=== PATIENT | female | born 1955 | race Caucasian/White ===

== ENCOUNTER 2018-04-28 01:27 | Outpatient (CLI) | payer MEDICAID, SELFPAY ==
[2018-04-28 14:45] LABS: ALT 15 U/L (12-78); AST 13 U/L (15-37); Albumin 3.8 g/dL (3.4-5.0); Alkaline Phosphatase 85 U/L (46-116); Anion Gap 8.4 mmol/L (3-11); BUN 22 mg/dL (7-18); Bilirubin, Total 0.5 mg/dL (0.2-1.0); CO2 29.6 mmol/L (21.0-32.0); CREATININE 0.89 mg/dL (0.55-1.02); Calcium 9.4 mg/dL (8.5-10.1); Chloride 105 mmol/L (98-107); Cholesterol 180 mg/dL (50-200); Glucose 94 mg/dL (70-100); HDL Cholesterol 77 mg/dL (40-60); LDL CHOLESTEROL 76 mg/dL (<100); Potassium 4.6 mmol/L (3.5-5.1); Sodium 143 mmol/L (136-145); Total Protein 6.9 g/dL (6.4-8.2); Triglyceride 113 mg/dL (30-150)
== END 2018-04-28 01:47 ==
DX: E03.9 Hypothyroidism, unspecified (principal); E87.6 Hypokalemia; F32.9 Major depressive disorder, single episode, unspecified; I10 Essential (primary) hypertension; Z13.220 Encounter for screening for lipoid disorders; Z00.00 Encounter for general adult medical examination without abnormal findings; Z86.39 Personal history of other endocrine, nutritional and metabolic disease
CPT/HCPCS: 36415; 80053; 80061; 83721

== ENCOUNTER 2018-12-01 16:34 | Observation (INO) | payer MEDICARE, MEDICAID, SELFPAY ==
[2018-12-01 16:39] VITALS: BP 162/110; PULSE 82; RESP 18; TEMP 36.5; O2SAT 98
--- NOTE | 2018-12-01 16:46 | NUR.NOTE ---
Nursing Note: Pt unable to confirm medications, states she has been taking all prescribed meds.
--- NOTE | 2018-12-01 17:25 | NUR.NOTE ---
Nursing Note: was in patients room to wand her body to ensure there were no dangerous objects in her possessions or anywhere on her person. Patient requested to stay in her street clothes because she already has a hard time getting around.
--- NOTE | 2018-12-01 17:26 | W.ED.GENAD ---
Discharge Plan Disposition Patient Disposition: [facility] INPATIENT Condition: Stable Discharge Details Chief Complaint: PsychEval Clinical Impression: Depression with suicidal ideation Admit Date/Time: 12/01/18 22:19 Admit Provider: Adriel Herrera Attending Provider: Adriel Herrera Primary Care Provider: Genesis Mitchell ED Provider: Sonido Hernandez Medical Decision Making Patient presenting to the emergency department for chief complaint of severe depression and suicidal thoughts. Patient states that she has had ongoing depression for years now and recently had her Prozac increased within the last month. Over the last 3 days she is noted to have significant increase in depressive thoughts and feelings, states that she does not want to go on anymore, and having thoughts of suicide without plan. Patient denies any medical complaints. Physical exam is unremarkable. Plan to do screening labs and consult acute psych screener for screening for possible need of admission given worsening depression and suicidal thoughts. Labs are reviewed and CBC is unremarkable, CMP unremarkable, negative alcohol and no elevation of salicylate or acetaminophen. Patient medically clear for psych eval. After medical evaluation patient is agreeable to voluntary admission for inpatient psych services which I feel she would benefit from given worsening of symptoms acutely along with now having suicidal ideations which is not her norm. Due to patient not having acceptance and approaching evening I did contact Dr. Herrera hospitalist for inpatient admission pending psychiatric bed availability. Patient was agreeable to this plan. HPI General Mode of arrival: ambulatory. Date/Time Provider Initiated Documentation: 12/01/18 16:43. Limitations to Documentation: no limitations. Information obtained by: patient, RN notes reviewed and old records reviewed. History of Present Illness 63 year old F presents to the emergency department with the chief complaint of Severe depression, suicidal thoughts, Quality is described as other (Denies pain or medical complaints), Patient started experiencing this day(s) (3) Patient notes no other symptoms.. Patient did receive the following treatments prior to arrival, none Related Data Home Medications Medication Instructions Recorded Confirmed lancets [FreeStyle Lancets] #100 ea 02/11/15 11/30/18 FreeStyle Lite Strips #100 strip 09/10/16 11/30/18 lamotrigine 25 mg tablet 50 mg PO BID tab 11/25/17 11/30/18 ondansetron 4 mg oral soluble film 4 mg PO Q4H PRN each 11/25/17 11/30/18 acetaminophen-caffeine 500 mg-65 2 tab PO Q6H PRN #90 tab 05/01/18 11/30/18 mg tablet allopurinol 300 mg tablet 300 mg PO DAILY #30 tab 05/01/18 11/30/18 brexpiprazole 3 mg tablet 3 mg PO DAILY 05/01/18 11/30/18 cholecalciferol (vitamin D3) 1,000 1,000 unit PO DAILY #30 cap 05/01/18 11/30/18 unit capsule pantoprazole 40 mg tablet,delayed 40 mg PO DAILY #30 tab 05/01/18 11/30/18 release simvastatin 40 mg tablet 40 mg PO QPM #30 tab 05/01/18 11/30/18 diazepam 5 mg tablet 5 mg PO TID tab 11/30/18 11/30/18 fluoxetine 20 mg capsule 30 mg PO DAILY cap 11/30/18 11/30/18 halobetasol propionate 0.05 % 1 applic TP BID #50 gm 11/30/18 11/30/18 topical ointment nystatin 100,000 unit/gram topical 1 applic TP TID 11/30/18 11/30/18 powder Previous Rx's Medication Instructions Recorded acetaminophen-caffeine 500 mg-65 2 tab PO Q6H PRN #90 tab 05/01/18 mg tablet allopurinol 300 mg tablet 300 mg PO DAILY #30 tab 05/01/18 cholecalciferol (vitamin D3) 1,000 1,000 unit PO DAILY #30 cap 05/01/18 unit capsule pantoprazole 40 mg tablet,delayed 40 mg PO DAILY #30 tab 05/01/18 release simvastatin 40 mg tablet 40 mg PO QPM #30 tab 05/01/18 halobetasol propionate 0.05 % 1 applic TP BID #50 gm 11/30/18 topical ointment Allergies Allergy/AdvReac Type Severity Reaction Status Date / Time codeine AdvReac Intermediate NAUSEA/DIZZ Verified 12/01/18 16:46 INESS General Stated Complaint: PsychEval JAMILA: 2 Review of Systems Constitutional Constitutional: Denies body ache(s), Denies chills and Denies fever(s) Cardiovascular Cardiovascular: Denies chest pain and Denies dyspnea Respiratory Respiratory: Denies cough and Denies dyspnea Gastrointestinal Gastrointestinal: Denies abdominal pain, Denies diarrhea, Denies nausea and Denies vomiting Genitourinary Genitourinary: Denies dysuria Psychiatric Psychiatric: Reports as per HPI, Reports depression, Denies homicidal ideation and Reports suicidal ideation [facility] Medical History Acute gout of right ankle (Acute 12/06/14) Depressive disorder (Chronic) bipolar 02/25-[facility] Diabetes mellitus (Chronic 09/10/14) Gallstones Gastritis presumed (improved symptoms on omeprazole) Headache (Acute) secondary to scoliosis & neck muscle spasm Hernia of abdominal wall Hyperlipidemia (Chronic 08/17/12) Hypokalemia (Acute 09/06/17) Hypomagnesemia (Acute 09/15/12) Idiopathic scoliosis (Acute) w/ Chronic LBP; surgery-1969,1971, 1990, 1995, 1997 ([facility]) Increased BMI (body mass index) (Chronic 03/28/17) Neck pain (Acute) w/ muscle spasm, secondary to scoliosis Pain in wrist (Acute 02/17/06) left; [place] [facility] [place] Psoriasis (Acute 04/16/13) Right shoulder pain (Acute 09/10/14) Right upper quadrant abdominal tenderness (Acute 09/06/17) Right upper quadrant abdominal tenderness with rebound tenderness (Acute 09/06/17) Sensorineural hearing loss, bilateral (Chronic 10/13/15) Systolic murmur (Acute) Tubular adenoma (Acute 08/09/16) Vitamin D deficiency (Acute 08/17/12) Surgical History Colonoscopy - IV Sedation (08/09/16) Hysterectomy, Laproscopic Family History Mother No problems noted. Father No problems noted. Sister No problems noted. Sister No problems noted. Sister No problems noted. Brother No problems noted. Grandfather No problems noted. Grandfather No problems noted. Grandmother Personal history of malignant neoplasm BREAST Grandmother No problems noted. Son No problems noted. Son No problems noted. Son Mental disorder Depression Social History Smoking/Tobacco Use Status: Never Alcohol Intake: current Alcohol Intake frequency: a few times a month Drug use: Never Substance use type: does not use Do you feel safe at home: Yes Do you feel safe in your relationship?: Yes Exam Const General: cooperative Orientation: alert, awake and oriented x3 Limitations: mental status not altered [facility] Head: normal to inspection, normocephalic and atraumatic Ears: hearing grossly normal bilaterally Mouth: moist mucous membranes Eyes General: appearance normal, both eyes and all related structures Pupils: PERRL EOM: EOM intact bilaterally Neck Thyroid: thyroid normal Resp Effort & Inspection: normal respiratory effort, able to speak in complete sentences and no respiratory distress Auscultation: clear to auscultation bilaterally Cardio Rate: regular rate and not tachycardic Rhythm: regular rhythm Heart Sounds: S1 normal, S2 normal, no click, no gallops, no murmurs and no rubs Neuro General: alert, awake, oriented x3, gait normal and moves all extremities Psych Speech and Movement: speech and movement normal and speech clear Affect: sad Attitude: cooperative Thought Process: normal Thought Content: no hallucinations, no homicidality, no obsessions, no phobias and suicidality (Without plan) Course Vital Signs Vital signs: Vital Signs Temperature 36.5 C 12/01/18 16:39 Pulse 82 12/01/18 16:39 Respiratory Rate 18 12/01/18 16:39 Blood Pressure 162/110 H 12/01/18 16:39 Pulse Oximetry 98 12/01/18 16:39 Temperature 36.5 C 12/01/18 16:39 Temperature Source Tympanic 12/01/18 16:39 Pulse 82 12/01/18 16:39 Respiratory Rate 18 12/01/18 16:39 Respiratory Effort Non-Labored 12/01/18 16:45 Blood Pressure 162/110 H 12/01/18 16:39 Blood Pressure Position Sitting 12/01/18 16:39 Pulse Oximetry 98 12/01/18 16:39 Oxygen Delivery Method Room Air 12/01/18 16:39 Oxygen Flow Rate 0 12/01/18 16:39 Pain Level 0 12/01/18 16:39
[2018-12-01 17:33] LABS: Abs Immature Grans 0.01 k/cumm (0.0-0.09); Absolute Basophil Count 0.03 k/cumm (0.0-0.2); Absolute Eosinophil Count 0.11 k/cumm (0.0-0.7); Absolute Lymphocyte Count 1.46 k/cumm (1.2-3.4); Absolute Monocyte Count 0.48 k/cumm (0.11-0.7); Absolute Neutrophil Count 5.58 k/cumm (1.2-6.7); Basophils % 0.4; Eosinophils % 1.4; HCT 37.2 % (36.0-46.0); HGB 12.3 g/dL (12.0-15.5); Immature Grans % 0.1; Mean Corp. HGB Concentration 33.1 g/dL (32.0-36.0); Mean Corpuscular Hemoglobin 30.8 pg (27.0-33.0); Mean Corpuscular Volume 93.2 fL (80-95); Mean Platelet Volume 9.6 fL (8.0-11.0); Monocytes % 6.3; Neutrophils % 72.8; Platelet Count 264 x1000/uL (130-400); RBC 3.99 m/cumm (4.00-5.20); RBC Distribution Width 13.3 % (11.7-14.6); White Blood Cell Count 7.67 k/cumm (4.4-10.8)
[2018-12-01 17:53] LABS: ALT 17 U/L (14-59); AST 14 U/L (15-37); Albumin 4.3 g/dL (3.4-5.0); Alkaline Phosphatase 83 U/L (46-116); Anion Gap 9.9 mmol/L (3-11); BUN 15 mg/dL (7-18); Bilirubin, Total 0.7 mg/dL (0.2-1.0); CO2 28.1 mmol/L (21.0-32.0); CREATININE 1.01 mg/dL (0.55-1.02); Calcium 9.6 mg/dL (8.5-10.1); Chloride 105 mmol/L (98-107); Estimated GFR 55.01 (mL/min/1.73m2); Glucose 111 mg/dL (70-100); Potassium 4.1 mmol/L (3.5-5.1); Sodium 143 mmol/L (136-145); TSH 2.34 uIU/mL (0.36-3.74); Total Protein 7.8 g/dL (6.4-8.2)
--- NOTE | 2018-12-01 18:10 | NUR.NOTE ---
Addendum entered by Erinn Gabriel 12/01/18 18:11: son has returned now. right after note was complete. Original Note: Nursing Note: Patient is in with mental health currently. Son and friend have left the room currently
[2018-12-01 18:12] LABS: ETHANOL BLOOD < 3.0 mg/dL (<3); Salicylate < 2.8 mg/dL (2.8-20.0)
[2018-12-01 18:13] LABS: Acetaminophen < 2 ug/mL (10-30)
--- NOTE | 2018-12-01 18:46 | PDOC.ERCMPRO ---
Care Management Progress Note S/O: Jackelin lives alone at her apartment in [place]. 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 States she has been feeling depressed. Recently learned she is losing some of her benefits because she has too much money in the bank. Has been thinking of suicide. Met with her Psychiatrist this week and medications were increased but she does not feel that was helpful. She does not have an actual plan but does not feel safe to return home. Requesting inpatient psychiatric admission to get help with medication management for her depression. FriendKiah, and one of her sons are here and very supportive. VOLUNTARY FOR INPATIENT PSYCHIATRIC STABILIZATION. Jackelin has been calm, cooperative and appropriate in all interactions since arriving at [facility]; she has demonstrated appropriate coping and communication skills, has articulated her needs and concerns and is fully engaged during staff interactions. Huddle Participants: Juan [facility] Sales Order Coordinator, Keiko, Behavioral Consultant, SUSHILA Klein Time and Date: 12/01/18 19:30 Safety plan has been established with patient, and care team, to adhere to patient goals, identify restrictions based on behavioral status, address nutrition, and determine allowed personal belongings, tools for hygiene and personal care. Determine level of activity including ambulation, level of supervision, visitors, and determine privileges based on behaviors and level of engagement by pt. SAFETY PLAN: ED Room #9 WB 12/01/181929 1. Will remain on suicide precautions and has refused to change into paper scrubs. Has been wanded and will remain in her clothes. 2. Will remain in room under direct supervision of one-on-one staff at all times provided by CPSO, DRE, HOOP ROLLS OPERATOR pricing supervisor. 3. May have paper cups, plates, finger foods as well as a safety spoon with which to eat meals. 4. Follow [facility] Management of the Admitted Behavioral Health Patient policy. 5. Comfort bath system only. 6. No personal belongings other than her clothes and phone in her room tonight. 7. May use phone. Charge outside of the room. 8. FriendKiah and sons may visit. 9. Staff escort to bathroom 10. Nursing Social Media Content Specialist to coordinate any decision for change in location to the M/S Transition Bed based on staffing and bed availability. TV Privileges/Remote privileges at discretion of Nursing if moved to the Transition Bed. 11. Voluntary Status. [facility] Sales Order Coordinator must be contacted to evaluate again if she would like to leave prior to exiting ` the building. [facility] QMHP/Sales Order Coordinator will be coordinating placement at inpatient facility, last updates included the following: [place] [facility] [facility] or tomorrow. Referrals have been made. Patient is currently voluntarily at [facility] and seeking inpatient admission when a bed becomes available. [facility] Frontline Sales Order Coordinator will continue seeking placement. Please contact the Babcock Tester Home Care Manager Rn ([phone]) and [facility] Sales Order Coordinator ([phone]) for any needed changes in the Safety Plan. Safety plan has been provided to interdepartmental care team including Clinical Coordinator , Nursing Social Media Content Specialist.
--- NOTE | 2018-12-01 18:50 | PDOC.MHCN_ITS ---
Date of service: 12/01/18 Time of Service: 18:00 Mental Health Crisis Note Presenting Issue How did you arrive at the ED and why did you come: Patient arrived at the ED due to suicidal feelings. Precipitating Factors Patient stated that she doesn't feel like she wants to go on anymore. Patient shared that she has been feeling depressed that past few days. Patient spoke with her psychiatrist and inquired about changing medication as feelings of SI increased, patients medication was increased rather than changed and patient feels that was not helpful. Patient denies HI and hallucinations. Disposition BEHAVIOR: cooperative EYE CONTACT: good MOOD: depressed AFFECT: flat APPETITE: not eating, Patient stated that she has not eaten or drank all day SLEEP(trouble falling/staying asleep: not sleeping Plan Patient agreed to go to a psychiatric hospital for medication management to decrease her depression. Referrals have been sent to [facility], [place], and [facility] for review as all three places have beds. Patient will remaine at [facility] awaiting placement. Signature Clinician's Name/Title: Juan Caban Emergency clinician
--- NOTE | 2018-12-01 19:45 | CMSP_ITS ---
Care Management Safety Plan Safety plan has been established with patient, and care team, to adhere to patient goals, identify restrictions based on behavioral status, address nutrition, and determine allowed personal belongings, tools for hygiene and personal care. Determine level of activity including ambulation, level of supervision, visitors, and determine privileges based on behaviors and level of engagement by pt. SAFETY PLAN: ED Room #9 12/01/18 1930 1. Will remain on suicide precautions and has refused to change into paper scrubs. Has been wanded and will remain in her clothes. 2. Will remain in room under direct supervision of one-on-one staff at all times provided by CPSO, DRE, ACTIVITIES CONCIERGE dictaphone operator. 3. May have paper cups, plates, finger foods as well as a safety spoon with which to eat meals. 4. Follow [facility] Management of the Admitted Behavioral Health Patient policy. 5. Comfort bath system only. 6. No personal belongings other than her clothes and phone in her room tonight. 7. May use phone. Charge outside of the room. 8. Friend, Kiah Sampson and sons may visit. 9. Staff escort to bathroom 10. Nursing Twisting Frame Fixer to coordinate any decision for change in location to the M/S Transition Bed based on staffing and bed availability. TV Privileges/Remote privileges at discretion of Nursing if moved to the Transition Bed. 11. Voluntary Status. [facility] Desktop Specialist must be contacted to evaluate again if she would like to leave prior to exiting ` the building. [facility] QMHP/Desktop Specialist will be coordinating placement at inpatient facility, last updates included the following: * Beds may be available at [facility], [place] and [facility] or tomorrow. Referrals have been made. Patient is currently voluntarily at [facility] and seeking inpatient admission when a bed becomes available. [facility] Frontline Desktop Specialist will continue seeking pl acement. Please contact the Forensic Dna Analyst Drafter Refrigeration ([phone]) and [facility] Desktop Specialist ([phone]) for any needed changes in the Safety Plan. Safety plan has been provided to interdepartmental care team including Clinical Coordinator , Nursing Twisting Frame Fixer.
--- NOTE | 2018-12-01 19:45 | PDOC.CMSAFED ---
Care Management Safety Plan Safety plan has been established with patient, and care team, to adhere to patient goals, identify restrictions based on behavioral status, address nutrition, and determine allowed personal belongings, tools for hygiene and personal care. Determine level of activity including ambulation, level of supervision, visitors, and determine privileges based on behaviors and level of engagement by pt. SAFETY PLAN: ED Room #9 12/01/18 1930 1. Will remain on suicide precautions and has refused to change into paper scrubs. Has been wanded and will remain in her clothes. 2. Will remain in room under direct supervision of one-on-one staff at all times provided by CPSO, DRE, SEED POTATO ARRANGER assistant county attorney. 3. May have paper cups, plates, finger foods as well as a safety spoon with which to eat meals. 4. Follow [facility] Management of the Admitted Behavioral Health Patient policy. 5. Comfort bath system only. 6. No personal belongings other than her clothes and phone in her room tonight. 7. May use phone. Charge outside of the room. 8. Friend, Kiah Sampson and sons may visit. 9. Staff escort to bathroom 10. Nursing Esters And Emulsifiers Supervisor to coordinate any decision for change in location to the M/S Transition Bed based on staffing and bed availability. TV Privileges/Remote privileges at discretion of Nursing if moved to the Transition Bed. 11. Voluntary Status. [facility] Director Digital Sales must be contacted to evaluate again if she would like to leave prior to exiting ` the building. [facility] QMHP/Director Digital Sales will be coordinating placement at inpatient facility, last updates included the following: B[facility] [place] be available at [facility] [facility] [place] [facility]. Referrals have been made. Patient is currently voluntarily at [facility] and seeking inpatient admission when a bed becomes available. [facility] Frontline Director Digital Sales will continue seeking placement. Please contact the Telemedicine Physician Director Of Broadcast ([phone]) and [facility] Director Digital Sales ([phone]) for any needed changes in the Safety Plan. Safety plan has been provided to interdepartmental care team including Clinical Coordinator , Nursing Esters And Emulsifiers Supervisor.
[2018-12-01 20:19] LABS: Bilirubin Negative (Negative); Blood Negative (Negative); Clarity Clear (Clear); Glucose Negative (Negative); Ketones Negative (Negative); Leukocyte Esterase Trace (Negative); Nitrite Negative (Negative); Specific Gravity 1.015 (1.005-1.025); Urobilinogen 0.2 EU/dL (Up TO 0.2); pH 5.5 (5-8)
[2018-12-01 20:28] LABS: *AMPHETAMINES SCREEN URINE Negative (Negative); *BARBITURATES SCREEN URINE Negative (Negative); *BENZODIAZEPINES SCREEN URINE POSITIVE (Negative); Cannabinoids THC Negative (Negative); Cocaine Screen,Urine Negative (Negative); METHADONE URINE SCREEN Negative (Negative); OPIATES URINE SCREEN Negative (Negative)
[2018-12-01 20:30] LABS: Bacteria Rare HPF (Negative); C & S Indicated? Yes; Casts 3-5 Hyaline LPF (Negative); Crystals Negative HPF (Negative); Epithelial Cells Few HPF (Negative); Mucus Negative (Negative); RBC 0-2 (0-2); Tricyclic Antidepressants Negative (Negative)
--- NOTE | 2018-12-01 22:11 | HPE_ITS ---
Date of service: 12/01/18 Time of Service: 22:11 Assessment and Plan Assessment and plan (1) Depression: Status: Chronic Assessment and plan: Depression. Will maintain on current regimen pending transfer to psych facility. Will maintain on suicide precautions. Usual meds as is otherwise. Will recheck BP as most recent was elevated. History of Present Illness History of Present Illness Chief Complaint: depression Narrative: 63 female with long h/o depression. Reports escalating symptoms past few weeks. Prozac was increased, but without benefit. Here tonight feeling she cannot go on. Suicidal thoughts, no plan. medically cleared, agreeable to voluntary psychiatric adm ission, no beds accepted so admitted here pending availability. Review of Systems Review of Systems ROS Unobtainable: All systems reviewed & are unremarkable except as noted in HPI and below [facility] Medical History Acute gout of right ankle (Acute 12/06/14) Depressive disorder (Chronic) bipolar 02/25-[facility] Diabetes mellitus (Chronic 09/10/14) Gallstones Gastritis presumed (improved symptoms on omeprazole) Headache (Acute) secondary to scoliosis & neck muscle spasm Hernia of abdominal wall Hyperlipidemia (Chronic 08/17/12) Hypokalemia (Acute 09/06/17) Hypomagnesemia (Acute 09/15/12) Idiopathic scoliosis (Acute) w/ Chronic LBP; surgery-1969,1971, 1990, 1995, 1997 ([facility]) Increased BMI (body mass index) (Chronic 03/28/17) Neck pain (Acute) w/ muscle spasm, secondary to scoliosis Pain in wrist (Acute 02/17/06) left; MRI [facility] [place] Psoriasis (Acute 04/16/13) Right shoulder pain (Acute 09/10/14) Right upper quadrant abdominal tenderness (Acute 09/06/17) Right upper quadrant abdominal tenderness with rebound tenderness (Acute 09/06/17) Sensorineural hearing loss, bilateral (Chronic 10/13/15) Systolic murmur (Acute) Tubular adenoma (Acute 08/09/16) Vitamin D deficiency (Acute 08/17/12) Surgical History Colonoscopy - IV Sedation (08/09/16) Hysterectomy, Laproscopic Family History Mother No problems noted. Father No problems noted. Sister No problems noted. Sister No problems noted. Sister No problems noted. Brother No problems noted. Grandfather No problems noted. Grandfather No problems noted. Grandmother Personal history of malignant neoplasm BREAST Grandmother No problems noted. Son No problems noted. Son No problems noted. Son Mental disorder Depression Social History Smoking/Tobacco Use Status: Never Alcohol Intake: current Alcohol Intake frequency: a few times a month Drug use: Never Substance use type: does not use Do you feel safe at home: Yes Do you feel safe in your relationship?: Yes Meds Home Medications and Allergies Home Medications Medication Instructions Recorded Confirmed Type lancets [FreeStyle Lancets] #100 ea 02/11/15 11/30/18 History FreeStyle Lite Strips #100 strip 09/10/16 11/30/18 History lamotrigine 25 mg tablet 50 mg PO BID tab 11/25/17 11/30/18 History ondansetron 4 mg oral soluble film 4 mg PO Q4H PRN each 11/25/17 11/30/18 History acetaminophen-caffeine 500 mg-65 2 tab PO Q6H PRN #90 tab 05/01/18 11/30/18 Rx mg tablet allopurinol 300 mg tablet 300 mg PO DAILY #30 tab 05/01/18 11/30/18 Rx brexpiprazole 3 mg tablet 3 mg PO DAILY 05/01/18 11/30/18 History cholecalciferol (vitamin D3) 1,000 1,000 unit PO DAILY #30 cap 05/01/18 11/30/18 Rx unit capsule pantoprazole 40 mg tablet,delayed 40 mg PO DAILY #30 tab 05/01/18 11/30/18 Rx release simvastatin 40 mg tablet 40 mg PO QPM #30 tab 05/01/18 11/30/18 Rx diazepam 5 mg tablet 5 mg PO TID tab 11/30/18 11/30/18 History fluoxetine 20 mg capsule 30 mg PO DAILY cap 11/30/18 11/30/18 History halobetasol propionate 0.05 % 1 applic TP BID #50 gm 11/30/18 11/30/18 Rx topical ointment nystatin 100,000 unit/gram topical 1 applic TP TID 11/30/18 11/30/18 History powder Allergies Allergy/AdvReac Type Severity Reaction Status Date / Time codeine AdvReac Intermediate NAUSEA/DIZZ Verified 12/01/18 16:46 INESS Exam Narrative Exam Narrative: 36.5 162/110 (prior BP 112-152/60-89), 82, 18. HEENT atraumatic; neck supple; lungs clear; heart RRR; abdomen soft NT; extremities no edema; neuro flat affect, coherent, moves all 4s Results Labs Result diagrams: 12/01/18 17:22 12/01/18 17:22 Labs: Laboratory Results - last 24 hr 12/01/18 12/01/18 12/01/18 17:22 17:22 17:22 WBC 7.67 RBC 3.99 L Hgb 12.3 Hct 37.2 MCV 93.2 MCH 30.8 MCHC 33.1 RDW 13.3 Plt Count 264 MPV 9.6 Immature Gran % 0.1 Neutrophils % 72.8 Lymphocytes % 19.0 Monocytes % 6.3 Eosinophils % 1.4 Basophils % 0.4 Absolute Neutrophils 5.58 Absolute Lymphocytes 1.46 Absolute Monocytes 0.48 Absolute Eosinophils 0.11 Absolute Basophils 0.03 Sodium 143 Potassium 4.1 Chloride 105 Carbon Dioxide 28.1 Anion Gap 9.9 BUN 15 Creatinine 1.01 Estimated GFR/1.73 m2 55.01 Glucose 111 H Calcium 9.6 Total Bilirubin 0.7 AST 14 L ALT 17 Alkaline Phosphatase 83 Total Protein 7.8 Albumin 4.3 TSH 2.34 Urine Color Urine Clarity Urine pH Ur Specific [place] Urine Protein Urine Ketones Urine Blood Urine Nitrite Urine Bilirubin Urine Urobilinogen Ur Leukocyte Esterase Urine RBC Urine WBC Ur Epithelial Cells Urine Crystals Urine Bacteria Urine Casts Urine Mucus Ur Culture Indicated? Urine Glucose Salicylates < 2.8 L Urine Opiates Screen Urine Methadone Screen Acetaminophen < 2 L Ur Barbiturates Screen Ur Tricyclics Screen Ur Amphetamines Screen U Benzodiazepines Scrn Urine Cocaine Screen Ur THC Screen Ethyl Alcohol < 3.0 12/01/18 12/01/18 20:10 20:10 WBC RBC Hgb Hct MCV MCH MCHC RDW Plt Count MPV Immature Gran % Neutrophils % Lymphocytes % Monocytes % Eosinophils % Basophils % Absolute Neutrophils Absolute Lymphocytes Absolute Monocytes Absolute Eosinophils Absolute Basophils Sodium Potassium Chloride Carbon Dioxide Anion Gap BUN Creatinine Estimated GFR/1.73 m2 Glucose Calcium Total Bilirubin AST ALT Alkaline Phosphatase Total Protein Albumin TSH Urine Color Yellow Urine Clarity Clear Urine pH 5.5 Ur Specific [place] 1.015 Urine Protein Negative Urine Ketones Negative Urine Blood Negative Urine Nitrite Negative Urine Bilirubin Negative Urine Urobilinogen 0.2 Ur Leukocyte Esterase Trace H Urine RBC 0-2 Urine WBC 10-20 Ur Epithelial Cells Few Urine Crystals Negative Urine Bacteria Rare Urine Casts 3-5 hyaline Urine Mucus Negative Ur Culture Indicated? Yes Urine Glucose Negative Salicylates Urine Opiates Screen Negative Urine Methadone Screen Negative Acetaminophen Ur Barbiturates Screen Negative Ur Tricyclics Screen Negative Ur Amphetamines Screen Negative U Benzodiazepines Scrn Positive Urine Cocaine Screen Negative Ur THC Screen Negative Ethyl Alcohol Last Vital Signs Temp 36.5 C 12/01/18 16:39 Pulse 82 12/01/18 16:39 Resp 18 12/01/18 16:39 BP 162/110 H 12/01/18 16:39 Pulse Ox 98 12/01/18 16:39
[2018-12-01] MEDS: Acetaminophen 325 MG TAB 650 MG PO (23:30)
[2018-12-01 23:44] VITALS: BP 150/91; PULSE 77; RESP 16; TEMP 36.7; O2SAT 95
--- NOTE | 2018-12-02 07:56 | PHARADMIT ---
Admission Pharmacy Clinical Review DEPRESSION Code Status Full Code Current Weight WGT- 83.9kg Renally Cleared and Narrow Therapeutic Index Meds CrCl~39.8 mL/min Meds-OK QTc Value / Action Taken NONE CURRENT BP Control, Fever BP- 150/91 TmAX-36.7C Electrolytes reviewed Na-143 K+4.1 DVT Prophylaxis none Opiate Usage / Scheduled Bowel Regimen Ordered No No Plt/SCr for Heparin / Enoxaparin Plts-264 SCr-1.01 INR for Warfarin MA H/H stable, WBC/Bands H&H- 12.3/37.2 WBC- 7.67 Antibiotic appropriateness none Cultures and Sensitivities Urine-pending Surgical ABX d/c within 24 hr NA DM control / Insulin Dosing BG-111 Heart Failure (Check EF%) (MOISÉS's, B-Block, Diuretics) none IV to PO Switch No Home Meds Reviewed Yes Home Meds Not Ordered Vit-D, Halobetasol Crm, Nystatin, Comments Manasa Chau
[2018-12-02] MEDS: diazePAM 5 MG TAB PO ×2 (08:25→13:53)
[2018-12-02] MEDS: Allopurinol 300 MG TAB PO (08:26)
[2018-12-02] MEDS: FLUoxetine 10 MG TAB 30 MG PO (08:26)
[2018-12-02] MEDS: Pantoprazole 40 MG TABCR PO (08:26)
[2018-12-02] MEDS: lamoTRIgine 25 MG TAB 50 MG PO (08:27)
[2018-12-02 08:55] VITALS: BP 100/64; PULSE 58; RESP 17; TEMP 36.6; O2SAT 95
--- NOTE | 2018-12-02 12:01 | DSE_ITS ---
DS: Diagnosis Discharge Diagnosis (1) Depression: Start date: 12/02/18 Start time: 12:01 Status: Chronic Asessment and Plan: Transferred to [facility] Discharge Plan Disposition Patient Disposition: [facility] Condition: Stable Discharge Details Chief Complaint: PsychEval Clinical Impression: Depression with suicidal ideation Reason For Visit: DEPRESSION Admit Date/Time: 12/01/18 22:19 Admit Provider: Adriel Herrera Attending Provider: Adriel Herrera Primary Care Provider: Genesis Mitchell [facility] Course: 63 y.o female admitted from [facility] Emergency department with SI, PMH depression. Recently Prozac was increased without benefit. She was having thoughts of Suicide with no intention. She has been medically cleared and is being transferred to [facility] for inpatient admission. She denies CP, SOB, N/V/D. Home Meds and New Rx's Prescriptions: Continued lamotrigine 25 mg tablet 50 mg PO BID RF: 0 ondansetron 4 mg film 4 mg PO Q4H PRNRF: 0 fluoxetine [Prozac] 20 mg capsule 30 mg PO DAILY RF: 0 nystatin 100,000 unit/gram powder 1 applic TP TID RF: 0 Rexulti 3 mg tablet 3 mg PO DAILY RF: 0 allopurinol 300 mg tablet 300 mg PO DAILY Qty: 30 RF: 11 cholecalciferol (vitamin D3) 1,000 unit capsule 1,000 unit PO DAILY Qty: 30 RF: 11 pantoprazole 40 mg tablet,delayed release (DR/EC) 40 mg PO DAILY Qty: 30 RF: 11 simvastatin 40 mg tablet 40 mg PO QPM Qty: 30 RF: 11 Excedrin Tension Headache 500-65 mg tablet 2 tab PO Q6H PRN (Reason: pain) Qty: 90 RF: 6 diazepam 5 mg tablet 5 mg PO TID RF: 0 halobetasol propionate 0.05 % ointment 1 applic TP BID Qty: 50 RF: 1 No Action (DME) lancets [FreeStyle Lancets] 1 EACH misc 1 ea Intradermal BID Qty: 100 RF: 11 (DME) FreeStyle Lite Strips 1 EACH strip 1 ea Miscellaneous BID Qty: 100 RF: 11 Discharge Instructions Instructions: Depression (GEN), Suicide Prevention for Older Adults (GEN) Additional Instructions: You are being transferred to [facility] for voluntary admission. Activity:: Activity as Tolerated Equipment/Supplies:: No Equipment Needed Diet:: As Tolerated Discharge Orders Discharge Orders: Discharge Order (Routine); Ordered 12/02/18 Ordered By: Lali Young DS: Summary Status at Discharge Functional status at discharge: independent ambulation Overall status at discharge: patient is not back to baseline Mental Status: mental status grossly normal and other (depressed) Speech and Movement: speech and movement normal Mood: other (depressed) Affect: normal affect Exam Narrative Exam Narrative: 36.5 162/110 (prior BP 112-152/60-89), 82, 18. HEENT atraumatic; neck supple; lungs clear; heart RRR; abdomen soft NT; extremities no edema; neuro flat affect, coherent, moves all 4s Psych Mental Status: mental status grossly normal and other (depressed) Speech and Movement: speech and movement normal Mood: other (depressed) Affect: normal affect DS: Data Vitals/I&O Vitals and I&O: Vital Signs Temperature 36.6 C 12/02/18 08:55 Temperature Source Temporal Artery Scan 12/02/18 08:55 Pulse 58 L 12/02/18 08:55 Pulse Rhythm Regular 12/02/18 08:59 Respiratory Rate 17 12/02/18 08:55 Respiratory Effort Non-Labored 12/02/18 08:59 Respiratory Depth Normal 12/02/18 08:59 Respiratory Pattern Normal 12/02/18 08:59 Blood Pressure 100/64 12/02/18 08:55 Blood Pressure Position Sitting 12/01/18 16:39 Pulse Oximetry 95 12/02/18 08:55 Oxygen Delivery Method Room Air 12/02/18 08:55 Oxygen Flow Rate 0 12/02/18 08:55 Pain Level 10 12/02/18 08:55 Intake & Output 12/01/18 12/02/18 12/02/18 23:59 11:59 23:59 Intake Total 300 / 300 Balance 300 / 300 Weight 83.915 kg Intake: Oral 300 / 300 Other: Comment voiding in toilet Voiding Methods Toilet Data Completed and Pending Labs on day of discharge: Labs from last 24 hours 12/01/18 12/01/18 12/01/18 20:10 20:10 17:22 WBC 7.67 RBC 3.99 L Hgb 12.3 Hct 37.2 MCV 93.2 MCH 30.8 MCHC 33.1 RDW 13.3 Plt Count 264 MPV 9.6 Immature Gran % 0.1 Neutrophils % 72.8 Lymphocytes % 19.0 Monocytes % 6.3 Eosinophils % 1.4 Basophils % 0.4 Absolute Neutrophils 5.58 Absolute Lymphocytes 1.46 Absolute Monocytes 0.48 Absolute Eosinophils 0.11 Absolute Basophils 0.03 Sodium Potassium Chloride Carbon Dioxide Anion Gap BUN Creatinine Estimated GFR/1.73 m2 Glucose Calcium Total Bilirubin AST ALT Alkaline Phosphatase Total Protein Albumin TSH Urine Color Yellow Urine Clarity Clear Urine pH 5.5 Ur Specific [place] 1.015 Urine Protein Negative Urine Ketones Negative Urine Blood Negative Urine Nitrite Negative Urine Bilirubin Negative Urine Urobilinogen 0.2 Ur Leukocyte Esterase Trace H Urine RBC 0-2 Urine WBC 10-20 Ur Epithelial Cells Few Urine Crystals Negative Urine Bacteria Rare Urine Casts 3-5 hyaline Urine Mucus Negative Ur Culture Indicated? Yes Urine Glucose Negative Salicylates Urine Opiates Screen Negative Urine Methadone Screen Negative Acetaminophen Ur Barbiturates Screen Negative Ur Tricyclics Screen Negative Ur Amphetamines Screen Negative U Benzodiazepines Scrn Positive Urine Cocaine Screen Negative Ur THC Screen Negative Ethyl Alcohol 12/01/18 12/01/18 17:22 17:22 WBC RBC Hgb Hct MCV MCH MCHC RDW Plt Count MPV Immature Gran % Neutrophils % Lymphocytes % Monocytes % Eosinophils % Basophils % Absolute Neutrophils Absolute Lymphocytes Absolute Monocytes Absolute Eosinophils Absolute Basophils Sodium 143 Potassium 4.1 Chloride 105 Carbon Dioxide 28.1 Anion Gap 9.9 BUN 15 Creatinine 1.01 Estimated GFR/1.73 m2 55.01 Glucose 111 H Calcium 9.6 Total Bilirubin 0.7 AST 14 L ALT 17 Alkaline Phosphatase 83 Total Protein 7.8 Albumin 4.3 TSH 2.34 Urine Color Urine Clarity Urine pH Ur Specific [place] Urine Protein Urine Ketones Urine Blood Urine Nitrite Urine Bilirubin Urine Urobilinogen Ur Leukocyte Esterase Urine RBC Urine WBC Ur Epithelial Cells Urine Crystals Urine Bacteria Urine Casts Urine Mucus Ur Culture Indicated? Urine Glucose Salicylates < 2.8 L Urine Opiates Screen Urine Methadone Screen Acetaminophen < 2 L Ur Barbiturates Screen Ur Tricyclics Screen Ur Amphetamines Screen U Benzodiazepines Scrn Urine Cocaine Screen Ur THC Screen Ethyl Alcohol < 3.0 Preliminary micro results at discharge 12/01/18 20:10 Urine Culture - Preliminary Urine - Reflex from Ua Gram Positive Alyx PFSH Medical History Acute gout of right ankle (Acute 12/06/14) Depressive disorder (Chronic) bipolar 02/25-[facility] Diabetes mellitus (Chronic 09/10/14) Gallstones Gastritis presumed (improved symptoms on omeprazole) Headache (Acute) secondary to scoliosis & neck muscle spasm Hernia of abdominal wall Hyperlipidemia (Chronic 08/17/12) Hypokalemia (Acute 09/06/17) Hypomagnesemia (Acute 09/15/12) Idiopathic scoliosis (Acute) w/ Chronic LBP; surgery-1969,1971, 1990, 1995, 1997 ([facility]) Increased BMI (body mass index) (Chronic 03/28/17) Neck pain (Acute) w/ muscle spasm, secondary to scoliosis Pain in wrist (Acute 02/17/06) left; [place] [facility] [place] Psoriasis (Acute 04/16/13) Right shoulder pain (Acute 09/10/14) Right upper quadrant abdominal tenderness (Acute 09/06/17) Right upper quadrant abdominal tenderness with rebound tenderness (Acute 09/06/17) Sensorineural hearing loss, bilateral (Chronic 10/13/15) Systolic murmur (Acute) Tubular adenoma (Acute 08/09/16) Vitamin D deficiency (Acute 08/17/12) Surgical History Colonoscopy - IV Sedation (08/09/16) Hysterectomy, Laproscopic Family History Mother No problems noted. Father No problems noted. Sister No problems noted. Sister No problems noted. Sister No problems noted. Brother No problems noted. Grandfather No problems noted. Grandfather No problems noted. Grandmother Personal history of malignant neoplasm BREAST Grandmother No problems noted. Son No problems noted. Son No problems noted. Son Mental disorder Depression Social History Smoking/Tobacco Use Status: Never Alcohol Intake: current Alcohol Intake frequency: a few times a month Drug use: Never Substance use type: does not use Do you feel safe at home: Yes Do you feel safe in your relationship?: Yes
--- NOTE | 2018-12-02 17:26 | PDOC.CMDIS ---
LACE Index Scoring Tool - Questions: Length of Stay (in days): 1 Acuity (Admit via E.D.?): Yes Comorbidities: Diabetes w/o Complication E.D. Visits: 1 - Answers: Total Score: 6 Risk of Readmission: Low Risk Care Management Discharge Reason for Hospitalization: Depression Discharge Plan: Jackelin will transfer today to [facility] for inpatient Psychiatric admission for stabilization and medication management. Safe Transport has been arranged. She is in agreement with the plan. Patient/Family Education Needs: Discharge instructions
== END 2018-12-02 14:12 | disposition short-term general hospital (02) ==
LOC: ER 22:53 → MS 22:56
PROVIDERS: Admitting Provider General Practice; Emergency Provider Nurse Practitioner Family; Visit Provider Internal Medicine
DX: F32.9 Major depressive disorder, single episode, unspecified (principal); E11.9 Type 2 diabetes mellitus without complications; E78.5 Hyperlipidemia, unspecified
CPT/HCPCS: 36415; 80053; 80307; 99222; 99239; 99285; 80320; 80329; 81003; 81015; 84443; 85025; 87086; 99217; 99219; 99284; G0378

== ENCOUNTER 2019-03-24 21:22 | Emergency (ER) | payer MEDICARE, MEDICAID, SELFPAY ==
[2019-03-24] VITALS (17 sets, daily range): BP systolic 144–171; BP diastolic 83–94; PULSE 67–89; RESP 16–34; TEMP 36.7; O2SAT 94–100
--- NOTE | 2019-03-24 21:45 | NUR.NOTE ---
FATOUMATADylan HeadHarpal from home with c/o overdose. Pt reports she took 21 extra strength excedrin pills this evening for back pain. States she has severe back pain d/t scoliosis. Denies SI/HI. Took pills around dinner, vomited x 1 prior to arrival. Pt anxious, tachypneic, reports nausea. SR on monitor. Abd soft. Old bruising to upper thighs, pt unsure what they are from. #20 to RAC, labs drawn. Pt does not want son to know how many pills she took. Pt arrives with phone, keys and rolling walker/seat.
[2019-03-24 22:03] LABS: Abs Immature Grans 0.03 k/cumm (0.0-0.09); Absolute Basophil Count 0.03 k/cumm (0.0-0.2); Absolute Eosinophil Count 0.06 k/cumm (0.0-0.7); Absolute Lymphocyte Count 1.85 k/cumm (1.2-3.4); Absolute Monocyte Count 0.48 k/cumm (0.11-0.7); Absolute Neutrophil Count 6.01 k/cumm (1.2-6.7); Basophils % 0.4; Eosinophils % 0.7; HCT 37.6 % (36.0-46.0); HGB 12.4 g/dL (12.0-15.5); Immature Grans % 0.4 %; Lymphocytes % 21.9; Mean Corpuscular Hemoglobin 30.6 pg (27.0-33.0); Mean Corpuscular Volume 92.8 fL (80-95); Mean Platelet Volume 9.4 fL (8.0-11.0); Monocytes % 5.7; Neutrophils % 70.9; Platelet Count 318 x1000/uL (130-400); RBC 4.05 m/cumm (4.00-5.20); RBC Distribution Width 13.3 % (11.7-14.6); White Blood Cell Count 8.46 k/cumm (4.4-10.8)
[2019-03-24 22:06] LABS: PTT Activated 23.2 sec (21.0-31.4); Prothrombin Time 9.9 sec (9.3-11.0)
[2019-03-24 22:12] LABS: ALT 11 U/L (14-59); AST 14 U/L (15-37); Alkaline Phosphatase 92 U/L (46-116); Anion Gap 15.3 mmol/L (3-11); BUN 14 mg/dL (7-18); Bilirubin, Total 0.2 mg/dL (0.2-1.0); CO2 26.7 mmol/L (21.0-32.0); CREATININE 0.98 mg/dL (0.55-1.02); Calcium 9.4 mg/dL (8.5-10.1); Chloride 103 mmol/L (98-107); Estimated GFR 56.96 (mL/min/1.73m2); Glucose 166 mg/dL (74-106); Potassium 3.8 mmol/L (3.5-5.1); Sodium 145 mmol/L (136-145); Total Protein 7.8 g/dL (6.4-8.2)
[2019-03-24 22:19] LABS: Lipase 198 U/L (73-393)
[2019-03-24 22:23] LABS: Acetaminophen 56 ug/mL (10-30); Salicylate 26.7 mg/dL (2.8-20.0)
--- NOTE | 2019-03-24 22:48 | NUR.NOTE ---
up to commode unable to give urine spec. +BM. Pt aware of need for urine spec.
--- NOTE | 2019-03-24 23:12 | NUR.NOTE ---
up to commode with 1 assist for large BM.
--- NOTE | 2019-03-24 23:28 | ED.GENADUL_ITS ---
Discharge Plan Disposition Patient Disposition: HOME Condition: Good Discharge Details Chief Complaint: GenMedical Clinical Impression: Unintentional Tylenol overdose, Chronic pain Primary Care Provider: Genesis Mitchell ED Provider: Hira Ayon Outlook Harshas and New Rx's Prescriptions: Continued Rexulti 3 mg tablet 3 mg PO DAILY RF: 0 allopurinol 300 mg tablet 300 mg PO DAILY Qty: 30 RF: 11 cholecalciferol (vitamin D3) 1,000 unit capsule 1,000 unit PO DAILY Qty: 30 RF: 11 pantoprazole 40 mg tablet,delayed release (DR/EC) 40 mg PO DAILY Qty: 30 RF: 11 simvastatin 40 mg tablet 40 mg PO QPM Qty: 30 RF: 11 fluoxetine 20 mg capsule 20 mg PO DAILY RF: 0 gabapentin 100 mg capsule 100 mg PO QHS RF: 0 duloxetine 30 mg capsule,delayed release(DR/EC) 30 mg PO DAILY RF: 0 (DME) lancets [FreeStyle Lancets] 1 EACH misc 1 ea Intradermal BID Qty: 100 RF: 11 (DME) FreeStyle Lite Strips 1 EACH strip 1 ea Miscellaneous BID Qty: 100 RF: 11 lamotrigine 200 mg tablet 300 mg PO DAILY Qty: 45 RF: 11 Discontinued nystatin 100,000 unit/gram powder 1 applic TP TID RF: 0 Excedrin Tension Headache 500-65 mg tablet 2 tab PO Q6H PRN (Reason: pain) Qty: 90 RF: 6 lidocaine 5 % adhesive patch,medicated 1 patch TP DAILY RF: 0 halobetasol propionate 0.05 % ointment 1 applic TP BID Qty: 50 RF: 1 Discharge Instructions Additional Instructions: Please do not use anything which contains aspirin or Tylenol over the rest of the weekend. You may use ibuprofen if needed for pain. Contact primary care Tuesday morning for follow-up for management of chronic pain. Also follow-up with [facility] as discussed with mental health tonight. Return to ED for mental status changes, abdominal pain, persistent vomiting, feeling unsafe. Referrals: Genesis Mitchell, [employer] [Primary Care Provider] - Discharge Data Discharge Date/Time-TO BE ENTERED AT DEPARTURE: 03/25/19 05:50 Medical Decision Making <CINDY Smith - Last Filed: 03/26/19 22:04> Is a pleasant 63-year-old patient who unfortunately is very frustrated with her pain this evening and took 21 extra strength Excedrin tablets all at once at approximately 530 this evening. Patient reports she has been struggling with chronic low back pain secondary to scoliosis. Patient reports in a frustrating moment she took 21 tablets because she was unable to get her pain under control. Patient reports she did realize that this could potentially harm her but she denies any obvious suicidal ideation. My clinical impression is that this yojana ent is likely depressed secondary to her chronic pain however she continues to deny this was a suicide attempt but did have an understanding that this could harm her. Patient reports she vomited approximately 30 to 60 minutes after her ingestion of tablets. Patient denied identifying any pills present in her vomitus at that time. Patient did report multiple episodes of dry heaving since that time. Patient presents via EMS seeking medical attention. Patient denies any new injury or trauma to her back. Patient reports this is typical of her back pain. IV placed, labs ordered. Patient's initial acetaminophen level was 56 and initial salicylate level is 26.7. Nausea medication provided for symptomatic relief, IV fluids ordered. Patient's CBC is unremarkable for acute abnormality, CMP reveals anion gap of 15.3, glucose of 166. Coags normal. Plan of care includes repeating labs to identify trending. Reevaluation of patient reveals no abdominal pain, continues to deny chest pain or difficulty breathing. Nausea persisted therefore Zofran was ordered for symptomatic relief. Patient signed out pending repeat labs. <Hira Ayon MD - Last Filed: 03/25/19 02:55> Patient signed out to me pending repeat Tylenol and aspirin levels which both have come down. Patient with nontoxic levels and medically cleared. Mental health called to see patient. Patient is already a client of theirs. Again not an intentional overdose to harm but more of an unawareness as to the toxicity potential of Tylenol and aspirin. Simply trying to control pain. Mental health will begin process of obtaining case management for patient. Patient gets medications including her psychiatric meds from primary care. Will refer back to primary care for further management of chronic pain. Patient has not to use Tylenol or aspirin over the weekend. May use ibuprofen. Lab Data Lab results reviewed: Yes I reviewed the patient's lab results. ECG Data Attestation: I personally reviewed and interpreted this ECG (s) as follows: Interpretation: Sinus rhythm at 76. Normal axis and intervals. Some slight nonspecific ST downsloping inferior leads. No acute changes. HPI <CINDY Smith - Last Filed: 03/26/19 22:04> General Date/Time Provider Initiated Documentation: 03/24/19 21:27 . HPI Narrative: This is a pleasant yet unfortunate 63-year-old woman presenting for overdose. She reports chronic back pain from scoliosis and this evening she became very frustrated with her chronic pain and took 21 extra strength Excedrin tablets all at once at approximately 530 this evening. Patient reports she did not specifically do this to kill herself however she was so frustrated with her pain and the chronic nature of her pain that she took the medication tried to be out of paved without caring what happened. Patient is aware that taking this amount of medication could cause her harm. Patient denies using any other medications concurrently. Denies use of alcohol. Patient denies any new injury or trauma to her back. Patient reports this is chronic unchanged back pain. Denies any radiating symptoms into her leg. Denies abdominal pain at this time. Patient currently has mild nausea did vomit within approximately 30 to 60 minutes after ingestion this medication did not see any pills present in the vomitus at that time. Patient reports intermittent nausea since. Patient denies any headache, dizziness, chest pain, trouble breathing or shortness of breath. Patient denies abdominal pain at this time. No other concerns or complaints. Patient reports she does live alone. Related Data Home Medications Medication Instructions Recorded Confirmed lancets [FreeStyle Lancets] #100 ea 02/11/15 11/30/18 FreeStyle Lite Strips #100 strip 09/10/16 11/30/18 allopurinol 300 mg tablet 300 mg PO DAILY #30 tab 05/01/18 03/24/19 brexpiprazole 3 mg tablet 3 mg PO DAILY 05/01/18 03/24/19 cholecalciferol (vitamin D3) 25 1,000 unit PO DAILY #30 cap 05/01/18 03/24/19 mcg (1,000 unit) capsule pantoprazole 40 mg tablet,delayed 40 mg PO DAILY #30 tab 05/01/18 03/24/19 release simvastatin 40 mg tablet 40 mg PO QPM #30 tab 05/01/18 03/24/19 fluoxetine 20 mg capsule 20 mg PO DAILY 12/25/18 03/24/19 gabapentin 100 mg capsule 100 mg PO QHS 12/25/18 03/24/19 lamotrigine 200 mg tablet 300 mg PO DAILY #45 tab 01/18/19 03/24/19 duloxetine 30 mg capsule,delayed 30 mg PO DAILY 03/02/19 03/24/19 release Previous Rx's Medication Instructions Recorded allopurinol 300 mg tablet 300 mg PO DAILY #30 tab 05/01/18 cholecalciferol (vitamin D3) 25 1,000 unit PO DAILY #30 cap 05/01/18 mcg (1,000 unit) capsule pantoprazole 40 mg tablet,delayed 40 mg PO DAILY #30 tab 05/01/18 release simvastatin 40 mg tablet 40 mg PO QPM #30 tab 05/01/18 lamotrigine 200 mg tablet 300 mg PO DAILY #45 tab 01/18/19 Allergies Allergy/AdvReac Type Severity Reaction Status Date / Time codeine AdvReac Intermediate NAUSEA/DIZZ Verified 12/28/18 14:43 INESS General Stated Complaint: GenMedical JAMILA: 2 Review of Systems <CINDY Smith - Last Filed: 03/26/19 22:04> All systems reviewed & are unremarkable except as noted in HPI and below Constitutional Constitutional: Denies fatigue, Denies fever(s), Denies headache(s) and Denies malaise ENT Ears, Nose, Mouth, and Throat: Denies headache(s) Cardiovascular Cardiovascular: Denies chest pain and Denies dyspnea Respiratory Respiratory: Denies cough and Denies dyspnea Gastrointestinal Gastrointestinal: Denies abdominal pain, Denies diarrhea, Reports nausea and Reports vomiting Neurologic Neurologic: Denies headache(s) Endocrine Endocrine: Denies fatigue [facility] <CINDY Smith - Last Filed: 03/26/19 22:04> Medical History Acute gout of right ankle (Acute 12/06/14) Depressive disorder (Chronic) bipolar 02/25-[facility] Diabetes mellitus (Chronic 09/10/14) Gallstones Gastritis presumed (improved symptoms on omeprazole) Headache (Acute) secondary to scoliosis & neck muscle spasm Hernia of abdominal wall Hyperlipidemia (Chronic 08/17/12) Hypokalemia (Acute 09/06/17) Hypomagnesemia (Acute 09/15/12) Idiopathic scoliosis (Acute) w/ Chronic LBP; surgery-1969,1971, 1990, 1995, 1997 ([facility]) Increased BMI (body mass index) (Chronic 03/28/17) Neck pain (Acute) w/ muscle spasm, secondary to scoliosis Pain in wrist (Acute 02/17/06) left; MRI [facility] Psoriasis (Acute 04/16/13) Right shoulder pain (Acute 09/10/14) Right upper quadrant abdominal tenderness (Acute 09/06/17) Right upper quadrant abdominal tenderness with rebound tenderness (Acute 09/06/17) Sensorineural hearing loss, bilateral (Chronic 10/13/15) Systolic murmur (Acute) Tubular adenoma (Acute 08/09/16) Vitamin D deficiency (Acute 08/17/12) Social History Smoking/Tobacco Use Status: Never Alcohol Intake: current Alcohol Intake frequency: a few times a month Drug use: Never Substance use type: does not use Do you feel safe at home: Yes Do you feel safe in your relationship?: Yes Exam <CINDY Smith - Last Filed: 03/26/19 22:04> Narrative Exam Narrative: CONST: Mildly pale appearing patient. Alert and oriented. HENMT: Head nomocephalic, normal to inspection. Atraumatic. Hearing grossly normal. External ear canal no erythema or swelling. TM normal bilaterally. Nose normal to inspection. No rhinnorhea. Normal facial exam. Oral mucosa normal. Tounge normal. Dentition normal. Normal posterior oropharynx. Uvula midline. EYES: General normal appearance. Alignment normal. Eyelids normal. Conjunctiva normal. Sclera normal. PERRL. NECK: Normal visual inspection. FROM. No lymphadenopathy. Trachea midline. No Midline tenderness. CHEST: Normal insepection of the chest. RESP: Normal respiratory effort. Speaking full sentences. No cough. No wheezing. No retractions. Clear to auscaltation. Breath sound equal and present bilaterally. CARDIO: No JVD. Normal PMI. Regular Rate. Regular Rhythm. Normal peripheral pulses. systolic murmur present GI: Normal inspection of abdomen. No distension. Soft. Nontender. Bowel sounds present in all 4 quadrants. No rebound. No gaurding. MUSCULOSKELETAL: Normal Gait. FROM of all extremities. Distal neurovascularly intact. Sensation intact distally. SKIN: Normal. Dry. No rashes. NEURO: Alert and awake. Speech clear. PSYCH: Normal affect. Cooperative. Course <CINDY Smith - Last Filed: 03/26/19 22:04> Vital Signs Vital signs: Vital Signs Temperature 36.7 C 03/24/19 21:45 Pulse 72 03/24/19 21:45 Respiratory Rate 26 H 03/24/19 21:45 Blood Pressure 154/83 H 03/24/19 21:45 Pulse Oximetry 99 03/24/19 21:45 Temperature 36.7 C 03/24/19 21:45 Temperature Source Skin 03/24/19 21:45 Pulse 72 03/24/19 21:45 Respiratory Rate 26 H 03/24/19 21:48 Respiratory Effort 03/24/19 21:48 Respiratory Depth Normal 03/24/19 21:48 Respiratory Pattern Normal 03/24/19 21:48 Blood Pressure 154/83 H 03/24/19 21:45 Blood Pressure Position Supine 03/24/19 21:45 Pulse Oximetry 99 03/24/19 21:45 Oxygen Delivery Method Room Air 03/24/19 21:45 Oxygen Flow Rate 0 03/24/19 21:45 Pain Level 0 03/24/19 21:45 Lab/Test Results Lab/Test Results: Laboratory Tests Range/Units 03/24/19 03/24/19 03/24/19 21:40 21:40 21:40 WBC (4.4-10.8) k/cumm 8.46 RBC (4.00-5.20) m/cumm 4.05 Hgb (12.0-15.5) g/dL 12.4 Hct (36.0-46.0) % 37.6 MCV (80-95) fL 92.8 MCH (27.0-33.0) pg 30.6 MCHC (32.0-36.0) g/dL 33.0 RDW (11.7-14.6) % 13.3 Plt Count (130-400) x1000/uL 318 MPV (8.0-11.0) fL 9.4 Immature Gran % % 0.4 Neutrophils % 70.9 Lymphocytes % 21.9 Monocytes % 5.7 Eosinophils % 0.7 Basophils % 0.4 Absolute Neutrophils (1.2-6.7) k/cumm 6.01 Absolute Lymphocytes (1.2-3.4) k/cumm 1.85 Absolute Monocytes (0.11-0.7) k/cumm 0.48 Absolute Eosinophils (0.0-0.7) k/cumm 0.06 Absolute Basophils (0.0-0.2) k/cumm 0.03 PT (9.3-11.0) sec INR (0.9-1.1) APTT (21.0-31.4) sec Sodium (136-145) mmol/L 145 Potassium (3.5-5.1) mmol/L 3.8 Chloride (98-107) mmol/L 103 Carbon Dioxide (21.0-32.0) mmol/L 26.7 Anion Gap (3-11) mmol/L 15.3 H BUN (7-18) mg/dL 14 Creatinine (0.55-1.02) mg/dL 0.98 Estimated GFR/1.73 m2 (mL/min/1.73m2) 56.96 Glucose (74-106) mg/dL 166 H Calcium (8.5-10.1) mg/dL 9.4 Total Bilirubin (0.2-1.0) mg/dL 0.2 AST (15-37) U/L 14 L ALT (14-59) U/L 11 L Alkaline Phosphatase (46-116) U/L 92 Total Protein (6.4-8.2) g/dL 7.8 Albumin (3.4-5.0) g/dL 4.0 Lipase (73-393) U/L 198 Salicylates (2.8-20.0) mg/dL 26.7 H Acetaminophen (10-30) ug/mL 56 H Range/Units 03/24/19 21:40 WBC (4.4-10.8) k/cumm RBC (4.00-5.20) m/cumm Hgb (12.0-15.5) g/dL Hct (36.0-46.0) % MCV (80-95) fL MCH (27.0-33.0) pg MCHC (32.0-36.0) g/dL RDW (11.7-14.6) % Plt Count (130-400) x1000/uL MPV (8.0-11.0) fL Immature Gran % % Neutrophils % Lymphocytes % Monocytes % Eosinophils % Basophils % Absolute Neutrophils (1.2-6.7) k/cumm Absolute Lymphocytes (1.2-3.4) k/cumm Absolute Monocytes (0.11-0.7) k/cumm Absolute Eosinophils (0.0-0.7) k/cumm Absolute Basophils (0.0-0.2) k/cumm PT (9.3-11.0) sec 9.9 INR (0.9-1.1) 1.0 APTT (21.0-31.4) sec 23.2 Sodium (136-145) mmol/L Potassium (3.5-5.1) mmol/L Chloride (98-107) mmol/L Carbon Dioxide (21.0-32.0) mmol/L Anion Gap (3-11) mmol/L BUN (7-18) mg/dL Creatinine (0.55-1.02) mg/dL Estimated GFR/1.73 m2 (mL/min/1.73m2) Glucose (74-106) mg/dL Calcium (8.5-10.1) mg/dL Total Bilirubin (0.2-1.0) mg/dL AST (15-37) U/L ALT (14-59) U/L Alkaline Phosphatase (46-116) U/L Total Protein (6.4-8.2) g/dL Albumin (3.4-5.0) g/dL Lipase (73-393) U/L Salicylates (2.8-20.0) mg/dL Acetaminophen (10-30) ug/mL Sign Out <CINYD Smith - Last Filed: 03/26/19 22:04> Sign Out Data: Sign Out Comment: Signout pending repeat labs, ultimate disposition and mental health evaluation of plan of care includes discharge home. Last updated by Nida Clifford PA at 03/25/19 00:56
[2019-03-24] MEDS: Ondansetron 4 MG/2 ML VIAL IVP (23:38)
[2019-03-24] MEDS: Normal Saline Flush 10 ML SYR IVP (23:39)
[2019-03-24] MEDS: Normal Saline 1,000 ML 1000 ML IV (23:39)
[2019-03-25] VITALS (24 sets, daily range): BP systolic 142–167; BP diastolic 78–96; PULSE 67–89; RESP 18–36; TEMP 36.9; O2SAT 95–100
[2019-03-25 00:51] LABS: Acetaminophen 38 ug/mL (10-30); Salicylate 26.1 mg/dL (2.8-20.0)
[2019-03-25] MEDS: Ondansetron 4 MG/2 ML VIAL IVP (02:15)
--- NOTE | 2019-03-25 02:31 | PDOC.MHCN ---
Date of service: 03/25/19 Time of Service: 02:31 Mental Health Crisis Note Presenting Issue How did you arrive at the ED and why did you come: Etelvina arrived to the ER via ambulance after a reported o.d. of tylenol/aspirin in an attempt to try to manage her pain. Precipitating Factors C denied SI and HI. She denied hx of SI and HI as well. Disposition BEHAVIOR: Etelvina is pleasant and engaged in the assessment once her needs are met of toileting and nausea control. She reports frequently that she is not feeling well and is upset with herself for taking too much because she did not mean too she only wanted to have the pain go away. EYE CONTACT: C's eye contact is normal. MOOD: C's mood is sad and upset about her situation. AFFECT: C's affect is WNL. APPETITE: C reported a normal appetite. SLEEP(trouble falling/staying asleep: C reported a normal sleep pattern typically. Plan C will remain at ER until she is medically able to go home without symptoms. I will speak to her therapist Andreea Staley at [facility] about tonights events and will make an in house referral for case management. Provisional Diagnosis adjustment d/o unspecified. Signature Clinician's Name/Title: Janice Jalloh MS Emergency Services Clinician
== END 2019-03-25 05:50 | disposition home or self-care (01) ==
PROVIDERS: Physician Assistant; Emergency Provider Emergency Medicine
DX: T39.1X1A Poisoning by 4-Aminophenol derivatives, accidental (unintentional), initial encounter (principal); R11.2 Nausea with vomiting, unspecified; R06.82 Tachypnea, not elsewhere classified; M54.5 Low back pain; G89.29 Other chronic pain; M41.20 Other idiopathic scoliosis, site unspecified; E11.9 Type 2 diabetes mellitus without complications
CPT/HCPCS: 36415; 80053; 83690; 93005; 96361; 96374; 96376; 99284; 80329; 85025; 85610; 85730; 93010; J2405

== ENCOUNTER 2020-02-11 09:46 | Observation (INO) | payer MEDICARE, MEDICAID, SELFPAY ==
[2020-02-11] VITALS (44 sets, daily range): BP systolic 100–161; BP diastolic 58–93; PULSE 75–87; RESP 15–41; TEMP 36.7–37.4; O2SAT 89–97
--- NOTE | 2020-02-11 | DI.US_ITS ---
EXAM: US RENAL CLINICAL HISTORY: hyrdronephrosis. TECHNIQUE: Wetzel scale, color and spectral Doppler were used. COMPARISON: CT ABD PELVIS WITH CONTRAST from 08/25/2017 US ABDOMEN ULTRASOUND (P) from 08/26/[address] ABDOMEN PELVIS W from 02/11/2020 FINDINGS: Limited exam secondary to patient body habitus. Renal size in cm: Right: 10.9 left: 9.8 Echogenicity: Normal Hydronephrosis: There is prominence of the left renal pelvis which appears similar to the previous ul trasound. The degree of hydronephrosis has decreased substantially when compared with the CT perform ed earlier the same day. Cyst or mass: No Nephrolithiasis: No Other findings: None Bladder:Beaver catheter Prevoid vol:117 cc Postvoid vol: 10 cc IMPRESSION: Improvement in bilateral hydronephrosis. DATA REPOSITORY:
--- NOTE | 2020-02-11 | DI.RAD_ITS ---
EXAM: XR CHEST 1V IN DI DEPT CLINICAL HISTORY: leukocytosis TECHNIQUE: 2D digital imaging was performed. COMPARISON: CT CT ABDOMEN PELVIS W from 02/11/2020 FINDINGS: Single AP view was performed. The lung bases are suboptimally penetrated. LUNGS: Scarring right lung base. HEART: Normal. OTHER FINDINGS: Severe scoliosis and spinal rods IMPRESSION: Limited exam. Right basilar scarring. No acute pulmonary findings. DATA REPOSITORY: RADIATION DOSE DELIVERED:
--- NOTE | 2020-02-11 09:53 | W.ED.GENAD ---
Discharge Plan Disposition Patient Disposition: [facility] INPATIENT Condition: Stable Discharge Details Clinical Impression: Acute urinary retention, Vaginal ulcer, Ambulatory dysfunction, Generalized weakness Admit Date/Time: 02/11/20 13:32 Admit Provider: iMhir Shelby Attending Provider: Mihir Shelby Primary Care Provider: Genesis Mitchell ED Provider: Maegan Quintanilla Discharge Data Discharge Date/Time-TO BE ENTERED AT DEPARTURE: 02/11/20 14:33 Medical Decision Making 1010 -- 64-year-old female with a history of gout, diabetes now currently diet controlled, obesity, hyperlipidemia presents for urinary retention and vaginal pain since this morning. Patient appears disheveled. Vitals within normal limits. She has tender vaginal papules and ulcers as well as nontender groin and lower abdomen papules. Differential diagnosis includes herpes, candidiasis, cellulitis, UTI, pyelonephritis, abscess, etc. We will place an IV, bolus IV fluids, screening labs, urinalysis and CT abdomen and pelvis. Will give a dose of morphine for pain. She states she has a history of nausea to codeine but denies specific allergy. Approximately ~ 800cc urine out with pope straight cath. 1300 -- Labs and imaging reviewed. White blood cell count 13. Urinalysis negative. CT abdomen and pelvis notes mildly distended bladder and mild bilateral hydronephrosis without stone or abscess. Patient given a full liter of fluids. Bladder scan approximately 900. She required more than 2 people for assistance to the commode. She was unable to urinate but was noted to have urinary incontinence when moving Case discussed with Page from urology who agreed with plan for Pope catheter. No other imaging recommendations. Will treat with oral fluconazole and acyclovir and plan for admission for urology evaluation, pain control and PT. Case discussed with hospitalist accepts patient for admission. Medical Records Medical records reviewed: Yes I reviewed the patient's medical records. Imaging Data Radiologic Study: Radiologist's impression: CT ABDOMEN PELVIS W CLINICAL HISTORY: lower abdominal pain, vaginal pain. TECHNIQUE: Imaging Protocol: Axial computed tomography images with coronal and sagittal reformatted images were created and reviewed CONTRAST MATERIAL: Intravenous: Omnipaque 350 Contrast volume:100 ml Oral: yes / no COMPARISON: CR RIGHT RIBS TO INCLUDE CXR from 01/06/2017 CT ABD PELVIS WITH CONTRAST from 08/25/2017 FINDINGS: ABDOMEN: Lung Bases: Mild basilar scarring. Liver: Normal density. No measurable mass. Gallbladder and biliary tract: No biliary dilation. Stones at dependent portion of the gallbladder. Pancreas: Normal density, no abnormal calcifications or inflammatory process. Spleen: Normal. Kidneys: Normal size, contour and axis. No radiodense stones . No masses seen. Mild bilateral hydronephrosis secondary to over distended bladder. Adrenal glands: No masses seen. Abdominal Aorta: Abdominal portion non-dilated. Soft tissues: Fatty containing hernia in the right upper quadrant. Marked thinning of the abdominal wall, unchanged. PELVIS: Bladder: Markedly distended. No calcification, mass or wall thickening. Minimal cystocele. Bowel: No obstruction or bowel wall thickening. Diverticulosis. No evidence of diverticulitis. Normal quantity of stool. Normal appendix. Diverticulum of the descending duodenum. Peritoneal cavity: No ascites, collection or mesenteric inflammatory response. Bones: Barboza rods and postsurgical changes of the spine. Reproductive organs: Status post hysterectomy. Normal appearing ovaries. Lymph nodes: Unremarkable. Impression: Markedly distended urinary bladder causing mild bilateral hydronephrosis. Lab Data Lab results reviewed: Yes I reviewed the patient's lab results. Labs: 02/11/20 10:50 Vaginal Vaginitis Screen - Final Laboratory Tests Range/Units 02/11/20 02/11/20 02/11/20 10:15 10:15 10:30 WBC (4.4-10.8) 10^3/uL 13.27 H RBC (3.93-5.22) 10^6/uL 3.53 L Hgb (11.2-15.7) g/dL 11.0 L Hct (36.0-46.0) % 33.5 L MCV (80-95) fL 94.9 MCH (27.0-33.0) pg 31.2 MCHC (32.0-36.0) % 32.8 RDW (11.7-14.6) % 13.6 Plt Count (130-400) 10^3/uL 278 MPV (8.0-11.0) fL 10.2 Immature Gran % 0.5 Neutrophils % 80.4 Lymphocytes % 12.0 Monocytes % 6.7 Eosinophils % 0.0 Basophils % 0.4 Nucleated RBC % % 0 Absolute Neutrophils (1.2-6.7) 10^3/uL 10.67 H Absolute Lymphocytes (1.2-3.4) 10^3/uL 1.59 Absolute Monocytes (0.1-0.8) 10^3/uL 0.89 H Absolute Eosinophils (0.0-0.7) 10^3/uL 0.00 Absolute Basophils (0.0-0.2) 10^3/uL 0.05 VBG Lactate (0.6-1.4) mmol/L Sodium (136-145) mmol/L 136 Potassium (3.5-5.1) mmol/L 4.0 Chloride (98-107) mmol/L 98 Carbon Dioxide (21.0-32.0) mmol/L 28.7 Anion Gap (3-11) mmol/L 9.3 BUN (7-18) mg/dL 16 Creatinine (0.55-1.02) mg/dL 0.86 Estimated GFR/1.73 m2 (mL/min/1.73m2) >= 60.00 Glucose (74-106) mg/dL 109 H Calcium (8.5-10.1) mg/dL 8.9 Total Bilirubin (0.2-1.0) mg/dL 0.5 AST (15-37) U/L 18 ALT (14-59) U/L 16 Alkaline Phosphatase (46-116) U/L 88 Total Protein (6.4-8.2) g/dL 7.3 Albumin (3.4-5.0) g/dL 3.7 Lipase (73-393) U/L 157 Urine Color (Yellow) Yellow Urine Clarity (Clear) Clear Urine pH (5-8) 7.0 Ur Specific [place] (1.005-1.025) 1.020 Urine Protein (Negative) mg/dL Negative Urine Ketones (Negative) mg/dL Negative Urine Blood (Negative) Negative Urine Nitrite (Negative) Negative Urine Bilirubin (Negative) Negative Urine Urobilinogen (Up TO 0.2) EU/dL 0.2 Ur Leukocyte Esterase (Negative) Negative Urine Glucose (Negative) mg/dL Negative Range/Units 02/11/20 10:50 WBC (4.4-10.8) 10^3/uL RBC (3.93-5.22) 10^6/uL Hgb (11.2-15.7) g/dL Hct (36.0-46.0) % MCV (80-95) fL MCH (27.0-33.0) pg MCHC (32.0-36.0) % RDW (11.7-14.6) % Plt Count (130-400) 10^3/uL MPV (8.0-11.0) fL Immature Gran % Neutrophils % Lymphocytes % Monocytes % Eosinophils % Basophils % Nucleated RBC % % Absolute Neutrophils (1.2-6.7) 10^3/uL Absolute Lymphocytes (1.2-3.4) 10^3/uL Absolute Monocytes (0.1-0.8) 10^3/uL Absolute Eosinophils (0.0-0.7) 10^3/uL Absolute Basophils (0.0-0.2) 10^3/uL VBG Lactate (0.6-1.4) mmol/L 1.0 Sodium (136-145) mmol/L Potassium (3.5-5.1) mmol/L Chloride (98-107) mmol/L Carbon Dioxide (21.0-32.0) mmol/L Anion Gap (3-11) mmol/L BUN (7-18) mg/dL Creatinine (0.55-1.02) mg/dL Estimated GFR/1.73 m2 (mL/min/1.73m2) Glucose (74-106) mg/dL Calcium (8.5-10.1) mg/dL Total Bilirubin (0.2-1.0) mg/dL AST (15-37) U/L ALT (14-59) U/L Alkaline Phosphatase (46-116) U/L Total Protein (6.4-8.2) g/dL Albumin (3.4-5.0) g/dL Lipase (73-393) U/L Urine Color (Yellow) Urine Clarity (Clear) Urine pH (5-8) Ur Specific [place] (1.005-1.025) Urine Protein (Negative) mg/dL Urine Ketones (Negative) mg/dL Urine Blood (Negative) Urine Nitrite (Negative) Urine Bilirubin (Negative) Urine Urobilinogen (Up TO 0.2) EU/dL Ur Leukocyte Esterase (Negative) Urine Glucose (Negative) mg/dL HPI General Mode of arrival: EMS. Date/Time Provider Initiated Documentation: 02/11/20 09:52. Limitations to Documentation: no limitations. Information obtained by: patient. HPI Narrative: Patient is a 64-year-old female with a history of gout, diabetes, hyperlipidemia, and hysterectomy who presents with vaginal pain and dysuria since last night. Patient states she only developed the symptoms last night. She lives alone and states she uses a walker for ambulation but cannot walk this morning due to weakness and pain in her vagina area. She states she has not urinated since last night. She admits to diarrhea today. She also admits to lower abdominal pain today. She denies any recent fever, chest pain, shortness of breath, nausea, vomiting, diarrhea, hematuria, recent travel, recent surgeries, recent known sick contacts or recent hospital admissions. Related Data Home Medications Medication Instructions Recorded Confirmed cholecalciferol (vitamin D3) 25 1,000 unit PO DAILY #30 cap 04/11/19 02/11/20 mcg (1,000 unit) capsule pantoprazole 40 mg tablet,delayed 40 mg PO DAILY #30 tab 04/11/19 02/11/20 release simvastatin 40 mg tablet 40 mg PO QPM #30 tab 04/11/19 02/11/20 allopurinol 300 mg tablet 300 mg PO DAILY #30 tab 04/26/19 02/11/20 brexpiprazole 3 mg tablet 3 mg PO DAILY #30 tab 05/08/19 02/11/20 duloxetine 30 mg capsule,delayed 30 mg PO DAILY #30 cap 07/10/19 02/11/20 release fluoxetine 20 mg capsule 20 mg PO DAILY #30 cap 07/10/19 02/11/20 lamotrigine 200 mg tablet 300 mg PO DAILY #45 tab 07/26/19 02/11/20 acetaminophen 500 mg tablet 500 mg PO TID #90 tab 08/14/19 02/11/20 halobetasol propionate 0.05 % 1 applic TP BID #50 gm 09/05/19 02/11/20 topical ointment betamethasone dipropionate 0.05 % 1 applic TP BID PRN #45 gm 09/08/19 02/11/20 topical cream nystatin-triamcinolone 100,000 1 applic TP BID #60 gm 09/25/19 02/11/20 unit/g-0.1 % topical cream meloxicam 15 mg tablet 15 mg PO DAILY 11/27/19 02/11/20 gabapentin 600 mg PO TID 02/11/20 02/11/20 Previous Rx's Medication Instructions Recorded cholecalciferol (vitamin D3) 25 1,000 unit PO DAILY #30 cap 04/11/19 mcg (1,000 unit) capsule pantoprazole 40 mg tablet,delayed 40 mg PO DAILY #30 tab 04/11/19 release simvastatin 40 mg tablet 40 mg PO QPM #30 tab 04/11/19 allopurinol 300 mg tablet 300 mg PO DAILY #30 tab 04/26/19 brexpiprazole 3 mg tablet 3 mg PO DAILY #30 tab 05/08/19 duloxetine 30 mg capsule,delayed 30 mg PO DAILY #30 cap 07/10/19 release fluoxetine 20 mg capsule 20 mg PO DAILY #30 cap 07/10/19 lamotrigine 200 mg tablet 300 mg PO DAILY #45 tab 07/26/19 acetaminophen 500 mg tablet 500 mg PO TID #90 tab 08/14/19 halobetasol propionate 0.05 % 1 applic TP BID #50 gm 09/05/19 topical ointment betamethasone dipropionate 0.05 % 1 applic TP BID PRN #45 gm 09/08/19 topical cream nystatin-triamcinolone 100,000 1 applic TP BID #60 gm 09/25/19 unit/g-0.1 % topical cream Allergies Allergy/AdvReac Type Severity Reaction Status Date / Time codeine AdvReac Intermediate NAUSEA/DIZZ Verified 02/11/20 09:59 INESS General JAMILA: 2 Review of Systems All systems reviewed & are unremarkable except as noted in HPI and below Constitutional Constitutional: Reports as per HPI, Denies chills and Denies fever(s) Eyes Eyes: Denies blurry vision ENT Ears, Nose, Mouth, and Throat: Denies dizziness, Denies sore throat and Denies throat swelling Cardiovascular Cardiovascular: Denies chest pain and Denies dyspnea Respiratory Respiratory: Denies cough and Denies dyspnea Gastrointestinal Gastrointestinal: Denies abdominal pain, Denies diarrhea and Denies vomiting Genitourinary Genitourinary: Denies hematuria, Reports dysuria, Reports pelvic pain and Reports other (vaginal pain) Musculoskeletal Musculoskeletal: Denies back pain and Denies numbness Integumentary/Breasts Skin/Breast: Reports lesions and Reports rash Neurologic Neurologic: Denies dizziness, Denies localized weakness and Denies numbness Allergic/Immunologic Allergic/Immunologic: Denies throat swelling [facility] Medical History Acute gout of right ankle (12/06/14) Callus of foot Depressive disorder bipolar 02/25-[facility] Dermatitis associated with moisture Diabetes mellitus (09/10/14) Encounter for evaluation of ability to make decisions regarding care Gallstones Gastritis presumed (improved symptoms on omeprazole) Headache secondary to scoliosis & neck muscle spasm Hernia of abdominal wall Hyperlipidemia (08/17/12) Hypokalemia (09/06/17) Hypomagnesemia (09/15/12) Idiopathic scoliosis w/ Chronic LBP; surgery-1969,1971, 1990, 1995, 1997 ([facility]) Increased BMI (body mass index) (03/28/17) Neck pain w/ muscle spasm, secondary to scoliosis Pain in wrist (02/17/06) left; MRI [facility] [place] Psoriasis (04/16/13) Right shoulder pain (09/10/14) Right upper quadrant abdominal tenderness (09/06/17) Right upper quadrant abdominal tenderness with rebound tenderness (09/06/17) Sensorineural hearing loss, bilateral (10/13/15) Shoulder pain, right Systolic murmur Tubular adenoma (08/09/16) Vitamin D deficiency (08/17/12) Surgical History Colonoscopy - IV Sedation (08/09/16) Hysterectomy, Laproscopic Family History Father , 63 Lung cancer Sister Depression Sister COPD (chronic obstructive pulmonary disease) Grandmother Breast cancer Son Depression Social History Smoking/Tobacco Use Status: Never Second Hand Exposure: Yes Smoking risk assessment performed?: Yes Alcohol Intake: current Alcohol Intake frequency: holidays/special occasions only Alcohol type: wine Counseling given: No Drug use: Never Substance use type: does not use Counseling provided: none Caregiver/Support person: No Household members: none Communication Needs: Hard of Hearing Do you need help understanding health information?: Often Pets and animals: No Sexually active: No Do you think of yourself as: straight/heterosexual Current gender identity: female What is your relationship status?: How often do you talk on the phone with friends or family?: decline to answer How often do you get together with friends or relatives?: decline to answer How often do you attend nondenominational or roman catholic services?: 4 or more times per year Do you belong to any clubs or organized social groups?: no Panel score (0-1 are the most socially isolated patients): 1 What type of physical activity do you participate in: none Pari/Amish: Druze Special pari needs: No Seatbelt use: always Helmet use: No Drive intox or ride w/intox emergency detail driver: No Do you feel safe at home: Yes Do you feel safe in your relationship?: Yes Exam Const General: cooperative, no acute distress and disheveled Orientation: alert, awake and oriented x3 HENMT Head: normal to inspection Face and sinus: normal facial exam Eyes General: appearance normal, both eyes and all related structures Pupils: PERRL EOM: EOM intact bilaterally Neck Neck: normal visual inspection and No submandibular swelling Lymphatic: no lymphadenopathy noted Chest Chest: normal inspection of the chest and no tenderness Resp Effort & Inspection: normal respiratory effort and able to speak in complete sentences Auscultation: clear to auscultation bilaterally Cardio Rate: regular rate Rhythm: regular rhythm GI Inspection: obesity Palpation: soft, not firm, not rigid and tender suprapubicly Auscultation: hypoactive bowel sounds Female genitals images: 1. Erythema, edema, scattered erythematous papules and ulcers, ranging from 4mm to 15mm. Labial edema bilaterally. 2. Erythematous nontender papules with overlying scaling and some maceration noted to bilateral groin. Skin General skin exam: no rashes or lesions noted Neuro General: patient alert, patient awake and patient oriented x3 Cognition: normal cognition Speech: speech normal Motor: muscle tone normal throughout Sensory Exam: no sensory deficits noted Extrem General: normal to inspection, full ROM, capillary refill normal, no calf tenderness bilaterally and no edema Psych Appearance: grossly normal Mental Status: mental status grossly normal Speech and Movement: speech and movement normal Affect: normal affect
--- NOTE | 2020-02-11 10:30 | DI.CT_ITS ---
EXAM: CT ABDOMEN PELVIS W CLINICAL HISTORY: lower abdominal pain, vaginal pain. TECHNIQUE: Imaging Protocol: Axial computed tomography images with coronal and sagittal reformatted images were created and reviewed CONTRAST MATERIAL: Intravenous: Omnipaque 350 Contrast volume:100 ml Oral: yes / no COMPARISON: CR RIGHT RIBS TO INCLUDE CXR from 01/06/2017 CT ABD PELVIS WITH CONTRAST from 08/25/2017 FINDINGS: ABDOMEN: Lung Bases: Mild basilar scarring. Liver: Normal density. No measurable mass. Gallbladder and biliary tract: No biliary dilation. Stones at dependent portion of the gallbladder. Pancreas: Normal density, no abnormal calcifications or inflammatory process. Spleen: Normal. Kidneys: Normal size, contour and axis. No radiodense stones . No masses seen. Mild bilateral hydron ephrosis secondary to over distended bladder. Adrenal glands: No masses seen. Abdominal Aorta: Abdominal portion non-dilated. Soft tissues: Fatty containing hernia in the right upper quadrant. Marked thinning of the abdominal wall, unchanged. PELVIS: Bladder: Markedly distended. No calcification, mass or wall thickening. Minimal cystocele. Bowel: No obstruction or bowel wall thickening. Diverticulosis. No evidence of diverticulitis. Nor mal quantity of stool. Normal appendix. Diverticulum of the descending duodenum. Peritoneal cavity: No ascites, collection or mesenteric inflammatory response. Bones: Barboza rods and postsurgical changes of the spine. Reproductive organs: Status post hysterectomy. Normal appearing ovaries. Lymph nodes: Unremarkable. Impression: Markedly distended urinary bladder causing mild bilateral hydronephrosis. RADIATION DOSE DELIVERED: 1,075.54mGy.cm Total DLP DATA REPOSITORY: All CT scans at this facility are submitted to the National Radiology Data Registry (NRDR) Dose Index Registry (DIR) with the [employer] (A[employer]). RADIATION OPTIMIZATION: All CT scans at this facility use at least one of these dose optimization te chniques: automated exposure control; mA and/or kV adjustment per patient size (includes targeted exa ms where dose is matched to clinical indication); or iterative reconstruction.
[2020-02-11 10:50] LABS: Abs Immature Grans 0.06 10^3/uL (0.0-0.06); Absolute Basophil Count 0.05 10^3/uL (0.0-0.2); Absolute Lymphocyte Count 1.59 10^3/uL (1.2-3.4); Absolute Monocyte Count 0.89 10^3/uL (0.1-0.8); Basophils % 0.4; HCT 33.5 % (36.0-46.0); Immature Grans % 0.5; MCH 31.2 pg (27.0-33.0); MCHC 32.8 % (32.0-36.0); MCV 94.9 fL (80-95); MPV 10.2 fL (8.0-11.0); Monocytes % 6.7; Neutrophils % 80.4; Nucleated RBC 0 %; Platelet Count 278 10^3/uL (130-400); RBC 3.53 10^6/uL (3.93-5.22); RDW 13.6 % (11.7-14.6); RDW-SD 47.6 fL; WBC 13.27 10^3/uL (4.4-10.8)
[2020-02-11 10:51] LABS: Absolute Neutrophil Count 10.67 10^3/uL (1.2-6.7)
[2020-02-11 10:51] LABS: Bilirubin Negative (Negative); Blood Negative (Negative); Clarity Clear (Clear); Glucose Negative (Negative); Ketones Negative (Negative); Leukocyte Esterase Negative (Negative); Nitrite Negative (Negative); Urobilinogen 0.2 EU/dL (Up TO 0.2)
[2020-02-11] MEDS: Normal Saline 500 ML IV (11:01)
[2020-02-11 11:14] LABS: ALT 16 U/L (14-59); AST 18 U/L (15-37); Albumin 3.7 g/dL (3.4-5.0); Alkaline Phosphatase 88 U/L (46-116); Anion Gap 9.3 mmol/L (3-11); BUN 16 mg/dL (7-18); Bilirubin, Total 0.5 mg/dL (0.2-1.0); CO2 28.7 mmol/L (21.0-32.0); CREATININE 0.86 mg/dL (0.55-1.02); Calcium 8.9 mg/dL (8.5-10.1); Chloride 98 mmol/L (98-107); Glucose 109 mg/dL (74-106); Lipase 157 U/L (73-393); Sodium 136 mmol/L (136-145); Total Protein 7.3 g/dL (6.4-8.2)
[2020-02-11] MEDS: Omnipaque 350 MG/ML 100 ML BTL IV (11:53)
--- NOTE | 2020-02-11 13:10 | NUR.NOTE ---
Nursing Note:Assisted patient OOB to assess ambulation and attempt to void on BSC. Patient needing 2 person assist to sit up and sit on side of stretcher. Patient generally weak. Patient lives alone and has a home health aide that comes in once a week and a shuttle route vehicle operator that comes in once a week and gets her groceries. Patient unable to void,c/o lower abdominal pain. Dr. Quintanilla aware and aware of bladder scan results.
[2020-02-11] MEDS: Fluconazole 150 MG TAB PO (13:34)
[2020-02-11] MEDS: Acyclovir 400 MG TAB PO (13:37)
--- NOTE | 2020-02-11 15:22 | W.PM.HP.N ---
Date of service: 02/11/20 Time of Service: 15:26 Assessment and Plan Assessment and plan (1) Urinary retention: Start date: 02/11/20 Start time: 15:59 Status: Acute Assessment and plan: Found to have abd pain with 900 ml in bladder by ED. CT with mild hydronephrosis. Renal u/s results pending Catheter placed, urology consult, started on flomax, there is CVA tenderness. U/a negative however given leukocytosis and retention will order urine cx. (2) Leukocytosis: Start date: 02/11/20 Start time: 16:07 Status: Acute Assessment and plan: Leukocytosis unknown origin, afebrile. Will r/o with CXR, urine cx, CRP, Procal, lactate, esr Qualifiers: Leukocytosis type: unspecified Qualified Code(s): D72.829 - Elevated white blood cell count, unspecified (3) Psoriasis: Start date: 02/11/20 Start time: 16:04 Status: Chronic Assessment and plan: To periarea genitalia, buttocks, back, elbows and foot. Will treat with prednisone burst and hydrocortisone topical Not itchy, or painful (4) Anemia: Start date: 02/11/20 Start time: 16:07 Status: Chronic Assessment and plan: Anemia by labs, not historically low. Will order anemia work up evaluate for low iron Qualifiers: Anemia type: unspecified type Qualified Code(s): D64.9 - Anemia, unspecified (5) Diabetes mellitus: Start date: 02/11/20 Start time: 16:09 Status: Chronic Assessment and plan: Per patient diet controlled. Will give carb controlled diet and in setting of illness check fingerstick BID Qualifiers: Diabetes mellitus type: type 2 Diabetes mellitus care home insulin use: without terminal computer operator use Diabetes mellitus complication status: without complication Qualified Code(s): E11.9 - Type 2 diabetes mellitus without complications (6) DVT prophylaxis: Start date: 02/11/20 Start time: 16:10 Status: Acute Assessment and plan: Enoxaparin daily above case discussed with dr. loyd who is in agreement. History of Present Illness History of Present Illness Chief Complaint: Urinary retention, Leukocytosis Narrative: 64 y.o female with PMH of gout, HLD, Snider's palsy, DM diet controlled, depression, psoriasis presents to [facility] ED with lower abdominal pain and inability to urinate. She was found to have a rash in between her legs in the fold of her labia and to her buttocks. She denies itching, burning, pain to groin area. There are no pustules or drainage, the rash does not appear to follow dermatomes, it appears to have a silver edge consistent with psoriasis. Labs in the ED remarkable for Leukocytosis 13.27 with unknown source, will obtain CXR, CRP, procal and ESR. She did have bladder scan of 900 in ED with catheter placed, with urology consult. CT of abd and pelvis with mild hydronephrosis will obtain renal ultrasound. She has been asked to be admitted for further management. Will treat with hydrocortisone to psoriatic areas, urine culture, crp, esr, procal and lactate to evaluate for leukocytosis. She denies cough though she appears to be a poor historian of recent events. She denies any changes in habits. Will hold on treating with antibiotics until verified source. Afebrile. She is anemic, will evaluate for anemia. She denies CP, SOB, N/V/D. Review of Systems All systems reviewed & are unremarkable except as noted in HPI and below ON LICENSE OF [facility] Medical History Acute gout of right ankle (12/06/14) Callus of foot Depressive disorder bipolar 02/25-[facility] Dermatitis associated with moisture Diabetes mellitus (09/10/14) Encounter for evaluation of ability to make decisions regarding care Gallstones Gastritis presumed (improved symptoms on omeprazole) Headache secondary to scoliosis & neck muscle spasm Hernia of abdominal wall Hyperlipidemia (08/17/12) Hypokalemia (09/06/17) Hypomagnesemia (09/15/12) Idiopathic scoliosis w/ Chronic LBP; surgery-1970,1971, 1990, 1995, 1997 ([facility]) Increased BMI (body mass index) (03/28/17) Neck pain w/ muscle spasm, secondary to scoliosis Pain in wrist (02/17/06) left; [place] [facility] [place] [facility] (04/16/13) Right shoulder pain (09/10/14) Right upper quadrant abdominal tenderness (09/06/17) Right upper quadrant abdominal tenderness with rebound tenderness (09/06/17) Sensorineural hearing loss, bilateral (10/13/15) Shoulder pain, right Systolic murmur Tubular adenoma (08/09/16) Vitamin D deficiency (08/17/12) Surgical History Colonoscopy - IV Sedation (08/09/16) Hysterectomy, Laproscopic Family History Father , 63 Lung cancer Sister Depression Sister COPD (chronic obstructive pulmonary disease) Grandmother Breast cancer Son Depression Social History Smoking/Tobacco Use Status: Never Second Hand Exposure: Yes Smoking risk assessment performed?: Yes Alcohol Intake: current Alcohol Intake frequency: holidays/special occasions only Alcohol type: wine Counseling given: No Drug use: Never Substance use type: does not use Counseling provided: none Caregiver/Support person: No Household members: none Communication Needs: Hard of Hearing Do you need help understanding health information?: Often Pets and animals: No Sexually active: No Do you think of yourself as: straight/heterosexual Current gender identity: female What is your relationship status?: How often do you talk on the phone with friends or family?: decline to answer How often do you get together with friends or relatives?: decline to answer How often do you attend restorationist or worship services?: 4 or more times per year Do you belong to any clubs or organized social groups?: no Panel score (0-1 are the most socially isolated patients): 1 What type of physical activity do you participate in: none Pari/Baptism: Gnosticist Special pari needs: No Seatbelt use: always Helmet use: No Drive intox or ride w/intox party bus driver: No Do you feel safe at home: Yes Do you feel safe in your relationship?: Yes Meds Home Medications and Allergies Home Medications Medication Instructions Recorded Confirmed Type cholecalciferol (vitamin D3) 25 1,000 unit PO DAILY #30 cap 04/11/19 02/11/20 Rx mcg (1,000 unit) capsule pantoprazole 40 mg tablet,delayed 40 mg PO DAILY #30 tab 04/11/19 02/11/20 Rx release simvastatin 40 mg tablet 40 mg PO QPM #30 tab 04/11/19 02/11/20 Rx allopurinol 300 mg tablet 300 mg PO DAILY #30 tab 04/26/19 02/11/20 Rx brexpiprazole 3 mg tablet 3 mg PO DAILY #30 tab 05/08/19 02/11/20 Rx duloxetine 30 mg capsule,delayed 30 mg PO DAILY #30 cap 07/10/19 02/11/20 Rx release fluoxetine 20 mg capsule 20 mg PO DAILY #30 cap 07/10/19 02/11/20 Rx lamotrigine 200 mg tablet 300 mg PO DAILY #45 tab 07/26/19 02/11/20 Rx acetaminophen 500 mg tablet 500 mg PO TID #90 tab 08/14/19 02/11/20 Rx halobetasol propionate 0.05 % 1 applic TP BID #50 gm 09/05/19 02/11/20 Rx topical ointment betamethasone dipropionate 0.05 % 1 applic TP BID PRN #45 gm 09/08/19 02/11/20 Rx topical cream nystatin-triamcinolone 100,000 1 applic TP BID #60 gm 09/25/19 02/11/20 Rx unit/g-0.1 % topical cream meloxicam 15 mg tablet 15 mg PO DAILY 11/27/19 02/11/20 History gabapentin 600 mg PO TID 02/11/20 02/11/20 History Allergies Allergy/AdvReac Type Severity Reaction Status Date / Time codeine AdvReac Intermediate NAUSEA/DIZZ Verified 02/11/20 09:59 INESS Exam Const General: cooperative, comfortable, no acute distress and ill appearing chronically Nutritional Appearance: obese Orientation: alert, awake and oriented x3 HENMT Head: normal to inspection, normocephalic and atraumatic Face and sinus: normal facial exam Mouth: oral mucosae normal Eyes General: appearance normal, both eyes and all related structures Pupils: PERRL EOM: EOM intact bilaterally Neck Neck: full ROM, no lymphadenopathy and no JVD Chest Chest: normal inspection of the chest Resp Effort & Inspection: normal respiratory effort Auscultation: clear to auscultation bilaterally Cardio Jugular venous pressure: no JVD Palpation: normal PMI Rate: regular rate Rhythm: regular rhythm Heart Sounds: S1 normal and S2 normal GI Inspection: normal to inspection Palpation: soft and no hepatosplenomegaly Auscultation: normal bowel sounds General: CVA tenderness on the left Back/Spine/Pelvis Back: CVA tenderness Thoracic/Lumbar Spine: thoracic and lumbar spine normal to inspection and thoraco-lumbar ROM normal Skin General skin exam: rashes and/or lesions noted, erythema and excoriation Rashes: rashes noted (kj area, buttocks, upper back, right foot, bilateral elbows, psoriatic) Other: pale Neuro General: patient alert, patient awake and patient oriented x3 Cognition: normal cognition Speech: speech normal Extrem General: no clubbing, cyanosis or edema Results Labs Result diagrams: 02/11/20 10:15 02/11/20 10:15 Labs: Laboratory Results - last 24 hr 02/11/20 02/11/20 02/11/20 10:15 10:15 10:30 WBC 13.27 H RBC 3.53 L Hgb 11.0 L Hct 33.5 L MCV 94.9 MCH 31.2 MCHC 32.8 RDW 13.6 Plt Count 278 MPV 10.2 Immature Gran % 0.5 Neutrophils % 80.4 Lymphocytes % 12.0 Monocytes % 6.7 Eosinophils % 0.0 Basophils % 0.4 Nucleated RBC % 0 Absolute Neutrophils 10.67 H Absolute Lymphocytes 1.59 Absolute Monocytes 0.89 H Absolute Eosinophils 0.00 Absolute Basophils 0.05 VBG Lactate Sodium 136 Potassium 4.0 Chloride 98 Carbon Dioxide 28.7 Anion Gap 9.3 BUN 16 Creatinine 0.86 Estimated GFR/1.73 m2 >= 60.00 Glucose 109 H Calcium 8.9 Total Bilirubin 0.5 AST 18 ALT 16 Alkaline Phosphatase 88 Total Protein 7.3 Albumin 3.7 Lipase 157 Urine Color Yellow Urine Clarity Clear Urine pH 7.0 Ur Specific [place] 1.020 Urine Protein Negative Urine Ketones Negative Urine Blood Negative Urine Nitrite Negative Urine Bilirubin Negative Urine Urobilinogen 0.2 Ur Leukocyte Esterase Negative Urine Glucose Negative 02/11/20 10:50 WBC RBC Hgb Hct MCV MCH MCHC RDW Plt Count MPV Immature Gran % Neutrophils % Lymphocytes % Monocytes % Eosinophils % Basophils % Nucleated RBC % Absolute Neutrophils Absolute Lymphocytes Absolute Monocytes Absolute Eosinophils Absolute Basophils VBG Lactate 1.0 Sodium Potassium Chloride Carbon Dioxide Anion Gap BUN Creatinine Estimated GFR/1.73 m2 Glucose Calcium Total Bilirubin AST ALT Alkaline Phosphatase Total Protein Albumin Lipase Urine Color Urine Clarity Urine pH Ur Specific [place] Urine Protein Urine Ketones Urine Blood Urine Nitrite Urine Bilirubin Urine Urobilinogen Ur Leukocyte Esterase Urine Glucose Last Vital Signs Temp 36.7 C 02/11/20 09:51 Pulse 79 02/11/20 14:16 Resp 29 H 02/11/20 14:20 BP 126/69 02/11/20 14:16 Pulse Ox 95 02/11/20 14:20 COVID-19 Screening Have you, or household traveled for leisure in last 14 days?: No Had IN PERSON contact w/suspected or confirmed C-19 person: No
[2020-02-11 17:03] LABS: Lactate 0.8 mmol/L (0.6-1.4)
[2020-02-11 17:26] LABS: C-Reactive Protein 0.47 mg/dL (0.0-0.3); TSH 3.05 uIU/mL (0.36-3.74)
[2020-02-11] MEDS: Enoxaparin 40 MG/0.4 ML SYR SC (17:27)
[2020-02-11] MEDS: predniSONE 20 MG TAB 40 MG PO (17:29)
[2020-02-11 17:49] LABS: Procalcitonin 0.1 ng/mL
[2020-02-11] MEDS: Tamsulosin 0.4 MG CAPCR PO (18:10)
[2020-02-11] MEDS: Acetaminophen 500 MG TAB 1000 MG PO (20:40)
[2020-02-11] MEDS: Simvastatin 40 MG TAB PO (20:40)
[2020-02-11] MEDS: lamoTRIgine 100 MG TAB 200 MG PO (20:41)
[2020-02-11] MEDS: Gabapentin 600 MG TAB PO (20:42)
[2020-02-12 01:30] VITALS: O2SAT 95
[2020-02-12 06:37] LABS: Abs Immature Grans 0.04 10^3/uL (0.0-0.06); Absolute Basophil Count 0.01 10^3/uL (0.0-0.2); Absolute Lymphocyte Count 0.95 10^3/uL (1.2-3.4); Absolute Monocyte Count 0.36 10^3/uL (0.1-0.8); Absolute Neutrophil Count 6.21 10^3/uL (1.2-6.7); Basophils % 0.1; HCT 32.4 % (36.0-46.0); HGB 10.4 g/dL (11.2-15.7); Immature Grans % 0.5; Lymphocytes % 12.5; MCH 30.4 pg (27.0-33.0); MCHC 32.1 % (32.0-36.0); MCV 94.7 fL (80-95); MPV 10.1 fL (8.0-11.0); Monocytes % 4.8; Neutrophils % 82.1; Nucleated RBC 0 %; Platelet Count 260 10^3/uL (130-400); RBC 3.42 10^6/uL (3.93-5.22); RDW 13.7 % (11.7-14.6); RDW-SD 47.7 fL; WBC 7.57 10^3/uL (4.4-10.8)
--- NOTE | 2020-02-12 06:37 | W.UROLOGYCON ---
Date of service: 02/12/20 Time of Service: 06:37 Assessment and Plan Assessment and plan (1) Urinary retention: Status: Acute Assessment and plan: In reviewing the patient's medical records, the diagnosis of urinary retention was actually documented in October 2018. I do not see any associated note or encounter at that time, so I am not certain if her retention is a longstanding chronic issue or if she intermittently goes in and out of retention. The fact that her renal function is normal points more toward an intermittent nature. In reviewing her previous CTs and ultrasounds at our facility, this admission is the first time that she was found to have hydronephrosis. The CT done through this emergency room visit is the first renal imaging she had since the diagnosis of urinary retention was placed in her chart. Perhaps the retention documented in October 2018 occurred at another facility? I do not find any previous urologic evaluations either at [facility] or [place] [facility] [place] It would be unusual for women to have a bladder outlet obstruction causing the retention. This particular patient's risk factors for retention include constipation, diabetes, spine disease, chronic pain and chronic psychiatric medications. To complicate matters, she apparently has vaginal ulcerations. She was started on an alpha-chao yesterday when she was admitted. The maximal effect of alpha blockers usually occurs in the 3 to 5-day range. The typical recommendations for retention in women include optimizing the patient's bowel function and mobility as well as possible withdrawal of any medications that have retention side effects. It sounds like she has required multiple hospitalizations for her depression, so withdrawing any of her psychiatric medications would be quite risky. Once these measures have been accomplished, we usually remove the catheter, start timed voiding and teach the patient to perform CIC if need be. In this particular patient's case, I might suggest leaving the indwelling catheter in place until the vaginal ulcerations have healed before starting timed voiding and CIC. She tells me that she lives alone, so if she is discharged with a catheter in place, she may need some additional home health services to help her out. We would then see her in the office to remove the catheter next week (the office is closed and Tuesday of this week). History of Present Illness History of Present Illness Chief Complaint: Urinary retention Narrative: This is a 64-year-old woman who presented to our emergency room yesterday with complaints of abdominal pain and an inability to void. She is unable to tell me the exact duration of her symptoms. When I asked her if it had been going on for a long time or short time, she told me it was somewhere in the middle. I did note that a diagnosis of urinary retention was first placed in her chart in October 2018. When she presented to the emergency room, a Beaver catheter was placed and her abdominal discomfort improved. She has not had any changes in her medications recently. She has an issue with constipation, but she tells me this has been a longstanding issue and has not changed recently. She has chronic back pain, but again, the intensity of the pain has not changed recently. She has not seen any gross hematuria or had any burning with urination. She has no known history of kidney stones, urinary tract infections or urologic surgery. When I asked the patient whether she had a catheter previously, she admitted that she did have a catheter a long time ago but she could not really relay any details surrounding that event. Review of Systems Narrative: No fevers or chills. Complains of weakness. She uses a walker to help with ambulation. No vision change or dysphasia No thyroid dysfunction. History of diabetes, but not on any medication for this issue currently No cough or hemoptysis No chest pain or palpitations No nausea, vomiting, hepatitis, ulcers, jaundice. History of chronic constipation No seizures or strokes. History of Snider's palsy No bleeding disorders No gout. History of scoliosis requiring multiple back surgeries [facility] Medical History Acute gout of right ankle (12/06/14) Callus of foot Depressive disorder bipolar 02/25-[facility] Dermatitis associated with moisture Diabetes mellitus (09/10/14) Encounter for evaluation of ability to make decisions regarding care Gallstones Gastritis presumed (improved symptoms on omeprazole) Headache secondary to scoliosis & neck muscle spasm Hernia of abdominal wall Hyperlipidemia (08/17/12) Hypokalemia (09/06/17) Hypomagnesemia (09/15/12) Idiopathic scoliosis w/ Chronic LBP; surgery-1969,1971, 1990, 1995, 1997 ([facility]) Increased BMI (body mass index) (03/28/17) Neck pain w/ muscle spasm, secondary to scoliosis Pain in wrist (02/17/06) left; [place] [facility] [place] (04[place]16[place]13) Right shoulder pain (09/10/14) Right upper quadrant abdominal tenderness (09/06/17) Right upper quadrant abdominal tenderness with rebound tenderness (09/06/17) Sensorineural hearing loss, bilateral (10/13/15) Shoulder pain, right Systolic murmur Tubular adenoma (08/09/16) Vitamin D deficiency (08/17/12) Surgical History Colonoscopy - IV Sedation (08/09/16) Hysterectomy, Laproscopic Family History Father , 63 Lung cancer Sister Depression Sister COPD (chronic obstructive pulmonary disease) Grandmother Breast cancer Son Depression Social History Smoking/Tobacco Use Status: Never Second Hand Exposure: Yes Smoking risk assessment performed?: Yes Alcohol Intake: current Alcohol Intake frequency: holidays/special occasions only Alcohol type: wine Counseling given: No Drug use: Never Substance use type: does not use Counseling provided: none Caregiver/Support person: No Household members: none Communication Needs: Hard of Hearing Do you need help understanding health information?: Often Pets and animals: No Sexually active: No Do you think of yourself as: straight/heterosexual Current gender identity: female What is your relationship status?: How often do you talk on the phone with friends or family?: decline to answer How often do you get together with friends or relatives?: decline to answer How often do you attend presybeterian or pentecostal services?: 4 or more times per year Do you belong to any clubs or organized social groups?: no Panel score (0-1 are the most socially isolated patients): 1 What type of physical activity do you participate in: none Pari/Alevism: Yazidism Special pari needs: No Seatbelt use: always Helmet use: No Drive intox or ride w/intox retail delivery driver: No Do you feel safe at home: Yes Do you feel safe in your relationship?: Yes Exam Narrative Exam Narrative: She does not appear to be in any acute distress. She does not appear septic or toxic Her vital signs are documented elsewhere Her urine is clear in the catheter bag She is awake and alert. Her affect is blunted. Results Last Vital Signs Temp 37.4 C 02/11/20 23:02 Pulse 77 02/11/20 23:02 Resp 18 02/11/20 23:02 BP 118/67 02/11/20 23:02 Pulse Ox 95 02/12/20 01:30 Labs Result diagrams: 02/12/20 06:15 02/12/20 06:15 Labs: Laboratory Results - last 24 hr 02/11/20 02/11/20 02/11/20 10:15 10:15 10:30 WBC 13.27 H RBC 3.53 L Hgb 11.0 L Hct 33.5 L MCV 94.9 MCH 31.2 MCHC 32.8 RDW 13.6 Plt Count 278 MPV 10.2 Immature Gran % 0.5 Neutrophils % 80.4 Lymphocytes % 12.0 Monocytes % 6.7 Eosinophils % 0.0 Basophils % 0.4 Nucleated RBC % 0 Absolute Neutrophils 10.67 H Absolute Lymphocytes 1.59 Absolute Monocytes 0.89 H Absolute Eosinophils 0.00 Absolute Basophils 0.05 VBG Lactate Sodium 136 Potassium 4.0 Chloride 98 Carbon Dioxide 28.7 Anion Gap 9.3 BUN 16 Creatinine 0.86 Estimated GFR/1.73 m2 >= 60.00 Glucose 109 H Calcium 8.9 Total Bilirubin 0.5 AST 18 ALT 16 Alkaline Phosphatase 88 C-Reactive Protein Total Protein 7.3 Albumin 3.7 Lipase 157 Procalcitonin TSH Urine Color Yellow Urine Clarity Clear Urine pH 7.0 Ur Specific [place] 1.020 Urine Protein Negative Urine Ketones Negative Urine Blood Negative Urine Nitrite Negative Urine Bilirubin Negative Urine Urobilinogen 0.2 Ur Leukocyte Esterase Negative Urine Glucose Negative 02/11/20 02/11/20 02/11/20 10:50 10:50 10:50 WBC RBC Hgb Hct MCV MCH MCHC RDW Plt Count MPV Immature Gran % Neutrophils % Lymphocytes % Monocytes % Eosinophils % Basophils % Nucleated RBC % Absolute Neutrophils Absolute Lymphocytes Absolute Monocytes Absolute Eosinophils Absolute Basophils VBG Lactate 1.0 Sodium Potassium Chloride Carbon Dioxide Anion Gap BUN Creatinine Estimated GFR/1.73 m2 Glucose Calcium Total Bilirubin AST ALT Alkaline Phosphatase C-Reactive Protein 0.47 H Total Protein Albumin Lipase Procalcitonin 0.1 TSH 3.05 Urine Color Urine Clarity Urine pH Ur Specific [place] Urine Protein Urine Ketones Urine Blood Urine Nitrite Urine Bilirubin Urine Urobilinogen Ur Leukocyte Esterase Urine Glucose 02/11/20 16:54 WBC RBC Hgb Hct MCV MCH MCHC RDW Plt Count MPV Immature Gran % Neutrophils % Lymphocytes % Monocytes % Eosinophils % Basophils % Nucleated RBC % Absolute Neutrophils Absolute Lymphocytes Absolute Monocytes Absolute Eosinophils Absolute Basophils VBG Lactate 0.8 Sodium Potassium Chloride Carbon Dioxide Anion Gap BUN Creatinine Estimated GFR/1.73 m2 Glucose Calcium Total Bilirubin AST ALT Alkaline Phosphatase C-Reactive Protein Total Protein Albumin Lipase Procalcitonin TSH Urine Color Urine Clarity Urine pH Ur Specific [place] Urine Protein Urine Ketones Urine Blood Urine Nitrite Urine Bilirubin Urine Urobilinogen Ur Leukocyte Esterase Urine Glucose
[2020-02-12 07:06] LABS: Anion Gap 7.9 mmol/L (3-11); BUN 14 mg/dL (7-18); CO2 30.1 mmol/L (21.0-32.0); Chloride 106 mmol/L (98-107); Ferritin 84 ng/mL (8-252); Glucose 122 mg/dL (74-106); Sodium 144 mmol/L (136-145); TSH (W/Ref FT4) 0.73 uIU/mL (0.36-3.74)
[2020-02-12 07:07] LABS: Hemoglobin A1C 5.7 % (<5.7)
[2020-02-12 07:20] LABS: Vitamin B12 461 pg/mL (193-986)
[2020-02-12 07:21] LABS: Folate > 20.0 ng/mL (8.6-20.0)
[2020-02-12 07:26] LABS: ESR 45 mm/hr (0-30)
[2020-02-12 07:27] VITALS: BP 93/58; PULSE 72; RESP 20; TEMP 36.6; O2SAT 92
[2020-02-12 07:29] LABS: Iron 47 ug/dL (50-170); Total Iron Binding Capacity 263 ug/dL (250-450); Transferrin Sat 18 % (15-50)
[2020-02-12] MEDS: Gabapentin 600 MG TAB PO ×2 (08:41→14:33)
[2020-02-12] MEDS: Meloxicam 15 MG TAB PO (08:41)
[2020-02-12] MEDS: Allopurinol 300 MG TAB PO (08:41)
[2020-02-12] MEDS: DULoxetine 30 MG CAP PO (08:41)
[2020-02-12] MEDS: Pantoprazole 40 MG TABCR PO (08:41)
[2020-02-12] MEDS: Acetaminophen 500 MG TAB 1000 MG PO ×2 (08:41→14:33)
[2020-02-12] MEDS: FLUoxetine 20 MG CAP PO (08:42)
[2020-02-12] MEDS: lamoTRIgine 100 MG TAB PO (08:42)
[2020-02-12] MEDS: Tamsulosin 0.4 MG CAPCR PO (08:42)
[2020-02-12] MEDS: Cholecalciferol (Vitamin D3) 1,000 UNIT TAB 1000 UNITS PO (08:42)
[2020-02-12] MEDS: predniSONE 20 MG TAB 40 MG PO (08:42)
[2020-02-12 11:20] VITALS: O2SAT 93
--- NOTE | 2020-02-12 13:35 | PDOC.CMIN ---
- If Service Date Differs Date of service: 02/12/20 Time of Service: 14:32 Care Management Initial Assess REASON FOR HOSPITALIZATION:: Urinary retention, generalized weakness, vaginitis PAST MEDICAL HISTORY/PAST SURGICAL HISTORY:: 64 y.o female with PMH of gout, HLD, Snider's palsy, DM diet controlled, depression, psoriasis presents to [facility] ED with lower abdominal pain and inability to urinate. She was found to have a rash in between her legs in the fold of her labia and to her buttocks. Acute gout of right ankle (12/06/14), Callus of foot, Depressive disorder, bipolar 02/25-[facility], Dermatitis associated with moisture, Diabetes mellitus (09/10/14), Encounter for evaluation of ability to make decisions regarding care, Gallstones, Gastritis presumed (improved symptoms on omeprazole), Headache secondary to scoliosis & neck muscle spasm, Hernia of abdominal wall, Hyperlipidemia (08/17/12), Hypokalemia (09/06/17), Hypomagnesemia (09/15/12), Idiopathic scoliosis w/ Chronic LBP; surgery-1969,1971, 1990, 1995, 1997 ([facility]), Increased BMI (body mass index) (03/28/17), Neck pain w/ muscle spasm, secondary to scoliosis, Pain in wrist (02/17/06), left; MRI [facility], Psoriasis (04/16/13), Right shoulder pain (09/10/14), Right upper quadrant abdominal tenderness with rebound tenderness (09/06/17), Sensorineural hearing loss, bilateral (10/13/15), Shoulder pain, right, Systolic murmur, Tubular adenoma (08/09/16), Vitamin D deficiency (08/17/12), Colonoscopy - IV Sedation (08/09/16), Hysterectomy, Laproscopic PREVIOUS FUNCTIONAL STATUS/SOCIAL/FAMILY SUPPORTS:: Jackelin resides at the [facility]. She has high/highest needs support through [employer], her case work aide is Patti Anderson. She reports having assistance with groceries, homemaking and laundry. She reports having a great support system including her sister Callie who is an RN who resides in [place] and her sister Doris, who is an PATIENT CARE ASSOCIATE in [facility], as well as friends, locally. She utilizes a rollator walker at baseline and utilizes RCT, when needed. She reports not trusting males due to her own personal history, and not wanting male drivers. CURRENT FUNCTIONAL STATUS:: Jackelin reports being emotional most of the day and wanting to remain at [facility] to have people take care of me. She reports that her sister in [place] is looking into having Jackelin stay with her for a little while. With further discussion, Jackelin is able to identify worries around managing the indwelling catheter. CM reviewed urological recommendations which eased Jackelin's concerns. She reported wanting to transport with Noe Whitaker through [employer], as she is comfortable with Noe. She requested this adjusto writer operator speak to her sister Callie; CM spoke with Callie and reviewed recommendations. Both Jackelin and Callie agreed with discharge plan of care, but shared worries central to Jackelin's ability to continue managing her needs at home, alone. Has patient been provided with info about the portal/API?: Yes Did the patient sign up for the portal?: Yes (Previously) CODE STATUS:: Full Code INSURANCE COVERAGE / FINANCIAL ISSUES:: [employer]ION[employer] CURRENT HOME/COMMUNITY SERVICES/EQUIPMENT:: [employer] High/Highest: [facility]; Patti Anderson. Rollator walker, handicap accessible fpc apartment; [place] [employer]. [employer]. PRIMARY CARE PHYSICIAN:: Genesis Mitchell: [facility]. POTENTIAL DISCHARGE NEEDS:: New orders for [facility]; RN (CM notified Keaton; intake), indwelling catheter pope to be removed next week with Urology-Dr. Zamora for voiding trial. Resumption of highest needs supports. Transportation; [employer], [facility] funded at Patient request. PATIENT/FAMILY EDUCATION NEEDS:: Review of observation status, discharge recommendations, community based supports, discharge instructions, discuss Ask Me Three. ANTICIPATED BARRIERS TO DISCHARGE:: None identified. TRANSPORTATION:: [employer]: Noe Whitaker; coordinated by this adjusto writer operator and funded by [facility]. PLAN:: Jackelin will return home when ready per MD. She will have new orders for VNA RN through [facility] for continued teaching of pope catheter; CM notified Keaton of [facility]. She will resume outpatient supports and follow up with Dr. Zamora sometime next week for catheter removal and voiding trial. She will transport via private vehicle with [employer] per her request, funded by [facility].
--- NOTE | 2020-02-12 14:12 | DSE_ITS ---
Date of service: 02/12/20 Time of Service: 14:12 DS: Diagnosis Discharge Diagnosis (1) Urinary retention: Status: Acute Discharge Plan Disposition Patient Disposition: HOME W/HOME HEALTH SERVICE Condition: Stable Discharge Details Reason For Visit: URINARY RETENTION, GENERALIZED WEAKNESS, VAGINITIS Admit Date/Time: 02/11/20 13:32 Admit Provider: Mihir Menezes Attending Provider: Mihir Menezes Primary Care Provider: Genesis Mitchell Hospital Course Hospital Course: This is a 64 y.o female with PMH of gout, HLD, Snider's palsy, DM diet controlled, depression, psoriasis presents to [facility] ED with lower abdominal pain and inability to urinate. She was found to have a rash in between her legs in the fold of her labia and to her buttocks. She denies itching, burning, pain to groin area. There are no pustules or drainage, the rash does not appear to follow dermatomes, it appears to have a silver edge consistent with psoriasis. Labs in the ED remarkable for Leukocytosis 13.27 with unknown source, will obtain CXR, CRP, procal and ESR. She did have bladder scan of 900 in ED with catheter placed, urology consult. CT of abd and pelvis with mild hydronephrosis, renal ultrasound shows improvement in bilateral hydronephrosis. Dr Zamora suggests leaving the indwelling catheter in place until the vaginal ulcerations have healed before starting timed voiding and CIC. She was started on tamsulosin. she has been placed on oral steroid burst and topical treatment to treat psoriasis to periarea genitalia, buttocks, back, elbows and foot. She will f/u with Dr Zamora next week in the office as scheduled. she will be discharged to home with resumption of home health services. She has been given instruction on pope catheter care. discussed with DR Menezes Home Meds and New Rx's Prescriptions: New prednisone 20 mg Tablet 40 mg PO DAILY Qty: 10 RF: 0 tamsulosin 0.4 mg Capsule 0.4 mg PO DAILY Qty: 30 RF: 0 nystatin 100,000 unit/gram Powder 6,000,000 unit topical BID Qty: 30 RF: 0 Continued nystatin-triamcinolone 100,000-0.1 unit/g-% cream 1 applic TP BID Qty: 60 RF: 1 meloxicam 15 mg tablet 15 mg PO DAILY RF: 0 cholecalciferol (vitamin D3) 25 mcg (1,000 unit) capsule 1,000 unit PO DAILY Qty: 30 RF: 11 pantoprazole 40 mg tablet,delayed release (DR/EC) 40 mg PO DAILY Qty: 30 RF: 11 simvastatin 40 mg tablet 40 mg PO QPM Qty: 30 RF: 11 allopurinol 300 mg tablet 300 mg PO DAILY Qty: 30 RF: 11 Rexulti 3 mg tablet 3 mg PO DAILY Qty: 30 RF: 11 fluoxetine 20 mg capsule 20 mg PO DAILY Qty: 30 RF: 11 duloxetine 30 mg capsule,delayed release(DR/EC) 30 mg PO DAILY Qty: 30 RF: 11 lamotrigine 200 mg tablet 300 mg PO DAILY Qty: 45 RF: 11 acetaminophen [Acetaminophen Extra Strength] 500 mg tablet 500 mg PO TID Qty: 90 RF: 3 halobetasol propionate 0.05 % ointment 1 applic TP BID Qty: 50 RF: 2 betamethasone dipropionate 0.05 % cream 1 applic TP BID PRN (Reason: skin irritation) Qty: 45 RF: 2 gabapentin 600 mg tablet 600 mg PO TID RF: 0 Discharge Instructions Instructions: Acute Urinary Retention in Women (ED) Additional Instructions: continue pope catheter care as directed. apply nystatin to skin folds infected with yeast. you received an oral dose of diflucan to help faciliate healing. Stand Alone Forms: Nursing Discharge Form Referrals: Boni Zamora MD [ [facility] STAFF PHYSICIAN] - 02/18/20 1:00 pm Activity:: Activity as Tolerated Equipment/Supplies:: pope catheter and suppli Diet:: Carb Counting Discharge Orders Discharge Orders: Discharge Order (Routine); Ordered 02/12/20 Ordered By: Saira Bueno DS: Summary Status at Discharge Functional status at discharge: independent ambulation Overall status at discharge: patient is progressing back to baseline Mental Status: mental status grossly normal Speech and Movement: speech and movement normal Mood: congruent mood Affect: normal affect Exam Const General: cooperative, comfortable, no acute distress and ill appearing chronically Nutritional Appearance: obese Orientation: alert, awake and oriented x3 HENMT Head: normal to inspection, normocephalic and atraumatic Face and sinus: normal facial exam Mouth: oral mucosae normal Eyes General: appearance normal, both eyes and all related structures Pupils: PERRL EOM: EOM intact bilaterally Neck Neck: full ROM, no lymphadenopathy and no JVD Chest Chest: normal inspection of the chest Resp Effort & Inspection: normal respiratory effort Auscultation: clear to auscultation bilaterally Cardio Jugular venous pressure: no JVD Palpation: normal PMI Rate: regular rate Rhythm: regular rhythm Heart Sounds: S1 normal and S2 normal GI Inspection: normal to inspection Palpation: soft and no hepatosplenomegaly Auscultation: normal bowel sounds General: CVA tenderness on the left Back/Spine/Pelvis Back: CVA tenderness Thoracic/Lumbar Spine: thoracic and lumbar spine normal to inspection and thoraco-lumbar ROM normal Skin General skin exam: rashes and/or lesions noted, erythema and excoriation Rashes: rashes noted (kj area, buttocks, upper back, right foot, bilateral elbows, psoriatic) Neuro General: patient alert, patient awake and patient oriented x3 Cognition: normal cognition Speech: speech normal Extrem General: no clubbing, cyanosis or edema Psych Mental Status: mental status grossly normal Speech and Movement: speech and movement normal Mood: congruent mood Affect: normal affect DS: Data Vitals/I&O Vitals and I&O: Vital Signs Temperature 36.6 C 02/12/20 07:27 Temperature Source Skin 02/12/20 07:27 Pulse 72 02/12/20 07:27 Pulse Rhythm Regular 02/12/20 09:58 Pulse 75 02/11/20 14:20 Respiratory Rate 20 02/12/20 07:27 Respiratory Effort Non-Labored 02/12/20 09:58 Respiratory Depth Normal 02/12/20 09:58 Respiratory Pattern Normal 02/12/20 09:58 Blood Pressure 93/58 L 02/12/20 07:27 Blood Pressure Mean 81 02/11/20 14:16 Blood Pressure Position Supine 02/11/20 09:51 Pulse Oximetry 93 02/12/20 11:20 Oxygen Delivery Method Room Air 02/12/20 11:20 Oxygen Flow Rate 0 02/12/20 11:20 Pain Level 6 02/12/20 07:27 Comment 02/12/20 01:30 Intake & Output 02/11/20 02/12/20 02/12/20 23:59 11:59 23:59 Intake Total 1240 / 1240 480 / 720 240 / 720 Output Total 3075 / 3875 1300 / 1300 Balance -1835 / -2635 -820 / -580 240 / -580 Weight 86.4 kg Intake: IV 1000 / 1000 Oral 240 / 240 480 / 720 240 / 720 Output: Urine 3075 / 3875 1300 / 1300 Other: Urine Color Pale Yellow Urine Appearance Clear Clear Urine Odor None Comment specimen collected for UA Data Completed and Pending Labs on day of discharge: Labs from last 24 hours 02/12/20 02/12/20 02/12/20 06:15 06:15 06:15 WBC RBC Hgb Hct MCV MCH MCHC RDW Plt Count MPV Immature Gran % Neutrophils % Lymphocytes % Monocytes % Eosinophils % Basophils % Nucleated RBC % Absolute Neutrophils Absolute Lymphocytes Absolute Monocytes Absolute Eosinophils Absolute Basophils ESR VBG Lactate Sodium 144 Potassium 4.0 Chloride 106 Carbon Dioxide 30.1 Anion Gap 7.9 BUN 14 Creatinine 0.80 Estimated GFR/1.73 m2 >= 60.00 Glucose 122 H Hemoglobin A1c Calcium 9.0 Iron 47 L TIBC 263 Transferrin % Sat 18 Ferritin 84 C-Reactive Protein Vitamin B12 461 Folate > 20.0 H Procalcitonin TSH 0.73 02/12/20 02/12/20 02/11/20 06:15 06:15 16:54 WBC 7.57 D RBC 3.42 L Hgb 10.4 L Hct 32.4 L MCV 94.7 MCH 30.4 MCHC 32.1 RDW 13.7 Plt Count 260 MPV 10.1 Immature Gran % 0.5 Neutrophils % 82.1 Lymphocytes % 12.5 Monocytes % 4.8 Eosinophils % 0.0 Basophils % 0.1 Nucleated RBC % 0 Absolute Neutrophils 6.21 Absolute Lymphocytes 0.95 L Absolute Monocytes 0.36 Absolute Eosinophils 0.00 Absolute Basophils 0.01 ESR 45 H VBG Lactate 0.8 Sodium Potassium Chloride Carbon Dioxide Anion Gap BUN Creatinine Estimated GFR/1.73 m2 Glucose Hemoglobin A1c 5.7 Calcium Iron TIBC Transferrin % Sat Ferritin C-Reactive Protein Vitamin B12 Folate Procalcitonin TSH 02/11/20 02/11/20 10:50 10:50 WBC RBC Hgb Hct MCV MCH MCHC RDW Plt Count MPV Immature Gran % Neutrophils % Lymphocytes % Monocytes % Eosinophils % Basophils % Nucleated RBC % Absolute Neutrophils Absolute Lymphocytes Absolute Monocytes Absolute Eosinophils Absolute Basophils ESR VBG Lactate Sodium Potassium Chloride Carbon Dioxide Anion Gap BUN Creatinine Estimated GFR/1.73 m2 Glucose Hemoglobin A1c Calcium Iron TIBC Transferrin % Sat Ferritin C-Reactive Protein 0.47 H Vitamin B12 Folate Procalcitonin 0.1 TSH 3.05 Preliminary micro results at discharge 02/11/20 21:15 Urine Culture - Preliminary Urine - Cath Pope Indwelling [facility] Medical History Acute gout of right ankle (12/06/14) Callus of foot Depressive disorder bipolar 02/25-[facility] Dermatitis associated with moisture Diabetes mellitus (09/10/14) Encounter for evaluation of ability to make decisions regarding care Gallstones Gastritis presumed (improved symptoms on omeprazole) Headache secondary to scoliosis & neck muscle spasm Hernia of abdominal wall Hyperlipidemia (08/17/12) Hypokalemia (09/06/17) Hypomagnesemia (09/15/12) Idiopathic scoliosis w/ Chronic LBP; surgery-1969,1971, 1990, 1995, 1997 ([facility]) Increased BMI (body mass index) (03/28/17) Neck pain w/ muscle spasm, secondary to scoliosis Pain in wrist (02/17/06) left; MRI [facility] Psoriasis (04/16/13) Right shoulder pain (09/10/14) Right upper quadrant abdominal tenderness (09/06/17) Right upper quadrant abdominal tenderness with rebound tenderness (09/06/17) Sensorineural hearing loss, bilateral (10/13/15) Shoulder pain, right Systolic murmur Tubular adenoma (08/09/16) Vitamin D deficiency (08/17/12) Surgical History Colonoscopy - IV Sedation (08/09/16) Hysterectomy, Laproscopic Family History Father , 63 Lung cancer Sister Depression Sister COPD (chronic obstructive pulmonary disease) Grandmother Breast cancer Son Depression Social History Smoking/Tobacco Use Status: Never Second Hand Exposure: Yes Smoking risk assessment performed?: Yes Alcohol Intake: current Alcohol Intake frequency: holidays/special occasions only Alcohol type: wine Counseling given: No Drug use: Never Substance use type: does not use Counseling provided: none Caregiver/Support person: No Household members: none Communication Needs: Hard of Hearing Do you need help understanding health information?: Often Pets and animals: No Sexually active: No Do you think of yourself as: straight/heterosexual Current gender identity: female What is your relationship status?: How often do you talk on the phone with friends or family?: decline to answer How often do you get together with friends or relatives?: decline to answer How often do you attend buddhist or cheondoism services?: 4 or more times per year Do you belong to any clubs or organized social groups?: no Panel score (0-1 are the most socially isolated patients): 1 What type of physical activity do you participate in: none Pari/Evangelical: Yazdanism Special pari needs: No Seatbelt use: always Helmet use: No Drive intox or ride w/intox locomotive driver: No Do you feel safe at home: Yes Do you feel safe in your relationship?: Yes
[2020-02-12] MEDS: Nystatin POWDER 60 GM JAR TP (14:37)
--- NOTE | 2020-02-12 14:37 | PDOC.CMDIS ---
LACE Index Scoring Tool - Questions: Length of Stay (in days): 1 Acuity (Admit via E.D.?): Yes Comorbidities: Diabetes w/o Complication E.D. Visits: 2 - Answers: Total Score: 7 Risk of Readmission: Low Risk Care Management Discharge Reason for Hospitalization: Urinary retention, generalized weakness, vaginitis Discharge Plan: Jackelin will return home when ready per MD. She will have new orders for VNA RN through [facility] for continued teaching of pope catheter; CM notified Keaton of [facility]. She will resume outpatient supports and follow up with Dr. Zamora sometime next week for catheter removal and voiding trial. She will resume [facility] highest needs supports as well. She will transport via private vehicle with [employer] per her request, funded by [facility]. Patient/Family Education Needs: Review of observation status, discharge recommendations, community based supports, discharge instructions, discuss Ask Me Three. Services Needed at Discharge: Home Health Care Services (Resume High/Highest, New RN), Homemaking Services (Resumption), Transportation ([employer]: [facility] funded)
--- NOTE | 2020-02-12 14:58 | PDOC.HHF2F_ITS ---
Home Health Certification Home Health Certification: 1. Encounter Date and Reason I certify that SAMAN SUE was seen by Saira Bueno on 02/12/20 and that I had a [id number] encounter with this patient that meets the physician face to face encounter requirements. 2. Clinical Findings Supporting Skilled Need and Homebound Status I certify that home health services are medically necessary, include either intermittent half-way and/or physical/speech therapy, and that this patient is homebound in that absences from the home require considerable and taxing effort and are infrequent or of short duration, or are attributable to the need to receive medical care. [X] (a) Attached documentation from encounter provides clinical findings supporting skilled need and homebound status (including what assistance patient requires to leave the home). The encounter with the patient was in whole, or in part, for the following medical condition, which is the primary reason for home health care: URINARY RETENTION, GENERALIZED WEAKNESS, VAGINITIS Chcf: routine nursing for pope catheter teaching, wound care and assessment, Physical Therapy: routine evaluation and treatment Homebound: patient is unable to leave the home safely d/t ambulation limited by decreased strength and endurance. 3. Certification and Authentication I certify that I composed the above information based on my clinical judgement relating to this patient's medical condition and, if applicable, clinical findings communicated to me by the NPP or inpatient physician who performed the Home Health Referral. All further orders will be obtained through (Community Based Physician - PCP)
[2020-02-12 17:41] LABS: COVID-19 RT-PCR UVMMC Result Negative (Negative)
[2020-02-22 13:09] LABS: HSV Type 1 Ab, IgG Positive (Negative); HSV Type 2 Ab, IgG Negative (Negative)
== END 2020-02-12 14:56 | disposition home health service (06) ==
LOC: ER 12:23 → MS 14:37
PROVIDERS: Nurse Practitioner Family; Admitting Provider Internal Medicine; Emergency Provider Physician Assistant; Visit Provider Internal Medicine
DX: R33.9 Retention of urine, unspecified (principal); R53.1 Weakness; N76.0 Acute vaginitis; M10.9 Gout, unspecified; E11.9 Type 2 diabetes mellitus without complications; F32.9 Major depressive disorder, single episode, unspecified; L40.9 Psoriasis, unspecified; N13.30 Unspecified hydronephrosis; D72.829 Elevated white blood cell count, unspecified; D64.9 Anemia, unspecified; E78.5 Hyperlipidemia, unspecified
CPT/HCPCS: 36415; 51702; 76770; 80048; 80053; 83690; 84145; 85652; 87529; 96361; 96374; 99213; 99217; 99220; 99253; 99285; J1650; U0003; 71045; 74177; 81003; 82607; 82728; 82746; 83036; 83540; 83550; 83605; 84443; 85025; 86140; 86695; 86696; 87086; 87480; 87510; 87660; J3490; J7512

== ENCOUNTER → 2020-02-18 12:51 | Outpatient (BNVA) | payer MEDICARE, MEDICAID, SELFPAY | PROVIDERS: Visit Provider Urology | DX: R33.8 Other retention of urine (principal); Z46.6 Encounter for fitting and adjustment of urinary device | CPT/HCPCS: 99204; 99215 ==

== ENCOUNTER → 2020-02-27 16:30 | Outpatient (BNVA) | payer MEDICARE, MEDICAID, SELFPAY | PROVIDERS: Visit Provider Nurse Practitioner Gerontology | DX: R33.8 Other retention of urine (principal); Z46.6 Encounter for fitting and adjustment of urinary device | CPT/HCPCS: 99213 ==

== ENCOUNTER → 2020-03-10 14:54 | Outpatient (BNVA) | payer MEDICARE, MEDICAID, SELFPAY | PROVIDERS: Visit Provider Nurse Practitioner Gerontology | DX: R33.8 Other retention of urine (principal); Z46.6 Encounter for fitting and adjustment of urinary device; E11.9 Type 2 diabetes mellitus without complications | CPT/HCPCS: 51702; 99213 ==

== ENCOUNTER → 2020-03-17 14:51 | Outpatient (BNVA) | payer MEDICARE, MEDICAID, SELFPAY | PROVIDERS: Visit Provider Urology | DX: R33.8 Other retention of urine (principal); Z96.0 Presence of urogenital implants | CPT/HCPCS: 99213 ==

== ENCOUNTER 2020-03-31 19:45 | Outpatient (REF) | payer MEDICARE, MEDICAID, SELFPAY ==
[2020-04-01 21:55] LABS: COVID-19 RT-PCR Result NEGATIVE (Negative)
== END 2020-03-31 20:05 ==
LOC: LBN 19:45
PROVIDERS: Visit Provider Urology
DX: Z11.59 Encounter for screening for other viral diseases (principal); Z01.818 Encounter for other preprocedural examination
CPT/HCPCS: U0003

== ENCOUNTER 2020-04-01 18:41 | Outpatient (REF) | payer MEDICARE, MEDICAID, SELFPAY ==
[2020-04-01 15:27] LABS: HCT 34.1 % (36.0-46.0); HGB 10.9 g/dL (11.2-15.7)
[2020-04-01 15:32] LABS: ALT 12 U/L (14-59); AST 13 U/L (15-37); Albumin 3.6 g/dL (3.4-5.0); Alkaline Phosphatase 78 U/L (46-116); BUN 11 mg/dL (7-18); Bilirubin, Total 0.5 mg/dL (0.2-1.0); CREATININE 0.88 mg/dL (0.55-1.02); Chloride 106 mmol/L (98-107); Glucose 99 mg/dL (74-106); Potassium 4.1 mmol/L (3.5-5.1); Sodium 143 mmol/L (136-145); Total Protein 6.6 g/dL (6.4-8.2)
== END 2020-04-01 19:01 ==
LOC: LBN 18:41
DX: R33.9 Retention of urine, unspecified (principal); Z01.818 Encounter for other preprocedural examination; Z01.812 Encounter for preprocedural laboratory examination
CPT/HCPCS: 80053; 85014; 85018

== ENCOUNTER → 2020-04-02 12:25 | Outpatient (BNVA) | payer MEDICARE, MEDICAID, SELFPAY | PROVIDERS: Visit Provider Nurse Practitioner Gerontology | DX: R33.8 Other retention of urine (principal); F81.9 Developmental disorder of scholastic skills, unspecified | CPT/HCPCS: 99443 ==

== ENCOUNTER 2020-04-03 11:09 | Observation (INO) | payer MEDICARE, MEDICAID, SELFPAY ==
--- NOTE | 2020-03-20 13:56 | PDOC.ANES ---
Date of service: 03/20/20 Time of Service: 13:57 Anesthesia Note Report Anesthesia Note: Preoperative chart review requested on this patient by Reynaldo Zamora MD for a prospective surgical date of 04/03/2020 for a suprapubic catheter placement and cystoscopy. The patient has a history pertinent to Obesity, Diabetes, Chronic pain including neck pain. The patient has a known systolic murmur and has had chest pain intermittently in the past for which she was evaluated in 2012 with patent coronary arteries and LVEF of 61%. No current complaint of chest pain and last set of labs appear appropriate considering her diagnosis. I believe she can proceed barring changes in status or new information. The specific question of her status for MAC versus General will be more appropriately determined when we are able to meet her in person.
--- NOTE | 2020-04-01 15:22 | NUR.NOTE ---
Patient given detailed instructions. Patient verbalized understanding and repeated the instructions back to this RN. Patient will call with any further questions or concerns. Nursing Note:
[2020-04-03] VITALS (9 sets, daily range): BP systolic 89–171; BP diastolic 64–93; PULSE 62–80; RESP 16–26; TEMP 36–37; O2SAT 94–98
--- NOTE | 2020-04-03 11:21 | HPE_ITS ---
Date of service: 04/03/20 Time of Service: : Assessment and Plan Assessment and plan (1) Retention of urine: Status: Acute Assessment and plan: She presents for cystoscopy and placement of her suprapubic tube. We will keep her in the hospital overnight to reinforce care of the SP tube. She will be discharged tomorrow with resumption of her home health services. We will prophylax her with antibiotics but then give her a dose of Diflucan after the procedure. (2) Learning disability: Status: Chronic History of Present Illness History of Present Illness Chief Complaint: Urinary Retention Narrative: This is a 64-year-old woman who was identified as having a markedly distended bladder as well as hydronephrosis. We placed a Beaver catheter and she had over 1 L of urine drained. We suggested a voiding trial with intermittent catheterization as a backup. The patient was unable to perform CIC, so we have suggested placement of a suprapubic tube. Our initial plan was to clamp the suprapubic tube to allow her to attempt to void. We could then unclamp the tube and check a PVR. The patient is quite reluctant to clamp her catheter and she becomes quite upset when the possibility has been discussed. I am not sure that we will ever be able to give her a voiding trial. She presents now for placement of the suprapubic tube. We had some concerns regarding the patient's ability provide true informed consent due to learning disabilities. We had the patient evaluated by her primary care provider and the patient was felt to be competent to make her own medical decisions. Apparently, similar issues were raised in the past when she required orthopedic surgery. Her family tells us that she underwent an evaluation of competency at that time. Apparently, this evaluation was at another facility as there is no record of the evaluation or outcome in our EMR. Based on a conversation with the patient's sister, the patient was diagnosed with a longstanding learning disability. The patient requires written instructions and information as she is unlikely to comprehend verbal instructions and information. We had tried to explain the benefits of a suprapubic tube compared to a urethral catheter. In women, the chief benefit is avoidance of urethral erosion that can be seen with urethral catheters. From the patient's perspective, the big benefit is that she would be able to wear pants more easily with the suprapubic tube. She does have home health services ongoing. All of us involved in the patient's care were concerned that the patient would have a very hard time dealing with changes in her situation without full-time supervision in the first 24 hours. For that reason, we are planning on admitting her to the hospital overnight. The inpatient nursing staff can begin working on teaching her how to deal with a leg bag for her suprapubic tube. We have already arranged for home health services to make a visit as soon as she is discharged. Review of Systems Constitutional Constitutional: Denies chills and Denies fever(s) Eyes Eyes: Denies loss of vision Cardiovascular Cardiovascular: Denies chest pain and Denies dyspnea Respiratory Respiratory: Denies chest congestion, Denies cough, Denies hemoptysis and Denies dyspnea Gastrointestinal Gastrointestinal: Denies abdominal pain and Reports constipation Musculoskeletal Musculoskeletal: Reports back pain Neurologic Neurologic: Denies loss of vision [facility] Medical History Acute gout of right ankle (12/06/14) Callus of foot Depressive disorder bipolar 02/25-[facility] Dermatitis associated with moisture Diabetes mellitus (09/10/14) Encounter for evaluation of ability to make decisions regarding care Gallstones Gastritis presumed (improved symptoms on omeprazole) Headache secondary to scoliosis & neck muscle spasm Hernia of abdominal wall Hyperlipidemia (08/17/12) Hypokalemia (09/06/17) Hypomagnesemia (09/15/12) Idiopathic scoliosis w/ Chronic LBP; surgery-1969,1971, 1990, 1995, 1997 ([facility]) Increased BMI (body mass index) (03/28/17) Neck pain w/ muscle spasm, secondary to scoliosis Pain in wrist (02/17/06) left; MRI [facility] [place] Psoriasis (04/16/13) Right shoulder pain (09/10/14) Right upper quadrant abdominal tenderness (09/06/17) Right upper quadrant abdominal tenderness with rebound tenderness (09/06/17) Sensorineural hearing loss, bilateral (10/13/15) Shoulder pain, right Systolic murmur Tubular adenoma (08/09/16) Vitamin D deficiency (08/17/12) Surgical History Colonoscopy - IV Sedation (08/09/16) Hysterectomy, Laproscopic Previous back surgery Family History Father , 63 Lung cancer Sister Depression Sister COPD (chronic obstructive pulmonary disease) Grandmother Breast cancer Son Depression Social History Smoking/Tobacco Use Status: Never Second Hand Exposure: Yes Smoking risk assessment performed?: Yes Alcohol Intake: current Alcohol Intake frequency: holidays/special occasions only Alcohol type: wine Counseling given: No Drug use: Never Substance use type: does not use Counseling provided: none Caregiver/Support person: No Household members: none Communication Needs: Hard of Hearing Do you need help understanding health information?: Often Pets and animals: No Sexually active: No Do you think of yourself as: straight/heterosexual Current gender identity: female What is your relationship status?: How often do you talk on the phone with friends or family?: decline to answer How often do you get together with friends or relatives?: decline to answer How often do you attend yazidism or religion services?: 4 or more times per year Do you belong to any clubs or organized social groups?: no Panel score (0-1 are the most socially isolated patients): 1 What type of physical activity do you participate in: none Pari/Zoroastrian: Islam Special pari needs: No Seatbelt use: always Helmet use: No Drive intox or ride w/intox bellman driver: No Do you feel safe at home: Yes Do you feel safe in your relationship?: Yes Meds Home Medications and Allergies Home Medications Medication Instructions Recorded Confirmed Type cholecalciferol (vitamin D3) 25 1,000 unit PO DAILY #30 cap 04/11/19 04/03/20 Rx mcg (1,000 unit) capsule pantoprazole 40 mg tablet,delayed 40 mg PO DAILY #30 tab 04/11/19 04/03/20 Rx release simvastatin 40 mg tablet 40 mg PO QPM #30 tab 04/11/19 04/03/20 Rx allopurinol 300 mg tablet 300 mg PO DAILY #30 tab 04/26/19 04/03/20 Rx brexpiprazole 3 mg tablet 3 mg PO DAILY #30 tab 05/08/19 04/03/20 Rx duloxetine 30 mg capsule,delayed 30 mg PO DAILY #30 cap 07/10/19 04/03/20 Rx release fluoxetine 20 mg capsule 20 mg PO DAILY #30 cap 07/10/19 04/03/20 Rx lamotrigine 200 mg tablet 300 mg PO DAILY #45 tab 07/26/19 04/03/20 Rx acetaminophen 500 mg tablet 500 mg PO TID #90 tab 08/14/19 04/03/20 Rx halobetasol propionate 0.05 % 1 applic TP BID #50 gm 09/05/19 03/27/20 Rx topical ointment betamethasone dipropionate 0.05 % 1 applic TP BID PRN #45 gm 09/08/19 03/27/20 Rx topical cream nystatin-triamcinolone 100,000 1 applic TP BID #60 gm 09/25/19 04/01/20 Rx unit/g-0.1 % topical cream meloxicam 15 mg tablet 15 mg PO DAILY 11/27/19 04/03/20 History nystatin 6,000,000 unit TOPICAL BID #30 g 02/12/20 04/01/20 Rx gabapentin 600 mg tablet 600 mg PO BID #60 tab 03/28/20 04/03/20 Rx Allergies Allergy/AdvReac Type Severity Reaction Status Date / Time codeine AdvReac Intermediate NAUSEA/DIZZ Verified 04/03/20 11:51 INESS Exam Const General: anxious Nutritional Appearance: obese Neck Neck: supple Resp Effort & Inspection: normal respiratory effort Auscultation: crackles Cardio Rate: regular rate Rhythm: regular rhythm GI Inspection: obesity Palpation: soft Other: Erythematous rash beneath abdominal pannus on the patient's right side. The rash is not in the area of the proposed suprapubic tube. Neuro General: patient alert and patient awake COVID-19 Screening Have you, or household traveled for leisure in last 14 days?: No Had IN PERSON contact w/suspected or confirmed C-19 person: No
[2020-04-03] MEDS: Lactated Ringers 1,000 ML 80 ML IV ×2 (12:24→20:19)
[2020-04-03] MEDS: ceFAZolin 2 GM/50 ML BAG IVPB (13:18)
[2020-04-03] MEDS: Lidocaine 2% Jelly 6 ML SYR (13:30)
[2020-04-03] MEDS: Bupivacaine 0.5% Pres-Free 30 ML VIAL (13:30)
--- NOTE | 2020-04-03 13:52 | W.PM.OP ---
Date of service: 04/03/20 Time of Service: 13:52 Operative Note Operative Note DATE OF PROCEDURE: 04/03/20 PRE-OP DIAGNOSIS: Urinary retention POST-OP DIAGNOSIS: same PROCEDURE: Cystoscopy, insert suprapubic tube SURGEON: Boni Zamora ANESTHESIA: other (General without intubation) ESTIMATED BLOOD LOSS: 5 PATHOLOGY: none sent Patient was transported to: floor Patient's condition: stable Implants: 16 Greek suprapubic tube with 10 cc of sterile water and the catheter balloon Indications: This is a 64-year-old woman who has a history of urinary retention with bilateral hydronephrosis. The hydronephrosis improved with placement of a Beaver catheter. She has been unable to perform intermittent catheterization. She presents now for suprapubic tube to avoid urethral complications of a chronic indwelling urethral catheter Procedure Description: The patient was brought to the operating room on 04/03/2020. She was given preoperative IV antibiotics. After successful induction of general anesthesia without intubation, she was placed in the dorsal lithotomy position. The balloon on her indwelling urethral catheter was deflated and her catheter was removed. Her lower abdomen and genitalia were prepped and draped. 2% Xylocaine jelly was instilled into the urethra to act as a local anesthetic. A Cherelle retractor was passed through the urethra and the tip of the Cherelle retractor was held up against the abdominal wall. The tip was palpable so we made a small incision overlying the tip of the retractor and brought the tip through the rectus fascia, through the subcutaneous fat and out onto the abdominal wall. The jaws of the Lowsley retractor with an open and a 16 Greek catheter was grasped and pulled back through the suprapubic tract into the lumen of the bladder. The catheter was released from the lateral Zulli retractor and cystoscopy was performed to ensure the correct positioning of the catheter. Once the tip of the catheter was seen within the bladder, the catheter balloon was inflated with 10 cc of sterile water. The catheter was then to a leg bag. The cystoscope was withdrawn. She tolerated this procedure well with no complications. There was minimal blood loss identified.
[2020-04-03] MEDS: Fluconazole 100 MG TAB 200 MG PO (15:03)
[2020-04-03] MEDS: Gabapentin 600 MG TAB PO (20:28)
[2020-04-03] MEDS: Docusate Sodium 100 MG CAP PO (20:28)
[2020-04-03] MEDS: Simvastatin 40 MG TAB PO (20:28)
[2020-04-03] MEDS: Acetaminophen 325 MG TAB 650 MG PO (21:22)
[2020-04-03] MEDS: Ketorolac 15 MG/ML VIAL IVP (23:20)
[2020-04-04] MEDS: Acetaminophen 325 MG TAB 650 MG PO (02:07)
[2020-04-04] MEDS: Ketorolac 15 MG/ML VIAL IVP (06:47)
--- NOTE | 2020-04-04 07:09 | W.PM.DS.N ---
Date of service: 04/04/20 Time of Service: 07:33 DS: Diagnosis Discharge Diagnosis (1) Retention of urine: Status: Acute (2) Learning disability: Status: Chronic Discharge Plan Disposition Patient Disposition: HOME W/HOME HEALTH SERVICE Condition: Stable Discharge Details Reason For Visit: URINARY RETENTION Admit Date/Time: 04/03/20 11:09 Admit Provider: Boni Zamora Attending Provider: Boni Zamora Primary Care Provider: [facility] Hospital Course Hospital Course: The patient was brought to the operating room on 04/03/2020 where she underwent placement of a suprapubic tube. Because of concerns regarding the patient's ability to deal with a different bladder drainage set up, she was kept in the hospital overnight for reinforced teaching and how to deal with a leg bag and her suprapubic tube. She was able to drain the leg bag without the prompting by the nurses. She will be discharged back to home and we will resume home health services. If she is unable to manage with the leg bag, we will need to switch back to the large drainage bag. Home Meds and New Rx's Prescriptions: No Action nystatin-triamcinolone 100,000-0.1 unit/g-% cream 1 applic TP BID Qty: 60 RF: 1 meloxicam 15 mg tablet 15 mg PO DAILY RF: 0 gabapentin 600 mg tablet 600 mg PO BID Qty: 60 RF: 1 cholecalciferol (vitamin D3) 25 mcg (1,000 unit) capsule 1,000 unit PO DAILY Qty: 30 RF: 11 pantoprazole 40 mg tablet,delayed release (DR/EC) 40 mg PO DAILY Qty: 30 RF: 11 simvastatin 40 mg tablet 40 mg PO QPM Qty: 30 RF: 11 allopurinol 300 mg tablet 300 mg PO DAILY Qty: 30 RF: 11 Rexulti 3 mg tablet 3 mg PO DAILY Qty: 30 RF: 11 fluoxetine 20 mg capsule 20 mg PO DAILY Qty: 30 RF: 11 duloxetine 30 mg capsule,delayed release(DR/EC) 30 mg PO DAILY Qty: 30 RF: 11 lamotrigine 200 mg tablet 300 mg PO DAILY Qty: 45 RF: 11 acetaminophen [Acetaminophen Extra Strength] 500 mg tablet 500 mg PO TID Qty: 90 RF: 3 halobetasol propionate 0.05 % ointment 1 applic TP BID Qty: 50 RF: 2 betamethasone dipropionate 0.05 % cream 1 applic TP BID PRN (Reason: skin irritation) Qty: 45 RF: 2 nystatin 100,000 unit/gram Powder 6,000,000 unit topical BID Qty: 30 RF: 0 Discharge Instructions Additional Instructions: She may resume all of her home medications. No new prescriptions are required Follow-up with me in 4 to 6 weeks for her first suprapubic tube change. Stand Alone Forms: Nursing Discharge Form Referrals: Boni Zamora MD [ [facility] STAFF PHYSICIAN] - Activity:: Activity as Tolerated Equipment/Supplies:: Suprapubic tube to leg ba Diet:: As Tolerated Discharge Orders Discharge Orders: Discharge Order (Routine); Ordered 04/04/20 Ordered By: Boni Zamora DS: Summary Status at Discharge Functional status at discharge: uses cane/walker Overall status at discharge: patient is back to baseline Mental Status: mental status grossly normal Speech and Movement: speech and movement normal Mood: anxious mood Affect: blunted Time Spent with Patient providing and/or coordinating discharge services: Less than 30 minutes Exam Narrative Exam Narrative: At the time of discharge, she does not appear septic or toxic Vital signs are documented elsewhere in this chart She has decreased breath sounds bases Cardiac exam shows a regular rate and rhythm Her abdomen is obese. The suprapubic site shows no active bleeding or drainage Her urine is grossly clear She is awake and alert Psych Mental Status: mental status grossly normal Speech and Movement: speech and movement normal Mood: anxious mood Affect: blunted DS: Data Vitals/I&O Vitals and I&O: Vital Signs Temperature 36.9 C 04/03/20 23:30 Temperature Source Tympanic 04/03/20 23:30 Pulse 65 04/03/20 23:30 Pulse Rhythm Regular 04/04/20 04:08 Respiratory Rate 20 04/03/20 23:30 Respiratory Effort Non-Labored 04/04/20 04:08 Respiratory Depth Normal 04/04/20 04:08 Respiratory Pattern Normal 04/04/20 04:08 Blood Pressure 120/75 04/03/20 23:30 Pulse Oximetry 98 04/03/20 23:30 Respiratory End-tidal CO2 35 04/03/20 14:24 Oxygen Delivery Method Room Air 04/03/20 23:30 Oxygen Flow Rate 0 04/03/20 23:30 Pain Level 10 04/04/20 06:47 Intake & Output 04/03/20 04/03/20 04/04/20 11:59 23:59 11:59 Intake Total 1450 / 1450 240 / 240 Output Total 800 / 800 300 / 300 Balance 650 / 650 -60 / -60 Weight 79.5 kg Intake: IV 1050 / 1050 Oral 400 / 400 240 / 240 Output: Urine 800 / 800 300 / 300 Other: Urine Color Yellow Yellow Urine Appearance Clear Clear Clear Sediment Comment Assisted patient to empty herself. Patient was able to empty independently with no prompting from RN. Patient followed written instructions. Emesis Description None [facility] Medical History Acute gout of right ankle (12/06/14) Callus of foot Depressive disorder bipolar 02/25-[facility] Dermatitis associated with moisture Diabetes mellitus (09/10/14) Encounter for evaluation of ability to make decisions regarding care Gallstones Gastritis presumed (improved symptoms on omeprazole) Headache secondary to scoliosis & neck muscle spasm Hernia of abdominal wall Hyperlipidemia (08/17/12) Hypokalemia (09/06/17) Hypomagnesemia (09/15/12) Idiopathic scoliosis w/ Chronic LBP; surgery-1969,1971, 1990, 1995, 1997 ([facility]) Increased BMI (body mass index) (03/28/17) Neck pain w/ muscle spasm, secondary to scoliosis Pain in wrist (02/17/06) left; [place] [facility] [place] Psoriasis (04/16/13) Right shoulder pain (09/10/14) Right upper quadrant abdominal tenderness (09/06/17) Right upper quadrant abdominal tenderness with rebound tenderness (09/06/17) Sensorineural hearing loss, bilateral (10/13/15) Shoulder pain, right Systolic murmur Tubular adenoma (08/09/16) Vitamin D deficiency (08/17/12) Surgical History Colonoscopy - IV Sedation (08/09/16) Hysterectomy, Laproscopic Previous back surgery Family History Father , 63 Lung cancer Sister Depression Sister COPD (chronic obstructive pulmonary disease) Grandmother Breast cancer Son Depression Social History (Reviewed 03/28/20 @ 13:00 by GIANNI Gentile Smoking/Tobacco Use Status: Never Second Hand Exposure: Yes Smoking risk assessment performed?: Yes Alcohol Intake: current Alcohol Intake frequency: holidays/special occasions only Alcohol type: wine Counseling given: No Drug use: Never Substance use type: does not use Counseling provided: none Caregiver/Support person: No Household members: none Communication Needs: Hard of Hearing Do you need help understanding health information?: Often Pets and animals: No Sexually active: No Do you think of yourself as: straight/heterosexual Current gender identity: female What is your relationship status?: How often do you talk on the phone with friends or family?: decline to answer How often do you get together with friends or relatives?: decline to answer How often do you attend gnosticism or mandaen services?: 4 or more times per year Do you belong to any clubs or organized social groups?: no Panel score (0-1 are the most socially isolated patients): 1 What type of physical activity do you participate in: none Pari/Yazidism: Congregational Special pari needs: No Seatbelt use: always Helmet use: No Drive intox or ride w/intox special client bus driver: No Do you feel safe at home: Yes Do you feel safe in your relationship?: Yes
--- NOTE | 2020-04-04 07:13 | PDOC.HHF2F_ITS ---
Home Health Certification Home Health Certification: 1. Encounter Date and Reason I certify that SAMAN SUE was seen by Boni Zamora MD on 04/04/20 and that I had a latv-le-rdte encounter with this patient that meets the physician face to face encounter requirements. 2. Clinical Findings Supporting Skilled Need and Homebound Status I certify that home health services are medically necessary, include either intermittent fpc and/or physical/speech therapy, and that this yojana ent is homebound in that absences from the home require considerable and taxing effort and are infrequent or of short duration, or are attributable to the need to receive medical care. [X] (a) Attached documentation from encounter provides clinical findings supporting skilled need and homebound status (including what assistance patient requires to leave the home). The encounter with the patient was in whole, or in part, for the following medical condition, which is the primary reason for home health care: URINARY RETENTION Fci: The patient requires resumption of her home health services to help with care of her newly placed suprapubic tube. The dressing around the suprapubic site should be changed daily until no additional drainage is seen on the dressing. At that time, the dressing can be removed and the site can be left open to the air. The patient will require continued support with monitoring and instructing her in the use of a leg bag for her suprapubic tube. If she is unable to manage the leg bag, we would need to switch back to a large drainage bag. Once her suprapubic tube tract has matured (several months from now), we will ask the home health nurses to begin changing the patient's suprapubic tube monthly. Physical Therapy: Speech Therapy: Homebound: 3. Certification and Authentication I certify that I composed the above information based on my clinical judgement r elating to this patient's medical condition and, if applicable, clinical findings communicated to me by the NPP or inpatient physician who performed the Home Health Referral. All further orders will be obtained through [facility] - PCP)
--- NOTE | 2020-04-04 07:18 | W.PM.PROGNOT ---
Date of Service Date of service: 04/04/20 Time of Service: 07:31 Assessment and Plan Assessment and plan (1) Retention of urine: Status: Acute Assessment and plan: We will discharge the patient later today with her suprapubic tube in place and hooked to a leg bag. We will resume her home health services for continued teaching and monitoring. She will need to follow-up in my office in 4 to 6 weeks for her first suprapubic catheter change. (2) Learning disability: Status: Chronic Subjective Subjective Interval history since last seen: She had a relatively comfortable night. The nurses have worked with her extensively and she has been able to drain her leg bag with very little prompting. Exam Narrative Exam Narrative: She is in no obvious distress. Her vital signs are documented elsewhere Her suprapubic site is clean with no active bleeding Her urine is clear Objective Last Vital Signs Temp 36.9 C 04/03/20 23:30 Pulse 65 04/03/20 23:30 Resp 20 04/03/20 23:30 BP 120/75 04/03/20 23:30 Pulse Ox 98 04/03/20 23:30
[2020-04-04 07:19] VITALS: BP 128/75; PULSE 64; RESP 17; TEMP 36.9; O2SAT 94
[2020-04-04] MEDS: Lactated Ringers 1,000 ML 80 ML IV (08:04)
[2020-04-04] MEDS: FLUoxetine 20 MG CAP PO (08:38)
[2020-04-04] MEDS: Gabapentin 600 MG TAB PO (08:38)
[2020-04-04] MEDS: Pantoprazole 40 MG TABCR PO (08:38)
[2020-04-04] MEDS: Docusate Sodium 100 MG CAP PO (08:38)
[2020-04-04] MEDS: Allopurinol 300 MG TAB PO (08:38)
[2020-04-04] MEDS: DULoxetine 30 MG CAP PO (08:38)
[2020-04-04] MEDS: Cholecalciferol (Vitamin D3) 1,000 UNIT TAB 1000 UNITS PO (08:39)
[2020-04-04] MEDS: lamoTRIgine 100 MG TAB 300 MG PO (08:39)
--- NOTE | 2020-04-04 13:37 | INITIAL_ITS ---
- If Service Date Differs Date of service: 04/04/20 Time of Service: 13:38 Care Management Initial Assess REASON FOR HOSPITALIZATION:: urinary retention PAST MEDICAL HISTORY/PAST SURGICAL HISTORY:: Medical History . Acute gout of right ankle (12/06/14). Callus of foot. Depressive disorder. bipolar 02/25-[facility]. Dermatitis associated with moisture. Diabetes mellitus (09/10/14). Encounter for evaluation of ability to make decisions regarding care. Gallstones. Gastritis. presumed (improved symptoms on omeprazole). Headache. secondary to scoliosis & neck muscle spasm. Hernia of abdominal wall. Hyperlipidemia (08/17/12). Hypokalemia (09/06/17). Hypomagnesemia (09/15/12). Idiopathic scoliosis. w/ Chronic LBP; surgery- 1969,1971, 1990, 1995, 1997 ([facility]). Increased BMI (body mass index) (03/28/17). Neck pain. w/ muscle spasm, secondary to scoliosis. Pain in wrist (02/17/06). left; [place] [facility] [place]. Psoriasis (04/16/13). Right shoulder pain (09/10/14). Right upper quadrant abdominal tenderness (09/06/17). Right upper quadrant abdominal tenderness with rebound tenderness (09/06/17). Sensorineural hearing loss, bilateral (10/13/15). Shoulder pain, right. Systolic murmur. Tubular adenoma (08/09/16). Vitamin D deficiency (08/17/12). Surgical History . Colonoscopy - IV Sedation (08/09/16). Hysterectomy, Laproscopic. Previous back surgery PREVIOUS FUNCTIONAL STATUS/SOCIAL/FAMILY SUPPORTS:: Jackelin lives alone at the [facility] in [place]. She has 3 sons, 2 of which live locally; the third son lives in [place]. She is independent with ADLs and has home health nursing through [facility]. Jackelin uses a walker for ambulatory assistance. CURRENT FUNCTIONAL STATUS:: Jackelin was sitting up in bed when CM met with her. She was agreeable to conversation but stated that she was tired and uncomfortable. Jackelin is expecting to discharge home today and has arranged for her own transportation through a local [employer]. She declined 's offer to make arrangements as she said a good friend of hers works for the taxi and will take her home. She denied for any services other than a resumption of HH nursing. ADVANCE DIRECTIVES:: none on file and is not interested in completing. Has patient been provided with info about the portal/API?: Yes Did the patient sign up for the portal?: No CODE STATUS:: Full Code INSURANCE COVERAGE / FINANCIAL ISSUES:: Medicare. Medicaid CURRENT HOME/COMMUNITY SERVICES/EQUIPMENT:: HH nursing through [facility] PRIMARY CARE PHYSICIAN:: Genesis Mitchell POTENTIAL DISCHARGE NEEDS:: follow up with Urology and PCP PATIENT/FAMILY EDUCATION NEEDS:: Discharge plan, limitations, care of suprapubic tube and drainage system, [employer] TRANSPORTATION:: via taxi PLAN:: Jackelin will be discharged home with a resumption of hh nursing. She will follow up with Dr. Zamora and her PCP. Jackelin will transport via taxi at her request as she has a friend who drives a taxi and will transport her.
--- NOTE | 2020-04-04 13:48 | PDOC.CMDIS ---
- If Service Date Differs Date of service: 04/04/20 Time of Service: 13:48 LACE Index Scoring Tool - Questions: Length of Stay (in days): 1 Acuity (Admit via E.D.?): No Comorbidities: Diabetes w/o Complication E.D. Visits: 1 - Answers: Total Score: 3 Risk of Readmission: Low Risk Care Management Discharge Reason for Hospitalization: urinary retention Discharge Plan: Jackelin will be discharged home with a resumption of nursing. She will follow up with Dr. Zamora and her PCP. Jackelin will transport via taxi at her request as she has a friend who drives a taxi and will transport her. Patient/Family Education Needs: Discharge plan, limitations, care of suprapubic tube and drainage system, [employer]
== END 2020-04-04 12:27 | disposition home health service (06) ==
LOC: PDS 14:50 → MS 14:51
PROVIDERS: Admitting Provider Urology; Visit Provider Urology
PROC: (CPT 51102; principal; 2020-04-03 13:00)
DX: R33.9 Retention of urine, unspecified (principal); N13.30 Unspecified hydronephrosis; F81.9 Developmental disorder of scholastic skills, unspecified; F31.9 Bipolar disorder, unspecified; E11.9 Type 2 diabetes mellitus without complications; E78.5 Hyperlipidemia, unspecified; E55.9 Vitamin D deficiency, unspecified; L40.9 Psoriasis, unspecified; H90.3 Sensorineural hearing loss, bilateral
CPT/HCPCS: 51040; 99225; 99238; NC; G0378; J0690; J1885; J2001; J2405; J2704; J3490

== ENCOUNTER → 2020-04-21 14:10 | Outpatient (BNVA) | payer MEDICARE, MEDICAID, SELFPAY | PROVIDERS: Visit Provider Nurse Practitioner Gerontology | DX: R33.8 Other retention of urine (principal); F81.9 Developmental disorder of scholastic skills, unspecified; Z46.6 Encounter for fitting and adjustment of urinary device | CPT/HCPCS: 99214 ==

== ENCOUNTER → 2020-05-13 09:58 | Outpatient (BNVA) | payer MEDICARE, MEDICAID, SELFPAY | PROVIDERS: Visit Provider Urology | DX: R33.8 Other retention of urine (principal); Z46.6 Encounter for fitting and adjustment of urinary device | CPT/HCPCS: 51705; 99213; 99215 ==

== ENCOUNTER → 2020-05-14 15:23 | Outpatient (BNVA) | payer MEDICARE, MEDICAID, SELFPAY | PROVIDERS: Visit Provider Nurse Practitioner Gerontology | DX: R69 Illness, unspecified ==

== ENCOUNTER 2020-05-14 19:45 | Outpatient (CLI) | payer MEDICARE, MEDICAID, SELFPAY ==
--- NOTE | 2020-05-14 15:45 | DI.RAD_ITS ---
EXAM: XR ABDOMEN FLAT PLATE CLINICAL HISTORY: catheter placement R33.9 RETENTION OF URINE. TECHNIQUE: 2D digital imaging was performed. COMPARISON: CR ABD FLAT UPRIGHT PA CHEST from 01/20/2016 FINDINGS: Hardware in the spinal column is unchanged and non fractured. There is also bone graft material in t he lower LS spine and there is a healed fracture site in the inferior pubic ramus right side. Multip le phleboliths are noted in the pelvis. The urinary bladder does not appear to be obviously distende d. The stomach appears to be on the right side of the abdomen (there is no mistaken laterality here) . There is a 3 millimeter possible calculus on the left side projected over but might be the lower pole left kidney. There is no radiopaque catheter identified (as per request). IMPRESSION: As above. There is no radiopaque center identified. There is no obvious gross distention of the uri nary bladder. DATA REPOSITORY: RADIATION DOSE DELIVERED:
== END 2020-05-14 19:46 ==
PROVIDERS: Visit Provider Nurse Practitioner Gerontology
DX: R33.9 Retention of urine, unspecified (principal); N20.0 Calculus of kidney
CPT/HCPCS: 99214; 74018

== ENCOUNTER → 2020-05-15 13:26 | Outpatient (BNVA) | payer MEDICARE, MEDICAID, SELFPAY | PROVIDERS: Visit Provider Urology | DX: R33.8 Other retention of urine (principal) | CPT/HCPCS: 52000; 99213; 99215 ==

== ENCOUNTER 2020-05-22 16:16 | Outpatient (REF) | payer MEDICARE, MEDICAID, SELFPAY ==
[2020-05-23 13:53] LABS: COVID-19 RT-PCR UVMMC Result Negative (Negative)
== END 2020-05-22 16:17 | disposition home or self-care (01) ==
LOC: LBN 16:16
PROVIDERS: Visit Provider Urology
DX: Z20.822 Contact with and (suspected) exposure to COVID-19 (principal); Z01.818 Encounter for other preprocedural examination
CPT/HCPCS: U0003; U0005

== ENCOUNTER 2020-05-26 09:30 | Observation (INO) | payer MEDICARE, MEDICAID, SELFPAY ==
[2020-05-26 07:47] VITALS: BP 133/79; PULSE 73; RESP 20; TEMP 36.3; O2SAT 96
--- NOTE | 2020-05-26 08:15 | HPE_ITS ---
Date of service: 05/26/20 Time of Service: 08:15 Assessment and Plan Assessment and plan (1) Retention of urine: Status: Acute Assessment and plan: We will replace her suprapubic tube. In this instance, I will use a standing rock tip catheter so that her catheter changes can be done over a wire to help make sure the catheter stays in the suprapubic tract. We will again keep her overnight for reassurance and teaching in the care of her suprapubic tube. History of Present Illness History of Present Illness Chief Complaint: Urinary retention Narrative: This is a 64-year-old woman who has a history of urinary retention. About 6 weeks ago, we placed a suprapubic tube for her. We changed her catheter for the first time about a week ago. The catheter change seemed uneventful, but within 24 hours, the patient began voiding through her urethra and we suspected the catheter was dislodged. I did a cystoscopy in the office which showed the previous cystotomy site but the catheter was not penetrating the bladder. I was unable to pass a wire through the previous suprapubic tract. We placed a urethral catheter and made and to place a new suprapubic tube. Review of Systems Narrative: No fevers or chills Decreased hearing. No vision change or dysphasia No thyroid dysfunction. Hx diabetes No shortness of breath, cough No chest pain or palpitations No nausea, vomiting, hepatitis, ulcers, jaundice No seizures, strokes or peripheral neuropathy No bleeding disorders or anemia Hx gout with no recent flare. c/o scoliosis and arthritis [facility] Medical History Acute gout of right ankle (12/06/14) Callus of foot Depressive disorder bipolar 02/25-[facility] Dermatitis associated with moisture Diabetes mellitus (09/10/14) Encounter for evaluation of ability to make decisions regarding care Gallstones Gastritis presumed (improved symptoms on omeprazole) Headache secondary to scoliosis & neck muscle spasm Hernia of abdominal wall Hyperlipidemia (08/17/12) Hypokalemia (09/06/17) Hypomagnesemia (09/15/12) Idiopathic scoliosis w/ Chronic LBP; surgery-1969,1971, 1990, 1995, 1997 ([facility]) Increased BMI (body mass index) (03/28/17) Neck pain w/ muscle spasm, secondary to scoliosis Pain in wrist (02/17/06) left; [place] [facility] [place] ([place]13) Right shoulder pain (09/10/14) Right upper quadrant abdominal tenderness (09/06/17) Right upper quadrant abdominal tenderness with rebound tenderness (09/06/17) Sensorineural hearing loss, bilateral (10/13/15) Shoulder pain, right Systolic murmur Tubular adenoma (08/09/16) Vitamin D deficiency (08/17/12) Surgical History Colonoscopy - IV Sedation (08/09/16) Hysterectomy, Laproscopic Previous back surgery Family History Father , 63 Lung cancer Sister Depression Sister COPD (chronic obstructive pulmonary disease) Grandmother Breast cancer Son Depression Social History Smoking/Tobacco Use Status: Never Second Hand Exposure: Yes Smoking risk assessment performed?: Yes Alcohol Intake: former Counseling given: No Drug use: Never Substance use type: does not use Counseling provided: none Caregiver/Support person: No Household members: none Communication Needs: Hard of Hearing Do you need help understanding health information?: Often Pets and animals: No Sexually active: No Do you think of yourself as: straight/heterosexual Current gender identity: female What is your relationship status?: How often do you talk on the phone with friends or family?: decline to answer How often do you get together with friends or relatives?: decline to answer How often do you attend buddhism or mosque services?: 4 or more times per year Do you belong to any clubs or organized social groups?: no Panel score (0-1 are the most socially isolated patients): 1 What type of physical activity do you participate in: none Pari/Christianity: Faith Special pari needs: No Seatbelt use: always Helmet use: No Drive intox or ride w/intox wheelchair van driver: No Do you feel safe at home: Yes Additional Social history: pt. states she is not in a relationship Meds Home Medications and Allergies Allergies Allergy/AdvReac Type Severity Reaction Status Date / Time codeine AdvReac Intermediate NAUSEA/DIZZ Verified 05/26/20 07:37 INESS Home Medications Medication Instructions Recorded Confirmed Type duloxetine 30 mg capsule,delayed 30 mg PO DAILY #30 cap 07/10/19 05/26/20 Rx release fluoxetine 20 mg capsule 20 mg PO DAILY #30 cap 07/10/19 05/26/20 Rx lamotrigine 200 mg tablet 300 mg PO DAILY #45 tab 07/26/19 05/26/20 Rx acetaminophen 500 mg tablet 500 mg PO TID #90 tab 08/14/19 05/26/20 Rx halobetasol propionate 0.05 % 1 applic TP BID #50 gm 09/05/19 05/26/20 Rx topical ointment betamethasone dipropionate 0.05 % 1 applic TP BID PRN #45 gm 09/08/19 05/26/20 Rx topical cream nystatin-triamcinolone 100,000 1 applic TP BID #60 gm 09/25/19 05/26/20 Rx unit/g-0.1 % topical cream nystatin 6,000,000 unit TOPICAL BID #30 g 02/12/20 05/26/20 Rx gabapentin 600 mg tablet 600 mg PO BID #60 tab 03/28/20 05/26/20 Rx allopurinol 300 mg tablet 300 mg PO DAILY #30 tab 05/08/20 05/26/20 Rx brexpiprazole 3 mg tablet 3 mg PO DAILY #30 tab 05/08/20 05/26/20 Rx cholecalciferol (vitamin D3) 25 1,000 unit PO DAILY #30 cap 05/08/20 05/26/20 Rx mcg (1,000 unit) capsule pantoprazole 40 mg tablet,delayed 40 mg PO DAILY #30 tab 05/08/20 05/26/20 Rx release simvastatin 40 mg tablet 40 mg PO QPM #30 tab 05/08/20 05/26/20 Rx prednisone 40 mg PO DAILY 05/22/20 05/26/20 History tamsulosin 0.4 mg PO DAILY 05/22/20 05/26/20 History Exam Const General: cooperative Nutritional Appearance: obese Neck Neck: supple Resp Effort & Inspection: normal respiratory effort Auscultation: clear to auscultation bilaterally Cardio Rate: regular rate Rhythm: regular rhythm GI Inspection: normal to inspection Palpation: soft Neuro General: patient alert, patient awake and patient oriented x3 Psych Affect: blunted Results Last Vital Signs Temp 36.3 C L 05/26/20 07:47 Pulse 73 03/08/21 07:47 Resp 20 05/26/20 07:47 BP 133/79 05/26/20 07:47 Pulse Ox 96 05/26/20 07:47 COVID-19 Screening Have you, or household traveled for leisure in last 14 days?: No Had IN PERSON contact w/suspected or confirmed C-19 person: No
[2020-05-26] MEDS: Lactated Ringers 1,000 ML 80 ML IV (08:20)
[2020-05-26] MEDS: ceFAZolin 2 GM/50 ML BAG IVPB (09:08)
[2020-05-26] MEDS: Lidocaine 1% Multi-Dose 50 ML VIAL (09:16)
[2020-05-26] MEDS: Lidocaine 2% Jelly 6 ML SYR (09:16)
--- NOTE | 2020-05-26 09:39 | ROE_ITS ---
Date of service: 05/26/20 Time of Service: 09:39 Operative Note Operative Note DATE OF PROCEDURE: 05/26/20 PRE-OP DIAGNOSIS: Urinary retention POST-OP DIAGNOSIS: same PROCEDURE: cystoscopy, replace suprapubic tube SURGEON: Boni Zamora ANESTHESIA TYPE: General:No Airway Refer to Anesthesia Record ESTIMATED BLOOD LOSS: 50 PATHOLOGY: none sent COMPLICATIONS: None Patient was transported to: PACU Patient's condition: stable Implants: 20 [place] tipped catheter with 10 cc sterile water in balloon Indications: This is a 64-year-old woman who has a history of urinary retention. She is unable to perform intermittent catheterization. She had a suprapubic tube placed about 6 weeks ago. We changed her suprapubic tube in the office, but within 24 hours, the tube became dislodged and she began voiding from her urethra. We were unable to reestablish the suprapubic tract, so and a urethral catheter was placed. She returns to the operating room now to have her suprapubic tube replaced. Findings: Tube successfully placed into the bladder Procedure Description: The patient was brought to the operating room on 05/26/2020. Her indwelling urethral catheter was removed. She was given a dose of preoperative IV antibiotics. After successful induction of general anesthesia, she was placed in the dorsal lithotomy position. Her genitalia and suprapubic area were prepped and draped. 2% Xylocaine jelly was instilled into the urethra to act as a local anesthetic. The previous suprapubic stoma site was infiltrated with 1% Xylocaine. I then passed the curved Lowsley tractor through the urethra into the bladder. The tip of the tractor was held up against the abdominal wall in the area of the previous stoma site. The site was then opened sharply and the tip of the Lowsley tractor was brought up through the suprapubic tract onto the abdominal wall. The jaws of the Lowsley tractor were opened and we used the jaws to grasp a 20 [place] salamat[place] tip Beaver catheter. The catheter was pulled down through the tract, through the bladder and out the urethral meatus. The catheter was released and pulled back into the bladder with the Beaver balloon was inflated with 10 cc of sterile water. Cystoscopy was then performed using a 22 [place] rigid cystoscope and a 70 degree lens. We were able to visualize the catheter tip and balloon within the bladder. A dry sterile dressing was applied to the suprapubic site. The catheter was hooked to gravity drainage. When we change her catheter in the office, we will do so over a guidewire utilize a cystoscope to ensure correct placement of the catheter.
[2020-05-26] MEDS: Lactated Ringers 1,000 ML 100 ML IV ×2 (10:43→22:33)
--- NOTE | 2020-05-26 11:31 | NUR.NOTE ---
0930: Pt arrived via stretcher from the OR to room 228. Handoff report given to med/certified surgical assistant, ALFA Brarow upon arrival.
[2020-05-26 12:34] VITALS: BP 86/60; PULSE 92; TEMP 36.7; O2SAT 98
[2020-05-26] MEDS: Lactated Ringers 1,000 ML 500 ML IV (12:45)
[2020-05-26 13:50] VITALS: PULSE 77; RESP 16; TEMP 36.5; O2SAT 94
[2020-05-26] MEDS: traMADol 50 MG TAB PO (15:37)
[2020-05-26] MEDS: ceFAZolin 1 GM/50 ML BAG IVPB (15:38)
[2020-05-26 15:40] VITALS: BP 91/60; PULSE 75; RESP 18; TEMP 36.7; O2SAT 94
[2020-05-26] MEDS: Acetaminophen 325 MG TAB 650 MG PO (18:38)
[2020-05-26] MEDS: Simvastatin 40 MG TAB PO (20:46)
[2020-05-26] MEDS: lamoTRIgine 100 MG TAB 200 MG PO (20:46)
[2020-05-26] MEDS: Gabapentin 600 MG TAB PO (20:47)
[2020-05-27 00:50] VITALS: BP 102/67; PULSE 84; RESP 16; TEMP 36.7; O2SAT 93
[2020-05-27] MEDS: ceFAZolin 1 GM/50 ML BAG IVPB (01:02)
[2020-05-27] MEDS: Lactated Ringers 1,000 ML 100 ML IV (06:47)
--- NOTE | 2020-05-27 06:59 | DSE_ITS ---
Date of service: 05/27/20 Time of Service: 07:00 DS: Diagnosis Discharge Diagnosis (1) Retention of urine: Status: Acute Discharge Plan Disposition Patient Disposition: HOME W/HOME HEALTH SERVICE Condition: Stable Discharge Details Reason For Visit: URINARY RETENTION Admit Date/Time: 05/26/20 09:30 Admit Provider: Boni Zamora Attending Provider: Boni Zamora Primary Care Provider: Genesis Mitchell Hospital Course Hospital Course: The patient was admitted and taken to the operating room on 05/26/2020 where she underwent replacement of her suprapubic tube. The procedure was uneventful. She was monitored overnight and patient teaching regarding catheter care was performed. By postoperative day #1, she was comfortable. She was afebrile. She was able to tolerate oral nutrition and medications. Her catheter was draining clear urine. She was deemed to be ready for discharge with home health services being resumed. Home Meds and New Rx's Prescriptions: Discontinued tamsulosin 0.4 mg capsule 0.4 mg PO DAILY RF: 0 No Action nystatin-triamcinolone 100,000-0.1 unit/g-% cream 1 applic TP BID Qty: 60 RF: 1 gabapentin 600 mg tablet 600 mg PO BID Qty: 60 RF: 1 fluoxetine 20 mg capsule 20 mg PO DAILY Qty: 30 RF: 11 duloxetine 30 mg capsule,delayed release(DR/EC) 30 mg PO DAILY Qty: 30 RF: 11 lamotrigine 200 mg tablet 300 mg PO DAILY Qty: 45 RF: 11 acetaminophen [Acetaminophen Extra Strength] 500 mg tablet 500 mg PO TID Qty: 90 RF: 3 halobetasol propionate 0.05 % ointment 1 applic TP BID Qty: 50 RF: 2 betamethasone dipropionate 0.05 % cream 1 applic TP BID PRN (Reason: skin irritation) Qty: 45 RF: 2 allopurinol 300 mg tablet 300 mg PO DAILY Qty: 30 RF: 11 Rexulti 3 mg tablet 3 mg PO DAILY Qty: 30 RF: 11 cholecalciferol (vitamin D3) 25 mcg (1,000 unit) capsule 1,000 unit PO DAILY Qty: 30 RF: 11 pantoprazole 40 mg tablet,delayed release (DR/EC) 40 mg PO DAILY Qty: 30 RF: 11 simvastatin 40 mg tablet 40 mg PO QPM Qty: 30 RF: 11 nystatin 100,000 unit/gram Powder 6,000,000 unit topical BID Qty: 30 RF: 0 prednisone 10 mg Tablet 40 mg PO DAILY RF: 0 Discharge Instructions Additional Instructions: Suprapubic tube to leg bag Home health to change suprapubic tube dressing on a as needed basis Follow-up in my office with me in 6 weeks for her first catheter change Activity:: Activity as Tolerated Equipment/Supplies:: Suprapubic tube to leg ba Diet:: As Tolerated Discharge Orders Discharge Orders: Discharge Order (Routine); Ordered 05/27/20 Ordered By: Boni Zamora Discharge Data Discharge Comment: Resume home health services after discharge DS: Summary Time Spent with Patient providing and/or coordinating discharge services: Less than 30 minutes Status at Discharge Functional status at discharge: uses cane/walker Overall status at discharge: patient is back to baseline Mental Status: mental status grossly normal Speech and Movement: speech and movement normal Mood: congruent mood Affect: anxious affect and blunted Exam Narrative Exam Narrative: At the time of discharge, she is comfortable Her vital signs are documented elsewhere Her abdomen is soft with no guarding or rebound tenderness Her suprapubic tube is draining clear urine. The dressing around the suprapubic tube site has some blood as expected. There is no erythema and no feculent drainage. She is awake and alert Psych Mental Status: mental status grossly normal Speech and Movement: speech and movement normal Mood: congruent mood Affect: anxious affect and blunted DS: Data Vitals/I&O Vitals and I&O: Vital Signs Temperature 36.7 C 05/27/20 00:50 Temperature Source Tympanic 05/27/20 00:50 Pulse 84 05/27/20 00:50 Pulse Rhythm Regular 05/26/20 17:51 Respiratory Rate 16 05/27/20 00:50 Respiratory Effort 05/26/20 17:51 Respiratory Depth Normal 05/26/20 17:51 Respiratory Pattern Normal 05/26/20 17:51 Blood Pressure 102/67 05/27/20 00:50 Pulse Oximetry 93 05/27/20 00:50 Oxygen Delivery Method Room Air 05/27/20 00:50 Oxygen Flow Rate 0 05/27/20 00:50 Pain Level 5 05/27/20 00:50 Comment 05/26/20 15:40 Intake & Output 05/26/20 05/26/20 05/27/20 11:59 23:59 11:59 Intake Total 740.667 / 3030.667 2290.000 / 3030.667 823.333 / 823.333 Output Total 450 / 450 Balance 740.667 / 2580.667 1840.000 / 2580.667 823.333 / 823.333 Weight 83.1 kg Intake: IV 740.667 / 2790.667 2050.000 / 2790.667 823.333 / 823.333 Oral 240 / 240 Output: Urine 450 / 450 Other: Urine Color Straw Urine Appearance Clear Hematuria Clots [facility] Medical History Acute gout of right ankle (12/06/14) Callus of foot Depressive disorder bipolar 02/25-[facility] Dermatitis associated with moisture Diabetes mellitus (09/10/14) Encounter for evaluation of ability to make decisions regarding care Gallstones Gastritis presumed (improved symptoms on omeprazole) Headache secondary to scoliosis & neck muscle spasm Hernia of abdominal wall Hyperlipidemia (08/17/12) Hypokalemia (09/06/17) Hypomagnesemia (09/15/12) Idiopathic scoliosis w/ Chronic LBP; surgery-1969,1971, 1990, 1995, 1997 ([facility]) Increased BMI (body mass index) (03/28/17) Neck pain w/ muscle spasm, secondary to scoliosis Pain in [place] (02/17/06) [place] [facility] [place] [facility] [place] (04[place]16[place]) Right shoulder pain (09/10/14) Right upper quadrant abdominal tenderness (09/06/17) Right upper quadrant abdominal tenderness with rebound tenderness (09/06/17) Sensorineural hearing loss, bilateral (10/13/15) Shoulder pain, right Systolic murmur Tubular adenoma (08/09/16) Vitamin D deficiency (08/17/12) Surgical History Colonoscopy - IV Sedation (08/09/16) Hysterectomy, Laproscopic Previous back surgery Family History Father , 63 Lung cancer Sister Depression Sister COPD (chronic obstructive pulmonary disease) Grandmother Breast cancer Son Depression Social History Smoking/Tobacco Use Status: Never Second Hand Exposure: Yes Smoking risk assessment performed?: Yes Alcohol Intake: former Counseling given: No Drug use: Never Substance use type: does not use Counseling provided: none Caregiver/Support person: No Household members: none Communication Needs: Hard of Hearing Do you need help understanding health information?: Often Pets and animals: No Sexually active: No Do you think of yourself as: straight/heterosexual Current gender identity: female What is your relationship status?: How often do you talk on the phone with friends or family?: decline to answer How often do you get together with friends or relatives?: decline to answer How often do you attend judaism or zoroastrianism services?: 4 or more times per year Do you belong to any clubs or organized social groups?: no Panel score (0-1 are the most socially isolated patients): 1 What type of physical activity do you participate in: none Pari/Alevism: Orthodox Special pari needs: No Seatbelt use: always Helmet use: No Drive intox or ride w/intox route driver: No Do you feel safe at home: Yes Additional Social history: pt. states she is not in a relationship
[2020-05-27 07:05] VITALS: BP 99/54; PULSE 76; RESP 18; TEMP 36.7; O2SAT 93
--- NOTE | 2020-05-27 07:05 | PDOC.HHF2F ---
Home Health Certification Home Health Certification: 1. Encounter Date and Reason I certify that SAMAN SUE was seen by Boni Zamora MD on 05/27/20 and that I had a [id number] encounter with this patient that meets the physician face to face encounter requirements. 2. Clinical Findings Supporting Skilled Need and Homebound Status I certify that home health services are medically necessary, include either intermittent long-term and/or physical/speech therapy, and that this patient is homebound in that absences from the home require considerable and taxing effort and are infrequent or of short duration, or are attributable to the need to receive medical care. [X] (a) Attached documentation from encounter provides clinical findings supporting skilled need and homebound status (including what assistance patient requires to leave the home). The encounter with the patient was in whole, or in part, for the following medical condition, which is the primary reason for home health care: URINARY RETENTION Long Term: Suprapubic catheter care: The patient will need her suprapubic tube dressing changed 2-3 times a week. She will also need additional teaching/reinforcement for her catheter care and catheter bag drainage. Physical Therapy: Speech Therapy: Homebound: 3. Certification and Authentication I certify that I composed the above information based on my clinical judgement relating to this patient's medical condition and, if applicable, clinical findings communicated to me by the NPP or inpatient physician who performed the Home Health Referral. All further orders will be obtained through (Community Based Physician - PCP)
--- NOTE | 2020-05-27 07:28 | W.PM.PROGNOT ---
Date of Service Date of service: 05/27/20 Time of Service: 07:28 Assessment and Plan Assessment and plan (1) Retention of urine: Status: Acute Assessment and plan: She is stable and ready for discharge this morning. We will hook her catheter back to a leg bag. We will resume her home health services. I did have discontinued her tamsulosin as it really has not helped her void. I will plan on seeing her in the office in about 6 weeks for a catheter change. I will make sure to have access to a cystoscope and guidewire for her first change. Subjective Subjective Interval history since last seen: She tells me she has a stomachache this morning. She is able to tolerate oral medications and nutrition. She has not had any vomiting, fevers or chills Exam Narrative Exam Narrative: She does not appear septic or toxic. She is somewhat pale Her vital signs are documented elsewhere Her abdomen shows no guarding or rebound tenderness. There is no feculent drainage from her suprapubic site. Her urine is currently clear. There is some blood around the suprapubic tube site as would be expected. She is awake and alert Objective Last Vital Signs Temp 36.7 C 05/27/20 00:50 Pulse 84 05/27/20 00:50 Resp 16 05/27/20 00:50 BP 102/67 05/27/20 00:50 Pulse Ox 93 05/27/20 00:50
[2020-05-27] MEDS: Cholecalciferol (Vitamin D3) 1,000 UNIT TAB 1000 UNITS PO (09:35)
[2020-05-27] MEDS: DULoxetine 30 MG CAP PO (09:35)
[2020-05-27] MEDS: lamoTRIgine 100 MG TAB PO (09:35)
[2020-05-27] MEDS: predniSONE 20 MG TAB 40 MG PO (09:35)
[2020-05-27] MEDS: Gabapentin 600 MG TAB PO (09:35)
[2020-05-27] MEDS: Pantoprazole 40 MG TABCR PO (09:35)
[2020-05-27] MEDS: FLUoxetine 20 MG CAP PO (09:35)
[2020-05-27] MEDS: Allopurinol 300 MG TAB PO (09:35)
--- NOTE | 2020-05-27 18:14 | PDOC.CMPRO ---
- If Service Date Differs Date of service: 05/27/20 Time of Service: 18:14 Care Management Progress Note S/O: Jackelin was discharged early this morning, but due to a code black she was delayed in receiving her discharge instructions. SHELLY was asked to arrange transportation for her. CM spoke to Jackelin, who stated that she was going to call a taxi. CM offered [facility], which she agreed to, and CM set up the ride once she was able to be discharged. She resumed HH services, with a new order for RN to change her suprapubic tube dressing 2-3 times/week, and for teaching/reinforcement for catheter care. CM will continue to follow. A: Jackelin is a 64 year old female admitted to [facility] on 05/26/20 with urinary retention. P: Jackelin was discharged home today with less than 24 hours in observation. She will resume HH RN, with new instructions from Dr. Zamora. CM called HH to inform them of her discharge today. CM coordinated transportation via [facility] w/c van. She will follow up with her PCP and discharge plan of care. CM will continue to follow.
== END 2020-05-27 13:22 | disposition home health service (06) ==
LOC: MS 10:01
PROVIDERS: Admitting Provider Urology; Visit Provider Urology
PROC: (CPT 51102; principal; 2020-05-26 09:15)
DX: T83.020A Displacement of cystostomy catheter, initial encounter (principal); R33.9 Retention of urine, unspecified; F31.9 Bipolar disorder, unspecified; E11.9 Type 2 diabetes mellitus without complications; E78.5 Hyperlipidemia, unspecified; L40.9 Psoriasis, unspecified; H90.3 Sensorineural hearing loss, bilateral; E55.9 Vitamin D deficiency, unspecified
CPT/HCPCS: 51710; 99217; 99225; NC; G0378; J0690; J1100; J1885; J2001; J2405; J7512

== ENCOUNTER 2020-05-28 15:09 | Observation (INO) | payer MEDICARE, MEDICAID, SELFPAY ==
[2020-05-28] VITALS (56 sets, daily range): BP systolic 101–175; BP diastolic 49–125; PULSE 71–97; RESP 14–36; TEMP 36.6–37.3; O2SAT 89–97
--- NOTE | 2020-05-28 15:30 | DI.CT_ITS ---
EXAM: CT ABDOMEN PELVIS W CLINICAL HISTORY: post procedure bleeding TECHNIQUE: Imaging Protocol: Axial computed tomography images with coronal and sagittal reformatted images were created and reviewed CONTRAST MATERIAL: Intravenous: Omnipaque 350 Contrast volume:100 mL Oral: No COMPARISON: No exams were available for comparison FINDINGS: ABDOMEN: Lung Bases: Small bilateral pleural effusions and subjacent infiltrates. Liver: Normal density. No measurable mass. Portal, Superior Mesenteric, and Splenic Veins: Unremarkable. Gallbladder and Biliary Tract: Cholelithiasis. Debris layering in the gallbladder which may represen t noncalcified stones or sludge. No biliary ductal dilatation. Pancreas: Normal density, no abnormal calcifications or inflammatory process. Spleen: Normal. Adrenals: No masses seen. Kidneys: Normal size, contour and axis. No radiodense stones or obstructive uropathy. No masses seen. Abdominal Aorta: Abdominal portion non-dilated. Atherosclerosis. Bowel: No evidence of bowel obstruction. There is bowel wall thickening seen in the ascending colon. Appendix is unremarkable. Colonic diverticulosis but no evidence of acute diverticulitis. Peritoneal Cavity: High-density fluid is seen in the abdomen and pelvis. The findings are suspicious for hemorrhage. No free air. Lymph Nodes: Within normal limits. Bones: Postsurgical changes are seen in the thoracic and lumbar spine. Soft Tissues: There is a fluid and fat containing right anterior abdominal wall hernia. PELVIS: Bladder: A suprapubic catheter is in place. There is diffuse thickening of the wall of the urinary b ladder. This may be due to underdistention. Inflammatory infectious process cannot be excluded. Pl ease correlate clinically. Reproductive Organs: Status post hysterectomy. Lymph Nodes: Within normal limits. Bones: Within normal limits for the patient's age. IMPRESSION: 1. There is placement of a suprapubic catheter. 2. High-density fluid seen within the abdomen and pelvis suspicious for hemoperitoneum. 3. Thickening of the wall of the ascending colon. While this may be due to lack of distension an inf ectious or inflammatory process should be considered. 4. Right anterior lateral wall hernia containing fat and fluid. RADIATION DOSE DELIVERED: 986.91mGy.cm Total DLP DATA REPOSITORY: All CT scans at this facility are submitted to the National Radiology Data Registry (NRDR) Dose Index Registry (DIR) with the [employer] (ACR). RADIATION OPTIMIZATION: All CT scans at this facility use at least one of these dose optimization te chniques: automated exposure control; mA and/or kV adjustment per patient size (includes targeted exa ms where dose is matched to clinical indication); or iterative reconstruction.
--- NOTE | 2020-05-28 15:35 | ED.GENADUL_ITS ---
Discharge Plan Disposition Patient Disposition: [facility] INPATIENT Condition: Stable Discharge Details Clinical Impression: Postoperative hemorrhage Admit Date/Time: 05/28/20 18:15 Admit Provider: Anastasiya Marin Attending Provider: Anastasiya Marin Primary Care Provider: Genesis Mitchell ED Provider: Lopez Jarvis Medical Decision Making 64-year-old female status post suprapubic catheter placement May 26. This is performed for intermittent urinary retention. She reports a bloody discharge today from the wound area. Now resolved. She arrives with blood pressure 141/69, pulse 80, respirations 16. No active bleeding in the abdomen is soft with suprapubic catheter in place. Concerned given the volume of blood she describes for postoperative bleed. Patient IV access established, screening labs obtained, and she is referred for imaging. Labs note a three-point drop in hemoglobin from 10-7 with a hematocrit of 22 today. Platelets 278. Chemistries with sodium 144, potassium 3.8, chloride 105, bicarb 32, BUN 19, creatinine 0.9. CT images: There is hemoperitoneum along anterior abdomen. See formal report. Case discussed with Dr. Marin after unable to reach Dr. Zamora. I will transfuse 1 unit of packed red blood cells and patient will be admitted to surgery for further observation. HPI General Mode of arrival: EMS . Date/Time Provider Initiated Documentation: 05/28/20 15:29 . Limitations to Documentation: no limitations . Information obtained by: patient . History of Present Illness 64 year old F presents to the emergency department with the chief complaint of Bloody drainage from suprapubic, described as moderate, and is localized to the abdomen. Patient reports no radiation. Patient started experiencing this minute(s) and it has been now resolved. No relieving factors improve symptom(s), No exacerbating factors reported . Patient notes no other symptoms.. Patient did receive the following treatments prior to arrival, none Related Data Home Medications Medication Instructions Recorded Confirmed duloxetine 30 mg capsule,delayed 30 mg PO DAILY #30 cap 07/10/19 05/28/20 release fluoxetine 20 mg capsule 20 mg PO DAILY #30 cap 07/10/19 05/28/20 lamotrigine 200 mg tablet 300 mg PO DAILY #45 tab 07/26/19 05/28/20 acetaminophen 500 mg tablet 500 mg PO TID #90 tab 08/14/19 05/28/20 halobetasol propionate 0.05 % 1 applic TP BID #50 gm 09/05/19 05/28/20 topical ointment betamethasone dipropionate 0.05 % 1 applic TP BID PRN #45 gm 09/08/19 05/28/20 topical cream nystatin-triamcinolone 100,000 1 applic TP BID #60 gm 09/25/19 05/28/20 unit/g-0.1 % topical cream nystatin 6,000,000 unit TOPICAL BID #30 g 02/12/20 05/28/20 gabapentin 600 mg tablet 600 mg PO BID #60 tab 03/28/20 05/28/20 allopurinol 300 mg tablet 300 mg PO DAILY #30 tab 05/08/20 05/28/20 brexpiprazole 3 mg tablet 3 mg PO DAILY #30 tab 05/08/20 05/28/20 cholecalciferol (vitamin D3) 25 1,000 unit PO DAILY #30 cap 05/08/20 05/28/20 mcg (1,000 unit) capsule pantoprazole 40 mg tablet,delayed 40 mg PO DAILY #30 tab 05/08/20 05/28/20 release simvastatin 40 mg tablet 40 mg PO QPM #30 tab 05/08/20 05/28/20 prednisone 40 mg PO DAILY 05/22/20 05/28/20 Previous Rx's Medication Instructions Recorded duloxetine 30 mg capsule,delayed 30 mg PO DAILY #30 cap 07/10/19 release fluoxetine 20 mg capsule 20 mg PO DAILY #30 cap 07/10/19 lamotrigine 200 mg tablet 300 mg PO DAILY #45 tab 07/26/19 acetaminophen 500 mg tablet 500 mg PO TID #90 tab 08/14/19 halobetasol propionate 0.05 % 1 applic TP BID #50 gm 09/05/19 topical ointment betamethasone dipropionate 0.05 % 1 applic TP BID PRN #45 gm 09/08/19 topical cream nystatin-triamcinolone 100,000 1 applic TP BID #60 gm 09/25/19 unit/g-0.1 % topical cream nystatin 6,000,000 unit TOPICAL BID #30 g 02/12/20 gabapentin 600 mg tablet 600 mg PO BID #60 tab 03/28/20 allopurinol 300 mg tablet 300 mg PO DAILY #30 tab 05/08/20 brexpiprazole 3 mg tablet 3 mg PO DAILY #30 tab 05/08/20 cholecalciferol (vitamin D3) 25 1,000 unit PO DAILY #30 cap 05/08/20 mcg (1,000 unit) capsule pantoprazole 40 mg tablet,delayed 40 mg PO DAILY #30 tab 05/08/20 release simvastatin 40 mg tablet 40 mg PO QPM #30 tab 05/08/20 Allergies Allergy/AdvReac Type Severity Reaction Status Date / Time codeine AdvReac Intermediate NAUSEA/DIZZ Verified 05/26/20 07:37 INESS General Stated Complaint: Abd Prob JAMILA: 4 Review of Systems Narrative: No fever, no syncope. Has been making urine. 6 systems reviewed and otherwise negative [facility] Medical History Acute gout of right ankle (12/06/14) Callus of foot Depressive disorder bipolar 02/25-[facility] Dermatitis associated with moisture Diabetes mellitus (09/10/14) Encounter for evaluation of ability to make decisions regarding care Gallstones Gastritis presumed (improved symptoms on omeprazole) Headache secondary to scoliosis & neck muscle spasm Hernia of abdominal wall Hyperlipidemia (08/17/12) Hypokalemia (09/06/17) Hypomagnesemia (09/15/12) Idiopathic scoliosis w/ Chronic LBP; surgery-1969,1971, 1990, 1995, 1997 ([facility]) Increased BMI (body mass index) (03/28/17) Neck pain w/ muscle spasm, secondary to scoliosis Pain in wrist (02/17/06) left; MRI [facility] [place] Psoriasis (04/16/13) Right shoulder pain (09/10/14) Right upper quadrant abdominal tenderness (09/06/17) Right upper quadrant abdominal tenderness with rebound tenderness (09/06/17) Sensorineural hearing loss, bilateral (10/13/15) Shoulder pain, right Systolic murmur Tubular adenoma (08/09/16) Vitamin D deficiency (08/17/12) Surgical History Colonoscopy - IV Sedation (08/09/16) Hysterectomy, Laproscopic Previous back surgery Family History Father , 63 Lung cancer Sister Depression Sister COPD (chronic obstructive pulmonary disease) Grandmother Breast cancer Son Depression Social History Smoking/Tobacco Use Status: Never Second Hand Exposure: Yes Smoking risk assessment performed?: Yes Alcohol Intake: former Counseling given: No Drug use: Never Substance use type: does not use Counseling provided: none Caregiver/Support person: No Household members: none Communication Needs: Hard of Hearing Do you need help understanding health information?: Often Pets and animals: No Sexually active: No Do you think of yourself as: straight/heterosexual Current gender identity: female What is your relationship status?: How often do you talk on the phone with friends or family?: decline to answer How often do you get together with friends or relatives?: decline to answer How often do you attend congregational or mosque services?: 4 or more times per year Do you belong to any clubs or organized social groups?: no Panel score (0-1 are the most socially isolated patients): 1 What type of physical activity do you participate in: none Pari/Sikhism: Sikhism Special pari needs: No Seatbelt use: always Helmet use: No Drive intox or ride w/intox lyft driver: No Do you feel safe at home: Yes Additional Social history: pt. states she is not in a relationship Exam Narrative Exam Narrative: GEN: awake, alert, oriented 3. Pleasant, well groomed, interactive. HEAD: Normocephalic, atraumatic ENT: Mucous membranes moist, oropharynx unremarkable, External ear exam unremarkable EYES: PERRL, EOMI NECK: Full ROM, no ISELA, no menigismus CHEST/RESP: Nontender, clear to auscultation bilateral, no wheeze/rhonchi/rales CARDIOVASCULAR: RRR, no murmur, rub luz maria. 2+ Rad pulse bilateral ABDOMEN: Soft, suprapubic catheter in place, no bloody effluent, no significant tenderness, no mass. +Bowel sounds EXT: Full ROM, no edema, no rash Neuro: Grossly normal neurologic exam, conversant, interactive. Psych: Speech fluent, thoughts congruent, affect normal Course Vital Signs Vital signs: Vital Signs Temperature 36.6 C 05/28/20 15:13 Pulse 80 05/28/20 15:13 Respiratory Rate 16 05/28/20 15:13 Blood Pressure 141/69 H 05/28/20 15:13 Pulse Oximetry 97 05/28/20 15:13 Temperature 36.6 C 05/28/20 15:13 Temperature Source Temporal Artery Scan 05/28/20 15:13 Pulse 80 05/28/20 15:13 Respiratory Rate 16 05/28/20 15:13 Blood Pressure 141/69 H 05/28/20 15:13 Blood Pressure Position Supine 05/28/20 15:13 Pulse Oximetry 97 05/28/20 15:13 Oxygen Delivery Method Room Air 05/28/20 15:13 Oxygen Flow Rate 0 05/28/20 15:13 Pain Level 0 05/28/20 15:13
[2020-05-28 16:14] LABS: Abs Immature Grans 0.12 10^3/uL (0.0-0.06); Absolute Basophil Count 0.05 10^3/uL (0.0-0.2); Absolute Lymphocyte Count 2.57 10^3/uL (1.2-3.4); Absolute Monocyte Count 0.55 10^3/uL (0.1-0.8); Absolute Neutrophil Count 5.68 10^3/uL (1.2-6.7); Basophils % 0.6; Bilirubin Negative (Negative); Blood Small (Negative); Clarity Clear (Clear); Glucose Negative (Negative); HCT 22.5 % (36.0-46.0); Immature Grans % 1.3; Ketones Negative (Negative); Leukocyte Esterase Trace (Negative); Lymphocytes % 28.7; MCH 30.2 pg (27.0-33.0); MCHC 31.1 % (32.0-36.0); MPV 9.8 fL (8.0-11.0); Monocytes % 6.1; Neutrophils % 63.3; Nitrite Negative (Negative); Nucleated RBC 0 %; Platelet Count 278 10^3/uL (130-400); RBC 2.32 10^6/uL (3.93-5.22); RDW 14.4 % (11.7-14.6); RDW-SD 49.1 fL; Specific Gravity 1.025 (1.005-1.025); Urobilinogen 0.2 EU/dL (Up TO 0.2); WBC 8.97 10^3/uL (4.4-10.8)
[2020-05-28 16:26] LABS: ALT 13 U/L (14-59); AST 12 U/L (15-37); Albumin 3.2 g/dL (3.4-5.0); Alkaline Phosphatase 79 U/L (46-116); Anion Gap 6.4 mmol/L (3-11); BUN 19 mg/dL (7-18); Bilirubin, Total 0.2 mg/dL (0.2-1.0); CO2 32.6 mmol/L (21.0-32.0); CREATININE 0.9 mg/dL (0.55-1.02); Calcium 8.9 mg/dL (8.5-10.1); Chloride 105 mmol/L (98-107); Glucose 148 mg/dL (74-106); Magnesium 1.5 mg/dL (1.8-2.4); Potassium 3.8 mmol/L (3.5-5.1); Sodium 144 mmol/L (136-145); Total Protein 6.6 g/dL (6.4-8.2)
[2020-05-28 16:37] LABS: Bacteria Negative HPF (Negative); C & S Indicated? Yes; Casts Negative LPF (Negative); Crystals Negative HPF (Negative); Epithelial Cells Negative HPF (Negative); Mucus Negative (Negative); Other Cells Negative (Negative); RBC 20-50 HPF (0-2)
[2020-05-28 16:49] LABS: Diff Comment RBC Morph Reviewed; RBC Morphology Normal
[2020-05-28] MEDS: Omnipaque 350 MG/ML 50 ML BTL IJ (17:13)
[2020-05-28] MEDS: Omnipaque 350 MG/ML 100 ML BTL IJ (17:13)
[2020-05-28] MEDS: Normal Saline Flush 10 ML SYR IVP (17:14)
--- NOTE | 2020-05-28 17:51 | DI.VRAD_ITS ---
Addendum created by Riley Ardon MD on 05/28/2020 5:51:23 PM EST: COMMENT: THIS REPORT CONTAINS FINDINGS THAT MAY BE CRITICAL TO PATIENT CARE. I have discussed these findings with VIDAL LYNN over the telephone as of 5:51 PM EST on 05/28/2020. Initial report created on 05/28/2020 5:50:57 PM EST: PROCEDURE INFORMATION: Exam: CT Abdomen And Pelvis With Contrast Exam date and time: 05/28/2020 4:57 PM Age: 64 years old Clinical indication: Other: Post procedure bleeding TECHNIQUE: Imaging protocol: Computed tomography of the abdomen and pelvis with contrast. Contrast material: OMNIPAQUE 350; Contrast volume: 100 ml; Contrast route: INTRAVENOUS (IV); COMPARISON: CT ABDOMEN PELVIS W 02/11/2020 11:54 AM FINDINGS: Tubes, catheters and devices: Fluid is seen tracking along the right intra-abdominal wall in the vicinity of a percutaneous catheter placement with the balloon tip of the catheter located within the urinary bladder. Pleural spaces: Linear stranding is noted at both lung bases with a small right pleural effusion. Liver: Normal. No mass. Gallbladder and bile ducts: Evaluation the gallbladder is remarkable for stones versus sludge within the dependent portion. Pancreas: Normal. No ductal dilation. Spleen: Normal. No splenomegaly. Adrenal glands: Normal. No mass. Kidneys and ureters: Normal. No hydronephrosis. Stomach and bowel: There is a hernia of the right anterior/lateral abdominal wall containing a nondilated loop of bowel. Diverticulosis is present. Thickening of the wall of the right colon. Appendix: No evidence of appendicitis. Intraperitoneal space: High-density fluid also extends into the pelvis consistent with hemoperitoneum. This fluid has a density of 39 Hounsfield units. No pneumoperitoneum is seen. Vasculature: Unremarkable. No abdominal aortic aneurysm. Lymph nodes: Unremarkable. No enlarged lymph nodes. Urinary bladder: The urinary bladder is decompressed. Reproductive: Unremarkable as visualized. Bones/joints: Thoracolumbar fusion with Barboza rods. Soft tissues: Morbid obesity is present. The fluid collection tracking along the right abdominal wall is most consistent with hemorrhage. IMPRESSION: 1. Status post placement of a right abdominal percutaneous balloon tip catheter which traverses the peritoneal cavity and terminates within the urinary bladder. 2. Fluid tracking along the right anterior abdominal wall and within the peritoneal cavity suspicious for hemoperitoneum. 3. Thickening of the wall of the right colon. This may be artifact due to lack of distention. However, inflammatory bowel disease or other causes of colitis cannot be excluded. 4. Hernia of the right anterior/lateral abdominal wall containing a nondilated loop of small bowel. 5. Chronic and postsurgical changes of the spine. Dictated and Authenticated by: Riley Ardon MD. Ordering:ANURADHA Marroquin MD
[2020-05-28] MEDS: Normal Saline 1,000 ML 125 ML IV (18:11)
--- NOTE | 2020-05-28 18:25 | HPE_ITS ---
Date of service: 05/28/20 Time of Service: 19:19 Assessment and Plan Assessment and plan (1) Postoperative hemorrhage: Status: Acute Assessment and plan: Ms Nolen is a 54-year-old female who underwent exchange is pubic catheter Tuesday with Dr. Zamora. She was brought to the emergency. Her caregivers noticed a catheter. Patient does not complain of pain, nausea or vomiting. CT scan is suggestive of hemoperitoneum. No active bleeding is appreciated. Abdomen is soft and non-tender Admit for observation Give 1 unit of blood Check H/H at 10 pm and 6 am If stable tomorrow will D/C to home Qualifiers: Surgical complication system/body Area: genitourinary Procedure type: genitourinary Qualified Code(s): N99.820 - Postprocedural hemorrhage of a genitourinary system organ or structure following a genitourinary system procedure (2) Depressive disorder: Status: Chronic (3) Diabetes mellitus: Status: Chronic Qualifiers: Diabetes mellitus type: type 2 Diabetes mellitus longterm insulin use: without longterm use Diabetes mellitus complication status: without complication Qualified Code(s): E11.9 - Type 2 diabetes mellitus without complications (4) Headache: Status: Acute (5) Hyperlipidemia: Status: Chronic History of Present Illness History of Present Illness Chief Complaint: Postoperative bleeding Narrative: Ms Nolne is a pleasant 64 year old female who had a suprapubic catheter exchanged in the Operating room by Dr. Zamora on Tuesday. She was brought back to the ER with complaint of bleeding around the catheter. The patient doesn't complain of pain. She has had no N/V. Urine has been without gross blood. Her Hgb droped from 10.6 in March to [address] scan was done and there is blood along the anterior abdominal wall and along the right gutter up to the liver. No active bleeding is appreciated on the scan. I reviewed the scan myself. The ER attempted to contact Dr. Zamora but got no response so I was asked to admit the patient for observation. She is currently recieving 1 unit of blood. Exam: CT Abdomen And Pelvis With Contrast Exam date and time: 05/28/2020 4:57 PM Age: 64 years old Clinical indication: Other: Post procedure bleeding TECHNIQUE: Imaging protocol: Computed tomography of the abdomen and pelvis with contrast. Contrast material: OMNIPAQUE 350; Contrast volume: 100 ml; Contrast route: INTRAVENOUS (IV); COMPARISON: CT ABDOMEN PELVIS W 02/11/2020 11:54 AM FINDINGS: Tubes, catheters and devices: Fluid is seen tracking along the right intra-abdominal wall in the vicinity of a percutaneous catheter placement with the balloon tip of the catheter located within the urinary bladder. Pleural spaces: Linear stranding is noted at both lung bases with a small right pleural effusion. Liver: Normal. No mass. Gallbladder and bile ducts: Evaluation the gallbladder is remarkable for stones versus sludge within the dependent portion. Pancreas: Normal. No ductal dilation. Spleen: Normal. No splenomegaly. Adrenal glands: Normal. No mass. Kidneys and ureters: Normal. No hydronephrosis. Stomach and bowel: There is a hernia of the right anterior/lateral abdominal wall containing a nondilated loop of bowel. Diverticulosis is present. Thickening of the wall of the right colon. Appendix: No evidence of appendicitis. Intraperitoneal space: High-density fluid also extends into the pelvis consistent with hemoperitoneum. This fluid has a density of 39 Hounsfield units. No pneumoperitoneum is seen. Vasculature: Unremarkable. No abdominal aortic aneurysm. Lymph nodes: Unremarkable. No enlarged lymph nodes. Urinary bladder: The urinary bladder is decompressed. Reproductive: Unremarkable as visualized. Bones/joints: Thoracolumbar fusion with Barboza rods. Soft tissues: Morbid obesity is present. The fluid collection tracking along the right abdominal wall is most consistent with hemorrhage. IMPRESSION: 1. Status post placement of a right abdominal percutaneous balloon tip catheter which traverses the peritoneal cavity and terminates within the urinary bladder. 2. Fluid tracking along the right anterior abdominal wall and within the peritoneal cavity suspicious for hemoperitoneum. 3. Thickening of the wall of the right colon. This may be artifact due to lack of distention. However, inflammatory bowel disease or other causes of colitis cannot be excluded. 4. Hernia of the right anterior/lateral abdominal wall containing a nondilated loop of small bowel. 5. Chronic and postsurgical changes of the spine. Review of Systems Constitutional Constitutional: Denies fatigue, Denies fever(s), Denies headache(s) and Denies poor appetite Eyes Eyes: Denies change in vision ENT Ears, Nose, Mouth, and Throat: Denies dysphagia and Denies headache(s) Cardiovascular Cardiovascular: Denies chest pain, Denies chest pain at rest, Denies irregular heart rhythm, Denies radiating jaw, neck or arm pain, Denies palpitations and Denies dyspnea Respiratory Respiratory: Denies cough and Denies dyspnea Gastrointestinal Gastrointestinal: Reports as per HPI and Denies dysphagia Genitourinary Genitourinary: Reports as per HPI Neurologic Neurologic: Denies headache(s) Endocrine Endocrine: Denies fatigue and Denies palpitations [facility] Medical History Acute gout of right ankle (12/06/14) Callus of foot Depressive disorder bipolar 02/25-[facility] Dermatitis associated with moisture Diabetes mellitus (09/10/14) Encounter for evaluation of ability to make decisions regarding care Gallstones Gastritis presumed (improved symptoms on omeprazole) Headache secondary to scoliosis & neck muscle spasm Hernia of abdominal wall Hyperlipidemia (08/17/12) Hypokalemia (09/06/17) Hypomagnesemia (09/15/12) Idiopathic scoliosis w/ Chronic LBP; surgery-1969,1971, 1990, 1995, 1997 ([facility]) Increased BMI (body mass index) (03/28/17) Neck pain w/ muscle spasm, secondary to scoliosis Pain in wrist (02/17/06) left; MRI [facility] Psoriasis (04/16/13) Right shoulder pain (09/10/14) Right upper quadrant abdominal tenderness (09/06/17) Right upper quadrant abdominal tenderness with rebound tenderness (09/06/17) Sensorineural hearing loss, bilateral (10/13/15) Shoulder pain, right Systolic murmur Tubular adenoma (08/09/16) Vitamin D deficiency (08/17/12) Surgical History Colonoscopy - IV Sedation (08/09/16) Hysterectomy, Laproscopic Previous back surgery Family History Father , 63 Lung cancer Sister Depression Sister COPD (chronic obstructive pulmonary disease) Grandmother Breast cancer Son Depression Social History Smoking/Tobacco Use Status: Never Second Hand Exposure: Yes Smoking risk assessment performed?: Yes Alcohol Intake: former Counseling given: No Drug use: Never Substance use type: does not use Counseling provided: none Caregiver/Support person: No Household members: none Communication Needs: Hard of Hearing Do you need help understanding health information?: Often Pets and animals: No Sexually active: No Do you think of yourself as: straight/heterosexual Current gender identity: female What is your relationship status?: How often do you talk on the phone with friends or family?: decline to answer How often do you get together with friends or relatives?: decline to answer How often do you attend oriental orthodox or hoahaoism services?: 4 or more times per year Do you belong to any clubs or organized social groups?: no Panel score (0-1 are the most socially isolated patients): 1 What type of physical activity do you participate in: none Pari/Jain: Presybeterian Special pari needs: No Seatbelt use: always Helmet use: No Drive intox or ride w/intox team truck driver: No Do you feel safe at home: Yes Additional Social history: pt. states she is not in a relationship Meds Home Medications and Allergies Allergies Allergy/AdvReac Type Severity Reaction Status Date / Time codeine AdvReac Intermediate NAUSEA/DIZZ Verified 05/26/20 07:37 INESS Home Medications Medication Instructions Recorded Confirmed Type duloxetine 30 mg capsule,delayed 30 mg PO DAILY #30 cap 07/10/19 05/28/20 Rx release fluoxetine 20 mg capsule 20 mg PO DAILY #30 cap 07/10/19 05/28/20 Rx lamotrigine 200 mg tablet 300 mg PO DAILY #45 tab 07/26/19 05/28/20 Rx acetaminophen 500 mg tablet 500 mg PO TID #90 tab 08/14/19 05/28/20 Rx halobetasol propionate 0.05 % 1 applic TP BID #50 gm 09/05/19 05/28/20 Rx topical ointment betamethasone dipropionate 0.05 % 1 applic TP BID PRN #45 gm 09/08/19 05/28/20 Rx topical cream nystatin-triamcinolone 100,000 1 applic TP BID #60 gm 09/25/19 05/28/20 Rx unit/g-0.1 % topical cream nystatin 6,000,000 unit TOPICAL BID #30 g 02/12/20 05/28/20 Rx gabapentin 600 mg tablet 600 mg PO BID #60 tab 03/28/20 05/28/20 Rx allopurinol 300 mg tablet 300 mg PO DAILY #30 tab 05/08/20 05/28/20 Rx brexpiprazole 3 mg tablet 3 mg PO DAILY #30 tab 05/08/20 05/28/20 Rx cholecalciferol (vitamin D3) 25 1,000 unit PO DAILY #30 cap 05/08/20 05/28/20 Rx mcg (1,000 unit) capsule pantoprazole 40 mg tablet,delayed 40 mg PO DAILY #30 tab 05/08/20 05/28/20 Rx release simvastatin 40 mg tablet 40 mg PO QPM #30 tab 05/08/20 05/28/20 Rx prednisone 40 mg PO DAILY 05/22/20 05/28/20 History Exam Const General: cooperative, comfortable and no acute distress Orientation: alert and oriented x3 HENMT Head: normocephalic and atraumatic Resp Effort & Inspection: normal respiratory effort Auscultation: clear to auscultation bilaterally Cardio Rate: regular rate Rhythm: regular rhythm Heart Sounds: no gallops, no murmurs and no rubs GI Inspection: normal to inspection and non-distended Palpation: soft, no hepatosplenomegaly, not firm, no guarding and nontender Auscultation: normal bowel sounds Other: Suprapubic catheter with blood on the bandage. No blood in the urine Results Labs Result diagrams: 05/28/20 15:51 05/28/20 15:51 Labs: Laboratory Results - last 24 hr 05/28/20 05/28/20 05/28/20 15:51 15:51 15:51 WBC 8.97 RBC 2.32 L Hgb 7.0 L Hct 22.5 L MCV 97.0 H MCH 30.2 MCHC 31.1 L RDW 14.4 Plt Count 278 MPV 9.8 Immature Gran % 1.3 Neutrophils % 63.3 Lymphocytes % 28.7 Monocytes % 6.1 Eosinophils % 0.0 Basophils % 0.6 Nucleated RBC % 0 Absolute Neutrophils 5.68 Absolute Lymphocytes 2.57 Absolute Monocytes 0.55 Absolute Eosinophils 0.00 Absolute Basophils 0.05 RBC Morphology Normal Sodium 144 Potassium 3.8 Chloride 105 Carbon Dioxide 32.6 H Anion Gap 6.4 BUN 19 H Creatinine 0.9 Estimated GFR/1.73 m2 >= 60.00 Glucose 148 H Calcium 8.9 Magnesium 1.5 L Total Bilirubin 0.2 AST 12 L ALT 13 L Alkaline Phosphatase 79 Total Protein 6.6 Albumin 3.2 L Urine Color Urine Clarity Urine pH Ur Specific [place] Urine Protein Urine Ketones Urine Blood Urine Nitrite Urine Bilirubin Urine Urobilinogen Ur Leukocyte Esterase Urine RBC Urine WBC Ur Epithelial Cells Urine Crystals Urine Bacteria Urine Casts Urine Mucus Urine Other Ur Culture Indicated? Urine Glucose Patient ABO/Rh B Positive Antibody Screen Negative Crossmatch See Detail 05/28/20 05/28/20 15:51 22:00 WBC RBC Hgb Cancelled Hct MCV MCH MCHC RDW Plt Count MPV Immature Gran % Neutrophils % Lymphocytes % Monocytes % Eosinophils % Basophils % Nucleated RBC % Absolute Neutrophils Absolute Lymphocytes Absolute Monocytes Absolute Eosinophils Absolute Basophils RBC Morphology Sodium Potassium Chloride Carbon Dioxide Anion Gap BUN Creatinine Estimated GFR/1.73 m2 Glucose Calcium Magnesium Total Bilirubin AST ALT Alkaline Phosphatase Total Protein Albumin Urine Color Yellow Urine Clarity Clear Urine pH 6.0 Ur Specific [place] 1.025 Urine Protein Negative Urine Ketones Negative Urine Blood Small H Urine Nitrite Negative Urine Bilirubin Negative Urine Urobilinogen 0.2 Ur Leukocyte Esterase Trace H Urine RBC 20-50 H Urine WBC 3-5 Ur Epithelial Cells Negative Urine Crystals Negative Urine Bacteria Negative Urine Casts Negative Urine Mucus Negative Urine Other Negative Ur Culture Indicated? Yes Urine Glucose Negative Patient ABO/Rh Antibody Screen Crossmatch Last Vital Signs Temp 98.8 F 05/28/20 18:10 Pulse 87 05/28/20 18:16 Resp 23 05/28/20 18:16 BP 119/49 L 05/28/20 18:16 Pulse Ox 94 05/28/20 18:16 COVID-19 Screening Have you, or household traveled for leisure in last 14 days?: No Had IN PERSON contact w/suspected or confirmed C-19 person: No
[2020-05-28] MEDS: Pantoprazole 40 MG VIAL IVP (18:34)
[2020-05-28] MEDS: MAGNESIUM SULFATE 2 GM/50 ML BAG IVPB (18:34)
[2020-05-28 19:33] LABS: COVID-19 PCR Negative (Negative); Influenza A PCR Negative (Negative); Influenza B PCR Negative (Negative); RSV PCR Negative (Negative)
[2020-05-28] MEDS: Gabapentin 600 MG TAB PO (20:38)
[2020-05-28] MEDS: Simvastatin 40 MG TAB PO (20:38)
[2020-05-28] MEDS: Lactated Ringers 1,000 ML 75 ML IV (23:00)
[2020-05-29] VITALS (16 sets, daily range): BP systolic 107–157; BP diastolic 66–91; PULSE 62–78; RESP 14–22; TEMP 36.1–37.1; O2SAT 87–98
[2020-05-29 00:14] LABS: HGB 8.2 g/dL (11.2-15.7)
[2020-05-29] MEDS: HYDROmorphone 2 MG/ML VIAL 1 MG IVP ×2 (01:02→19:52)
[2020-05-29 06:59] LABS: HGB 7.6 g/dL (11.2-15.7)
[2020-05-29 07:13] LABS: Anion Gap 5.7 mmol/L (3-11); BUN 13 mg/dL (7-18); CO2 32.3 mmol/L (21.0-32.0); CREATININE 0.7 mg/dL (0.55-1.02); Calcium 8.8 mg/dL (8.5-10.1); Chloride 106 mmol/L (98-107); Glucose 85 mg/dL (74-106); Magnesium 1.8 mg/dL (1.8-2.4); Potassium 3.9 mmol/L (3.5-5.1); Sodium 144 mmol/L (136-145)
--- NOTE | 2020-05-29 07:54 | PGE_ITS ---
Date of Service Date of service: 05/29/20 Time of Service: 07:54 Assessment and Plan Assessment and plan (1) Postoperative hemorrhage: Status: Acute Assessment and plan: Awaiting morning H/H. Patient is very tired this morning. Denies having any pain or bleeding. 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 Denies having any pain or bleeding. Exam Const General: cooperative and comfortable Orientation: alert and awake Resp Effort & Inspection: normal respiratory effort, no audible wheezes and no cough Objective Last Vital Signs Temp 36.7 C 05/29/20 07:42 Pulse 71 05/29/20 07:42 Resp 17 05/29/20 07:42 BP 107/66 05/29/20 07:42 Pulse Ox 91 L 05/29/20 07:42 Laboratory Results - last 24 hr 05/28/20 05/28/20 05/28/20 15:51 15:51 15:51 WBC 8.97 RBC 2.32 L Hgb 7.0 L Hct 22.5 L MCV 97.0 H MCH 30.2 MCHC 31.1 L RDW 14.4 Plt Count 278 MPV 9.8 Immature Gran % 1.3 Neutrophils % 63.3 Lymphocytes % 28.7 Monocytes % 6.1 Eosinophils % 0.0 Basophils % 0.6 Nucleated RBC % 0 Absolute Neutrophils 5.68 Absolute Lymphocytes 2.57 Absolute Monocytes 0.55 Absolute Eosinophils 0.00 Absolute Basophils 0.05 RBC Morphology Normal Sodium 144 Potassium 3.8 Chloride 105 Carbon Dioxide 32.6 H Anion Gap 6.4 BUN 19 H Creatinine 0.9 Estimated GFR/1.73 m2 >= 60.00 Glucose 148 H Calcium 8.9 Magnesium 1.5 L Total Bilirubin 0.2 AST 12 L ALT 13 L Alkaline Phosphatase 79 Total Protein 6.6 Albumin 3.2 L Urine Color Urine Clarity Urine pH Ur Specific [place] Urine Protein Urine Ketones Urine Blood Urine Nitrite Urine Bilirubin Urine Urobilinogen Ur Leukocyte Esterase Urine RBC Urine WBC Ur Epithelial Cells Urine Crystals Urine Bacteria Urine Casts Urine Mucus Urine Other Ur Culture Indicated? Urine Glucose COVID-19 Source SARS-CoV-2 (PCR) Influenza Type A (PCR) Influenza Type B (PCR) RSV (PCR) Patient ABO/Rh B Positive Antibody Screen Negative Crossmatch See Detail 05/28/20 05/28/20 05/28/20 15:51 18:50 22:00 WBC RBC Hgb Cancelled Hct MCV MCH MCHC RDW Plt Count MPV Immature Gran % Neutrophils % Lymphocytes % Monocytes % Eosinophils % Basophils % Nucleated RBC % Absolute Neutrophils Absolute Lymphocytes Absolute Monocytes Absolute Eosinophils Absolute Basophils RBC Morphology Sodium Potassium Chloride Carbon Dioxide Anion Gap BUN Creatinine Estimated GFR/1.73 m2 Glucose Calcium Magnesium Total Bilirubin AST ALT Alkaline Phosphatase Total Protein Albumin Urine Color Yellow Urine Clarity Clear Urine pH 6.0 Ur Specific [place] 1.025 Urine Protein Negative Urine Ketones Negative Urine Blood Small H Urine Nitrite Negative Urine Bilirubin Negative Urine Urobilinogen 0.2 Ur Leukocyte Esterase Trace H Urine RBC 20-50 H Urine WBC 3-5 Ur Epithelial Cells Negative Urine Crystals Negative Urine Bacteria Negative Urine Casts Negative Urine Mucus Negative Urine Other Negative Ur Culture Indicated? Yes Urine Glucose Negative COVID-19 Source Nasopharyx SARS-CoV-2 (PCR) Negative Influenza Type A (PCR) Negative Influenza Type B (PCR) Negative RSV (PCR) Negative Patient ABO/Rh Antibody Screen Crossmatch 05/28/20 05/29/20 05/29/20 22:00 00:03 06:16 WBC RBC Hgb Cancelled 8.2 L Hct MCV MCH MCHC RDW Plt Count MPV Immature Gran % Neutrophils % Lymphocytes % Monocytes % Eosinophils % Basophils % Nucleated RBC % Absolute Neutrophils Absolute Lymphocytes Absolute Monocytes Absolute Eosinophils Absolute Basophils RBC Morphology Sodium 144 Potassium 3.9 Chloride 106 Carbon Dioxide 32.3 H Anion Gap 5.7 BUN 13 D Creatinine 0.7 Estimated GFR/1.73 m2 >= 60.00 Glucose 85 D Calcium 8.8 Magnesium 1.8 Total Bilirubin AST ALT Alkaline Phosphatase Total Protein Albumin Urine Color Urine Clarity Urine pH Ur Specific [place] Urine Protein Urine Ketones Urine Blood Urine Nitrite Urine Bilirubin Urine Urobilinogen Ur Leukocyte Esterase Urine RBC Urine WBC Ur Epithelial Cells Urine Crystals Urine Bacteria Urine Casts Urine Mucus Urine Other Ur Culture Indicated? Urine Glucose COVID-19 Source SARS-CoV-2 (PCR) Influenza Type A (PCR) Influenza Type B (PCR) RSV (PCR) Patient ABO/Rh Antibody Screen Crossmatch 05/29/20 06:16 WBC RBC Hgb 7.6 L Hct MCV MCH MCHC RDW Plt Count MPV Immature Gran % Neutrophils % Lymphocytes % Monocytes % Eosinophils % Basophils % Nucleated RBC % Absolute Neutrophils Absolute Lymphocytes Absolute Monocytes Absolute Eosinophils Absolute Basophils RBC Morphology Sodium Potassium Chloride Carbon Dioxide Anion Gap BUN Creatinine Estimated GFR/1.73 m2 Glucose Calcium Magnesium Total Bilirubin AST ALT Alkaline Phosphatase Total Protein Albumin Urine Color Urine Clarity Urine pH Ur Specific [place] Urine Protein Urine Ketones Urine Blood Urine Nitrite Urine Bilirubin Urine Urobilinogen Ur Leukocyte Esterase Urine RBC Urine WBC Ur Epithelial Cells Urine Crystals Urine Bacteria Urine Casts Urine Mucus Urine Other Ur Culture Indicated? Urine Glucose COVID-19 Source SARS-CoV-2 (PCR) Influenza Type A (PCR) Influenza Type B (PCR) RSV (PCR) Patient ABO/Rh Antibody Screen Crossmatch
[2020-05-29] MEDS: Normal Saline Flush 10 ML SYR IVP ×6 (08:57→20:26)
[2020-05-29] MEDS: lamoTRIgine 100 MG TAB 300 MG PO (08:58)
[2020-05-29] MEDS: predniSONE 10 MG TAB 40 MG PO (08:58)
[2020-05-29] MEDS: DULoxetine 30 MG CAP PO (08:59)
[2020-05-29] MEDS: Allopurinol 300 MG TAB PO (08:59)
[2020-05-29] MEDS: FLUoxetine 20 MG CAP PO (08:59)
[2020-05-29] MEDS: Gabapentin 600 MG TAB PO ×2 (08:59→19:52)
--- NOTE | 2020-05-29 09:00 | W.PM.PROGNOT ---
Date of Service Date of service: 05/29/20 Time of Service: 09:00 Assessment and Plan Assessment and plan (1) Postoperative hemorrhage: Status: Acute Assessment and plan: Her hemoglobins do not indicate any continued bleeding, but she remains symptomatic with lightheadedness and dizziness. I will go ahead and transfuse her 1 more unit of blood this morning and watch her for an additional 24 hours. We will recheck her labs and make sure that she has stabilized before considering discharge. There is no surgical indications at this time, so we will go ahead and let her eat this morning. Many thanks to Dr. Mares for caring for this patient overnight. I will place patient back on my service this morning. Qualifiers: Procedure type: genitourinary Surgical complication system/body Area: genitourinary Qualified Code(s): N99.820 - Postprocedural hemorrhage of a genitourinary system organ or structure following a genitourinary system procedure Subjective Subjective Interval history since last seen: She complains of fatigue and feels a bit dizzy when she gets up and moves. There has not been any active bleeding from her suprapubic site overnight. Exam Narrative Exam Narrative: She looks pale. She does not appear septic or toxic Her abdomen is soft with no peritoneal signs The urine in her suprapubic tube is clear. I went ahead and changed her suprapubic dressing today and do not see any active bleeding at this time She is awake and alert On admission, her hemoglobin was 7. She came up to 8.2 after a unit of blood and her hemoglobin is 7.6 this morning Objective Last Vital Signs Temp 36.7 C 05/29/20 07:42 Pulse 71 05/29/20 07:42 Resp 17 05/29/20 07:42 BP 107/66 05/29/20 07:42 Pulse Ox 91 L 05/29/20 07:42 Laboratory Results - last 24 hr 05/28/20 05/28/20 05/28/20 15:51 15:51 15:51 WBC 8.97 RBC 2.32 L Hgb 7.0 L Hct 22.5 L MCV 97.0 H MCH 30.2 MCHC 31.1 L RDW 14.4 Plt Count 278 MPV 9.8 Immature Gran % 1.3 Neutrophils % 63.3 Lymphocytes % 28.7 Monocytes % 6.1 Eosinophils % 0.0 Basophils % 0.6 Nucleated RBC % 0 Absolute Neutrophils 5.68 Absolute Lymphocytes 2.57 Absolute Monocytes 0.55 Absolute Eosinophils 0.00 Absolute Basophils 0.05 RBC Morphology Normal Sodium 144 Potassium 3.8 Chloride 105 Carbon Dioxide 32.6 H Anion Gap 6.4 BUN 19 H Creatinine 0.9 Estimated GFR/1.73 m2 >= 60.00 Glucose 148 H Calcium 8.9 Magnesium 1.5 L Total Bilirubin 0.2 AST 12 L ALT 13 L Alkaline Phosphatase 79 Total Protein 6.6 Albumin 3.2 L Urine Color Urine Clarity Urine pH Ur Specific [place] Urine Protein Urine Ketones Urine Blood Urine Nitrite Urine Bilirubin Urine Urobilinogen Ur Leukocyte Esterase Urine RBC Urine WBC Ur Epithelial Cells Urine Crystals Urine Bacteria Urine Casts Urine Mucus Urine Other Ur Culture Indicated? Urine Glucose COVID-19 Source SARS-CoV-2 (PCR) Influenza Type A (PCR) Influenza Type B (PCR) RSV (PCR) Patient ABO/Rh B Positive Antibody Screen Negative Crossmatch See Detail 05/28/20 05/28/20 05/28/20 15:51 18:50 22:00 WBC RBC Hgb Cancelled Hct MCV MCH MCHC RDW Plt Count MPV Immature Gran % Neutrophils % Lymphocytes % Monocytes % Eosinophils % Basophils % Nucleated RBC % Absolute Neutrophils Absolute Lymphocytes Absolute Monocytes Absolute Eosinophils Absolute Basophils RBC Morphology Sodium Potassium Chloride Carbon Dioxide Anion Gap BUN Creatinine Estimated GFR/1.73 m2 Glucose Calcium Magnesium Total Bilirubin AST ALT Alkaline Phosphatase Total Protein Albumin Urine Color Yellow Urine Clarity Clear Urine pH 6.0 Ur Specific [place] 1.025 Urine Protein Negative Urine Ketones Negative Urine Blood Small H Urine Nitrite Negative Urine Bilirubin Negative Urine Urobilinogen 0.2 Ur Leukocyte Esterase Trace H Urine RBC 20-50 H Urine WBC 3-5 Ur Epithelial Cells Negative Urine Crystals Negative Urine Bacteria Negative Urine Casts Negative Urine Mucus Negative Urine Other Negative Ur Culture Indicated? Yes Urine Glucose Negative COVID-19 Source Nasopharyx SARS-CoV-2 (PCR) Negative Influenza Type A (PCR) Negative Influenza Type B (PCR) Negative RSV (PCR) Negative Patient ABO/Rh Antibody Screen Crossmatch 05/28/20 05/29/20 05/29/20 22:00 00:03 06:16 WBC RBC Hgb Cancelled 8.2 L Hct MCV MCH MCHC RDW Plt Count MPV Immature Gran % Neutrophils % Lymphocytes % Monocytes % Eosinophils % Basophils % Nucleated RBC % Absolute Neutrophils Absolute Lymphocytes Absolute Monocytes Absolute Eosinophils Absolute Basophils RBC Morphology Sodium 144 Potassium 3.9 Chloride 106 Carbon Dioxide 32.3 H Anion Gap 5.7 BUN 13 D Creatinine 0.7 Estimated GFR/1.73 m2 >= 60.00 Glucose 85 D Calcium 8.8 Magnesium 1.8 Total Bilirubin AST ALT Alkaline Phosphatase Total Protein Albumin Urine Color Urine Clarity Urine pH Ur Specific [place] Urine Protein Urine Ketones Urine Blood Urine Nitrite Urine Bilirubin Urine Urobilinogen Ur Leukocyte Esterase Urine RBC Urine WBC Ur Epithelial Cells Urine Crystals Urine Bacteria Urine Casts Urine Mucus Urine Other Ur Culture Indicated? Urine Glucose COVID-19 Source SARS-CoV-2 (PCR) Influenza Type A (PCR) Influenza Type B (PCR) RSV (PCR) Patient ABO/Rh Antibody Screen Crossmatch 05/29/20 06:16 WBC RBC Hgb 7.6 L Hct MCV MCH MCHC RDW Plt Count MPV Immature Gran % Neutrophils % Lymphocytes % Monocytes % Eosinophils % Basophils % Nucleated RBC % Absolute Neutrophils Absolute Lymphocytes Absolute Monocytes Absolute Eosinophils Absolute Basophils RBC Morphology Sodium Potassium Chloride Carbon Dioxide Anion Gap BUN Creatinine Estimated GFR/1.73 m2 Glucose Calcium Magnesium Total Bilirubin AST ALT Alkaline Phosphatase Total Protein Albumin Urine Color Urine Clarity Urine pH Ur Specific [place] Urine Protein Urine Ketones Urine Blood Urine Nitrite Urine Bilirubin Urine Urobilinogen Ur Leukocyte Esterase Urine RBC Urine WBC Ur Epithelial Cells Urine Crystals Urine Bacteria Urine Casts Urine Mucus Urine Other Ur Culture Indicated? Urine Glucose COVID-19 Source SARS-CoV-2 (PCR) Influenza Type A (PCR) Influenza Type B (PCR) RSV (PCR) Patient ABO/Rh Antibody Screen Crossmatch
[2020-05-29] MEDS: diphenhydrAMINE 25 MG CAP PO (10:35)
[2020-05-29] MEDS: Acetaminophen 325 MG TAB 650 MG PO (10:36)
--- NOTE | 2020-05-29 14:21 | NUR.NOTE ---
Nursing Note: 0210: in pt's room to obtain VS per request of primary Elizabeth CONTI. pt is receiving 1 unit RBC's at this time. pt VS obtained; see EMAR for results. pt states I'm a little dizzy. RN finds pt o2 saturation is 88% with finger probe and only 91% with ear lobe probe. pt noted to be a mouth breather. primary RN contacted and agreeable to place pt on o2 at this time. o2 tubing obtained, pt placed on 1L o2 via NC at this time. primary Elizabeth CONTI at the bedside with pt at this time. this scribe reports pt c/o dizziness to Elizabeth CONTI.
[2020-05-29] MEDS: Lactated Ringers 1,000 ML 75 ML IV (15:09)
[2020-05-29] MEDS: Pantoprazole 40 MG VIAL IVP (18:40)
--- NOTE | 2020-05-29 18:47 | INITIAL_ITS ---
- If Service Date Differs Date of service: 05/29/20 Time of Service: 18:47 Care Management Initial Assess REASON FOR HOSPITALIZATION:: Postoperative Hemorrhage PAST MEDICAL HISTORY/PAST SURGICAL HISTORY:: Medical History. Acute gout of right ankle (12/06/14). Callus of foot. Depressive disorder. bipolar 02/25- [facility]. Dermatitis associated with moisture. Diabetes mellitus (09/10/14). Encounter for evaluation of ability to make decisions regarding care. Gallstones. Gastritis. presumed (improved symptoms on omeprazole). Headache. secondary to scoliosis & neck muscle spasm. Hernia of abdominal wall. Hyperlipidemia (08/17/12). Hypokalemia (09/06/17). Hypomagnesemia (09/15/12). Idiopathic scoliosis. w/ Chronic LBP; surgery-1969,1971, 1990, 1995, 1997 ([facility]). Increased BMI (body mass index) (03/28/17). Neck pain. w/ muscle spasm, secondary to scoliosis. Pain in wrist (02/17/06). left; MRI [facility] [place]. Psoriasis (04/16/13). Right shoulder pain (09/10/14). Right upper quadrant abdominal tenderness (09/06/17). Right upper quadrant abdominal tenderness with rebound tenderness (09/06/17). Sensorineural hearing loss, bilateral (10/13/15). Shoulder pain, right. Systolic murmur. Tubular adenoma (08/09/16). Vitamin D deficiency (08/17/12). Surgical History. Colonoscopy - IV Sedation (08/09/16). Hysterectomy, Laproscopic. Previous back surgery PREVIOUS FUNCTIONAL STATUS/SOCIAL/FAMILY SUPPORTS:: Jackelin lives alone at the [facility] in [place]. She has 3 sons, 2 of which live locally; the third son lives in [place]. She is independent with ADLs and has home health nursing through [facility]. Jackelin uses a walker for ambulatory assistance. CURRENT FUNCTIONAL STATUS:: Jackelin was sitting up in the chair when CM met with her. She reported that she was feeling weak and not well, and asked when she could return home. She was receiving a unit of blood during the conversation. She had not yet talked to the MD. Per report, she will be monitored overnight, and if her symptoms have resolved she will return home. CM will continue to follow. ADVANCE DIRECTIVES:: none on file and is not interested in completing. Has patient been provided with info about the portal/API?: Yes Did the patient sign up for the portal?: No CODE STATUS:: Full Code INSURANCE COVERAGE / FINANCIAL ISSUES:: MCR/BRIONNA CURRENT HOME/COMMUNITY SERVICES/EQUIPMENT:: HH nursing through [facility] PRIMARY CARE PHYSICIAN:: Genesis Mitchell POTENTIAL DISCHARGE NEEDS:: Follow up appointments PATIENT/FAMILY EDUCATION NEEDS:: Review discharge instructions, discussion of self care needs and goals of care. ANTICIPATED BARRIERS TO DISCHARGE:: None identified. TRANSPORTATION:: via [facility] private vehicle. PLAN:: Anticipate Jackelin will return home once medically cleared. She will resume her current HH services through [facility] Highest needs. She will follow up with her surgeon, PCP and discharge plan of care. CM will continue to follow.
[2020-05-29] MEDS: Simvastatin 40 MG TAB PO (19:52)
[2020-05-29] MEDS: Ondansetron 4 MG/2 ML VIAL IVP (20:26)
[2020-05-29] MEDS: ACETAMINOPHEN 1,000 MG/100 ML BTL 400 MG IVPB (22:43)
[2020-05-29] MEDS: Normal Saline 500 ML 30 ML IV (22:55)
[2020-05-30 03:28] VITALS: BP 126/70; PULSE 70; RESP 20; TEMP 37.1; O2SAT 98
[2020-05-30] MEDS: Lactated Ringers 1,000 ML 75 ML IV (05:56)
[2020-05-30] MEDS: Normal Saline Flush 10 ML SYR IVP (06:09)
--- NOTE | 2020-05-30 07:08 | W.PM.PROGNOT ---
Date of Service Date of service: 05/30/20 Time of Service: 07:08 Assessment and Plan Assessment and plan (1) Postoperative hemorrhage: Status: Acute Assessment and plan: As long as her hemoglobin is appropriate after yesterday's transfusion, I will plan on discharging her today with her suprapubic tube to a leg bag. She already has a follow-up visit scheduled for her initial catheter change. I will likely send her home with a low dose of antibiotic. With the collection of blood in her pelvis and the indwelling suprapubic tube, she is at risk for developing an abscess. The low-dose antibiotic may help prevent such an occurrence. Qualifiers: Surgical complication system/body Area: genitourinary Procedure type: genitourinary Qualified Code(s): N99.820 - Postprocedural hemorrhage of a genitourinary system organ or structure following a genitourinary system procedure Subjective Subjective Interval history since last seen: She still feels tired but has no lightheadedness or dizziness. She has not had any fevers or chills. She received 1 unit of packed red blood cells yesterday. Exam Narrative Exam Narrative: She does not appear septic or toxic Her vital signs are documented elsewhere I do not see any signs of new active bleeding around her stoma site Her urine is grossly clear Her abdomen is obese but soft with no peritoneal signs She is awake and alert Her lab work from this morning is still pending Objective Last Vital Signs Temp 37.1 C 05/30/20 03:28 Pulse 70 05/30/20 03:28 Resp 20 05/30/20 03:28 BP 126/70 05/30/20 03:28 Pulse Ox 98 05/30/20 03:28 Laboratory Results - last 24 hr 05/28/20 05/29/20 05/29/20 15:51 06:16 06:16 Hgb 7.6 L Sodium 144 Potassium 3.9 Chloride 106 Carbon Dioxide 32.3 H Anion Gap 5.7 BUN 13 D Creatinine 0.7 Estimated GFR/1.73 m2 >= 60.00 Glucose 85 D Calcium 8.8 Magnesium 1.8 Patient ABO/Rh B Positive Antibody Screen Negative Crossmatch See Detail
--- NOTE | 2020-05-30 07:44 | W.PM.DS.N ---
Date of service: 05/30/20 Time of Service: 09:24 DS: Diagnosis Discharge Diagnosis (1) Postoperative hemorrhage: Status: Acute Discharge Plan Disposition Patient Disposition: HOME W/HOME HEALTH SERVICE Condition: Stable Discharge Details Reason For Visit: INTAPERITONEAL BLOOD POST SUPRAPUBIC CATHETER Admit Date/Time: 05/28/20 18:15 Admit Provider: Boni Zamora Attending Provider: Boni Zamora Primary Care Provider: Genesis Mitchell Hospital Course Hospital Course: The patient presented to the emergency room with concerns for bleeding from her suprapubic site. On evaluation we found that her hemoglobin had dropped to 7. On CT scan, the tip of the suprapubic tube was in the bladder. The suprapubic tube traversed the peritoneum and there was some bleeding within the pelvis and abdominal cavity. She was given a total of 2 units of blood and her hemoglobin improved to 9.5. There is no signs of further or active bleeding, so she is being discharged on 05/30/2020. Well she was hospitalized, her urine drainage remained clear. Home Meds and New Rx's Prescriptions: New cephalexin 250 mg capsule 250 mg PO QHS Qty: 14 RF: 0 No Action nystatin-triamcinolone 100,000-0.1 unit/g-% cream 1 applic TP BID Qty: 60 RF: 1 gabapentin 600 mg tablet 600 mg PO BID Qty: 60 RF: 1 fluoxetine 20 mg capsule 20 mg PO DAILY Qty: 30 RF: 11 duloxetine 30 mg capsule,delayed release(DR/EC) 30 mg PO DAILY Qty: 30 RF: 11 lamotrigine 200 mg tablet 300 mg PO DAILY Qty: 45 RF: 11 acetaminophen [Acetaminophen Extra Strength] 500 mg tablet 500 mg PO TID Qty: 90 RF: 3 halobetasol propionate 0.05 % ointment 1 applic TP BID Qty: 50 RF: 2 betamethasone dipropionate 0.05 % cream 1 applic TP BID PRN (Reason: skin irritation) Qty: 45 RF: 2 allopurinol 300 mg tablet 300 mg PO DAILY Qty: 30 RF: 11 Rexulti 3 mg tablet 3 mg PO DAILY Qty: 30 RF: 11 cholecalciferol (vitamin D3) 25 mcg (1,000 unit) capsule 1,000 unit PO DAILY Qty: 30 RF: 11 pantoprazole 40 mg tablet,delayed release (DR/EC) 40 mg PO DAILY Qty: 30 RF: 11 simvastatin 40 mg tablet 40 mg PO QPM Qty: 30 RF: 11 nystatin 100,000 unit/gram Powder 6,000,000 unit topical BID Qty: 30 RF: 0 prednisone 10 mg Tablet 40 mg PO DAILY RF: 0 Discharge Instructions Additional Instructions: Suprapubic tube to leg bag Follow-up appointment with me already arranged for first suprapubic tube change Resume home health services ([id number] form completed) 1 new prescription has been added to her med list. She will be taking a single dose of antibiotic once a day for 2 weeks to help prevent infection. Activity:: Activity as Tolerated Equipment/Supplies:: Suprapubic tube to leg ba Diet:: As Tolerated Discharge Orders Discharge Orders: Discharge Order (Routine); Ordered 05/30/20 Ordered By: Boni Zamora DS: Summary Time Spent with Patient providing and/or coordinating discharge services: Less than 30 minutes Status at Discharge Functional status at discharge: uses cane/walker Overall status at discharge: patient is back to baseline Mental Status: mental status grossly normal Speech and Movement: speech and movement normal Mood: congruent mood Affect: blunted Exam Narrative Exam Narrative: At the time of discharge, she does not appear septic or toxic Her vital signs are documented elsewhere. She is not hypotensive nor is she tachycardic Her lungs are clear Her abdomen is obese but soft with no peritoneal signs There is some old blood around her suprapubic site but no active bleeding. Her urine is clear. She is awake and alert Psych Mental Status: mental status grossly normal Speech and Movement: speech and movement normal Mood: congruent mood Affect: blunted DS: Data Vitals/I&O Vitals and I&O: Vital Signs Temperature 37.1 C 05/30/20 03:28 Temperature Source Tympanic 05/30/20 03:28 Pulse 70 05/30/20 03:28 Pulse Rhythm Regular 05/30/20 03:55 Pulse 80 05/28/20 19:50 Respiratory Rate 20 05/30/20 03:28 Respiratory Effort Non-Labored 05/30/20 03:55 Respiratory Depth Normal 05/30/20 03:55 Respiratory Pattern Normal 05/30/20 03:55 Blood Pressure 126/70 05/30/20 03:28 Blood Pressure Mean 97 05/28/20 19:46 Blood Pressure Position Supine 05/28/20 15:13 Pulse Oximetry 98 05/30/20 03:28 Oxygen Delivery Method Nasal Cannula 05/30/20 03:28 Oxygen Flow Rate 2 05/30/20 03:28 Pain Level 0 05/30/20 03:28 Intake & Output 05/29/20 05/29/20 05/30/20 11:59 23:59 11:59 Intake Total 937.5 / 2078.0 1140.5 / 2078.0 592.5 / 592.5 Output Total 1225 / 2225 1000 / 2225 300 / 300 Balance -287.5 / -147.0 140.5 / -147.0 292.5 / 292.5 Intake: IV 937.5 / 1428.0 490.5 / 1428.0 592.5 / 592.5 Oral 150 / 150 Blood Product 400 / 400 Rbc Leuko Reduced Unit 400 / 400 [id number] Other 100 / 100 Rbc Leuko Reduced Unit 100 / 100 [id number] Output: Urine 1225 / 2225 1000 / 2225 300 / 300 Other: Urine Color Pale Yellow Pale Yellow Yellow Urine Appearance Clear Clear Clear Stool Size Small Stool Characteristics Formed Brown Data Completed and Pending Labs on day of discharge: Labs from last 24 hours 05/30/20 05/28/20 08:30 15:51 Hgb Pending Patient ABO/Rh B Positive Antibody Screen Negative Crossmatch See Detail Preliminary micro results at discharge 05/28/20 15:51 Urine Culture - Preliminary Urine - Reflex from [facility] Medical History Acute gout of right ankle (12/06/14) Callus of foot Depressive disorder bipolar 02/[facility] Dermatitis associated with moisture Diabetes mellitus (09/10/14) Encounter for evaluation of ability to make decisions regarding care Gallstones Gastritis presumed (improved symptoms on omeprazole) Headache secondary to scoliosis & neck muscle spasm Hernia of abdominal wall Hyperlipidemia (08/17/12) Hypokalemia (09/06/17) Hypomagnesemia (09/15/12) Idiopathic scoliosis w/ Chronic LBP; surgery-1970,1971, 1990, 1995, 1997 ([place]) Increased BMI (body mass index) (03/28/17) Neck pain w/ muscle spasm, secondary to scoliosis Pain in wrist (02/17/06) left; [place] [facility]iasis (04/16/13) Right shoulder pain (09/10/14) Right upper quadrant abdominal tenderness (09/06/17) Right upper quadrant abdominal tenderness with rebound tenderness (09/06/17) Sensorineural hearing loss, bilateral (10/13/15) Shoulder pain, right Systolic murmur Tubular adenoma (08/09/16) Vitamin D deficiency (08/17/12) Surgical History Colonoscopy - IV Sedation (08/09/16) Hysterectomy, Laproscopic Previous back surgery Family History Father , 63 Lung cancer Sister Depression Sister COPD (chronic obstructive pulmonary disease) Grandmother Breast cancer Son Depression Social History Smoking/Tobacco Use Status: Never Second Hand Exposure: Yes Smoking risk assessment performed?: Yes Alcohol Intake: former Counseling given: No Drug use: Never Substance use type: does not use Counseling provided: none Caregiver/Support person: No Household members: none Communication Needs: Hard of Hearing Do you need help understanding health information?: Often Pets and animals: No Sexually active: No Do you think of yourself as: straight/heterosexual Current gender identity: female What is your relationship status?: How often do you talk on the phone with friends or family?: decline to answer How often do you get together with friends or relatives?: decline to answer How often do you attend spiritism or yazidi services?: 4 or more times per year Do you belong to any clubs or organized social groups?: no Panel score (0-1 are the most socially isolated patients): 1 What type of physical activity do you participate in: none Pari/Scientology: Roman Catholic Special pari needs: No Seatbelt use: always Helmet use: No Drive intox or ride w/intox milk tanker driver: No Do you feel safe at home: Yes Additional Social history: pt. states she is not in a relationship
[2020-05-30 07:49] VITALS: BP 129/79; PULSE 68; RESP 18; TEMP 36.7; O2SAT 94
[2020-05-30 08:23] LABS: HGB 9.5 g/dL (11.2-15.7)
[2020-05-30 08:24] VITALS: O2SAT 99
[2020-05-30] MEDS: Allopurinol 300 MG TAB PO (08:39)
[2020-05-30] MEDS: lamoTRIgine 100 MG TAB 300 MG PO (08:39)
[2020-05-30] MEDS: predniSONE 10 MG TAB 40 MG PO (08:39)
[2020-05-30] MEDS: Gabapentin 600 MG TAB PO (08:39)
[2020-05-30] MEDS: DULoxetine 30 MG CAP PO (08:39)
[2020-05-30] MEDS: FLUoxetine 20 MG CAP PO (08:40)
--- NOTE | 2020-05-30 09:30 | PDOC.HHF2F ---
Home Health Certification Home Health Certification: 1. Encounter Date and Reason I certify that SAMAN SUE was seen by Boni Zamora MD on 05/30/20 and that I had a [id number] encounter with this patient that meets the physician face to face encounter requirements. 2. Clinical Findings Supporting Skilled Need and Homebound Status I certify that home health services are medically necessary, include either intermittent penitentiary and/or physical/speech therapy, and that this patient is homebound in that absences from the home require considerable and taxing effort and are infrequent or of short duration, or are attributable to the need to receive medical care. [X] (a) Attached documentation from encounter provides clinical findings supporting skilled need and homebound status (including what assistance patient requires to leave the home). The encounter with the patient was in whole, or in part, for the following medical condition, which is the primary reason for home health care: INTAPERITONEAL BLOOD POST SUPRAPUBIC CATHETER Senior Living: suprapubic catheter and wound care Physical Therapy: Speech Therapy: Homebound: 3. Certification and Authentication I certify that I composed the above information based on my clinical judgement relating to this patient's medical condition and, if applicable, clinical findings communicated to me by the NPP or inpatient physician who performed the Home Health Referral. All further orders will be obtained through (Community Based Physician - PCP)
[2020-05-30 10:53] VITALS: BP 124/81; PULSE 66; RESP 17; TEMP 36.4; O2SAT 91
[2020-05-30 10:57] VITALS: O2SAT 93
--- NOTE | 2020-05-30 20:23 | PDOC.CMDIS ---
- If Service Date Differs Date of service: 05/30/20 Time of Service: 20:23 LACE Index Scoring Tool - Questions: Length of Stay (in days): 2 Acuity (Admit via E.D.?): Yes Comorbidities: Diabetes w/o Complication E.D. Visits: 1 - Answers: Total Score: 7 Risk of Readmission: Low Risk Care Management Discharge Reason for Hospitalization: Postoperative Hemorrhage Discharge Plan: Jackelin will return home today with a resumption of HH RN for catheter and wound care. SHELLY advocated for Jackelin to be seen by HH over the weekend, per provider request. SHELLY coordinated a ride home via [employer] w/c [employer] She will follow up with Urology, her PCP and discharge plan of care. She was happy to be returning home. Patient/Family Education Needs: Review discharge instructions regarding activity levels and medications, discussion of self care needs and goals of care. Services Needed at Discharge: Home Health Care Services (resume HH RN), Transportation ([employer] [facility])
== END 2020-05-30 14:17 | disposition home health service (06) ==
LOC: ER 18:31 → MS 20:10
PROVIDERS: Surgery; Admitting Provider Urology; Emergency Provider Emergency Medicine; Visit Provider Urology
DX: T83.83XA Hemorrhage due to genitourinary prosthetic devices, implants and grafts, initial encounter (principal); N99.820 Postprocedural hemorrhage of a genitourinary system organ or structure following a genitourinary system procedure; E11.9 Type 2 diabetes mellitus without complications; R51.9 Headache, unspecified; E78.5 Hyperlipidemia, unspecified; F32.9 Major depressive disorder, single episode, unspecified; E55.9 Vitamin D deficiency, unspecified
CPT/HCPCS: 36415; 36430; 80048; 80053; 86850; 86900; 86901; 86920; 86945; 96360; 96361; 99217; 99220; 99223; 99225; 99232; 99285; NC; 74177; 81003; 81015; 83735; 85018; 85025; 87086; G0378; J0131; J2405; J3490; J7512; P9016; Q9967

== ENCOUNTER → 2020-07-10 14:21 | Outpatient (BNVA) | payer MEDICARE, MEDICAID, SELFPAY | PROVIDERS: Visit Provider Urology | DX: R33.8 Other retention of urine (principal); Z96.0 Presence of urogenital implants | CPT/HCPCS: 99213; 99214 ==

== ENCOUNTER 2020-08-12 14:19 | Emergency (ER) | payer MEDICARE, MEDICAID, SELFPAY ==
[2020-08-12 14:22] VITALS: BP 118/72; PULSE 75; PULSE 76; RESP 14; TEMP 36.6; O2SAT 93; O2SAT 94
[2020-08-12 14:23] VITALS: PULSE 81; RESP 29; O2SAT 94
[2020-08-12 14:30] VITALS: BP 114/72; PULSE 76; PULSE 78; RESP 28; O2SAT 93
--- NOTE | 2020-08-12 14:30 | ED.GENADUL_ITS ---
Discharge Plan Disposition Patient Disposition: HOME Condition: Stable Discharge Details Clinical Impression: Leg wound, right Primary Care Provider: Genesis Mitchell ED Provider: Leon Reyes Alkol Meds and New Rx's Prescriptions: New sulfamethoxazole-trimethoprim [Bactrim DS] 800-160 mg tablet 1 tab PO BID Qty: 14 RF: 0 amoxicillin-pot clavulanate [Augmentin] 875-125 mg tablet 1 tab PO BID Qty: 14 RF: 0 Continued lamotrigine 200 mg tablet 300 mg PO DAILY Qty: 45 RF: 11 acetaminophen [Acetaminophen Extra Strength] 500 mg tablet 500 mg PO TID Qty: 90 RF: 3 halobetasol propionate 0.05 % ointment 1 applic TP BID Qty: 50 RF: 2 betamethasone dipropionate 0.05 % cream 1 applic TP BID PRN (Reason: skin irritation) Qty: 45 RF: 2 allopurinol 300 mg tablet 300 mg PO DAILY Qty: 30 RF: 11 Rexulti 3 mg tablet 3 mg PO DAILY Qty: 30 RF: 11 cholecalciferol (vitamin D3) 25 mcg (1,000 unit) capsule 1,000 unit PO DAILY Qty: 30 RF: 11 pantoprazole 40 mg tablet,delayed release (DR/EC) 40 mg PO DAILY Qty: 30 RF: 11 simvastatin 40 mg tablet 40 mg PO QPM Qty: 30 RF: 11 gabapentin 600 mg tablet 600 mg PO BID Qty: 60 RF: 1 nystatin-triamcinolone 100,000-0.1 unit/g-% cream 1 applic TP BID Qty: 60 RF: 1 nystatin 100,000 unit/gram powder 1 applic topical BID Qty: 30 RF: 0 Cetaphil Moisturizing Cream 1 applic topical BID PRN (Reason: skin irritation) Qty: 85 RF: 0 duloxetine 30 mg capsule,delayed release(DR/EC) 30 mg PO DAILY Qty: 30 RF: 11 fluoxetine 20 mg capsule 20 mg PO DAILY Qty: 30 RF: 11 Discontinued cephalexin 250 mg capsule 250 mg PO TID Qty: 21 RF: 0 Discharge Instructions Additional Instructions: Try to avoid having your leg bag rest in the knee area keep the wound covered with sterile gauze you should be contacted with an appointment for general surgery if you have severe worsening pain, fevers, or feel more ill return to the emergency department Medical Decision Making 65 yo female with hx of hld, suprapubic catheter, dm, hld, who has home health 2 days a week, comes in after they noticed a wound from the posterior right knee. The patient states she feels well and has no pain or fevers, no other symptoms she was concerned about. She has a 5cm open wound to the posterior right knee with 3cm mild erythema surrounding it. She wears her leg bag on the right leg and wound doesn't appear new, appears likely to be at least a week old as there is granulation tissue at the base. sHe can full flex the knee, has no significant pain and no swelling of the knee or warmth. She also has a mild erythema under both breasts with satellite lesions and has no pain or warmth appears likely to be candidal and she has been using nystatin which she states helps. She has no fever, appears well and has no complaints so doubt sepsis and feel she can be started on antibiotics for possible wound infection. Will have her also see general surgery for wound management. She is comfortable with d/c and discussed return precautions on returning to the ED. patient ambulating using a walker at her baseline without limp or other abnormalities, states she feels fine and at her baseline. Plan for d/c once transportation arranged Differential Diagnosis Differential Diagnosis: wound, cellulitis Medical Records Medical records reviewed: Yes I reviewed the patient's medical records. HPI General Mode of arrival: EMS . Date/Time Provider Initiated Documentation: 08/12/20 14:21 . Limitations to Documentation: no limitations . Information obtained by: patient . History of Present Illness 65 year old F presents to the emergency department with the chief complaint of woud posterior right knee, described as mild, Quality is described as aching, and it has been constant. No relieving factors improve symptom(s), No exacerbating factors reported . Patient notes no other symptoms.. Patient did receive the following treatments prior to arrival, none Related Data Home Medications Medication Instructions Recorded Confirmed lamotrigine 200 mg tablet 300 mg PO DAILY #45 tab 07/26/19 08/12/20 acetaminophen 500 mg tablet 500 mg PO TID #90 tab 08/14/19 08/12/20 halobetasol propionate 0.05 % 1 applic TP BID #50 gm 09/05/19 08/12/20 topical ointment betamethasone dipropionate 0.05 % 1 applic TP BID PRN #45 gm 09/08/19 08/12/20 topical cream allopurinol 300 mg tablet 300 mg PO DAILY #30 tab 05/08/20 08/12/20 brexpiprazole 3 mg tablet 3 mg PO DAILY #30 tab 05/08/20 08/12/20 cholecalciferol (vitamin D3) 25 1,000 unit PO DAILY #30 cap 05/08/20 08/12/20 mcg (1,000 unit) capsule pantoprazole 40 mg tablet,delayed 40 mg PO DAILY #30 tab 05/08/20 08/12/20 release simvastatin 40 mg tablet 40 mg PO QPM #30 tab 05/08/20 08/12/20 gabapentin 600 mg tablet 600 mg PO BID #60 tab 06/23/20 08/12/20 nystatin 100,000 unit/gram topical 1 applic TOPICAL BID #30 g 06/30/20 08/12/20 powder nystatin-triamcinolone 100,000 1 applic TP BID #60 gm 06/30/20 08/12/20 unit/g-0.1 % topical cream [id number] 1 applic TOPICAL BID PRN #85 g 07/08/20 08/12/20 petrolatum topical cream duloxetine 30 mg capsule,delayed 30 mg PO DAILY #30 cap 07/29/20 08/12/20 release fluoxetine 20 mg capsule 20 mg PO DAILY #30 cap 07/29/20 08/12/20 amoxicillin-pot clavulanate 1 tab PO BID #14 tab 08/12/20 [Augmentin] sulfamethoxazole-trimethoprim 1 tab PO BID #14 tab 08/12/20 [Bactrim DS] Previous Rx's Medication Instructions Recorded lamotrigine 200 mg tablet 300 mg PO DAILY #45 tab 07/26/19 acetaminophen 500 mg tablet 500 mg PO TID #90 tab 08/14/19 halobetasol propionate 0.05 % 1 applic TP BID #50 gm 09/05/19 topical ointment betamethasone dipropionate 0.05 % 1 applic TP BID PRN #45 gm 09/08/19 topical cream allopurinol 300 mg tablet 300 mg PO DAILY #30 tab 05/08/20 brexpiprazole 3 mg tablet 3 mg PO DAILY #30 tab 05/08/20 cholecalciferol (vitamin D3) 25 1,000 unit PO DAILY #30 cap 05/08/20 mcg (1,000 unit) capsule pantoprazole 40 mg tablet,delayed 40 mg PO DAILY #30 tab 05/08/20 release simvastatin 40 mg tablet 40 mg PO QPM #30 tab 05/08/20 gabapentin 600 mg tablet 600 mg PO BID #60 tab 06/23/20 nystatin 100,000 unit/gram topical 1 applic TOPICAL BID #30 g 06/30/20 powder nystatin-triamcinolone 100,000 1 applic TP BID #60 gm 06/30/20 unit/g-0.1 % topical cream [id number] 1 applic TOPICAL BID PRN #85 g 07/08/20 petrolatum topical cream duloxetine 30 mg capsule,delayed 30 mg PO DAILY #30 cap 07/29/20 release fluoxetine 20 mg capsule 20 mg PO DAILY #30 cap 07/29/20 amoxicillin-pot clavulanate 1 tab PO BID #14 tab 08/12/20 [Augmentin] sulfamethoxazole-trimethoprim 1 tab PO BID #14 tab 08/12/20 [Bactrim DS] Allergies Allergy/AdvReac Type Severity Reaction Status Date / Time codeine AdvReac Intermediate NAUSEA/DIZZ Verified 08/12/20 14:29 INESS General Stated Complaint: RashLesion JAMILA: 3 Review of Systems All systems reviewed & are unremarkable except as noted in HPI and below Constitutional Constitutional: Denies chills, Denies fever(s) and Denies weakness Cardiovascular Cardiovascular: Denies chest pain and Denies dyspnea Respiratory Respiratory: Denies cough and Denies dyspnea Gastrointestinal Gastrointestinal: Denies abdominal pain, Denies nausea and Denies vomiting Neurologic Neurologic: Denies weakness [facility] Medical History Acute gout of right ankle (12/06/14) Callus of foot Depressive disorder bipolar 02/25-[facility] Dermatitis associated with moisture Diabetes mellitus (09/10/14) Encounter for evaluation of ability to make decisions regarding care Gallstones Gastritis presumed (improved symptoms on omeprazole) Headache secondary to scoliosis & neck muscle spasm Hernia of abdominal wall Hyperlipidemia (08/17/12) Hypokalemia (09/06/17) Hypomagnesemia (09/15/12) Idiopathic scoliosis w/ Chronic LBP; surgery-1969,1971, 1990, 1995, 1997 ([facility]) Increased BMI (body mass index) (03/28/17) Neck pain w/ muscle spasm, secondary to scoliosis Pain in wrist (02/17/06) left; MRI [facility] [place] Psoriasis (04/16/13) Right shoulder pain (09/10/14) Right upper quadrant abdominal tenderness (09/06/17) Right upper quadrant abdominal tenderness with rebound tenderness (09/06/17) Sensorineural hearing loss, bilateral (10/13/15) Shoulder pain, right Systolic murmur Tubular adenoma (08/09/16) Vitamin D deficiency (08/17/12) Surgical History Colonoscopy - IV Sedation (08/09/16) Hysterectomy, Laproscopic Previous back surgery Family History Father , 63 Lung cancer Sister Depression Sister COPD (chronic obstructive pulmonary disease) Grandmother Breast cancer Son Depression Social History Smoking/Tobacco Use Status: Never Second Hand Exposure: Yes Smoking risk assessment performed?: Yes Alcohol Intake: former Counseling given: No Drug use: Never Substance use type: does not use Counseling provided: none Caregiver/Support person: No Household members: none Communication Needs: Hard of Hearing Do you need help understanding health information?: Often Pets and animals: No Sexually active: No Do you think of yourself as: straight/heterosexual Current gender identity: female What is your relationship status?: How often do you talk on the phone with friends or family?: decline to answer How often do you get together with friends or relatives?: decline to answer How often do you attend amish or protestant services?: 4 or more times per year Do you belong to any clubs or organized social groups?: no Panel score (0-1 are the most socially isolated patients): 1 What type of physical activity do you participate in: none Pari/Hoahaoism: [employer] Special pari needs: No Seatbelt use: always Helmet use: No Drive 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 states she is not in a relationship Exam Const General: no acute distress Orientation: alert HENMT Head: normal to inspection Ears: external ears normal General nose exam: external nose normal Mouth: moist mucous membranes Eyes General: appearance normal, both eyes and all related structures Neck Neck: normal visual inspection Resp Effort & Inspection: normal respiratory effort and able to speak in complete sentences Cardio Rate: regular rate Skin General skin exam: elasticity normal Neuro General: patient alert and patient oriented x3 Extrem General: capillary refill normal Psych Mental Status: mental status grossly normal Course Vital Signs Vital signs: Vital Signs Temperature 36.6 C 08/12/20 14:22 Pulse 75 08/12/20 14:22 Respiratory Rate 14 08/12/20 14:22 Blood Pressure 118/72 08/12/20 14:22 Pulse Oximetry 94 08/12/20 14:22 Temperature 36.6 C 08/12/20 14:22 Temperature Source Skin 08/12/20 14:22 Pulse 75 08/12/20 14:22 Respiratory Rate 14 08/12/20 14:22 Blood Pressure 118/72 08/12/20 14:22 Pulse Oximetry 94 08/12/20 14:22 Oxygen Delivery Method Room Air 08/12/20 14:22 Oxygen Flow Rate 0 08/12/20 14:22 Pain Level 0 08/12/20 14:22
[2020-08-12 14:31] VITALS: PULSE 81; RESP 19; O2SAT 93
--- NOTE | 2020-08-12 14:32 | NUR.NOTE ---
Nursing Note: Referral faxed to [facility] for follow up within one week for wound care. Callie Garcia
[2020-08-12] MEDS: Sulfameth/Trimeth DS TAB 1 TAB PO (14:37)
[2020-08-12] MEDS: Amoxicillin 875/Clav. 125 TAB PO (14:37)
== END 2020-08-12 15:55 | disposition home or self-care (01) ==
LOC: ER 14:49
PROVIDERS: Emergency Provider Emergency Medicine
DX: S81.001A Unspecified open wound, right knee, initial encounter (principal); X58.XXXA Exposure to other specified factors, initial encounter
CPT/HCPCS: 99283

== ENCOUNTER → 2020-08-19 13:19 | Outpatient (BNVA) | payer MEDICARE, MEDICAID, SELFPAY | PROVIDERS: Visit Provider Urology | DX: R33.8 Other retention of urine (principal); Z43.5 Encounter for attention to cystostomy | CPT/HCPCS: 52000; 99212 ==

== ENCOUNTER → 2020-08-29 14:11 | Outpatient (BNVA) | payer MEDICARE, MEDICAID, SELFPAY | PROVIDERS: Visit Provider Physical Therapy Assistant | DX: L53.8 Other specified erythematous conditions (principal); Z51.89 Encounter for other specified aftercare | CPT/HCPCS: 99214 ==

== ENCOUNTER → 2020-09-19 13:06 | Outpatient (BNVA) | payer MEDICARE, MEDICAID, SELFPAY | PROVIDERS: Visit Provider Urology | DX: R33.8 Other retention of urine (principal); Z43.5 Encounter for attention to cystostomy | CPT/HCPCS: 51705; 99213 ==

== ENCOUNTER → 2020-10-27 13:49 | Outpatient (BNVA) | payer MEDICARE, MEDICAID, SELFPAY | PROVIDERS: Visit Provider Urology | DX: R33.8 Other retention of urine (principal); Z43.5 Encounter for attention to cystostomy | CPT/HCPCS: 52000; 99212 ==

== ENCOUNTER → 2020-10-30 14:49 | Outpatient (BNVA) | payer MEDICARE, MEDICAID, SELFPAY | PROVIDERS: Visit Provider Urology | DX: L92.8 Other granulomatous disorders of the skin and subcutaneous tissue (principal); Z93.50 Unspecified cystostomy status | CPT/HCPCS: 99212; 99213 ==

== ENCOUNTER 2020-11-13 21:38 | Emergency (ER) | payer MEDICARE, MEDICAID, SELFPAY ==
[2020-11-13 21:34] VITALS: PULSE 71; RESP 18; TEMP 36.5; O2SAT 99
--- NOTE | 2020-11-13 21:38 | W.ED.GENAD ---
Discharge Plan Disposition Patient Disposition: HOME Condition: Good Discharge Details Clinical Impression: Beaver catheter problem Primary Care Provider: Genesis Mitchell ED Provider: Hira Ayon Meds and New Rx's Prescriptions: Continued betamethasone dipropionate 0.05 % cream 1 applic TP BID PRN (Reason: skin irritation) Qty: 45 RF: 2 acetaminophen [Acetaminophen Extra Strength] 500 mg tablet 500 mg PO TID Qty: 90 RF: 3 allopurinol 300 mg tablet 300 mg PO DAILY Qty: 30 RF: 11 Rexulti 3 mg tablet 3 mg PO DAILY Qty: 30 RF: 11 cholecalciferol (vitamin D3) 25 mcg (1,000 unit) capsule 1,000 unit PO DAILY Qty: 30 RF: 11 pantoprazole 40 mg tablet,delayed release (DR/EC) 40 mg PO DAILY Qty: 30 RF: 11 simvastatin 40 mg tablet 40 mg PO QPM Qty: 30 RF: 11 nystatin-triamcinolone 100,000-0.1 unit/g-% cream 1 applic TP BID Qty: 60 RF: 1 nystatin 100,000 unit/gram powder 1 applic topical BID Qty: 30 RF: 0 duloxetine 30 mg capsule,delayed release(DR/EC) 30 mg PO DAILY Qty: 30 RF: 11 fluoxetine 20 mg capsule 20 mg PO DAILY Qty: 30 RF: 11 gabapentin 600 mg tablet 600 mg PO BID Qty: 60 RF: 6 lamotrigine 200 mg tablet 300 mg PO DAILY Qty: 45 RF: 11 Discharge Instructions Additional Instructions: Resume previous medications and medical care. Follow-up with primary care as needed. Return to ED if problems. Referrals: Genesis Mitchell, REGULATORY TECHNICIAN [Primary Care Provider] - Medical Decision Making Patient catheter self is actually fine, with a bag connected to the catheter has a crack and is leaking. Bag is being replaced. Patient has no other complaints. She is discharged home to follow-up with primary care as needed continue current medical regimen HPI General Mode of arrival: EMS. Limitations to Documentation: no limitations. Information obtained by: patient. HPI Narrative: Patient presents to ED with Beaver catheter problem. She called an ambulance because her catheter was leaking at the neck of the back. She had no supplies at home. She has no other complaint. She denies any fever, abdominal pain, back pain. Catheter is working normally otherwise. Related Data Home Medications Medication Instructions Recorded Confirmed acetaminophen 500 mg tablet 500 mg PO TID #90 tab 08/14/19 09/29/20 allopurinol 300 mg tablet 300 mg PO DAILY #30 tab 05/08/20 09/29/20 brexpiprazole 3 mg tablet 3 mg PO DAILY #30 tab 05/08/20 09/29/20 cholecalciferol (vitamin D3) 25 1,000 unit PO DAILY #30 cap 05/08/20 09/29/20 mcg (1,000 unit) capsule pantoprazole 40 mg tablet,delayed 40 mg PO DAILY #30 tab 05/08/20 09/29/20 release simvastatin 40 mg tablet 40 mg PO QPM #30 tab 05/08/20 09/29/20 nystatin 100,000 unit/gram topical 1 applic TOPICAL BID #30 g 06/30/20 10/27/20 powder nystatin-triamcinolone 100,000 1 applic TP BID #60 gm 06/30/20 10/27/20 unit/g-0.1 % topical cream duloxetine 30 mg capsule,delayed 30 mg PO DAILY #30 cap 07/29/20 09/29/20 release fluoxetine 20 mg capsule 20 mg PO DAILY #30 cap 07/29/20 09/29/20 gabapentin 600 mg tablet 600 mg PO BID #60 tab 08/28/20 09/29/20 lamotrigine 200 mg tablet 300 mg PO DAILY #45 tab 08/28/20 09/29/20 betamethasone dipropionate 0.05 % 1 applic TP BID PRN #45 gm 09/29/20 10/30/20 topical cream Previous Rx's Medication Instructions Recorded acetaminophen 500 mg tablet 500 mg PO TID #90 tab 08/14/19 allopurinol 300 mg tablet 300 mg PO DAILY #30 tab 05/08/20 brexpiprazole 3 mg tablet 3 mg PO DAILY #30 tab 05/08/20 cholecalciferol (vitamin D3) 25 1,000 unit PO DAILY #30 cap 05/08/20 mcg (1,000 unit) capsule pantoprazole 40 mg tablet,delayed 40 mg PO DAILY #30 tab 05/08/20 release simvastatin 40 mg tablet 40 mg PO QPM #30 tab 05/08/20 nystatin 100,000 unit/gram topical 1 applic TOPICAL BID #30 g 04/12/21 powder nystatin-triamcinolone 100,000 1 applic TP BID #60 gm 06/30/20 unit/g-0.1 % topical cream duloxetine 30 mg capsule,delayed 30 mg PO DAILY #30 cap 07/29/20 release fluoxetine 20 mg capsule 20 mg PO DAILY #30 cap 07/29/20 gabapentin 600 mg tablet 600 mg PO BID #60 tab 08/28/20 lamotrigine 200 mg tablet 300 mg PO DAILY #45 tab 08/28/20 betamethasone dipropionate 0.05 % 1 applic TP BID PRN #45 gm 09/29/20 topical cream Allergies Allergy/AdvReac Type Severity Reaction Status Date / Time codeine AdvReac Intermediate NAUSEA/DIZZ Verified 11/13/20 21:39 INESS General Stated Complaint: Urinary JAMILA: 5 Review of Systems Constitutional Constitutional: Denies fever(s) Cardiovascular Cardiovascular: Denies chest pain and Denies dyspnea Respiratory Respiratory: Denies cough and Denies dyspnea Gastrointestinal Gastrointestinal: Denies abdominal pain, Denies nausea and Denies vomiting [facility] Medical History Acute gout of right ankle (12/06/14) Callus of foot Depressive disorder bipolar 02/25-[facility] Dermatitis associated with moisture Diabetes mellitus (09/10/14) Encounter for evaluation of ability to make decisions regarding care Gallstones Gastritis presumed (improved symptoms on omeprazole) Headache secondary to scoliosis & neck muscle spasm Hernia of abdominal wall Hyperlipidemia (08/17/12) Hypokalemia (09/06/17) Hypomagnesemia (09/15/12) Idiopathic scoliosis w/ Chronic LBP; surgery-1969,1971, 1990, 1995, 1997 ([facility]) Increased BMI (body mass index) (03/28/17) Neck pain w/ muscle spasm, secondary to scoliosis Pain in wrist (02/17/06) left; [place] [facility] [place] Psoriasis (04/16/13) Right shoulder pain (09/10/14) Right upper quadrant abdominal tenderness (09/06/17) Right upper quadrant abdominal tenderness with rebound tenderness (09/06/17) Sensorineural hearing loss, bilateral (10/13/15) Shoulder pain, right Systolic murmur Tubular adenoma (08/09/16) Vitamin D deficiency (08/17/12) Surgical History Colonoscopy - IV Sedation (08/09/16) Hysterectomy, Laproscopic Previous back surgery Family History Father , 63 Lung cancer Sister Depression Sister COPD (chronic obstructive pulmonary disease) Grandmother Breast cancer Son Depression Social History Smoking/Tobacco Use Status: Never Second Hand Exposure: Yes Smoking risk assessment performed?: Yes Alcohol Intake: never Counseling given: No Drug use: Never Substance use type: does not use Counseling provided: none Caregiver/Support person: No Household members: none Communication Needs: None Do you need help understanding health information?: Rarely Pets and animals: No Sexually active: No Do you think of yourself as: straight/heterosexual Current gender identity: female What is your relationship status?: How often do you talk on the phone with friends or family?: decline to answer How often do you get together with friends or relatives?: decline to answer How often do you attend judaism or baptist services?: decline to answer Panel score (0-1 are the most socially isolated patients): 0 What type of physical activity do you participate in: none Pari/Voodoo: [employer] Special pari needs: No Seatbelt use: always Helmet use: No Drive intox or ride w/intox bung driver: No Do you feel safe at home: Yes Additional Social history: pt. states she is not in a relationship Exam Narrative Exam Narrative: Const: WDWN elderly female in NAD. HEENT: NC/AT. Normal facial exam. Eyes: Normal conjunctiva and sclera. Neck: Supple. Trachea midline. Lungs: Normal respiratory effort. Neuro: A+O x 3. Normal speech, mentation. Cranial nerves II - XII grossly intact. No gross motor or sensory deficit. Course Vital Signs Vital signs: Vital Signs Temperature 97.7 F 11/13/20 21:34 Pulse 71 11/13/20 21:34 Respiratory Rate 18 11/13/20 21:34 Pulse Oximetry 99 11/13/20 21:34 Temperature 97.7 F 11/13/20 21:34 Pulse 71 11/13/20 21:34 Respiratory Rate 18 11/13/20 21:34 Respiratory Effort Non-Labored 08/26/21 21:36 Pulse Oximetry 99 11/13/20 21:34 Oxygen Delivery Method Room Air 11/13/20 21:34 Oxygen Flow Rate 0 11/13/20 21:34 Pain Level 0 11/13/20 21:37
== END 2020-11-13 21:42 | disposition home or self-care (01) ==
LOC: ER 21:56
PROVIDERS: Emergency Provider Emergency Medicine
DX: T83.038A Leakage of other urinary catheter, initial encounter (principal)
CPT/HCPCS: 99283; 99281

== ENCOUNTER → 2020-12-09 13:13 | Outpatient (BNVA) | payer MEDICARE, MEDICAID, SELFPAY | PROVIDERS: Visit Provider Urology | DX: R33.8 Other retention of urine (principal); Z43.5 Encounter for attention to cystostomy | CPT/HCPCS: 52000 ==

== ENCOUNTER → 2020-12-24 10:23 | Outpatient (BNVA) | payer MEDICARE, MEDICAID, SELFPAY | PROVIDERS: Visit Provider Nurse Practitioner Gerontology | DX: R33.8 Other retention of urine (principal); R32 Unspecified urinary incontinence; Z93.59 Other cystostomy status | CPT/HCPCS: 99213 ==

== ENCOUNTER → 2021-01-06 10:51 | Outpatient (BNVA) | payer MEDICARE, MEDICAID, SELFPAY | PROVIDERS: Visit Provider Urology | DX: R33.8 Other retention of urine (principal); L92.9 Granulomatous disorder of the skin and subcutaneous tissue, unspecified; Z43.5 Encounter for attention to cystostomy | CPT/HCPCS: 52000; 99213 ==

== ENCOUNTER → 2021-02-16 13:25 | Outpatient (BNVA) | payer MEDICARE, MEDICAID, SELFPAY | PROVIDERS: Visit Provider Urology | DX: R33.8 Other retention of urine (principal); Z43.5 Encounter for attention to cystostomy; K43.9 Ventral hernia without obstruction or gangrene | CPT/HCPCS: 52000; 99212 ==

== ENCOUNTER → 2021-03-12 10:46 | Outpatient (BNVA) | payer MEDICARE, MEDICAID, SELFPAY | PROVIDERS: Visit Provider Urology | DX: R33.9 Retention of urine, unspecified (principal); Z43.5 Encounter for attention to cystostomy; K43.9 Ventral hernia without obstruction or gangrene | CPT/HCPCS: 51705 ==

== ENCOUNTER → 2021-04-10 08:39 | Outpatient (BNVA) | payer MEDICARE, MEDICAID, SELFPAY | PROVIDERS: Visit Provider Urology | DX: R33.9 Retention of urine, unspecified (principal); Z43.5 Encounter for attention to cystostomy | CPT/HCPCS: 51705 ==

== ENCOUNTER → 2021-05-08 12:53 | Outpatient (BNVA) | payer MEDICARE, MEDICAID, SELFPAY | PROVIDERS: Visit Provider Urology | DX: R33.8 Other retention of urine (principal) | CPT/HCPCS: 51705; 52000 ==

== ENCOUNTER 2021-05-23 10:28 | Emergency (ER) | payer MEDICARE, MEDICAID, SELFPAY ==
[2021-05-23 10:35] VITALS: BP 152/113; PULSE 82; RESP 16; TEMP 36.5; O2SAT 96
[2021-05-23 11:25] VITALS: BP 135/90; PULSE 67; O2SAT 98
[2021-05-23 11:26] VITALS: O2SAT 97
[2021-05-23 11:30] VITALS: O2SAT 95
[2021-05-23 11:31] VITALS: BP 158/71; PULSE 66; O2SAT 95
--- NOTE | 2021-05-23 12:23 | ED.GENADUL_ITS ---
Discharge Plan Disposition Patient Disposition: HOME Condition: Stable Discharge Details Clinical Impression: Beaver catheter problem Primary Care Provider: Genesis Mitchell ED Provider: Sonido Hernandez Home Meds and New Rx's Prescriptions: Continued Myrbetriq 50 mg tablet extended release 24 hr 50 mg PO DAILY Qty: 28 0RF acetaminophen [Acetaminophen Extra Strength] 500 mg tablet 500 mg PO TID Qty: 90 3RF Rx Instructions: Two tablets (1000mg) 3x per day nystatin-triamcinolone 100,000-0.1 unit/g-% cream 1 applic TP BID Qty: 60 1RF Label Comments: pt. reports using it on the back of her legs Rx Instructions: Apply under bilateral breasts, groin, and under abdominal fold 2 times per day. nystatin 100,000 unit/gram powder 1 applic topical BID Qty: 30 0RF Label Comments: pt. states she doesnt have a powder allopurinol 300 mg tablet 300 mg PO DAILY Qty: 30 11RF betamethasone dipropionate 0.05 % cream 1 applic TP BID PRN (Reason: skin irritation) Qty: 45 2RF Rexulti 3 mg tablet 3 mg PO DAILY Qty: 30 11RF cholecalciferol (vitamin D3) 25 mcg (1,000 unit) capsule 1,000 unit PO DAILY Qty: 30 11RF duloxetine 30 mg capsule,delayed release(DR/EC) 30 mg PO DAILY Qty: 30 11RF fluoxetine 20 mg capsule 20 mg PO DAILY Qty: 30 11RF gabapentin 600 mg tablet 600 mg PO BID Qty: 60 6RF lamotrigine 200 mg tablet 300 mg PO DAILY Qty: 45 11RF Rx Instructions: Take 1/2 tab (100mg) in AM and 1 tab (200mg) in evening pantoprazole 40 mg tablet,delayed release (DR/EC) 40 mg PO DAILY Qty: 30 11RF simvastatin 40 mg tablet 40 mg PO QPM Qty: 30 11RF Discharge Instructions Instructions: Beaver Catheter Placement and Care (ED) Additional Instructions: During today's visit it was found that your urinary catheter bag had cracked. Please follow the recommendations as discussed by nursing for placement of your Beaver catheter bag and otherwise keep your scheduled appointment with urology for next week. If you have any new or significant worsening of symptoms feel free to return to the emergency department for reassessment. Referrals: Boni Zamora MD [ [facility] STAFF PHYSICIAN] - (Keep your appointment as previously scheduled) Discharge Data Discharge Date/Time-TO BE ENTERED AT DEPARTURE: 05/23/21 12:44 Medical Decision Making Patient presenting to the emergency department for chief complaint of suprapubic catheter leaking. Patient denies any other symptoms. Does state that there is intermittent bleeding from her suprapubic site but that is not new and is unchanged from baseline. Physical exam is unremarkable for any acute findings from the suprapubic catheter or surrounding area. Further discussion reveals that patient is more having leaking on her legs. I suspect defective leg bag. Nursing staff changed bag and did inform you that there was a crack in the leg bag causing. New bag is no longer leaking after urine was observed. Return follow-up precautions discussed prior to discharge. No other evaluation needed HPI General Mode of arrival: ambulatory . Date/Time Provider Initiated Documentation: 05/23/21 10:57 . Limitations to Documentation: no limitations . Information obtained by: patient, RN notes reviewed and old records reviewed . History of Present Illness 65 year old F presents to the emergency department with the chief complaint of Urinary catheter leaking, Quality is described as other (Denies pain or discomfort), Patient started experiencing this day(s) (1) and it has been constant. improves with No relieving factors improve symptom(s), No exacerbating factors reported . Patient notes no other symptoms.. Patient did receive the following treatments prior to arrival, none Related Data Home Medications Medication Instructions Recorded Confirmed acetaminophen 500 mg tablet 500 mg PO TID #90 tab 08/14/19 05/23/21 (Acetaminophen Extra Strength) nystatin 100,000 unit/gram topical 1 applic TOPICAL BID #30 g 06/30/20 05/23/21 powder nystatin-triamcinolone 100,000 1 applic TP BID #60 gm 06/30/20 05/23/21 unit/g-0.1 % topical cream mirabegron 50 mg tablet,extended 50 mg PO DAILY #28 tab 04/10/21 05/23/21 release 24 hr (Myrbetriq) allopurinol 300 mg tablet 300 mg PO DAILY #30 tab 05/15/21 05/23/21 betamethasone dipropionate 0.05 % 1 applic TP BID PRN #45 gm 05/15/21 05/23/21 topical cream brexpiprazole 3 mg tablet (Rexulti) 3 mg PO DAILY #30 tab 05/15/21 05/23/21 cholecalciferol (vitamin D3) 25 1,000 unit PO DAILY #30 cap 05/15/21 05/23/21 mcg (1,000 unit) capsule duloxetine 30 mg capsule,delayed 30 mg PO DAILY #30 cap 05/15/21 05/23/21 release fluoxetine 20 mg capsule 20 mg PO DAILY #30 cap 05/15/21 05/23/21 gabapentin 600 mg tablet 600 mg PO BID #60 tab 05/15/21 05/23/21 lamotrigine 200 mg tablet 300 mg PO DAILY #45 tab 05/15/21 05/23/21 pantoprazole 40 mg tablet,delayed 40 mg PO DAILY #30 tab 05/15/21 05/23/21 release simvastatin 40 mg tablet 40 mg PO QPM #30 tab 05/15/21 05/23/21 Previous Rx's Medication Instructions Recorded acetaminophen 500 mg tablet 500 mg PO TID #90 tab 08/14/19 (Acetaminophen Extra Strength) nystatin 100,000 unit/gram topical 1 applic TOPICAL BID #30 g 06/30/20 powder nystatin-triamcinolone 100,000 1 applic TP BID #60 gm 06/30/20 unit/g-0.1 % topical cream mirabegron 50 mg tablet,extended 50 mg PO DAILY #28 tab 04/10/21 release 24 hr (Myrbetriq) allopurinol 300 mg tablet 300 mg PO DAILY #30 tab 05/15/21 betamethasone dipropionate 0.05 % 1 applic TP BID PRN #45 gm 05/15/21 topical cream brexpiprazole 3 mg tablet (Rexulti) 3 mg PO DAILY #30 tab 05/15/21 cholecalciferol (vitamin D3) 25 1,000 unit PO DAILY #30 cap 05/15/21 mcg (1,000 unit) capsule duloxetine 30 mg capsule,delayed 30 mg PO DAILY #30 cap 05/15/21 release fluoxetine 20 mg capsule 20 mg PO DAILY #30 cap 05/15/21 gabapentin 600 mg tablet 600 mg PO BID #60 tab 05/15/21 lamotrigine 200 mg tablet 300 mg PO DAILY #45 tab 05/15/21 pantoprazole 40 mg tablet,delayed 40 mg PO DAILY #30 tab 02/25/22 release simvastatin 40 mg tablet 40 mg PO QPM #30 tab 05/15/21 Allergies Allergy/AdvReac Type Severity Reaction Status Date / Time codeine AdvReac Intermediate NAUSEA/DIZZ Verified 05/23/21 10:40 INESS General Stated Complaint: Urinary JAMILA: 3 Review of Systems Narrative: 6 systems reviewed and are negative except as noted below. Genitourinary Genitourinary: Reports as per HPI and Reports other (Urinary catheter - suprapubic leaking) [facility] All Active Problems Impacted cerumen, bilateral (Acute) Beaver catheter problem (Acute) Leg wound, right (Acute) Postoperative hemorrhage (Acute) Learning disability (Chronic) per sister(Callie)Jackelin has a long history of being able to comprehend verbal material and needs written materials along with short repetitive explanations. 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) Conductive hearing loss, external ear (Acute) Anemia (Chronic) DVT prophylaxis (Acute) Urinary retention (Acute) Leukocytosis (Acute) Acute urinary retention (Acute) Vaginal ulcer (Acute) Ambulatory dysfunction (Acute) Generalized weakness (Acute) Encounter for evaluation of ability to make decisions regarding care (Acute) Dermatitis associated with moisture (Acute) Callus of foot (Acute) Shoulder pain, right (Acute) Acute gout of right ankle (Acute 12/06/14) Depressive disorder (Chronic) bipolar 02/25-[facility] Diabetes mellitus (Chronic 09/10/14) Headache (Acute) secondary to scoliosis & neck muscle spasm Hyperlipidemia (Chronic 08/17/12) Hypokalemia (Acute 09/06/17) Hypomagnesemia (Acute 09/15/12) Idiopathic scoliosis (Acute) w/ Chronic LBP; surgery-1969,1971, 1990, 1995, 1997 ([facility]) Increased BMI (body mass index) (Chronic 03/28/17) Neck pain (Acute) w/ muscle spasm, secondary to scoliosis Pain in wrist (Acute 02/17/06) left; MRI [facility] Psoriasis (Chronic 04/16/13) Right shoulder pain (Acute 09/10/14) Right upper quadrant abdominal tenderness with rebound tenderness (Acute 09/06/17) Right upper quadrant abdominal tenderness (Acute 09/06/17) Sensorineural hearing loss, bilateral (Chronic 10/13/15) Systolic murmur (Acute) Tubular adenoma (Acute 08/09/16) Vitamin D deficiency (Acute 08/17/12) Medical History Gallstones Gastritis presumed (improved symptoms on omeprazole) Hernia of abdominal wall Surgical History Colonoscopy - IV Sedation (08/09/16) Hysterectomy, Laproscopic Previous back surgery Family History Father , 63 Lung cancer Sister Depression Sister COPD (chronic obstructive pulmonary disease) Grandmother Breast cancer Son Depression Social History Smoking/Tobacco Use Status: Never Second Hand Exposure: Yes Smoking risk assessment performed?: Yes Alcohol Intake: never Counseling given: No Drug use: Never Substance use type: does not use Counseling provided: none Caregiver/Support person: No Household members: none Communication Needs: None Do you need help understanding health information?: Rarely Pets and animals: No Sexually active: No Do you think of yourself as: straight/heterosexual Current gender identity: female What is your relationship status?: How often do you talk on the phone with friends or family?: decline to answer How often do you get together with friends or relatives?: decline to answer How often do you attend orthodoxy or buddhist services?: decline to answer Panel score (0-1 are the most socially isolated patients): 0 What type of physical activity do you participate in: none Pari/Christianity: Advent Special pari needs: No Seatbelt use: always Helmet use: No Drive intox or ride w/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 states she is not in a relationship Exam Const General: cooperative, no acute distress and not ill appearing Orientation: alert, awake and oriented x3 HENMT Mouth: moist mucous membranes Resp Effort & Inspection: normal respiratory effort, able to speak in complete sentences and no respiratory distress Cardio Rate: regular rate Rhythm: regular rhythm GI Inspection: normal to inspection Palpation: soft and nontender Auscultation: normal bowel sounds General: other (Suprapubic catheter in place with dried blood noted on catheter ) Skin General skin exam: no rashes or lesions noted Neuro General: patient alert, patient awake, patient oriented x3, moves all extremities and no focal motor deficits Sensory Exam: no sensory deficits noted Course Vital Signs Vital signs: Vital Signs Temperature 36.5 C 05/23/21 10:35 Pulse 82 05/23/21 10:35 Respiratory Rate 16 05/23/21 10:35 Blood Pressure 152/113 H 05/23/21 10:35 Pulse Oximetry 96 05/23/21 10:35 Temperature 36.5 C 05/23/21 10:35 Temperature Source Skin 05/23/21 10:35 Pulse 66 05/23/21 11:31 Respiratory Rate 16 05/23/21 10:35 Respiratory Effort 05/23/21 10:35 Blood Pressure 158/71 H 05/23/21 11:31 Blood Pressure Mean 90 05/23/21 11:31 Blood Pressure Position Sitting 05/23/21 10:35 Pulse Oximetry 95 05/23/21 11:31 Oxygen Delivery Method Room Air 05/23/21 10:35 Oxygen Flow Rate 0 05/23/21 10:35 Pain Level 2 05/23/21 11:12
[2021-05-23 12:50] VITALS: PULSE 88; RESP 22; TEMP 36.6; O2SAT 98
== END 2021-05-23 12:44 | disposition home or self-care (01) ==
PROVIDERS: Emergency Provider Nurse Practitioner Family
DX: T83.038A Leakage of other urinary catheter, initial encounter (principal)
CPT/HCPCS: 99281; 99282

== ENCOUNTER → 2021-05-29 08:55 | Outpatient (BNVA) | payer MEDICARE, MEDICAID, SELFPAY | PROVIDERS: Visit Provider Urology | DX: R33.9 Retention of urine, unspecified (principal) | CPT/HCPCS: 51705; 52000 ==

== ENCOUNTER → 2021-06-19 12:49 | Outpatient (BNVA) | payer MEDICARE, MEDICAID, SELFPAY | PROVIDERS: Visit Provider Urology | DX: R33.8 Other retention of urine (principal) | CPT/HCPCS: 51705; 52000 ==

== ENCOUNTER 2021-07-25 21:45 | Emergency (ER) | payer MEDICARE, MEDICAID, SELFPAY ==
[2021-07-25 21:50] VITALS: BP 152/81; PULSE 69; RESP 16; TEMP 36.4; O2SAT 96
--- NOTE | 2021-07-25 22:47 | ED.GENADUL_ITS ---
Discharge Plan Disposition Patient Disposition: HOME Condition: Improving Discharge Details Clinical Impression: Complication of Beaver catheter Primary Care Provider: Letitia Shah ED Provider: Mihir Mace Home Meds and New Rx's Prescriptions: Continued Excedrin Extra Strength 250-250-65 mg tablet 1 tab PO Q6H PRN (Reason: headache) 0RF Label Comments: usually uses bid nystatin 100,000 unit/gram powder 1 applic topical BID Qty: 30 0RF Label Comments: pt. states she doesnt have a powder (DME) Telfa 2 X 3 bandage See Rx Instructions .Route Qty: 30 0RF Rx Instructions: As directed - apply daily allopurinol 300 mg tablet 300 mg PO DAILY Qty: 30 11RF Rexulti 3 mg tablet 3 mg PO DAILY Qty: 30 11RF cholecalciferol (vitamin D3) 25 mcg (1,000 unit) capsule 1,000 unit PO DAILY Qty: 30 11RF duloxetine 30 mg capsule,delayed release(DR/EC) 30 mg PO DAILY Qty: 30 11RF fluoxetine 20 mg capsule 20 mg PO DAILY Qty: 30 11RF gabapentin 600 mg tablet 600 mg PO BID Qty: 60 6RF lamotrigine 200 mg tablet 300 mg PO DAILY Qty: 45 11RF Rx Instructions: Take 1/2 tab (100mg) in AM and 1 tab (200mg) in evening pantoprazole 40 mg tablet,delayed release (DR/EC) 40 mg PO DAILY Qty: 30 11RF simvastatin 40 mg tablet 40 mg PO QPM Qty: 30 11RF Discharge Instructions Additional Instructions: The leg bag was changed without problem and now functioning appropriately. You were taught how to appropriately use bag as well. Watch for new or worsening symptoms and return to the ER for any concerns. Lastly, please follow-up with Dr. Zamora on Tuesday as already scheduled Medical Decision Making 66-year-old female presents because her Beaver catheter leg bag is leaking. Urine appears yellow-clear. She has no acute medical concerns or complaints. Denies fever, abdominal pain, nausea, vomiting, back pain, dysuria or hematuria Leg bag changed without difficulty. Leg bag appears to be functioning appropriately and now has approximately 30 cc of yellow urine. Standard discharge and return precautions were provided. Patient understands, is agreeable to this plan, and has no additional questions or concerns upon discharge. This documentation was generated using Dragon dictation system, please disregard any oddities of phrase or misspellings. Medical Records Medical records reviewed: Yes I reviewed the patient's medical records. HPI General Mode of arrival: ambulatory . Date/Time Provider Initiated Documentation: 07/25/21 22:21 . Limitations to Documentation: no limitations . Information obtained by: patient . HPI Narrative: 66-year-old female, has an indwelling Beaver catheter secondary to urinary retention, scheduled to see urology this Tuesday, presents because her leg bag is leaking requesting a new leg bag. Denies fever, abdominal pain, dysuria, hematuria. No additional concerns or complaints at this time Related Data Home Medications Medication Instructions Recorded Confirmed allopurinol 300 mg tablet 300 mg PO DAILY #30 tab 05/15/21 07/25/21 brexpiprazole 3 mg tablet (Rexulti) 3 mg PO DAILY #30 tab 05/15/21 07/25/21 cholecalciferol (vitamin D3) 25 1,000 unit PO DAILY #30 cap 05/15/21 07/25/21 mcg (1,000 unit) capsule duloxetine 30 mg capsule,delayed 30 mg PO DAILY #30 cap 05/15/21 07/25/21 release fluoxetine 20 mg capsule 20 mg PO DAILY #30 cap 05/15/21 07/25/21 gabapentin 600 mg tablet 600 mg PO BID #60 tab 05/15/21 07/25/21 lamotrigine 200 mg tablet 300 mg PO DAILY #45 tab 05/15/21 07/25/21 pantoprazole 40 mg tablet,delayed 40 mg PO DAILY #30 tab 05/15/21 07/25/21 release simvastatin 40 mg tablet 40 mg PO QPM #30 tab 05/15/21 07/25/21 zmiogkc-ghvigaormqwvz-brldhiyx 250 1 tab PO Q6H PRN tab 07/10/21 07/25/21 mg-250 mg-65 mg tablet (Excedrin Extra Strength) non-adherent bandage 2 X 3 #30 ea 07/10/21 07/25/21 (Telfa) nystatin 100,000 unit/gram topical 1 applic TOPICAL BID #30 g 07/10/21 07/25/21 powder Previous Rx's Medication Instructions Recorded allopurinol 300 mg tablet 300 mg PO DAILY #30 tab 05/15/21 brexpiprazole 3 mg tablet (Rexulti) 3 mg PO DAILY #30 tab 05/15/21 cholecalciferol (vitamin D3) 25 1,000 unit PO DAILY #30 cap 05/15/21 mcg (1,000 unit) capsule duloxetine 30 mg capsule,delayed 30 mg PO DAILY #30 cap 05/15/21 release fluoxetine 20 mg capsule 20 mg PO DAILY #30 cap 05/15/21 gabapentin 600 mg tablet 600 mg PO BID #60 tab 05/15/21 lamotrigine 200 mg tablet 300 mg PO DAILY #45 tab 05/15/21 pantoprazole 40 mg tablet,delayed 40 mg PO DAILY #30 tab 05/15/21 release simvastatin 40 mg tablet 40 mg PO QPM #30 tab 05/15/21 non-adherent bandage 2 X 3 #30 ea 07/10/21 (Telfa) nystatin 100,000 unit/gram topical 1 applic TOPICAL BID #30 g 07/10/21 powder Allergies Allergy/AdvReac Type Severity Reaction Status Date / Time codeine AdvReac Intermediate NAUSEA/DIZZ Verified 07/10/21 10:32 INESS General Stated Complaint: Urinary JAMILA: 4 Review of Systems Constitutional Constitutional: Denies fever(s) Gastrointestinal Gastrointestinal: Denies abdominal pain, Denies nausea and Denies vomiting Genitourinary Genitourinary: Denies hematuria and Denies dysuria Musculoskeletal Musculoskeletal: Denies back pain Integumentary/Breasts Skin/Breast: Denies rash PFSH All Active Problems Complication of Beaver catheter (Acute) Impacted cerumen, bilateral (Acute) Beaver catheter problem (Acute) s/p suprapubic tube. Managed by Dr. Zamora Learning disability (Chronic) per sister(Callie)Jackelin has a long history of being able to comprehend verbal material and needs written materials along with short repetitive explanations. Retention of urine (Acute) Conductive hearing loss, external ear (Acute) uses hearing aids Anemia (Chronic) Depressive disorder (Chronic) bipolar 02/25-[facility] Headache (Acute) secondary to scoliosis & neck muscle spasm Hyperlipidemia (Chronic 08/17/12) Neck pain (Acute) w/ muscle spasm, secondary to scoliosis Psoriasis (Chronic 04/16/13) Right shoulder pain (Chronic 09/10/14) chronic pain, no surgery hx. 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) Candidiasis of breast Gallstones Gastritis presumed (improved symptoms on omeprazole) Hernia of abdominal wall Idiopathic scoliosis w/ Chronic LBP; surgery-1969,1971, 1990, 1995, 1997 ([facility]) Postoperative hemorrhage Pyoderma gangrenosum (09/15/12) Tubular adenoma (08/09/16) Surgical History Colonoscopy - IV Sedation (08/09/16) H/O left wrist surgery Previous back surgery Status post laparoscopic hysterectomy Family History Father , 63 Lung cancer Sister Depression Sister COPD (chronic obstructive pulmonary disease) Grandmother Breast cancer Son Depression Mother , 93 Old age Social History Smoking/Tobacco Use Status: Never Second Hand Exposure: Yes Smoking risk assessment performed?: Yes Alcohol Intake: never Counseling given: No Drug use: Never Substance use type: does not use Counseling provided: none Caregiver/Support person: No Household members: none Housing: apartment Number of Children: 3 number of grandchildren: 3 Communication Needs: None Education Level: high school Do you need help understanding health information?: Rarely 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 Pets and animals: No Sexually active: No Do you think of yourself as: straight/heterosexual Current gender identity: female What is your relationship status?: How often do you talk on the phone with friends or family?: decline to answer How often do you get together with friends or relatives?: decline to answer How often do you attend yazdanism or cheondoism services?: decline to answer Do you belong to any clubs or organized social groups?: no Panel score (0-1 are the most socially isolated patients): 0 What type of physical activity do you participate in: none Pari/Mandaen: Gnosticist Special pari needs: No Seatbelt use: always Helmet use: No Drive intox or ride w/intox 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 Exam Const General: cooperative, healthy appearing, comfortable and no acute distress Orientation: alert and awake [facility] Head: normal to inspection, normocephalic and atraumatic Eyes Conjunctivae: conjunctivae normal Neck Neck: normal visual inspection, trachea midline and supple Resp Effort & Inspection: normal respiratory effort and able to speak in complete sentences GI Inspection: normal to inspection and obesity Palpation: soft and nontender Back/Spine/Pelvis Back: No back tenderness Skin General skin exam: no rashes or lesions noted Neuro General: patient alert, patient awake, moves all extremities and no focal motor deficits Sensory Exam: no sensory deficits noted Psych Appearance: grossly normal Mental Status: mental status grossly normal Course Vital Signs Vital signs: Vital Signs Temperature 36.4 C L 07/25/21 21:50 Pulse 69 07/25/21 21:50 Respiratory Rate 16 07/25/21 21:50 Blood Pressure 152/81 H 07/25/21 21:50 Pulse Oximetry 96 07/25/21 21:50 Temperature 36.4 C L 07/25/21 21:50 Pulse 69 07/25/21 21:50 Respiratory Rate 16 07/25/21 21:50 Respiratory Effort Non-Labored 07/25/21 22:14 Blood Pressure 152/81 H 07/25/21 21:50 Pulse Oximetry 96 07/25/21 21:50 Pain Level 0 07/25/21 21:50
== END 2021-07-25 23:12 | disposition home or self-care (01) ==
PROVIDERS: Emergency Provider Physician Assistant; PCP Family Medicine
DX: T83.098A Other mechanical complication of other urinary catheter, initial encounter (principal)
CPT/HCPCS: 99282

== ENCOUNTER → 2021-07-27 14:13 | Outpatient (BNVA) | payer MEDICARE, MEDICAID, SELFPAY | PROVIDERS: PCP Family Medicine; Visit Provider Student in an Organized Health Care Education/Training Program | DX: M18.9 Osteoarthritis of first carpometacarpal joint, unspecified (principal) | CPT/HCPCS: 20600; 99214; J1030 ==

== ENCOUNTER → 2021-07-30 10:12 | Outpatient (BNVA) | payer MEDICARE, MEDICAID, SELFPAY | PROVIDERS: PCP Family Medicine; Referring Provider Family Medicine; Visit Provider Urology | DX: R33.8 Other retention of urine (principal) | CPT/HCPCS: 51705; 52000 ==

== ENCOUNTER → 2021-08-07 13:13 | Outpatient (BNVA) | payer MEDICARE, MEDICAID, SELFPAY | PROVIDERS: PCP Family Medicine; Referring Provider Family Medicine; Visit Provider Urology | DX: R33.8 Other retention of urine (principal) ==

== ENCOUNTER → 2021-08-27 10:52 | Outpatient (BNVA) | payer MEDICARE, MEDICAID, SELFPAY | PROVIDERS: PCP Family Medicine; Referring Provider Family Medicine; Visit Provider Urology | DX: R33.8 Other retention of urine (principal) | CPT/HCPCS: 51705 ==

== ENCOUNTER 2021-09-17 02:24 | Outpatient (CLI) | payer MEDICARE, MEDICAID, SELFPAY ==
[2021-09-17 11:38] LABS: Abs Immature Grans 0.02 10^3/uL (0.0-0.06); Absolute Basophil Count 0.05 10^3/uL (0.0-0.2); Absolute Eosinophil Count 1.12 10^3/uL (0.0-0.7); Absolute Lymphocyte Count 1.78 10^3/uL (1.2-3.4); Absolute Monocyte Count 0.61 10^3/uL (0.1-0.8); Absolute Neutrophil Count 4.52 10^3/uL (1.2-6.7); Basophils % 0.6; Eosinophils % 13.8; HCT 34.3 % (36.0-46.0); HGB 10.9 g/dL (11.2-15.7); Immature Grans % 0.2; MCH 30.6 pg (27.0-33.0); MCHC 31.8 % (32.0-36.0); MCV 96 fL (80-95); MPV 9.7 fL (8.0-11.0); Monocytes % 7.5; Neutrophils % 55.9; Platelet Count 241 10^3/uL (130-400); RBC 3.56 10^6/uL (3.93-5.22); RDW 13.7 % (11.7-14.6); RDW-SD 48.7 fL
[2021-09-17 11:56] LABS: Diff Comment Agrees w/ Instrument; RBC Morphology Normal
[2021-09-17 12:56] LABS: ALT 16 U/L (14-59); AST 12 U/L (15-37); Alkaline Phosphatase 75 U/L (46-116); Anion Gap 7.1 mmol/L (3-11); BUN 20 mg/dL (7-18); Bilirubin, Total 0.5 mg/dL (0.2-1.0); CO2 27.9 mmol/L (21.0-32.0); Calcium 9.4 mg/dL (8.5-10.1); Chloride 105 mmol/L (98-107); Estimated GFR 55.14 (mL/min/1.73m2); Glucose 119 mg/dL (74-106); Sodium 140 mmol/L (136-145); TSH (W/Ref FT4) 0.94 uIU/mL (0.36-3.74); Total Protein 7.5 g/dL (6.4-8.2); Uric Acid 5.8 mg/dL (2.6-6.0)
[2021-09-17 15:21] LABS: Calculated LDL 105 mg/dL (<100); Cholesterol 189 mg/dL (<200); HDL Cholesterol 73 mg/dL (40-60); Triglyceride 56 mg/dL (<150)
== END 2021-09-17 02:25 | disposition home or self-care (01) ==
LOC: LBO 02:24
PROVIDERS: PCP Family Medicine; Visit Provider Family Medicine
DX: E78.5 Hyperlipidemia, unspecified (principal); F32.9 Major depressive disorder, single episode, unspecified; M1A.9XX0 Chronic gout, unspecified, without tophus (tophi)
CPT/HCPCS: 36415; 80053; 80061; 84443; 84550; 85014; 85018; 85025

== ENCOUNTER → 2021-09-25 13:05 | Outpatient (BNVA) | payer MEDICARE, MEDICAID, SELFPAY | PROVIDERS: PCP Family Medicine; Referring Provider Family Medicine; Visit Provider Urology | DX: R33.8 Other retention of urine (principal) | CPT/HCPCS: 51705 ==

== ENCOUNTER 2021-10-16 11:53 | Outpatient (CLI) | payer MEDICARE, MEDICAID, SELFPAY ==
--- NOTE | 2021-10-16 11:45 | DI.RAD_ITS ---
Exam(s) XR THUMB RT EXAM: XR THUMB RT CLINICAL HISTORY: right thumb CMC DJD. TECHNIQUE: 2D digital imaging was performed of the right finger. Three views were obtained. PA/AP, oblique, and lateral views were obtained. COMPARISON: No exams were available for comparison FINDINGS: BONES: No acute fracture is present. No bony destructive lesion is seen. JOINTS: No dislocation present. Moderate hypertrophic changes are seen at the interphalangeal joint of the thumb. The 1st MCP joint is unremarkable. Moderately severe degenerative changes are seen at the 1st CMC joint with subchondral cysts, joint space narrowing and bone hypertrophy. SOFT TISSUE: Well corticated osseous densities are seen adjacent to the 1st CMC joint and the interph alangeal joint. These appear chronic. 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 DATA REPOSITORY: RADIATION DOSE DELIVERED:
== END 2021-10-16 11:54 | disposition home or self-care (01) ==
LOC: DIORS 11:54
PROVIDERS: PCP Family Medicine; Referring Provider Family Medicine; Visit Provider Physician Assistant
DX: M18.11 Unilateral primary osteoarthritis of first carpometacarpal joint, right hand (principal)
CPT/HCPCS: 99213; 73140

== ENCOUNTER 2021-11-09 18:30 | Emergency (ER) | payer MEDICARE, MEDICAID, SELFPAY ==
[2021-11-09 19:04] VITALS: BP 131/96; PULSE 85; RESP 18; TEMP 36.5; O2SAT 96
--- NOTE | 2021-11-09 19:27 | W.ED.GENAD ---
Discharge Plan Disposition Patient Disposition: HOME Condition: Improving Discharge Details Clinical Impression: Beaver catheter problem Primary Care Provider: Letitia Shah ED Provider: Mihir Mace Home Meds and New Rx's Prescriptions: Continued Myrbetriq 50 mg tablet extended release 24 hr 50 mg PO DAILY Qty: 90 3RF Excedrin Extra Strength 250-250-65 mg tablet 1 tab PO Q6H PRN (Reason: headache) Label Comments: usually uses bid nystatin 100,000 unit/gram powder 1 applic topical BID Qty: 30 0RF Label Comments: pt. states she doesnt have a powder triamcinolone acetonide 0.025 % cream 1 applic topical DAILY Qty: 454 0RF allopurinol 300 mg tablet 300 mg PO DAILY Qty: 30 11RF Rexulti 3 mg tablet 3 mg PO DAILY Qty: 30 11RF cholecalciferol (vitamin D3) 25 mcg (1,000 unit) capsule 1,000 unit PO DAILY Qty: 30 11RF duloxetine 30 mg capsule,delayed release(DR/EC) 30 mg PO DAILY Qty: 30 11RF fluoxetine 20 mg capsule 20 mg PO DAILY Qty: 30 11RF gabapentin 600 mg tablet 600 mg PO BID Qty: 60 6RF lamotrigine 200 mg tablet 300 mg PO DAILY Qty: 45 11RF Rx Instructions: Take 1/2 tab (100mg) in AM and 1 tab (200mg) in evening pantoprazole 40 mg tablet,delayed release (DR/EC) 40 mg PO DAILY Qty: 30 11RF simvastatin 40 mg tablet 40 mg PO QPM Qty: 30 11RF Discharge Instructions Instructions: Beaver Catheter Placement and Care (ED) Additional Instructions: The leg bag that was dysfunctional was replaced without difficulty and now functioning appropriately. Please watch for new or worsening symptoms and return to the ER for any concerns. Otherwise follow-up at your scheduled appointment later this week Medical Decision Making 66-year-old female reports that her indwelling Beaver has been functioning fine but now the leg bag is leaking. She has no additional concerns or complaints, denies fever, abdominal pain, nausea, vomiting, dysuria or hematuria. She appears well, nontoxic, hemodynamically stable. Leg bag was changed without difficulty and shows no evidence of leaking. Patient tolerated well. We will follow-up as an outpatient as already scheduled in the next 48-72 hours. Standard discharge and return precautions were provided. Patient understands, is agreeable to this plan, and has no additional questions or concerns upon discharge. This documentation was generated using [employer] system, please disregard any oddities of phrase or misspellings. Medical Records Medical records reviewed: Yes I reviewed the patient's medical records. HPI General Mode of arrival: ambulatory. Date/Time Provider Initiated Documentation: 11/09/21 18:32. Limitations to Documentation: no limitations. Information obtained by: patient. HPI Narrative: This is a 66-year-old female who reports a leaking Beaver catheter leg bag. Patient states that she missed her last checkup appointment, the bag or Beaver was never changed and she is actually scheduled to see them in the next 2-3 days. Denies any other symptoms such as fever, chest pain, shortness of breath abdominal pain, nausea, vomiting, dysuria hematuria. Reports that her urine appears to be normal color Related Data Home Medications Medication Instructions Recorded Confirmed allopurinol 300 mg tablet 300 mg PO DAILY #30 tabs 05/15/21 10/16/21 brexpiprazole 3 mg tablet (Rexulti) 3 mg PO DAILY #30 tabs 05/15/21 10/16/21 cholecalciferol (vitamin D3) 25 1,000 unit PO DAILY #30 caps 05/15/21 10/16/21 mcg (1,000 unit) capsule duloxetine 30 mg capsule,delayed 30 mg PO DAILY #30 caps 05/15/21 10/16/21 release fluoxetine 20 mg capsule 20 mg PO DAILY #30 caps 05/15/21 10/16/21 gabapentin 600 mg tablet 600 mg PO BID #60 tabs 05/15/21 10/16/21 lamotrigine 200 mg tablet 300 mg PO DAILY #45 tabs 05/15/21 10/16/21 pantoprazole 40 mg tablet,delayed 40 mg PO DAILY #30 tabs 05/15/21 10/16/21 release simvastatin 40 mg tablet 40 mg PO QPM #30 tabs 05/15/21 10/16/21 ncfskbs-oklkgynjnuahc-iunavbul 250 1 tab PO Q6H PRN headache 07/10/21 10/16/21 mg-250 mg-65 mg tablet (Excedrin Extra Strength) mirabegron 50 mg tablet,extended 50 mg PO DAILY bladder spasm #90 08/27/21 10/16/21 release 24 hr (Myrbetriq) tabs nystatin 100,000 unit/gram topical 1 applic topical BID #30 grams 10/02/21 10/16/21 powder triamcinolone acetonide 0.025 % 1 applic topical DAILY #454 grams 10/02/21 10/16/21 topical cream Previous Rx's Medication Instructions Recorded allopurinol 300 mg tablet 300 mg PO DAILY #30 tabs 05/15/21 brexpiprazole 3 mg tablet (Rexulti) 3 mg PO DAILY #30 tabs 05/15/21 cholecalciferol (vitamin D3) 25 1,000 unit PO DAILY #30 caps 05/15/21 mcg (1,000 unit) capsule duloxetine 30 mg capsule,delayed 30 mg PO DAILY #30 caps 05/15/21 release fluoxetine 20 mg capsule 20 mg PO DAILY #30 caps 05/15/21 gabapentin 600 mg tablet 600 mg PO BID #60 tabs 05/15/21 lamotrigine 200 mg tablet 300 mg PO DAILY #45 tabs 05/15/21 pantoprazole 40 mg tablet,delayed 40 mg PO DAILY #30 tabs 05/15/21 release simvastatin 40 mg tablet 40 mg PO QPM #30 tabs 05/15/21 mirabegron 50 mg tablet,extended 50 mg PO DAILY bladder spasm #90 08/27/21 release 24 hr (Myrbetriq) tabs nystatin 100,000 unit/gram topical 1 applic topical BID #30 grams 10/02/21 powder triamcinolone acetonide 0.025 % 1 applic topical DAILY #454 grams 10/02/21 topical cream Allergies Allergy/AdvReac Type Severity Reaction Status Date / Time codeine AdvReac Intermediate NAUSEA/DIZZ Verified 10/16/21 11:25 INESS General Stated Complaint: Urinary JAMILA: 4 Review of Systems Constitutional Constitutional: Denies fever(s) Gastrointestinal Gastrointestinal: Denies abdominal pain, Denies nausea and Denies vomiting Genitourinary Genitourinary: Denies hematuria and Denies dysuria Musculoskeletal Musculoskeletal: Denies back pain Integumentary/Breasts Skin/Breast: Denies rash PFSH All Active Problems Beaver catheter problem (Acute) Fasting hyperglycemia (Acute) Osteoarthritis of CMC joint of thumb (Acute) right: injection 07/27/2021 Impacted cerumen, bilateral (Acute) Beaver catheter problem (Acute) s/p suprapubic tube. Managed by Dr. Zamora Learning disability (Chronic) per sister(Callie)Jackelin has a long history of being able to comprehend verbal material and needs written materials along with short repetitive explanations. Retention of urine (Acute) Conductive hearing loss, external ear (Acute) uses hearing aids Anemia (Chronic) Depressive disorder (Chronic) bipolar 02/25-[facility] Headache (Acute) secondary to scoliosis & neck muscle spasm Hyperlipidemia (Chronic 08/17/12) Neck pain (Acute) w/ muscle spasm, secondary to scoliosis Psoriasis (Chronic 04/16/13) Right shoulder pain (Chronic 09/10/14) chronic pain, no surgery hx. 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) Candidiasis of breast Gallstones Gastritis presumed (improved symptoms on omeprazole) Hernia of abdominal wall Idiopathic scoliosis w/ Chronic LBP; surgery-1969,1971, 1990, 1995, 1997 ([facility]) Postoperative hemorrhage Pyoderma gangrenosum (09/15/12) Tubular adenoma (08/09/16) Surgical History Colonoscopy - IV Sedation (08/09/16) H/O left wrist surgery Previous back surgery Status post laparoscopic hysterectomy Family History Father , 63 Lung cancer Sister Depression Sister COPD (chronic obstructive pulmonary disease) Grandmother Breast cancer Son Depression Mother , 93 Old age Social History Smoking/Tobacco Use Status: Never Second Hand Exposure: Yes Smoking risk assessment performed?: Yes Alcohol Intake: never Counseling given: No Drug use: Never Substance use type: does not use Counseling provided: none Caregiver/Support person: No Household members: none Housing: apartment Number of Children: 3 number of grandchildren: 3 Communication Needs: None Education Level: high school Do you need help understanding health information?: Rarely 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 Pets and animals: No Sexually active: No Do you think of yourself as: straight/heterosexual Current gender identity: female What is your relationship status?: How often do you talk on the phone with friends or family?: decline to answer How often do you get together with friends or relatives?: decline to answer How often do you attend amish or adventism services?: decline to answer Do you belong to any clubs or organized social groups?: no Panel score (0-1 are the most socially isolated patients): 0 What type of physical activity do you participate in: none Pari/Confucianist: Sabianist Special pari needs: No Seatbelt use: always Helmet use: No Drive intox or ride w/intox city bus driver: No Do you feel safe at home: Yes Additional Social history: Enjoys spending time with children, playing piano. Exam Const General: cooperative, healthy appearing, comfortable and no acute distress Orientation: alert and awake HENMT Head: normal to inspection, normocephalic and atraumatic Mouth: moist mucous membranes Eyes Conjunctivae: conjunctivae normal Neck Neck: normal visual inspection, trachea midline and supple Resp Effort & Inspection: normal respiratory effort and able to speak in complete sentences Cardio Rate: regular rate Rhythm: regular rhythm GI Inspection: obesity Palpation: soft and nontender Back/Spine/Pelvis Back: No back tenderness Skin General skin exam: no rashes or lesions noted Neuro General: patient alert, patient awake, moves all extremities and no focal motor deficits Sensory Exam: no sensory deficits noted Psych Appearance: grossly normal Mental Status: mental status grossly normal Course Vital Signs Vital signs: Vital Signs Temperature 36.5 C 11/09/21 19:04 Pulse 85 11/09/21 19:04 Respiratory Rate 18 11/09/21 19:04 Blood Pressure 131/96 H 11/09/21 19:04 Pulse Oximetry 96 11/09/21 19:04 Temperature 36.5 C 11/09/21 19:04 Pulse 85 11/09/21 19:04 Respiratory Rate 18 11/09/21 19:04 Respiratory Effort Non-Labored 11/09/21 19:12 Blood Pressure 131/96 H 11/09/21 19:04 Blood Pressure Position Sitting 11/09/21 19:04 Pulse Oximetry 96 11/09/21 19:04 Oxygen Delivery Method Room Air 11/09/21 19:04 Oxygen Flow Rate 0 11/09/21 19:04 Pain Level 0 11/09/21 19:04
== END 2021-11-09 20:01 | disposition home or self-care (01) ==
PROVIDERS: Emergency Provider Physician Assistant; PCP Family Medicine
DX: T83.031A Leakage of indwelling urethral catheter, initial encounter (principal); Z77.22 Contact with and (suspected) exposure to environmental tobacco smoke (acute) (chronic); Y83.3 Surgical operation with formation of external stoma as the cause of abnormal reaction of the patient, or of later complication, without mention of misadventure at the time of the procedure
CPT/HCPCS: 99282

== ENCOUNTER 2021-11-10 15:57 | Outpatient (CLI) | payer MEDICARE, MEDICAID, SELFPAY ==
--- NOTE | 2021-11-10 15:45 | RT.EKG_ITS ---
APPROVED REPORT Exam: Resting ECG Reason for Exam: pre op Patient Location: O HR:73 bpm ECG Measurements Heart Rate 73 AXIS WA 139 P 15 QRSd 96 QRS -43 QT 388 T 52 QTc 428 Conclusion Sinus rhythm...normal P axis, V-rate 50- 99 Atrial premature complex...SV complex w/ short R-R interval Left axis deviation...QRS axis (-30,-90) Baseline wander in lead(s) V1
== END 2021-11-10 15:58 | disposition home or self-care (01) ==
LOC: DI.CM 16:03
PROVIDERS: PCP Family Medicine; Visit Provider Family Medicine
DX: Z01.818 Encounter for other preprocedural examination (principal); R94.31 Abnormal electrocardiogram [ECG] [EKG]; I49.1 Atrial premature depolarization
CPT/HCPCS: 93010

== ENCOUNTER → 2021-11-13 13:30 | Outpatient (BNVA) | payer MEDICARE, MEDICAID, SELFPAY | PROVIDERS: PCP Family Medicine; Referring Provider Family Medicine; Visit Provider Urology | DX: R33.8 Other retention of urine (principal) | CPT/HCPCS: 51705 ==

== ENCOUNTER 2021-11-16 03:42 | Outpatient (CLI) | payer MEDICARE, MEDICAID, SELFPAY ==
[2021-11-16 12:21] LABS: Source Nasal/Nares
[2021-11-16 15:28] LABS: COVID-19 PCR Negative (Negative)
== END 2021-11-16 03:43 | disposition home or self-care (01) ==
LOC: LBO 03:42
PROVIDERS: PCP Family Medicine; Visit Provider Student in an Organized Health Care Education/Training Program
DX: Z20.822 Contact with and (suspected) exposure to COVID-19 (principal)
CPT/HCPCS: 87635

== ENCOUNTER 2021-11-18 10:04 | Day surgery (SDC) | payer MEDICARE, MEDICAID, SELFPAY ==
[2021-11-18] VITALS (11 sets, daily range): BP systolic 102–154; BP diastolic 51–75; PULSE 63–83; RESP 18–25; TEMP 36.3–36.9; O2SAT 94–99; BMI 37.3
--- NOTE | 2021-11-18 09:30 | W.PM.DSUDISC ---
Discharge Plan Disposition Patient Disposition: HOME Condition: Good Discharge Details Reason For Visit: Right Trapezial Resection Attending Provider: Scooter Dowell Primary Care Provider: Letitia Shah Home Meds and New Rx's Prescriptions: New acetaminophen 500 mg capsule 1,000 mg PO Q8H PRN PRNQty: 30 0RF aspirin 81 mg tablet,delayed release (DR/EC) 81 mg PO BID Qty: 60 0RF ibuprofen 600 mg tablet 600 mg PO TID Qty: 30 0RF oxycodone 5 mg tablet 5 mg PO Q4H PRNQty: 10 0RF Continued Myrbetriq 50 mg tablet extended release 24 hr 50 mg PO DAILY Qty: 90 3RF Excedrin Extra Strength 250-250-65 mg tablet 1 tab PO Q6H PRN (Reason: headache) Label Comments: usually uses bid fluconazole 150 mg tablet 150 mg PO Q3D 0 Days Qty: 2 0RF nystatin 100,000 unit/gram powder 1 applic topical BID Qty: 30 0RF Label Comments: pt. states she doesnt have a powder triamcinolone acetonide 0.025 % cream 1 applic topical DAILY Qty: 454 0RF allopurinol 300 mg tablet 300 mg PO DAILY Qty: 30 11RF Rexulti 3 mg tablet 3 mg PO DAILY Qty: 30 11RF cholecalciferol (vitamin D3) 25 mcg (1,000 unit) capsule 1,000 unit PO DAILY Qty: 30 11RF duloxetine 30 mg capsule,delayed release(DR/EC) 30 mg PO DAILY Qty: 30 11RF fluoxetine 20 mg capsule 20 mg PO DAILY Qty: 30 11RF gabapentin 600 mg tablet 600 mg PO BID Qty: 60 6RF lamotrigine 200 mg tablet 300 mg PO DAILY Qty: 45 11RF Rx Instructions: Take 1/2 tab (100mg) in AM and 1 tab (200mg) in evening pantoprazole 40 mg tablet,delayed release (DR/EC) 40 mg PO DAILY Qty: 30 11RF simvastatin 40 mg tablet 40 mg PO QPM Qty: 30 11RF Discharge Instructions Additional Instructions: Thumb CMC Discharge Instructions Activity: You should keep the hand/thumb elevated as much as possible for the first few days. You may use the other fingers as tolerated but avoid trying to do too much too soon. You may perform light activities with the splint in place. Dressing/Cast: Your splint should stay in place at all times. Do NOT get it wet. You may loosen the MOISÉS wrap if you feel it is too tight and then rewrap more loosely. Medications: - You should take Tylenol and Ibuprofen for baseline pain control. - You have Oxycodone for breakthrough pain. - You may apply ice over the thumb. Follow-up: 10-14 days Referrals: Scooter Dowell MD [ [facility] STAFF PHYSICIAN] - Equipment/Supplies: Splint Activity:: Elevate Remove Dressings/Wound Care:: Do Not Remove Shower/Bathe:: Cover Diet:: As Tolerated Discharge Orders Discharge Orders: Discharge Order (Routine); Ordered 11/18/21 Ordered By: Kathryn Kim DS: Diagnosis Discharge Diagnosis (1) Osteoarthritis of CMC joint of thumb: Status: Acute
--- NOTE | 2021-11-18 10:00 | DI.RAD_ITS ---
Exam(s) XR THUMB RT EXAM: XR THUMB RT CLINICAL HISTORY: CMC ARTHROPLASTY. TECHNIQUE: 2D digital imaging was performed. COMPARISON: No exams were available for comparison FINDINGS: Fluoroscopy was provided during injection at the 1st carpometacarpal joint level. Fluoroscopy time 7 seconds Cumulative dose= 0.0261mGy IMPRESSION: DATA REPOSITORY: RADIATION DOSE DELIVERED:
--- NOTE | 2021-11-18 10:51 | ANES.PREOP_ITS ---
General Info Date of Service Date Performed: 11/18/21 Height: 5 ft Weight: 86.6 kg Body Mass Index (BMI): 37.3 Surgical Procedure: Operation Date: 11/18/21 12:55 Proposed Procedure Side Surgeon p Thumb CMC Arthroplasty Right Scooter Dowell MD Meds Allergies and Home Medications Allergies Allergy/AdvReac Type Severity Reaction Status Date / Time codeine AdvReac Intermediate NAUSEA/DIZZ Verified 11/18/21 10:57 INESS Home Medication Medication Instructions Recorded allopurinol 300 mg tablet 300 mg PO DAILY #30 tabs 05/15/21 brexpiprazole 3 mg tablet (Rexulti) 3 mg PO DAILY #30 tabs 05/15/21 cholecalciferol (vitamin D3) 25 1,000 unit PO DAILY #30 caps 05/15/21 mcg (1,000 unit) capsule duloxetine 30 mg capsule,delayed 30 mg PO DAILY #30 caps 05/15/21 release fluoxetine 20 mg capsule 20 mg PO DAILY #30 caps 05/15/21 gabapentin 600 mg tablet 600 mg PO BID #60 tabs 05/15/21 lamotrigine 200 mg tablet 300 mg PO DAILY #45 tabs 05/15/21 pantoprazole 40 mg tablet,delayed 40 mg PO DAILY #30 tabs 05/15/21 release simvastatin 40 mg tablet 40 mg PO QPM #30 tabs 05/15/21 ebsxgih-mzcpefgsvrcxi-dzhpeflk 250 1 tab PO Q6H PRN headache 07/10/21 mg-250 mg-65 mg tablet (Excedrin Extra Strength) mirabegron 50 mg tablet,extended 50 mg PO DAILY bladder spasm #90 08/27/21 release 24 hr (Myrbetriq) tabs triamcinolone acetonide 0.025 % 1 applic topical DAILY #454 grams 10/02/21 topical cream fluconazole 150 mg tablet 150 mg PO Q3D 2 doses #2 tabs 11/10/21 nystatin 100,000 unit/gram topical 1 applic topical BID #30 grams 11/10/21 powder acetaminophen 500 mg capsule 1,000 mg PO Q8H PRN PRN #30 caps 11/18/21 aspirin 81 mg tablet,delayed 81 mg PO BID #60 tabs 11/18/21 release ibuprofen 600 mg tablet 600 mg PO TID #30 tabs 11/18/21 oxycodone 5 mg tablet 5 mg PO Q4H PRN #10 tabs 11/18/21 Current Visit Medications: Current Medications Generic Name Dose Route Start Last Admin Trade Name Freq PRN Reason Stop Dose Admin Acetaminophen 650 mg 11/18/21 09:29 Acetaminophen 325 Mg Tab PO Q4H PRN PRN Ringer's Solution 1,000 mls @ 80 mls/hr 11/18/21 06:00 IV 12/17/21 23:59 INFUSION HIRO Cefazolin Sodium/Dextrose 2 gm in 50 mls @ 100 mls/hr 11/18/21 06:00 Ancef Duplex IVPB 11/18/21 16:00 PREOP HIRO Ondansetron HCl 4 mg/ Sodium 52 mls @ 200 mls/hr 11/18/21 09:29 Chloride IVPB Q6H PRN PRN IV Miscellaneous Supplies 1 each 11/18/21 06:00 Iv Access IV 12/17/21 23:59 DIRECTED HIRO Oxycodone HCl 5 mg 11/18/21 09:29 Oxycodone 5 Mg Tab PO Q3H PRN PRN Pain Sodium Chloride 0 ml 11/18/21 06:00 Normal Saline Flush 10 Ml Syr IV 12/17/21 23:59 PRN PRN Sodium Chloride 0 ml 11/18/21 06:00 Normal Saline 10 Ml Vial IJ 12/17/21 23:59 DIRECTED PRN Sterile Water 0 ml 11/18/21 06:00 Water,Injection,Sterile 10 Ml Vial IJ 12/17/21 23:59 DIRECTED PRN PFSH Active Problems Active Problems: Problem Status Onset Code Vitamin D deficiency 08/17/12 E55.9 Right shoulder pain 09/10/14 M25.511 Psoriasis 04/16/13 L40.9 Neck pain M54.2 Hyperlipidemia 08/17/12 E78.5 Headache R51 Depressive disorder F32.9 Retention of urine R33.9 Conductive hearing loss, external ear H90.2 Anemia D64.9 Learning disability F81.9 Beaver catheter problem T83.9XXA Impacted cerumen, bilateral H61.23 Osteoarthritis of CMC joint of thumb M18.9 Fasting hyperglycemia R73.01 Beaver catheter problem T83.9XXA Medical History Medical History Acute gout of right ankle (12/06/14) 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) Candidiasis of breast Gallstones Gastritis presumed (improved symptoms on omeprazole) Hernia of abdominal wall Idiopathic scoliosis w/ Chronic LBP; surgery-1969,1971, 1990, 1995, 1997 ([facility]) Postoperative hemorrhage Pyoderma gangrenosum (09/15/12) Tubular adenoma (08/09/16) Medical History Comments:: Suprapubic cath in situ Surgical History Surgical History Colonoscopy - IV Sedation (08/09/16) H/O left wrist surgery Previous back surgery Status post laparoscopic hysterectomy Tobacco Smoking/Tobacco Use Status: Never Second hand exposure: Yes Alcohol Alcohol Intake: never Substance Use Substance use: Never Substance use type: does not use Counseling provided: none Vital Signs and Lab Results Vital Signs Most Recent Vital Signs in EMR: Most Recent Vital Signs Temp Pulse Resp BP Pulse Ox 36.9 C 83 18 137/75 96 11/18/21 10:37 11/18/21 10:37 11/18/21 10:37 11/18/21 10:37 11/18/21 10:37 Lab Results Blood Type / Crossmatch: No Data to Display Complete Blood Count: No Data to Display Complete Metabolic Panel: No Data to Display Liver Function Panel: No Data to Display Coagulation Panel: 2 No Data to Display Cardiac Panel: No Data to Display Arterial Blood Gas: No Data to Display Venous Blood Gas: No Data to Display Pancreas Panel: No Data to Display Thyroid Panel: No Data to Display Infectious Disease: Coronavirus (COVID-19)(PCR) Negative (Negative) 11/16/21 10:53 Coronavirus 2019 Source Nasal/Nares 11/16/21 10:53 Blood Cultures: No Data to Display Toxicology Panel: No Data to Display Imaging and Studies Imaging and Studies Study information below may be from another EMR and interpreted by another provider. Please see original notes in EMR for more complete details. EKG Summary: 11/09: sinus, LAD. Stress Test Summary: 09/2012: Anesthesia Assessment and Plan Anesthesia History Personal History: No History of Anesthesia Complications Family History: No Family History of Anesthesia Complications Exercise Tolerance Exercise Tolerance: Metabolic Equivalents>4 Cardiac & Pulmonary Exam Cardiac Exam: Normal S1/S2 Heart Sounds Pulmonary Exam: Clear Bilateral Breath Sounds Implantable Cardiac Device Does patient have a Pacemaker or an ICD?: No Airway Exam Known Difficult Airway: No Mallampati Class: 4 Mouth Opening: Narrow (< 3cm) Thyromental Distance: Greater than 3 cm Neck Range of Motion: Limited ROM Neck Circumference: Normal Teeth Condition: Edentulous ASA Classification ASA Score: ASA 2 Emergency Case?: No NPO Status NPO Status: NPO Clears >2 hours, Solids >8 hours Anesthesia Plan Resuscitation Status: Full Code Anesthesia Technique: General Anesthesia Airway Planned: LMA Monitors Used: Standard Monitors Preoperative Comments:: 66 yo female for cmc arthroplasty. Sig PMHx: dm, + stress test with normal coronaries on cath 2012, learning disability, urinary retention, bells palsy, LBP/scoliosis, never smoker/EtOH. Previous Anes: igel 3.
[2021-11-18] MEDS: Lactated Ringers 1,000 ML 80 ML IV (11:23)
[2021-11-18] MEDS: ceFAZolin 2 GM/50 ML BAG IVPB (12:34)
[2021-11-18] MEDS: Bupivacaine 0.25% Pres-Free 30 ML VIAL (12:53)
--- NOTE | 2021-11-18 13:50 | W.ANESPOSTOP ---
Postoperative Evaluation Date, Time and Location Date Performed: 11/18/21 Time Performed: 13:50 Patient Location: PACU Vital Signs Most Recent Imported Vital Signs: Most Recent Vital Signs Temp Pulse Resp BP Pulse Ox 36.4 C L 63 20 102/51 L 99 11/18/21 13:33 11/18/21 13:33 11/18/21 13:33 11/18/21 13:33 11/18/21 13:33 Pain Score Most Recent Pain Score: Most Recent Pain Score Pain Level 0 11/18/21 13:33 Assessment Mental Status: Awake (Alert & Oriented to Patient Baseline) Airway and Respiratory Function: Patent airway with normal (patient baseline) respiratory exam Cardiovascular Function: Hemodynamically Stable Hydration Status: Adequately Hydrated Nausea & Vomiting: No Nausea or Vomiting Pain: Pt. Denies Any Pain Peripheral Nerve Block: Patient did not receive a nerve block
[2021-11-18] MEDS: fentaNYL 100 MCG/2 ML VIAL IVP ×3 (14:11→14:55)
[2021-11-18] MEDS: Droperidol 5 MG/2 ML VIAL 0.625 MG IVP (14:40)
--- NOTE | 2021-11-18 16:06 | W.PM.OP ---
Date of service: 11/18/21 Time of Service: 13:30 Operative Note Operative Note DATE OF PROCEDURE: 11/18/21 PRE-OP DIAGNOSIS: Right Thumb CMC Arthritis POST-OP DIAGNOSIS: same PROCEDURE: Right trapezial resection arthroplasty with suture suspensionplasty SURGEON: Scooter Dowell MANAGER PERSONAL: Kathryn Kim ANESTHESIA TYPE: General LMA/ETT Refer to Anesthesia Record ESTIMATED BLOOD LOSS: 0 PATHOLOGY: none sent TOURNIQUET TIME: 30 COMPLICATIONS: None Patient was transported to: PACU Patient's condition: stable Indications: Jackelin is a 66 year old female who has had symptoms of thumb CMC arthritis with pain and decreased mobility. Nonoperative treatment options had been trialed. Given their failure, I offered operative intervention. I reviewed the technical details. I reviewed the risk of the procedure to include bleeding, infection, pain, stiffness, instability, subsidence, damage to neighboring arteries, damage to the superficial radial nerve, and weakness. Despite these risks, the patient elected to proceed. Findings: There is notable arthrosis between the trapezium and the first metacarpal. Procedure Description: Jackelin was greeted in the preoperative holding area. Name and surgical site were confirmed. The history and physical was completed. The consent was reviewed the patient and signed. Jackelin was taken back to the operating room. The patient was placed and monitored anesthesia care. The right was then prepped with ChloraPrep and draped in a standard fashion after a nonsterile tourniquet was placed high up onto the arm. Prophylactic antibiotics in the form of cefazolin were administered. A timeout was performed for safe surgery. The surgical site was drawn on the skin overlying the dorsal radial border of the wrist. The planned surgical field was anesthetized with 0.25% bupivacaine. The limb was exsanguinated and the tourniquet was inflated where it stayed for 30 minutes. A 3 cm incision was made longitudinally over the radial wrist from the level of the radial styloid to just past the base of the first metacarpal. The skin was incised only. The deep tissue and subcutaneous fat was dissected with a tenotomy scissors trying to protect branches of the superficial radial nerve. Any branches that were identified were retracted out of the way. The first compartment extensor tendons were then identified. THe first extensor compartment was released including a subcompartment for the EPB tendon. The interval between EPL and EPB was identified. The base of the first metacarpal was palpated. A needle was placed into the joint between the first metacarpal and the trapezium. A single x-ray was used to confirm appropriate positioning. The capsule of the trapezium was then incised. The radial border of the bone was identified. Soft tissues around trapezium were dissected bluntly to allow relaxation of vital arterial structures traversing the trapezium. Using a Penfield blade the capsule was elevated off the trapezium in a subperiosteal fashion. The trapezium was then removed using a rongeur. The wound was inspected to make sure all portions of the trapezium were removed. X-ray was used to confirm appropriate removal of all bony fragments. The wound was then thoroughly irrigated. Using a 2-0 FiberWire then performed a suture suspension plasty. This was done by incorporating capsule and attachments of the APL at the base of the first metacarpal and creating a sling connected to the deep flexor carpi radialis tendon seen traversing deep within the wound towards the second metacarpal. This was done twice to create a crossing network of 2-0 fiberwire suture. This was then tied overlying the base of the first metacarpal making sure not to over tighten and hourglass the tendons. This provided support to the first metacarpal to prevent any excessive subsidence. The tourniquet was then released. There is no significant bleeding. The capsule of the trapezium was then reapproximated with a 2-0 Vicryl. The skin was closed with 4-0 Monocryl in a buried subcuticular fashion. The hand was dressed with 4 x 4's, Kerlex and akhil wrap in a soft thumb spica splint. Patient was transferred back to PACU in a stable condition.
== END 2021-11-18 17:04 | disposition home or self-care (01) ==
PROVIDERS: PCP Family Medicine; Visit Provider Student in an Organized Health Care Education/Training Program
PROC: (CPT 25447; principal; 2021-11-18 12:45)
DX: M18.11 Unilateral primary osteoarthritis of first carpometacarpal joint, right hand (principal); E55.9 Vitamin D deficiency, unspecified; D64.9 Anemia, unspecified; R73.01 Impaired fasting glucose
CPT/HCPCS: 25447; 73140; J0690; J1100; J1790; J1885; J2405; J3010

== ENCOUNTER → 2021-11-30 10:18 | Outpatient (BNVA) | payer MEDICARE, MEDICAID, SELFPAY | PROVIDERS: PCP Family Medicine; Referring Provider Family Medicine; Visit Provider Physician Assistant Surgical | DX: Z47.89 Encounter for other orthopedic aftercare (principal); M18.9 Osteoarthritis of first carpometacarpal joint, unspecified ==

== ENCOUNTER → 2021-12-25 12:26 | Outpatient (BNVA) | payer MEDICARE, MEDICAID, SELFPAY | PROVIDERS: PCP Family Medicine; Referring Provider Family Medicine; Visit Provider Urology | DX: R33.8 Other retention of urine (principal) | CPT/HCPCS: 51705 ==

== ENCOUNTER → 2021-12-28 14:09 | Outpatient (BNVA) | payer MEDICARE, MEDICAID, SELFPAY | PROVIDERS: PCP Family Medicine; Referring Provider Family Medicine; Visit Provider Student in an Organized Health Care Education/Training Program | DX: Z47.89 Encounter for other orthopedic aftercare (principal); M18.11 Unilateral primary osteoarthritis of first carpometacarpal joint, right hand ==

== ENCOUNTER → 2022-02-05 11:54 | Outpatient (BNVA) | payer MEDICARE, MEDICAID, SELFPAY | PROVIDERS: PCP Family Medicine; Referring Provider Family Medicine; Visit Provider Urology | DX: R33.8 Other retention of urine (principal) | CPT/HCPCS: 52000 ==

== ENCOUNTER 2022-02-19 09:18 | Outpatient (CLI) | payer MEDICARE, MEDICAID, SELFPAY ==
--- NOTE | 2022-02-19 09:00 | DI.RAD_ITS ---
Exam(s) XR HAND RT COMPLETE EXAM: XR HAND RT COMPLETE CLINICAL HISTORY: s/p trapezial resection. TECHNIQUE: 2D digital imaging was performed. Three views. COMPARISON: CR XR THUMB RT from 10/16/2021 CR XR THUMB RT from 11/18/2021 FINDINGS: BONES: No acute fracture is present. No bony destructive lesion is seen. Patient is status post res ection of the trapezium. JOINTS: No dislocation present. Degenerative changes are noted greatest at the distal interphalange al joints of the index and middle fingers. SOFT TISSUE: Normal. IMPRESSION: Postsurgical and degenerative changes. DATA REPOSITORY: RADIATION DOSE DELIVERED:
== END 2022-02-19 09:19 | disposition home or self-care (01) ==
LOC: DIORS 09:18
PROVIDERS: PCP Family Medicine; Referring Provider Family Medicine; Visit Provider Student in an Organized Health Care Education/Training Program
DX: M18.9 Osteoarthritis of first carpometacarpal joint, unspecified (principal); Z47.89 Encounter for other orthopedic aftercare
CPT/HCPCS: 73130

== ENCOUNTER → 2022-02-26 00:22 | Outpatient (CLI) | payer MEDICARE, MEDICAID, SELFPAY ==
--- NOTE | 2022-02-26 07:15 | DI.DEXA_ITS ---
Exam(s) XR DEXA BONE DENSITY W/WO SHANIA EXAM: XR DEXA BONE DENSITY W/WO SHANIA CLINICAL HISTORY: screening for osteoporosis in postmenopausal woman,z78.0 TECHNIQUE: COMPARISON: No priors for comparison. FINDINGS: Left hip: Total T-Score: -0.7 Total Z-Score: 0.7 T- and Z-scores: Within normal limits. Left forearm: Total T-Score: 0.3 Total Z-Score: 2.1 T- and Z-scores: Within normal limits. IMPRESSION: No evidence of osteoporosis.
--- NOTE | 2022-02-26 07:15 | DI.MAMMO_ITS ---
Exam(s) MG MAMMO SCREENING 60 MIN DUR EXAM: MG MAMMO SCREENING 60 MIN DUR CLINICAL HISTORY: breast cancer screening,z12.31 TECHNIQUE: Bilateral full field digital CC and MLO mammographic images were obtained with 3D tomosyn thesis and utilizing computer aided detection (CAD). COMPARISON: Available for comparison. FINDINGS: Masses/Architectural Distortion: None seen. Microcalcifications: No suspicious pleomorphic-type are seen. Skin Thickening/Nipple Retraction: None. IMPRESSION: 1. No significant interval change with no specific features of malignancy noted. 2. Unless there is more urgent need, screening mammography is recommended, as per [place] [employer] guidelines. BI-RADS Category 1 - Negative Breast Density - Category B - Scattered areas of fibroglandular density Breast density category C or D implies that the patient has dense breast tissue. Dense breast tissue is very common and is not abnormal but dense breast tissue can make it harder to find cancer on a ma mmogram. Also, dense breast tissue may increase their breast cancer risk. This information about the result of the mammogram report was provided to the patient to raise their awareness. Use this report when you speak with the patient about their risks for breast cancer, which includes their family hist ory. At that time, you may recommend for more screening tests (Ultrasound or MRI) as they might be us eful based on their risk. A negative radiographic report should not delay biopsy if a dominant or clinically suspicious mass is present. Up to ten percent of cancers are not identified on mammography. A negative report may reinforce clinical impression. Adenosis and dense breasts may obscure an underlying neoplasm. False positive reports average 6 to 10%. Patient will receive a letter notifying them of these results.
== END ==
PROVIDERS: PCP Family Medicine; Visit Provider Family Medicine
DX: Z12.31 Encounter for screening mammogram for malignant neoplasm of breast (principal); Z78.0 Asymptomatic menopausal state; Z13.820 Encounter for screening for osteoporosis
CPT/HCPCS: 77063; 77067; 77080

== ENCOUNTER → 2022-03-11 12:45 | Outpatient (BNVA) | payer MEDICARE, MEDICAID, SELFPAY | PROVIDERS: PCP Family Medicine; Referring Provider Family Medicine; Visit Provider Urology | DX: Z46.6 Encounter for fitting and adjustment of urinary device (principal); Z96.0 Presence of urogenital implants; R33.9 Retention of urine, unspecified | CPT/HCPCS: 51705; 52000 ==

== ENCOUNTER → 2022-04-16 08:48 | Outpatient (BNVA) | payer MEDICARE, MEDICAID, SELFPAY | PROVIDERS: PCP Family Medicine; Referring Provider Family Medicine; Visit Provider Urology | DX: Z43.5 Encounter for attention to cystostomy (principal); R33.9 Retention of urine, unspecified | CPT/HCPCS: 52000 ==

== ENCOUNTER → 2022-04-19 14:32 | Outpatient (BNVA) | payer MEDICARE, MEDICAID, SELFPAY | PROVIDERS: PCP Family Medicine; Referring Provider Family Medicine; Visit Provider Student in an Organized Health Care Education/Training Program | DX: M18.9 Osteoarthritis of first carpometacarpal joint, unspecified (principal) | CPT/HCPCS: 99213 ==

== ENCOUNTER → 2022-05-14 12:38 | Outpatient (BNVA) | payer MEDICARE, MEDICAID, SELFPAY | PROVIDERS: PCP Family Medicine; Visit Provider Urology | DX: Z43.5 Encounter for attention to cystostomy (principal); R33.9 Retention of urine, unspecified | CPT/HCPCS: 52000 ==

== ENCOUNTER → 2022-06-08 13:10 | Outpatient (BNVA) | payer MEDICARE, MEDICAID, SELFPAY | PROVIDERS: PCP Family Medicine; Referring Provider Family Medicine; Visit Provider Urology | DX: Z43.5 Encounter for attention to cystostomy (principal); R33.9 Retention of urine, unspecified | CPT/HCPCS: 51705 ==

== ENCOUNTER → 2022-07-06 12:46 | Outpatient (BNVA) | payer MEDICARE, MEDICAID, SELFPAY | PROVIDERS: PCP Family Medicine; Referring Provider Family Medicine; Visit Provider Urology | DX: Z43.5 Encounter for attention to cystostomy (principal); R33.9 Retention of urine, unspecified | CPT/HCPCS: 51705 ==

== ENCOUNTER 2022-07-15 04:20 | Inpatient (IN) | payer MEDICARE, MEDICAID, SELFPAY ==
[2022-07-15] VITALS (55 sets, daily range): BP systolic 92–138; BP diastolic 50–85; PULSE 64–89; RESP 12–29; TEMP 36–38; O2SAT 90–98
--- NOTE | 2022-07-15 | DI.US_ITS ---
APPROVED REPORT EXAM: Comprehensive 2D, Doppler, and color-flow Echocardiogram Patient Location: In-Patient Transfer Controller: Stephen Akhtar RDMS, RVT Indications: nstemi, eval LV function Other Information Study Quality: Fair. Technically limited study due to body habitus, inability to position patient exa m done supine. Conclusion Technically difficult and limited study Normal left ventricular wall thickness and chamber size. Ejection fraction is estimated at 55%. Wal l motion abnormalities cannot be excluded Grossly normal right ventricular size and systolic function Both atria are normal in size No structural or hemodynamically significant valvular abnormalities are seen Estimated right ventricular systolic pressure is 35 mmHg Mildly dilated ascending aorta Wall motion Left Ventricle The left ventricle is normal size. The overall left ventricular systolic function appears normal. The re is normal left ventricular wall thickness. Cannot exclude segmental wall motion abnormalities Ther e is no ventricular septal defect visualized. LVEF is 55%. Right Ventricle The right ventricle is normal size. Right ventricular systolic function is grossly normal. The RVSP i s 35.5 mmHg. Atria The left atrium size is normal. The right atrium size is normal. The interatrial septum is intact wit h no evidence for an atrial septal defect. Aortic Valve The aortic valve is normal in structure. Aortic valve is trileaflet. There is no aortic valvular sten osis. Trace aortic regurgitation. Mitral Valve The mitral valve is normal in structure. No evidence of mitral valve stenosis. Trace mitral regurgita tion. Tricuspid Valve The tricuspid valve is normal in structure. There is no tricuspid valve stenosis. Mild tricuspid reg urgitation. Pulmonic Valve The pulmonary valve is normal in structure. There is no pulmonic valvular stenosis. Mild pulmonic reg urgitation. Great Vessels The aortic root is normal in size. The ascending aorta is mildly dilated. Aortic arch is normal in ca liber. IVC is normal in size and collapses >50% with inspiration. Pericardium There is no pericardial effusion. Prominent anterior epicardial fat pad is present. 2D Dimensions IVSD d PLAX 0.65 cm F: 0.6-1.0 LVPW d PLAX 0.68 cm F: 0.6 - 1.0 LVID d PLAX 4.33 cm F: 3.8 - 5.2 LVDs 3.05 cm F: 2.2 - 3.5 Ao Root d 3.05 cm F: 2.7 - 3.3 Ao Asc Diam d 3.61 cm F: 2.3 - 3.1 LV EF Teichholz 55.1 % FS 28.40 % LV Diastology E/A Ratio 1.1 MV E Vmax 1.06 (0.4-1.3 m/s) MV A Vmax 1.00 (0.4-1.3 m/s) MV E/A Ratio 1.03 Aortic Valve LVOT Area 3.49 cm2 AoV Area Vmax 2.84 cm2 LVOT Vmax 1.10 m/s AoV Area/ BSA (Vmax) 1.45 cm2/m2 LVOT Mean Camilo. 0.80 m/s IRENE Mean Camilo. 2.61 cm2 LVOT Peak Grad 4.8 mmHg IRENE Mean Camilo. Index 1.33 cm2/m2 LVOT Mean Grad 2.8 mmHg LVOT VTI 0.222 m LVOT Diam s 2.10 cm AoV Vmax 1.35 m/s Velocity Ratio 0.81 AoV Mean Camilo. 1.07 m/s AoV Peak Grad 7.3 mmHg LVOT SV 77.43 mL AoV Mean Grad 4.8 mmHg AoV VTI 0.265 m AoV Area VTI 2.92 cm2 AoV Area/ BSA (VTI) 1.49 cm/m2 Mitral Valve MV DT 226 (160-240 msec) MV PHT 66 msec MV Area PHT 3.35 cm2 MV VTI 0.462 m MV Area VTI 1.68 (4.0-6.0 cm2) Pulmonary Valve PV Vmax 0.98 (0.5-1.5 m/s) RVOT Peak Gr. 2.72 mmHg PV Peak Grad 3.8 mmHg RVOT Mean Gr. 1.15 mmHg PV Mean Grad 2.2 mmHg RVOT VTI 0.171 m PV VTI 0.221 m RVOT Vmax 0.82 m/s Tricuspid Valve TR Peak Grad 32.5 mmHg TR Vmax 2.85 m/s RA Pressure 3.00 mmHg RVSP (TR) 35.5 mmHg
--- NOTE | 2022-07-15 04:15 | DI.CT_ITS ---
Exam(s) CT HEAD WO EXAM: CT HEAD WO CLINICAL HISTORY: confused, altered, fall. TECHNIQUE: Imaging Protocol: Axial computed tomography images with coronal and sagittal reformatted images were created and reviewed COMPARISON: No exams were available for comparison FINDINGS: Ventricles and Extra axial spaces: Normal in size and morphology for the patient's age. Hemorrhage: None. Cerebral parenchyma: There is no acute territorial infarct identified. Subtle areas of decreased att enuation are seen in the white matter which likely reflect small vessel ischemic disease. Midline shift: None. Brainstem/Cerebellum: Normal. Calvarium: Normal. No acute fracture. Visualized Paranasal sinuses/Mastoids: Clear. Soft Tissues: Unremarkable. IMPRESSION: No acute intracranial process. RADIATION DOSE DELIVERED: 806.95mGy.cm Total DLP DATA REPOSITORY: All CT scans at this facility are submitted to the National Radiology Data Registry (NRDR) Dose Index Registry (DIR) with the [employer] (A[employer]). RADIATION OPTIMIZATION: All CT scans at this facility use at least one of these dose optimization te chniques: automated exposure control; mA and/or kV adjustment per patient size (includes targeted exa ms where dose is matched to clinical indication); or iterative reconstruction.
--- NOTE | 2022-07-15 04:15 | RT.EKG_ITS ---
APPROVED REPORT Exam: Resting ECG Reason for Exam: ams Patient Location: E HR:78 bpm ECG Measurements Heart Rate 78 AXIS UT 152 P 50 QRSd 97 QRS -21 QT 390 T 59 QTc 442 Conclusion Sinus rhythm...normal P axis, V-rate 60- 99 Atrial premature complex...SV complex w/ short R-R interval Physician: no stemi
--- NOTE | 2022-07-15 04:15 | DI.CT_ITS ---
Exam(s) CT CHEST/ABD/PEL WO EXAM: CT CHEST/ABD/PEL WO CLINICAL HISTORY: fall, confused, low back and sacral pain TECHNIQUE: Imaging Protocol: Axial computed tomography images with coronal and sagittal reformatted images were created and reviewed COMPARISON: CT CT ABDOMEN PELVIS W from 05/28/2020 FINDINGS: CHEST: Tracheobronchial tree: Patent where visualized. Pulmonary parenchyma: There is dependent atelectasis. No focal consolidating infiltrates are seen. No architectural distortion. Mediastinum and Venessa: No dominant adenopathy or fluid collection. The esophagus is unremarkable. Thyroid gland: Unremarkable. Pleura: No effusion or pneumothorax. Heart: Mild cardiomegaly. No coronary artery calcifications are seen. No pericardial effusion. Aorta: Thoracic aorta non-dilated. Atherosclerosis. Lymph nodes: Within normal limits. Bones:Within normal limits for the patient's age. Posterior spinal rods are seen extending from the thoracic spine into the sacrum. There is a prominent reverse S-type scoliosis of the thoracolumbar s pine. Soft tissues: Unremarkable. ABDOMEN: Liver: Normal density. No measurable mass. Gallbladder and Biliary Tract: Sludge and calcifications are seen in the gallbladder. No biliary roxana byron dilatation is present. Pancreas: Normal density, no abnormal calcifications or inflammatory process. Spleen: Normal. Adrenals: No masses seen. Kidneys: Normal size, contour and axis. No radiodense stones or obstructive uropathy. No masses seen. Abdominal Aorta: Abdominal portion non-dilated. Atherosclerosis. Bowel: No obstruction or bowel wall thickening. There is diverticulosis of the colon, but no evidence of acute diverticulitis. There is a moderate amount of stool throughout the colon. Peritoneal Cavity: No ascites, collection or mesenteric inflammatory response. No free air. Lymph Nodes: Within normal limits. Bones: Within normal limits for the patient's age. Soft Tissues: There is a right paracentral anterior abdominal wall hernia containing an unremarkable loop of transverse colon. No evidence of bowel obstruction or incarceration. The hernia is not comp letely included on this examination. PELVIS: Bladder: There is a suprapubic catheter in place. Reproductive Organs: Status post hysterectomy. Lymph Nodes: Within normal limits. Bones: Within normal limits for the patient's age. IMPRESSION: 1. No evidence of organ injury or fracture. 2. No definite acute abdominal or pelvic process. 3. Dependent atelectasis in the lung bases. 4. Gallstones and/or sludge in the gallbladder. If indicated, further evaluation with ultrasound may be obtained. 5. Incompletely imaged anterior abdominal wall hernia containing an unremarkable loop of transverse c olon. There is no evidence of bowel obstruction. RADIATION DOSE DELIVERED: 1,371.72mGy.cm Total DLP 1,371.72mGy.cm Total DLP DATA REPOSITORY: All CT scans at this facility are submitted to the National Radiology Data Registry (NRDR) Dose Index Registry (DIR) with the [employer] (ACR). RADIATION OPTIMIZATION: All CT scans at this facility use at least one of these dose optimization te chniques: automated exposure control; mA and/or kV adjustment per patient size (includes targeted exa ms where dose is matched to clinical indication); or iterative reconstruction.
--- NOTE | 2022-07-15 04:30 | ED.GENADUL_ITS ---
Discharge Plan Disposition Patient Disposition: Admit to [facility] Condition: Good Discharge Details Chief Complaint: AMS/LOC Clinical Impression: Non-ST elevation NV (NSTEMI), Acute UTI, Acute confusion Primary Care Provider: Letitia Shah ED Provider: Derrick Meyers Home Meds and New Rx's Prescriptions: No Action Excedrin Extra Strength 250-250-65 mg tablet 1 tab PO Q6H PRN (Reason: headache) Patient Comments: usually uses bid triamcinolone acetonide 0.025 % cream 1 applic topical DAILY Qty: 454 0RF Myrbetriq 50 mg tablet extended release 24 hr 50 mg PO DAILY Qty: 90 3RF fluoxetine 20 mg capsule 20 mg PO DAILY Qty: 30 12RF duloxetine 30 mg capsule,delayed release(DR/EC) 30 mg PO DAILY Qty: 30 12RF allopurinol 300 mg tablet 300 mg PO DAILY Qty: 30 12RF pantoprazole 40 mg tablet,delayed release (DR/EC) 40 mg PO DAILY Qty: 30 12RF simvastatin 40 mg tablet 40 mg PO QPM Qty: 30 12RF oxybutynin chloride 5 mg tablet extended release 24hr 5 mg PO DAILY Qty: 30 1RF melatonin 3 mg tablet 3 mg PO Q6PM PRN (Reason: sleep) Qty: 90 3RF gabapentin 600 mg tablet 600 mg PO BID Qty: 60 6RF Rexulti 3 mg tablet 3 mg PO DAILY Qty: 30 11RF lamotrigine 200 mg tablet 300 mg PO DAILY Qty: 45 11RF Rx Instructions: Take 1/2 tab (100mg) in AM and 1 tab (200mg) in evening cholecalciferol (vitamin D3) 25 mcg (1,000 unit) capsule 1,000 unit PO DAILY Qty: 30 2RF acetaminophen 500 mg capsule 1,000 mg PO Q8H PRN PRNQty: 30 0RF aspirin 81 mg tablet,delayed release (DR/EC) 81 mg PO BID Qty: 60 0RF ibuprofen 600 mg tablet 600 mg PO TID Qty: 30 0RF Medical Decision Making This is a 67-year-old female with a past medical history of learning disability, depression, high cholesterol, abdominal hernia, chronic difficulty with urinary emptying which subsequently led to an indwelling Beaver catheter which per urology has been challenging to switch out in regards to achieving ideal placement in the bladder, and hence has needed to undergo guided urology placement, presents today via EMS for confusion and buttock and low back pain. EMS was called as the patient was on the floor and could not get up. She lives alone. Upon their arrival she was still on the floor and unable to get up or ambulate. She is complaining of buttock pain. She was noted to have a fever of 100.4. Urine was cloudy. She was brought to the ER for further assessment. Son feels that the patient is more confused compared to normal. Patient denies hitting her head or falling. She denies chest pain or abdominal pain. She does admit to low and mid back pain. Patient is otherwise not a reliable historian. Son is currently not present. No other complaints at this time. No other modifying factors. Physical exam demonstrates a slightly confused female, no nuchal rigidity. ANO x3 but slightly delayed in mentation which apparently is not baseline per family. No purulence around the suprapubic area catheter, no redness in this area. Patient does have a grade 1 to grade 2 pressure ulcer in the sacrococcygeal area. Questionable tinea infection as well. Evaluation of the patient's buttock and lower spine demonstrate generalized tenderness throughout without focality. Differential is concerning for mild pneumonia, UTI, potential fracture secondary to fall. We will evaluate for these etiologies, monitor closely and reassess. 6:55 AM Laboratory work-up demonstrates elevated white count, moderate left shift, VBG stable, electrolytes stable. Creatinine stable. Troponin is mildly elevated at 390. Procalcitonin elevated at 3.2. Urinalysis shows notable WBCs, large leuk esterase, positive nitrites. CT scan of the head negative for acute process. CT scan of the chest abdomen pelvis and buttock demonstrate no acute fracture. There is a large hernia which was already known, symptoms are not consistent with strangulated hernia at this time based on exam, absence of abdominal tenderness, and no signs of incarceration on clinical exam at this time. I did contact [facility] and discussed the case with Dr. Telles in regards to the elevated troponin. Based on the EKG, the patient's symptoms, and the patient's lack of chest pain it is felt that this is an NSTEMI. Related to demand ischemia. EKG shows no evidence of STEMI. He recommends trending the troponins, and getting an echo. He recommends holding off on heparin at this time or Plavix load. If troponins continue to skyrocket, or echo shows focal acute abnormality, he does recommend heparinizing and close follow-up with [facility] cardiology team. Patient is otherwise stable. Broad-spectrum antibiotics of vancomycin and Zosyn have already been started. Will reach out to the hospitalist team for admission. Discussed the case with the hospitalist Dr. Williamson and Dr. Metcalf. They agree with admission. I have extensively reviewed the treatment plan with the patient. I have addressed all patient concerns at this time. I have also discussed the plan with the admitting physician and they agree with the current assessment and plan and have agreed to assume responsibility for the patient. All parties demonstrate verbal understanding and agreement with our assessment and plan at this time. The documentation in this chart was dictated using [employer] dictation software. Please excuse any dictation errors. FINDINGS: Brain: No intracranial hemorrhage, mass effect, midline shift, or extra-axial collection. No acute territorial infarct. Sulci are normal in size for patient's age. Patchy hypoattenuation in the periventricular, deep, and subcortical white matter is most compatible with mild chronic microangiopathy. Cerebral ventricles: Normal in size for patient's age. Paranasal sinuses: The paranasal sinuses are clear bilaterally, without air- fluid levels. Mastoid air cells: The mastoid air cells are clear bilaterally. Bones/joints: Hyperostosis frontalis interna. No depressed calvarial fracture. Soft tissues: Extracranial soft tissues are unremarkable. IMPRESSION: No acute intracranial abnormality. No intracranial hemorrhage or depressed calvarial fracture. Thank you for allowing us to participate in the care of your patient. FINDINGS: Limitations: Beam hardening artifact related to positioning of the patient's arms. Lungs: Moderate dependent changes at the right lung base. No acute lung infiltrates. No suspicious pulmonary nodules. Pleural spaces: Unremarkable. No pneumothorax. No pleural effusion. Heart: Mild cardiomegaly. Lymph nodes: Unremarkable. No enlarged lymph nodes. Vasculature: Unremarkable. No aortic aneurysm. Bones/joints: Rotatory scoliosis, with moderate to marked dextroscoliosis of the thoracic spine. Bilateral Barboza rods, which are intact and in good position, extending from the lower thoracic spine to the sacrum. Solid bony fusion of the posterior elements in the mid to lower thoracic spine. No acute or suspicious osseous abnormalities. Soft tissues: Unremarkable. IMPRESSION: 1. No acute traumatic injuries identified in the chest. 2. Please refer to separately dictated abdomen pelvis CT report for description of findings in this region. FINDINGS: Limitations: No oral or intravenous contrast. Beam hardening artifact from posterior spinal fixation hardware. The anterior aspect of the abdomen is outside of the field of view, due to limitations in patient positioning. Liver: Normal. No mass. Gallbladder and bile ducts: Mild to moderately hyperattenuating material in the dependent aspect of the gallbladder. No biliary dilatation. Pancreas: Normal. No ductal dilation. Spleen: Normal. No splenomegaly. Adrenal glands: Normal. No mass. Kidneys and ureters: Bilateral extrarenal pelves. Otherwise unremarkable kidneys. Stomach and bowel: Scattered colonic diverticula, without evidence of diverticulitis. An umbilical hernia contains an incompletely imaged loop of transverse colon (previously the hernia contained only fat). No other gross bowel abnormalities. No bowel obstruction. Appendix: Normal appendix. Intraperitoneal space: Unremarkable. No free air. No significant fluid collection. Vasculature: Unremarkable. No abdominal aortic aneurysm Lymph nodes: Unremarkable. No enlarged lymph nodes. Urinary bladder: Unremarkable as visualized. Reproductive: Uterus surgically absent. Bones/joints: Rotatory scoliosis. Bilateral Barboza rods.The visualized portions of the surgical hardware are intact and in good position, without evidence of loosening. Solid bony fusion of the posterior elements of the lumbar spine. No acute or suspicious osseous abnormalities. Soft tissues: See Stomach and bowel findings. The neck of the umbilical hernia measures approximately 3 cm. Laxity of the anterior abdominal wall musculature. IMPRESSION: 1. No acute traumatic injuries identified in the abdomen and pelvis. 2. An umbilical hernia contains an incompletely imaged loop of transverse colon. No definite inflammatory changes. Previously, the umbilical hernia contains only fat. 3. There may be gallstones and/or sludge in the gallbladder. No secondary signs of acute cholecystitis. If indicated, this finding can be further assessed with ultrasound. Thank you for allowing us to participate in the care of your patient. Dictated and Authenticated by: Flavia Robles MD 07/15/2022 6:37 AM Eastern Time ([place] & [place]) HPI General Date/Time Provider Initiated Documentation: 07/15/22 04:26 . HPI Narrative: This is a 67-year-old female with a past medical history of learning disability, depression, high cholesterol, abdominal hernia, chronic difficulty with urinary emptying which subsequently led to an indwelling Beaver catheter which per urology has been challenging to switch out in regards to achieving ideal placement in the bladder, and hence has needed to undergo guided urology placement, presents today via EMS for confusion and buttock and low back pain. EMS was called as the patient was on the floor and could not get up. She lives alone. Upon their arrival she was still on the floor and unable to get up or ambulate. She is complaining of buttock pain. She was noted to have a fever of 100.4. Urine was cloudy. She was brought to the ER for further assessment. Son feels that the patient is more confused compared to normal. Patient denies hitting her head or falling. She denies chest pain or abdominal pain. She does admit to low and mid back pain. Patient is otherwise not a reliable historian. Son is currently not present. No other complaints at this time. No other modifying factors. Related Data Home Medications Medication Instructions Recorded Confirmed [id number] 250 1 tab PO Q6H PRN headache 07/10/21 06/25/22 mg-250 mg-65 mg tablet (Excedrin Extra Strength) triamcinolone acetonide 0.025 % 1 applic topical DAILY #454 grams 10/02/21 06/25/22 topical cream acetaminophen 500 mg capsule 1,000 mg PO Q8H PRN PRN #30 caps 11/18/21 06/25/22 aspirin 81 mg tablet,delayed 81 mg PO BID #60 tabs 11/18/21 06/25/22 release ibuprofen 600 mg tablet 600 mg PO TID #30 tabs 11/18/21 06/25/22 gabapentin 600 mg tablet 600 mg PO BID #60 tabs 02/01/22 06/25/22 brexpiprazole 3 mg tablet (Rexulti) 3 mg PO DAILY #30 tabs 02/05/22 06/25/22 lamotrigine 200 mg tablet 300 mg PO DAILY #45 tabs 02/05/22 06/25/22 mirabegron 50 mg tablet,extended 50 mg PO DAILY bladder spasm #90 02/05/22 07/09/22 release 24 hr (Myrbetriq) tabs allopurinol 300 mg tablet 300 mg PO DAILY #30 tabs 02/09/22 06/25/22 duloxetine 30 mg capsule,delayed 30 mg PO DAILY #30 caps 02/09/22 06/25/22 release fluoxetine 20 mg capsule 20 mg PO DAILY #30 caps 02/09/22 06/25/22 pantoprazole 40 mg tablet,delayed 40 mg PO DAILY #30 tabs 02/09/22 06/25/22 release simvastatin 40 mg tablet 40 mg PO QPM #30 tabs 02/09/22 06/25/22 cholecalciferol (vitamin D3) 25 1,000 unit PO DAILY #30 caps 05/12/22 06/25/22 mcg (1,000 unit) capsule melatonin 3 mg tablet 3 mg PO Q6PM PRN sleep #90 tabs 05/21/22 06/25/22 oxybutynin chloride 5 mg 5 mg PO DAILY #30 tabs 06/08/22 07/09/22 tablet,extended release 24 hr Previous Rx's Medication Instructions Recorded triamcinolone acetonide 0.025 % 1 applic topical DAILY #454 grams 10/02/21 topical cream acetaminophen 500 mg capsule 1,000 mg PO Q8H PRN PRN #30 caps 11/18/21 aspirin 81 mg tablet,delayed 81 mg PO BID #60 tabs 11/18/21 release ibuprofen 600 mg tablet 600 mg PO TID #30 tabs 11/18/21 gabapentin 600 mg tablet 600 mg PO BID #60 tabs 02/01/22 brexpiprazole 3 mg tablet (Rexulti) 3 mg PO DAILY #30 tabs 02/05/22 lamotrigine 200 mg tablet 300 mg PO DAILY #45 tabs 02/05/22 mirabegron 50 mg tablet,extended 50 mg PO DAILY bladder spasm #90 02/05/22 release 24 hr (Myrbetriq) tabs allopurinol 300 mg tablet 300 mg PO DAILY #30 tabs 02/09/22 duloxetine 30 mg capsule,delayed 30 mg PO DAILY #30 caps 02/09/22 release fluoxetine 20 mg capsule 20 mg PO DAILY #30 caps 02/09/22 pantoprazole 40 mg tablet,delayed 40 mg PO DAILY #30 tabs 02/09/22 release simvastatin 40 mg tablet 40 mg PO QPM #30 tabs 02/09/22 cholecalciferol (vitamin D3) 25 1,000 unit PO DAILY #30 caps 02/22/23 mcg (1,000 unit) capsule melatonin 3 mg tablet 3 mg PO Q6PM PRN sleep #90 tabs 05/21/22 oxybutynin chloride 5 mg 5 mg PO DAILY #30 tabs 06/08/22 tablet,extended release 24 hr Allergies Allergy/AdvReac Type Severity Reaction Status Date / Time codeine AdvReac Intermediate NAUSEA/DIZZ Verified 07/15/22 04:32 INESS General Stated Complaint: AMS/LOC JAMILA: 3 Review of Systems All systems reviewed & are unremarkable except as noted in HPI and below PFSH All Active Problems (Updated 07/15/22 @ 07:36 by Derrick Meyers DO) Non-ST elevation NV (NSTEMI) (Acute) Acute UTI (Acute) Acute confusion (Acute) Vitamin D deficiency (Acute 08/17/12) Right shoulder pain (Chronic 09/10/14) chronic pain, no surgery hx. Psoriasis (Chronic 04/16/13) Neck pain (Acute) w/ muscle spasm, secondary to scoliosis Hyperlipidemia (Chronic 08/17/12) Headache (Acute) secondary to scoliosis & neck muscle spasm Depressive disorder (Chronic) bipolar 02/25-[facility] Retention of urine (Acute) Conductive hearing loss, external ear (Acute) uses hearing aids Anemia (Chronic) Learning disability (Chronic) per sister(Callie)Jackelin has a long history of being able to comprehend verbal material and needs written materials along with short repetitive explanations. 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) Candidiasis of breast Gallstones Gastritis presumed (improved symptoms on omeprazole) Hernia of abdominal wall Idiopathic scoliosis w/ Chronic LBP; surgery-1969,1971, 1990, 1995, 1997 ([facility]) Postoperative hemorrhage Pyoderma gangrenosum (09/15/12) Tubular adenoma (08/09/16) Surgical History Colonoscopy - IV Sedation (08/09/16) H/O left wrist surgery Previous back surgery Status post laparoscopic hysterectomy Family History Father , 63 Lung cancer Sister Depression Sister COPD (chronic obstructive pulmonary disease) Grandmother Breast cancer Son Depression Mother , 93 Old age Social History Smoking/Tobacco Use Status: Never Second Hand Exposure: Yes Smoking risk assessment performed?: Yes Alcohol Intake: never Counseling given: No Drug use: Never Substance use type: does not use Counseling provided: none Caregiver/Support person: No Household members: none Housing: apartment Number of Children: 3 number of grandchildren: 3 Communication Needs: None Education Level: high school Do you need help understanding health information?: Rarely 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 Pets and animals: No Sexually active: No Do you think of yourself as: straight/heterosexual Current gender identity: female What is your relationship status?: How often do you talk on the phone with friends or family?: decline to answer How often do you get together with friends or relatives?: decline to answer How often do you attend temple or jain services?: decline to answer Do you belong to any clubs or organized social groups?: no Panel score (0-1 are the most socially isolated patients): 0 What type of physical activity do you participate in: none Pari/Holiness: Orthodox Special pari needs: No Seatbelt use: always Helmet use: No Drive intox or ride w/intox oil transport driver: No Do you feel safe at home: Yes Do you feel safe in your relationship?: Yes Exam Narrative Exam Narrative: 1.Const: Well-nourished, Well-developed, appearing stated age 2.Eyes: PERRL, no conjunctival injection, and symmetrical lids. 3.ENT: Atraumatic external nose and ears. Dry MM. Neck: Symmetric, trachea midline, No thyromegaly. 4.CVS: +S1/S2, No murmurs or gallops. Peripheral pulses 2+ and equal in all extremities. Brisk capillary refill in all extremities. 5.RESP: Unlabored respiratory effort. Mild crackles left lower lung field 6.GI: Soft, Nontender/Nondistended, No hepatosplenomegaly. No guarding or rebound. Suprapubic catheter in place. No purulent drainage. No significant erythema. 7.MSK: Normocephalic/Atraumatic, Extremities w/o deformity or ttp No cyanosis or clubbing, Normal movement of all extremities. Mild generalized tenderness of the lower lumbar region throughout, no focality. 8.Skin: Warm, Dry. Evaluation of the patient's buttocks demonstrates a grade 1 to grade 2 pressure ulcer in the sacral coccygeal region. 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 Sensation grossly intact, no focal neurologic deficits. 10.Psych: (AAO) x3. Appropriate mood and affect Course Vital Signs Vital signs: Vital Signs Temperature 36.9 C 07/15/22 04:21 Pulse 77 07/15/22 04:21 Respiratory Rate 18 07/15/22 04:21 Blood Pressure 95/60 L 07/15/22 04:21 Pulse Oximetry 95 07/15/22 04:21 Temperature 36.9 C 07/15/22 04:21 Temperature Source Oral 07/15/22 04:21 Pulse 77 07/15/22 04:21 Respiratory Rate 18 07/15/22 04:21 Blood Pressure 95/60 L 07/15/22 04:21 Blood Pressure Position Sitting 07/15/22 04:21 Pulse Oximetry 95 07/15/22 04:21 Oxygen Delivery Method Room Air 07/15/22 04:21 Oxygen Flow Rate 0 07/15/22 04:21 Lab/Test Results Lab/Test Results: 07/15/22 04:27 Blood Blood Culture - Pending 07/15/22 04:27 Blood Blood Culture - Pending
[2022-07-15 04:56] LABS: BE (Venous) 5 mmol/L (-2-3); HCO3 (Venous) 30 mmol/L (23-28); O2 Sat (Venous) 83 %; TCO2 (Venous) 28 mmol/L (24-29); pCO2 (Venous) 53 mmHg (41-51); pH (Venous) 7.36 (7.31-7.41); pO2 (Venous) 46 mmHg
[2022-07-15 04:58] LABS: Lactate 1.1 mmol/L (0.6-1.4)
[2022-07-15 05:00] LABS: Abs Immature Grans 0.04 10^3/uL (0.0-0.06); Absolute Basophil Count 0.03 10^3/uL (0.0-0.2); Absolute Lymphocyte Count 0.62 10^3/uL (1.2-3.4); Absolute Monocyte Count 1.14 10^3/uL (0.1-0.8); Absolute Neutrophil Count 11.93 10^3/uL (1.2-6.7); Basophils % 0.2; HCT 32.2 % (36.0-46.0); HGB 10.4 g/dL (11.2-15.7); Immature Grans % 0.3; Lymphocytes % 4.5; MCH 30.6 pg (27.0-33.0); MCHC 32.3 % (32.0-36.0); MCV 95 fL (80-95); MPV 10.2 fL (8.0-11.0); Monocytes % 8.3; Neutrophils % 86.7; Platelet Count 214 10^3/uL (130-400); RDW 13.2 % (11.7-14.6); RDW-SD 45.1 fL; WBC 13.76 10^3/uL (4.4-10.8)
[2022-07-15 05:16] LABS: ALT 12 U/L (14-59); AST 12 U/L (15-37); Albumin 3.5 g/dL (3.4-5.0); Alkaline Phosphatase 77 U/L (46-116); BUN 15 mg/dL (7-18); Bilirubin, Total 0.6 mg/dL (0.2-1.0); CREATININE 1.1 mg/dL (0.55-1.02); Calcium 8.6 mg/dL (8.5-10.1); Chloride 100 mmol/L (98-107); Estimated GFR 54.39 (mL/min/1.73m2); Glucose 148 mg/dL (74-106); Potassium 3.6 mmol/L (3.5-5.1); Sodium 136 mmol/L (136-145); Total Protein 6.4 g/dL (6.4-8.2)
[2022-07-15 05:17] LABS: Creatine Kinase 147 U/L (26-192)
[2022-07-15 05:21] LABS: Bilirubin Negative (Negative); Blood Small (Negative); Clarity Cloudy (Clear); Glucose Negative (Negative); Ketones Negative (Negative); Leukocyte Esterase Large (Negative); Nitrite Positive (Negative); Urobilinogen 0.2 mg/dL (Up to 0.2); pH 5.5 (5-8)
[2022-07-15 05:22] LABS: Troponin I 390 ng/L (<or=60)
[2022-07-15 05:28] LABS: Bacteria Many HPF (Negative); WBC >50 HPF (0-5)
[2022-07-15 05:29] LABS: C & S Indicated? Yes
[2022-07-15 05:37] LABS: Procalcitonin 3.2 ng/mL
[2022-07-15 05:51] LABS: COVID-19 PCR Negative (Negative); Influenza A PCR Negative (Negative); Influenza B PCR Negative (Negative); RSV PCR Negative (Negative)
[2022-07-15 06:01] LABS: Source Nasopharynx
--- NOTE | 2022-07-15 06:08 | DI.VRAD_ITS ---
PROCEDURE INFORMATION: Exam: CT Head Without Contrast Exam date and time: 07/15/2022 5:18 AM Age: 67 years old Clinical indication: Other: Confused, altered, fall TECHNIQUE: Imaging protocol: Computed tomography of the head without contrast. Radiation optimization: All CT scans at this facility use at least one of these dose optimization techniques: automated exposure control; mA and/or kV adjustment per patient size (includes targeted exams where dose is matched to clinical indication); or iterative reconstruction. COMPARISON: No relevant prior studies available. FINDINGS: Brain: No intracranial hemorrhage, mass effect, midline shift, or extra-axial collection. No acute territorial infarct. Sulci are normal in size for patient's age. Patchy hypoattenuation in the periventricular, deep, and subcortical white matter is most compatible with mild chronic microangiopathy. Cerebral ventricles: Normal in size for patient's age. Paranasal sinuses: The paranasal sinuses are clear bilaterally, without air-fluid levels. Mastoid air cells: The mastoid air cells are clear bilaterally. Bones/joints: Hyperostosis frontalis interna. No depressed calvarial fracture. Soft tissues: Extracranial soft tissues are unremarkable. IMPRESSION: No acute intracranial abnormality. No intracranial hemorrhage or depressed calvarial fracture. Dictated and Authenticated by: Vilma Jay MD. Ordering:SINCERE Meza MD
--- NOTE | 2022-07-15 06:37 | DI.VRAD_ITS ---
PROCEDURE INFORMATION: Exam: CT Chest Without Contrast; Diagnostic Exam date and time: 07/15/2022 5:20 AM Age: 67 years old Clinical indication: Other: Fall, confused, low back and sacral pain; Prior surgery; Surgery date: 6+ months; Surgery type: 5x pine surgery TECHNIQUE: Imaging protocol: Diagnostic computed tomography of the chest without contrast. 3D rendering (Not supervised by radiologist): MIP and/or 3D reconstructed images were created by the technologist. Radiation optimization: All CT scans at this facility use at least one of these dose optimization techniques: automated exposure control; mA and/or kV adjustment per patient size (includes targeted exams where dose is matched to clinical indication); or iterative reconstruction. COMPARISON: CT ABDOMEN PELVIS W 05/28/2020 4:57 PM FINDINGS: Limitations: Beam hardening artifact related to positioning of the patient's arms. Lungs: Moderate dependent changes at the right lung base. No acute lung infiltrates. No suspicious pulmonary nodules. Pleural spaces: Unremarkable. No pneumothorax. No pleural effusion. Heart: Mild cardiomegaly. Lymph nodes: Unremarkable. No enlarged lymph nodes. Vasculature: Unremarkable. No aortic aneurysm. Bones/joints: Rotatory scoliosis, with moderate to marked dextroscoliosis of the thoracic spine. Bilateral Barboza rods, which are intact and in good position, extending from the lower thoracic spine to the sacrum. Solid bony fusion of the posterior elements in the mid to lower thoracic spine. No acute or suspicious osseous abnormalities. Soft tissues: Unremarkable. IMPRESSION: 1. No acute traumatic injuries identified in the chest. 2. Please refer to separately dictated abdomen pelvis CT report for description of findings in this region. PROCEDURE INFORMATION: Exam: CT Abdomen And Pelvis Without Contrast Exam date and time: 07/15/2022 5:20 AM Age: 67 years old Clinical indication: Other: Fall, confused, low back and sacral pain; Prior surgery; Surgery date: 6+ months; Surgery type: 5x pine surgery TECHNIQUE: Imaging protocol: Computed tomography of the abdomen and pelvis without contrast. 3D rendering (Not supervised by radiologist): MIP and/or 3D reconstructed images were created by the technologist. Radiation optimization: All CT scans at this facility use at least one of these dose optimization techniques: automated exposure control; mA and/or kV adjustment per patient size (includes targeted exams where dose is matched to clinical indication); or iterative reconstruction. COMPARISON: CT ABDOMEN PELVIS W 05/28/2020 4:57 PM FINDINGS: Limitations: No oral or intravenous contrast. Beam hardening artifact from posterior spinal fixation hardware. The anterior aspect of the abdomen is outside of the field of view, due to limitations in patient positioning. Liver: Normal. No mass. Gallbladder and bile ducts: Mild to moderately hyperattenuating material in the dependent aspect of the gallbladder. No biliary dilatation. Pancreas: Normal. No ductal dilation. Spleen: Normal. No splenomegaly. Adrenal glands: Normal. No mass. Kidneys and ureters: Bilateral extrarenal pelves. Otherwise unremarkable kidneys. Stomach and bowel: Scattered colonic diverticula, without evidence of diverticulitis. An umbilical hernia contains an incompletely imaged loop of transverse colon (previously the hernia contained only fat). No other gross bowel abnormalities. No bowel obstruction. Appendix: Normal appendix. Intraperitoneal space: Unremarkable. No free air. No significant fluid collection. Vasculature: Unremarkable. No abdominal aortic aneurysm. Lymph nodes: Unremarkable. No enlarged lymph nodes. Urinary bladder: Unremarkable as visualized. Reproductive: Uterus surgically absent. Bones/joints: Rotatory scoliosis. Bilateral Barboza rods.The visualized portions of the surgical hardware are intact and in good position, without evidence of loosening. Solid bony fusion of the posterior elements of the lumbar spine. No acute or suspicious osseous abnormalities. Soft tissues: See Stomach and bowel findings. The neck of the umbilical hernia measures approximately 3 cm. Laxity of the anterior abdominal wall musculature. IMPRESSION: 1. No acute traumatic injuries identified in the abdomen and pelvis. 2. An umbilical hernia contains an incompletely imaged loop of transverse colon. No definite inflammatory changes. Previously, the umbilical hernia contains only fat. 3. There may be gallstones and/or sludge in the gallbladder. No secondary signs of acute cholecystitis. If indicated, this finding can be further assessed with ultrasound. Dictated and Authenticated by: Flavia Robles MD. Ordering:SINCERE Meza MD
[2022-07-15] MEDS: PIPERACILLIN/TAZO 4.5 GM in Normal Saline 100 ML IVPB (06:38)
[2022-07-15] MEDS: Aspirin 325 MG TAB PO (06:38)
[2022-07-15] MEDS: VANCOMYCIN/WATER (PEG) 2 GM/400 ML BAG IV (07:51)
--- NOTE | 2022-07-15 07:56 | NUR.NOTE ---
Nursing Note: Leon Barr son [phone]
[2022-07-15 08:28] LABS: Troponin I 420 ng/L (<or=60)
--- NOTE | 2022-07-15 08:46 | PDOC.ERCMIN ---
- If Service Date Differs Date of service: 07/15/22 Time of Service: 08:46 Care Management Initial Assess REASON FOR HOSPITALIZATION:: Type II NSTEMI, Acute UTI PAST MEDICAL HISTORY/PAST SURGICAL HISTORY:: All Active Problems: Non-ST elevation NC (NSTEMI) (Acute), Acute UTI (Acute), Acute confusion (Acute), Vitamin D deficiency (Acute 08/17/12),. Right shoulder pain (Chronic 09/10/14) - chronic pain, no surgery hx, Psoriasis (Chronic 04/16/13), Neck pain (Acute) - w/ muscle spasm, secondary to scoliosis, Hyperlipidemia (Chronic 08/17/12), Headache (Acute) - secondary to scoliosis & neck muscle spasm, Depressive disorder (Chronic) - bipolar 02/25-[facility], Retention of urine (Acute), Conductive hearing loss, external ear (Acute) - uses hearing aids, Anemia (Chronic), Learning disability (Chronic) - per sister(Callie), Jackelin has a long history of being able to comprehend verbal material and needs written materials along with short repetitive explanations, Impacted cerumen, bilateral (Acute), Osteoarthritis of CMC joint of thumb (Acute) - right: injection 07/27/2021 - S/p trapezial resection 11/18/2021, and Fasting hyperglycemia (Acute). 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 Postoperative hemorrhage, Pyoderma gangrenosum (09/15/12), and Tubular adenoma (08/09/16). Surgical History: Colonoscopy - IV Sedation (08/09/16), H/O left wrist surgery, Previous back surgery, and Status post laparoscopic hysterectomy. PREVIOUS FUNCTIONAL STATUS/SOCIAL/FAMILY SUPPORTS:: Jackelin resides alone in an apartment at [facility]. She has [facility] high/highest needs support and her case management specialist is Patti Anderson. Jackelin states she has homemaker services 1x/week, Her support system consists of her sons, sisters, and several friends. CURRENT FUNCTIONAL STATUS:: Jackelin is lying in bed when CM comes to meet with her. She is asleep but wakes easily. She answers questions asked of her but gives short answers and does not elaborate. She is clearly tired and not feeling well. ADVANCE DIRECTIVES:: None on file. Has patient been provided with info about the portal/API?: Yes Did the patient sign up for the portal?: No CODE STATUS:: Full Code INSURANCE COVERAGE / FINANCIAL ISSUES:: Medicare and Medicaid. CURRENT HOME/COMMUNITY SERVICES/EQUIPMENT:: [facility] High/Highest Needs, Patti Anderson is case management specialist. Rollator walker and cane. Jackelin uses [facility] for transportation needs. PRIMARY CARE PHYSICIAN:: Letitia Shah MD ([facility]). POTENTIAL DISCHARGE NEEDS:: Follow up appointments with PCP and cardiology. PATIENT/FAMILY EDUCATION NEEDS:: Review of discharge instructions including medication, limitations and follow up plan of care; discuss Ask Me Three and self management. ANTICIPATED BARRIERS TO DISCHARGE:: None identified at this time. TRANSPORTATION:: To be determined based on disposition. PLAN:: Plan is undetermined at this time and will be based on progress. Patient will either return home with a resumption of [facility] high/highest needs when medically cleared vs. rehab to regain strength. CM will continue to follow.
[2022-07-15] MEDS: Allopurinol 300 MG TAB PO (10:30)
[2022-07-15] MEDS: FLUoxetine 20 MG CAP PO (10:30)
[2022-07-15] MEDS: Oxybutynin-CR 5 MG TABCR PO (10:30)
[2022-07-15] MEDS: Gabapentin 600 MG TAB PO ×2 (10:30→20:24)
[2022-07-15] MEDS: Aspirin E.C. 81 MG TABEC PO ×2 (10:30→20:24)
[2022-07-15] MEDS: Mirabegron 50 MG TABCR PO (10:30)
[2022-07-15] MEDS: DULoxetine 30 MG CAP PO (10:30)
[2022-07-15] MEDS: Enoxaparin 40 MG/0.4 ML SYR SC (10:31)
--- NOTE | 2022-07-15 12:22 | HPE_ITS ---
Date of service: 07/15/22 Time of Service: 12:22 Assessment and Plan Assessment and plan (1) Sepsis: Status: Acute Assessment and plan: patient met criteria for sepsis from UTI. She has improved w/ iv fluids and initiation of antibiotics. She has not required vasopressors. I will ask Dr. Zamora to change out her suprpubic catheter. CT of her abdomen did not show any nephrolithiasis nor any obstruction or abscess, so I expect she will respond to antibiotics. I went over advance directives w/ her and she does want full resuscitation in the event of CP arrest/failure. Her sons were present to saul ss her response. Continue support w/ Zosyn, iv fluids, antiemetics, and Tylenol. Professional time spent interviewing and examining patient, discussion of goals of care with hospital team (care management, nursing and consulting professionals) was 60 minutes. (2) Acute UTI: Status: Acute Assessment and plan: as above (3) Non-ST elevation NC (NSTEMI): Status: Acute Assessment and plan: likely type II demand ischemia, does not seem to be a plaque rupture. continue aspirin, statins, check echo results, monitor serial troponin. I informed her sons and the patient that she ought to have a stress MPI as outpatient after recovery from her infection, to stratify her risks for future ischemic events. (4) Metabolic encephalopathy: Status: Acute Assessment and plan: her acute confusion seems to be clearing. will monitor; try to avoid any sedatives or opioid pain meds. (5) Anemia: Status: Chronic Assessment and plan: stable chronic anemia. It appears that her iron levels have not been checked in couple years. I will get stool for OB and check her serum iron, ferritin, TIBC, transerrin and B12 and folate levels. She has hx of GERD adn takes a PPI but also is on aspirin. I will keep her on a PPI but she may not be absorbing her B12 or her iron. Qualifiers: Anemia type: unspecified type Qualified Code(s): D64.9 - Anemia, unspecified (6) Sacral decubitus ulcer: Status: Acute Assessment and plan: she has early decubitus forming over her sacrum. will ask for wound care nursing consult. in the interim will have nurses apply Clay cream (clotrimazole, A&D ointment and Zinc oxide) (7) Tinea: Status: Acute Assessment and plan: patient has tinea cruris and tinea corpora (under breasts), will have nursing apply nystatin powder (8) Discharge planning issues: Status: Acute Assessment and plan: full code per her wishes. I expect she will return home when medically stable and can take po antibiotics. History of Present Illness History of Present Illness Chief Complaint: confused, unable to get off floor Narrative: 67 yr old female w/ PMH of scoliosis, hx of multiple back surgeries dating back to childhood who lives alone and last night called her sister in [place] to tell her that she was on the floor and could not get up. Patient does not recall how she ended up on the floor. She does not recall having syncope event. She denies any chest pain, pressure or dyspnea. She did endorse dysuria and has hx of frequent UTI, and urinary retention and sees Dr Zamora for management of suprapubic catheter changes. The patient was confused when she called her sister in [place] and thought that her sister was here in [place]. Her sister notified her sons who live in [place] and [facility] (the patient livers in [place]). Her son, Leon, in [place] called 911 for her and she was brought to the E.D. where she was found to have a UTI and signs of sepsis w/ WBC 13,760 w/ left shift, elevate procalcitonin of 3.2 and elevated troponin of 390. EKG did not show any ischemic changes. Patient was given bolus of NS x 500 mL and after blood and urine cultures were obtained, started on Zosyn and Vancomycin. Dr. Mira E.D. provider, called [facility] cardiology and spoke w/ Dr. Tamiko martinez who did not recommend heparinization, nor Plavix but agreed w/ aspirin and treating her for her UTI/sepsis and felt that her troponin leak was secondary to demand ischemia. He did recommend checking an echocardiogram and trending her troponin I levels. He did indicate that if she gets chest pain or her troponins rise significantly or there are EKG changes or wall motion abnormalities, then recontact [facility] cardiology. Patient still states that she does not have any chest pain/pressure nor any dyspnea. Troponin I level has plateaued at 420 and have declined now to 326. Patient has been admitted to med/surg on telemetry for treatment of UTI w/ early sepsis and type II NSTEMI. She will be monitored on telemetry, serial troponin levels will be monitored and echocardiogram will be done. She remains on Zosyn but I did not renew her Vancomycin. CT of her head did not show any acute focal abnormalities, she has subtle bilateral white matter attenuation changes c/w small vessel ischemic disease. CT of her abdomen and pelvis demonstrated GB sludge but no evidence for acute cholecystitis or obstructive biliary pattern, but no pyelonephritis or obstructive uropathy. She has an abdominal wall hernia but w/out bowel obstruction. Review of Systems All systems reviewed & are unremarkable except as noted in HPI and below PFSH All Active Problems (Updated 07/15/22 @ 13:35 by Mihir Shelby MD) Tinea (Acute) Sacral decubitus ulcer (Acute) Discharge planning issues (Acute) Sepsis (Acute) Metabolic encephalopathy (Acute) Non-ST elevation NC (NSTEMI) (Acute) Acute UTI (Acute) Acute confusion (Acute) Vitamin D deficiency (Acute 08/17/12) Right shoulder pain (Chronic 09/10/14) chronic pain, no surgery hx. Psoriasis (Chronic 04/16/13) Neck pain (Acute) w/ muscle spasm, secondary to scoliosis Hyperlipidemia (Chronic 08/17/12) Headache (Acute) secondary to scoliosis & neck muscle spasm Depressive disorder (Chronic) bipolar 02/25-[facility] Retention of urine (Acute) Conductive hearing loss, external ear (Acute) uses hearing aids Anemia (Chronic) Learning disability (Chronic) per sister(Callie)Jackelin has a long history of being able to comprehend verbal material and needs written materials along with short repetitive explanations. 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) Candidiasis of breast Gallstones Gastritis presumed (improved symptoms on omeprazole) Hernia of abdominal wall Idiopathic scoliosis w/ Chronic LBP; surgery-1969,1971, 1990, 1995, 1997 ([facility]) Postoperative hemorrhage Pyoderma gangrenosum (09/15/12) Tubular adenoma (08/09/16) Surgical History Colonoscopy - IV Sedation (08/09/16) H/O left wrist surgery Previous back surgery Status post laparoscopic hysterectomy Family History Father , 63 Lung cancer Sister Depression Sister COPD (chronic obstructive pulmonary disease) Grandmother Breast cancer Son Depression Mother , 93 Old age Social History Smoking/Tobacco Use Status: Never Second Hand Exposure: Yes Smoking risk assessment performed?: Yes Alcohol Intake: never Counseling given: No Drug use: Never Substance use type: does not use Counseling provided: none Caregiver/Support person: No Household members: none Housing: apartment Number of Children: 3 number of grandchildren: 3 Communication Needs: None Education Level: high school Do you need help understanding health information?: Rarely 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 Pets and animals: No Sexually active: No Do you think of yourself as: straight/heterosexual Current gender identity: female What is your relationship status?: How often do you talk on the phone with friends or family?: decline to answer How often do you get together with friends or relatives?: decline to answer How often do you attend hoahaoism or yazidism services?: decline to answer Do you belong to any clubs or organized social groups?: no Panel score (0-1 are the most socially isolated patients): 0 What type of physical activity do you participate in: none Pari/Taoism: Spiritism Special pari needs: No Seatbelt use: always Helmet use: No Drive intox or ride w/intox 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: No Do you feel safe at home: Yes Do you feel safe in your relationship?: Yes Meds Allergies and Home Medications Allergies Allergy/AdvReac Type Severity Reaction Status Date / Time codeine AdvReac Intermediate NAUSEA/DIZZ Verified 07/15/22 04:32 INESS Home Medications Medication Instructions Recorded Confirmed Type [id number] 250 1 tab PO Q6H PRN headache 07/10/21 07/15/22 History mg-250 mg-65 mg tablet (Excedrin Extra Strength) triamcinolone acetonide 0.025 % 1 applic topical DAILY #454 grams 07/15/22 04/07/23 Rx topical cream acetaminophen 500 mg capsule 1,000 mg PO Q8H PRN PRN #30 caps 11/18/21 07/15/22 Rx aspirin 81 mg tablet,delayed 81 mg PO BID #60 tabs 11/18/21 07/15/22 Rx release ibuprofen 600 mg tablet 600 mg PO TID #30 tabs 11/18/21 07/15/22 Rx gabapentin 600 mg tablet 600 mg PO BID #60 tabs 02/01/22 07/15/22 Rx brexpiprazole 3 mg tablet (Rexulti) 3 mg PO DAILY #30 tabs 02/05/22 07/15/22 Rx lamotrigine 200 mg tablet 300 mg PO DAILY #45 tabs 02/05/22 07/15/22 Rx mirabegron 50 mg tablet,extended 50 mg PO DAILY bladder spasm #90 02/05/22 07/15/22 Rx release 24 hr (Myrbetriq) tabs allopurinol 300 mg tablet 300 mg PO DAILY #30 tabs 02/09/22 07/15/22 Rx duloxetine 30 mg capsule,delayed 30 mg PO DAILY #30 caps 02/09/22 07/15/22 Rx release fluoxetine 20 mg capsule 20 mg PO DAILY #30 caps 02/09/22 07/15/22 Rx pantoprazole 40 mg tablet,delayed 40 mg PO DAILY #30 tabs 02/09/22 07/15/22 Rx release simvastatin 40 mg tablet 40 mg PO QPM #30 tabs 02/09/22 07/15/22 Rx cholecalciferol (vitamin D3) 25 1,000 unit PO DAILY #30 caps 05/12/22 07/15/22 Rx mcg (1,000 unit) capsule melatonin 3 mg tablet 3 mg PO Q6PM PRN sleep #90 tabs 05/21/22 07/15/22 Rx oxybutynin chloride 5 mg 5 mg PO DAILY #30 tabs 06/08/22 07/15/22 Rx tablet,extended release 24 hr Exam Narrative Exam Narrative: Morbidly obese white female lying in the bed on her right side in no acute distress she is alert seems to be oriented to person place and circumstance. HEENT reveals dry oral mucous membranes. She has dentures in place. Neck is supple nontender no meningismus, neck veins are flat. Carotid pulses are normal no bruits, normal range of motion and strength in her neck. Lungs clear to auscultation Heart regular rate and rhythm without murmur rub or gallop no thrill or heave Abdomen is obese soft nontender normal bowel sounds no organomegaly no palpable masses no bruits Extremities without peripheral cyanosis or edema. Skin exam she has tinea skin changes under her breasts and her groin. Neuro exam grossly intact no focal cranial nerve deficits no focal motor or sensory deficits. Normal range of motion both upper and lower extremities. She is right-hand dominant. Normal finger-nose testing normal [id number] testing. Babinski reflexes absent bilaterally. Speech is clear coherent normal facial mimetic muscle movement normal extraocular motion intact. Visual lyons grossly intact to confrontation. Pupils equally round reactive to direct and consensual light. Results Labs 07/15/22 04:31 07/15/22 04:31 Labs: Laboratory Results - last 24 hr 07/15/22 07/15/22 07/15/22 04:31 04:31 04:31 WBC 13.76 H RBC 3.40 L Hgb 10.4 L Hct 32.2 L MCV 95 MCH 30.6 MCHC 32.3 RDW 13.2 Plt Count 214 MPV 10.2 Immature Gran % 0.3 Neutrophils % 86.7 Lymphocytes % 4.5 Monocytes % 8.3 Eosinophils % 0.0 Basophils % 0.2 Nucleated RBC % 0.0 Absolute Neutrophils 11.93 H Absolute Lymphocytes 0.62 L Absolute Monocytes 1.14 H Absolute Eosinophils 0.00 Absolute Basophils 0.03 VBG pH VBG pCO2 VBG pO2 VBG HCO3 VBG Total CO2 VBG O2 Saturation VBG Base Excess VBG Lactate 1.1 Sodium 136 Potassium 3.6 Chloride 100 Carbon Dioxide 31.0 Anion Gap 5.0 BUN 15 Creatinine 1.1 H Est GFR (CKD-EPI 2020) 54.39 Glucose 148 H Calcium 8.6 Total Bilirubin 0.6 AST 12 L ALT 12 L Alkaline Phosphatase 77 Creatine Kinase Troponin I Total Protein 6.4 Albumin 3.5 Procalcitonin 3.2 Urine Color Urine Clarity Urine pH Ur Specific Hanna Urine Protein Urine Ketones Urine Blood Urine Nitrite Urine Bilirubin Urine Urobilinogen Ur Leukocyte Esterase Urine RBC Urine WBC Ur Epithelial Cells Urine Crystals Urine Bacteria Urine Mucus Ur Culture Indicated? Urine Glucose COVID-19 Source SARS-CoV-2 (PCR) Influenza Type A (PCR) Influenza Type B (PCR) RSV (PCR) 07/15/22 07/15/22 07/15/22 04:31 04:31 04:31 WBC RBC Hgb Hct MCV MCH MCHC RDW Plt Count MPV Immature Gran % Neutrophils % Lymphocytes % Monocytes % Eosinophils % Basophils % Nucleated RBC % Absolute Neutrophils Absolute Lymphocytes Absolute Monocytes Absolute Eosinophils Absolute Basophils VBG pH 7.36 VBG pCO2 53 H VBG pO2 46 VBG HCO3 30 H VBG Total CO2 28 VBG O2 Saturation 83 VBG Base Excess 5 H VBG Lactate Sodium Potassium Chloride Carbon Dioxide Anion Gap BUN Creatinine Est GFR (CKD-EPI 2020) Glucose Calcium Total Bilirubin AST ALT Alkaline Phosphatase Creatine Kinase 147 Troponin I 390 H* Total Protein Albumin Procalcitonin Urine Color Urine Clarity Urine pH Ur Specific Hanna Urine Protein Urine Ketones Urine Blood Urine Nitrite Urine Bilirubin Urine Urobilinogen Ur Leukocyte Esterase Urine RBC Urine WBC Ur Epithelial Cells Urine Crystals Urine Bacteria Urine Mucus Ur Culture Indicated? Urine Glucose COVID-19 Source SARS-CoV-2 (PCR) Influenza Type A (PCR) Influenza Type B (PCR) RSV (PCR) 07/15/22 07/15/22 07/15/22 05:01 05:10 07:57 WBC RBC Hgb Hct MCV MCH MCHC RDW Plt Count MPV Immature Gran % Neutrophils % Lymphocytes % Monocytes % Eosinophils % Basophils % Nucleated RBC % Absolute Neutrophils Absolute Lymphocytes Absolute Monocytes Absolute Eosinophils Absolute Basophils VBG pH VBG pCO2 VBG pO2 VBG HCO3 VBG Total CO2 VBG O2 Saturation VBG Base Excess VBG Lactate Sodium Potassium Chloride Carbon Dioxide Anion Gap BUN Creatinine Est GFR (CKD-EPI 2020) Glucose Calcium Total Bilirubin AST ALT Alkaline Phosphatase Creatine Kinase Troponin I 420 H* Total Protein Albumin Procalcitonin Urine Color Yellow Urine Clarity Cloudy Urine pH 5.5 Ur Specific Hanna 1.020 Urine Protein 30 H Urine Ketones Negative Urine Blood Small H Urine Nitrite Positive H Urine Bilirubin Negative Urine Urobilinogen 0.2 Ur Leukocyte Esterase Large H Urine RBC Urine WBC >50 H Ur Epithelial Cells Urine Crystals Urine Bacteria Many Urine Mucus Ur Culture Indicated? Yes Urine Glucose Negative COVID-19 Source Nasopharynx SARS-CoV-2 (PCR) Negative Influenza Type A (PCR) Negative Influenza Type B (PCR) Negative RSV (PCR) Negative Last Vital Signs Temp 36 C L 07/15/22 11:17 Pulse 64 07/15/22 10:07 Resp 17 07/15/22 11:17 BP 92/57 L 07/15/22 11:17 Pulse Ox 96 07/15/22 11:17 Time Spent Time spent with Patient: 55-74 minutes Time was spent: preparing to see the patient(eg.review tests), obtaining and/or reviewing separately otained hiistory, ordering medications,tests, procedures, referring, communicating with other health assisted living care manager (Dr. Meyers), indepentently interpreting results, counseling the patient and care coordination
[2022-07-15 12:33] LABS: Troponin I 326 ng/L (<or=60)
--- NOTE | 2022-07-15 13:00 | RT.EKG_ITS ---
APPROVED REPORT Exam: Resting ECG Reason for Exam: elevated troponin Patient Location: I HR:78 bpm ECG Measurements Heart Rate 78 AXIS CO 130 P 48 QRSd 98 QRS -18 QT 389 T 56 QTc 444 Conclusion Sinus rhythm...normal P axis, V-rate 50- 99 Atrial premature complexes...SV complexes w/ short R-R intvls Consider right atrial enlargement...P >0.24mV limb lead Borderline left axis deviation...QRS axis (-15,-29)
[2022-07-15] MEDS: Nystatin POWDER 60 GM JAR TP ×2 (13:34→20:25)
[2022-07-15] MEDS: Lactated Ringers 1,000 ML 100 ML IV (13:34)
[2022-07-15 16:31] LABS: Troponin I 255 ng/L (<or=60)
[2022-07-15] MEDS: PIPERACILLIN/TAZO 3.375 GM in Normal Saline 50 ML IVPB (16:58)
[2022-07-15] MEDS: Acetaminophen 325 MG TAB PO (17:19)
[2022-07-15] MEDS: lamoTRIgine 100 MG TAB 200 MG PO (20:24)
[2022-07-15] MEDS: Simvastatin 40 MG TAB PO (20:24)
[2022-07-16] VITALS (10 sets, daily range): BP systolic 108–135; BP diastolic 65–87; PULSE 67–93; RESP 18–20; TEMP 36.7–38.2; O2SAT 88–94
[2022-07-16] MEDS: PIPERACILLIN/TAZO 3.375 GM in Normal Saline 50 ML IVPB ×3 (01:19→17:25)
[2022-07-16 06:47] LABS: Abs Immature Grans 0.02 10^3/uL (0.0-0.06); Absolute Basophil Count 0.03 10^3/uL (0.0-0.2); Absolute Lymphocyte Count 0.81 10^3/uL (1.2-3.4); Absolute Monocyte Count 0.72 10^3/uL (0.1-0.8); Absolute Neutrophil Count 5.54 10^3/uL (1.2-6.7); Basophils % 0.4; HCT 33.8 % (36.0-46.0); HGB 10.9 g/dL (11.2-15.7); Immature Grans % 0.3; Lymphocytes % 11.4; MCH 30.1 pg (27.0-33.0); MCHC 32.2 % (32.0-36.0); MCV 93 fL (80-95); MPV 9.7 fL (8.0-11.0); Monocytes % 10.1; Neutrophils % 77.8; Platelet Count 176 10^3/uL (130-400); RBC 3.62 10^6/uL (3.93-5.22); RDW 12.9 % (11.7-14.6); RDW-SD 44.4 fL; WBC 7.12 10^3/uL (4.4-10.8)
[2022-07-16] MEDS: Pantoprazole 40 MG TABCR PO (07:03)
[2022-07-16 07:14] LABS: ALT 14 U/L (14-59); AST 27 U/L (15-37); Albumin 3.3 g/dL (3.4-5.0); Alkaline Phosphatase 71 U/L (46-116); Anion Gap 7.8 mmol/L (3-11); BUN 11 mg/dL (7-18); Bilirubin, Total 0.6 mg/dL (0.2-1.0); CO2 29.2 mmol/L (21.0-32.0); CREATININE 0.9 mg/dL (0.55-1.02); Calcium 9.1 mg/dL (8.5-10.1); Chloride 99 mmol/L (98-107); Glucose 143 mg/dL (74-106); Magnesium 1.2 mg/dL (1.8-2.4); Potassium 3.4 mmol/L (3.5-5.1); Sodium 136 mmol/L (136-145); TSH (W/Ref FT4) 0.44 uIU/mL (0.36-3.74); Total Protein 6.8 g/dL (6.4-8.2)
[2022-07-16 07:34] LABS: Hemoglobin A1C 6.3 % (<5.7)
[2022-07-16] MEDS: Mirabegron 50 MG TABCR PO (08:35)
[2022-07-16] MEDS: Gabapentin 600 MG TAB PO ×2 (08:35→20:04)
[2022-07-16] MEDS: Aspirin E.C. 81 MG TABEC PO ×2 (08:35→20:03)
[2022-07-16] MEDS: lamoTRIgine 100 MG TAB PO (08:35)
[2022-07-16] MEDS: Oxybutynin-CR 5 MG TABCR PO (08:35)
[2022-07-16] MEDS: DULoxetine 30 MG CAP PO (08:35)
[2022-07-16] MEDS: FLUoxetine 20 MG CAP PO (08:35)
[2022-07-16] MEDS: Cholecalciferol (Vitamin D3) 1,000 UNIT TAB 1000 UNITS PO (08:35)
[2022-07-16] MEDS: Allopurinol 300 MG TAB PO (08:37)
[2022-07-16] MEDS: Nystatin POWDER 60 GM JAR TP ×2 (08:41→20:04)
[2022-07-16] MEDS: Magnesium Gluconate 500 MG TAB PO ×2 (09:02→20:04)
[2022-07-16] MEDS: Potassium Chloride 10 MEQ CAPCR 20 MEQ PO ×2 (09:02→20:04)
[2022-07-16] MEDS: Normal Saline Flush 10 ML SYR IVP (09:03)
[2022-07-16] MEDS: MAGNESIUM SULFATE 4 GM/100 ML BAG IVPB (09:04)
--- NOTE | 2022-07-16 09:20 | PDOC.CMPRO ---
- If Service Date Differs Date of service: 07/16/22 Time of Service: 09:20 Care Management Progress Note S/O:Jackelin was sitting up in bed when CM met with her. Her son Leon was present but was dozing at the time. Jackelin stated that she is feeling a bit better than yesterday, She has a UTI and has also had an NSTEMI. She did not seem to understand that there were any issues with her heart and was not clear why she needed to wear a monitor. Jackelin is growing gram negative rods in both her urine and her blood. She will likely need to remain hospitalized for several days to receive IV antibiotics. SHELLY explained that to Jackelin and she seemed surprised by the information. Jackelin has a suprapubic catheter and in the presence of infection, ideally it should be changed. There have been difficulties with catheter exchange for her in the past so it was not attempted as the Urology staff is not available until next week. A: Jackelin is a 67 year old woman admitted with a UTI and an NSTEMI P:Jackelin will likely return home with a resumption of services through the [facility] program when medically cleared. She will follow up with her community providers and plan of care and will transport with [facility] coordinated by SHELLY. CM will continue to follow and assess for ongoing discharge needs.
--- NOTE | 2022-07-16 10:34 | PGE_ITS ---
Date of Service Date of service: 07/16/22 Time of Service: 10:34 Assessment and Plan Assessment and plan (1) Sepsis: Status: Acute Assessment and plan: Secondary to complicated UTI. CT scan of the abdomen pelvis was performed on admission. No hydronephrosis no evidence of pyelonephritis or stones were seen. Patient is currently on Zosyn and growing gram-negative rods in her blood and urine. Her leukocytosis has resolved although she still having intermittent fevers. We will continue current antibiotic treatment as she seems to be responding to treatment. I will repeat her blood cultures tomorrow morning to ensure clearance of her bacteremia. Unfortunately urology did not see the patient. As the patient's had complications with catheter exchange in the past we will leave the catheter in place hopefully antibiotics will be sufficient to clear up any infection. Patient will probably be hospitalized through the weekend and we will have urology see her on Tuesday. Professional time spent interviewing and examining patient, discussion of goals of care with hospital team (care management, nursing and consulting professionals) was 30 minutes. (2) Acute UTI: Status: Acute Assessment and plan: as above (3) Non-ST elevation [place] (NSTEMI): Status: Acute Assessment and plan: Patient's troponin levels were declining yesterday and were down to 255 ng/L as of yesterday afternoon. Patient's had no chest pain throughout her hospital stay and repeat ECG this morning shows no acute ischemic or injury pattern. Her troponin leak was likely type II demand ischemia. Patient did not require heparin or Plavix as this was not a plaque rupture. She was maintained on her usual dose of aspirin 81 mg twice daily. We will plan for stress MPI as an outpatient upon discharge from the hospital. (4) Metabolic encephalopathy: Status: Acute Assessment and plan: Her acute confusion is improving although still mild confusion. She has a history of some developmental delay therefore I think her baseline cognitive function is somewhat impaired. (5) Anemia: Status: Chronic Assessment and plan: stable chronic anemia. It appears that her iron levels have not been checked in couple years. I will get stool for OB and check her serum iron, ferritin, TIBC, transerrin and B12 and folate levels. She has hx of GERD adn takes a PPI but also is on aspirin. I will keep her on a PPI but she may not be absorbing her B12 or her iron. Qualifiers: Anemia type: unspecified type Qualified Code(s): D64.9 - Anemia, unspecified (6) Sacral decubitus ulcer: Status: Acute Assessment and plan: she has early decubitus forming over her sacrum. will ask for wound care nursing consult. in the interim will have nurses apply Clay cream (clotrimazole, A&D ointment and Zinc oxide) (7) Tinea: Status: Acute Assessment and plan: patient has tinea cruris and tinea corpora (under breasts), will have nursing apply nystatin powder (8) Discharge planning issues: Status: Acute Assessment and plan: full code per her wishes. I expect she will return home when medically stable and can take po antibiotics. Subjective Subjective Interval history since last seen: Patient has gram negative bacteremia from complicated UTI. She has an SPC which was changed by urology on 07/06. [facility] called [facility] yesterday to confirm that Dr. Zamora got notification of the urology consult regarding her complicated UTI and need for replacement of the SPC again, however, he never saw the patient and per [facility] he is now on vacation and we have no urology coverage until next week. I have explained to the patient and her son, Leon, that Jackelin has sepsis from UTI but clinically she is improving. However, she seems a little confused. She told me that she is not sure how her SPC works, as she has never had one like this. I told her that this is the same catheter that Dr. Zamora place earlier this month. We have not changed out her catheter as she has had problems in the past w/ misplacement of the catheter was changed by nursing and required Dr. Zamora to replace this. I also explained to the patient and her son, that she will need to remain on iv antibiotics and hospitalized until her bacteremia clears and we know the identity and sensitivity of the organism so I can pick an anitibiotic to treat her w/ oral antibiotics. Exam Narrative Exam Narrative: Obese white female lying in bed no acute distress. She is mildly confused as noted above. However when I tested her orientation she is oriented to person place time and circumstance. She knows that she is at [facility] in the hospital in [facility]. She correctly stated the month and the year. However she also introduced me to her son whom I met yesterday in her presence yesterday. I reminded her that I met both of her sons yesterday. She did not seem remember seeing me yesterday. Lungs are clear to auscultation Heart is regular rate and rhythm Abdomen is obese soft mildly tender to deep palpation no guarding or rebound tenderness. Suprapubic catheter is in place there is no purulent drainage or erythema around the entry point. Objective Last Vital Signs Temp 38.2 C H 07/16/22 07:51 Pulse 91 H 07/16/22 07:51 Resp 20 07/16/22 07:51 BP 135/87 07/16/22 07:51 Pulse Ox 91 L 07/16/22 07:51 Laboratory Results - last 24 hr 07/15/22 07/15/22 07/16/22 12:02 15:50 06:05 WBC RBC Hgb Hct MCV MCH MCHC RDW Plt Count MPV Immature Gran % Neutrophils % Lymphocytes % Monocytes % Eosinophils % Basophils % Nucleated RBC % Absolute Neutrophils Absolute Lymphocytes Absolute Monocytes Absolute Eosinophils Absolute Basophils Sodium Potassium Chloride Carbon Dioxide Anion Gap BUN Creatinine Est GFR (CKD-EPI 2020) Glucose Hemoglobin A1c 6.3 H Calcium Magnesium Total Bilirubin AST ALT Alkaline Phosphatase Troponin I 326 H* 255 H* Total Protein Albumin TSH 07/16/22 07/16/22 06:05 06:05 WBC 7.12 RBC 3.62 L Hgb 10.9 L Hct 33.8 L MCV 93 MCH 30.1 MCHC 32.2 RDW 12.9 Plt Count 176 MPV 9.7 Immature Gran % 0.3 Neutrophils % 77.8 Lymphocytes % 11.4 Monocytes % 10.1 Eosinophils % 0.0 Basophils % 0.4 Nucleated RBC % 0.0 Absolute Neutrophils 5.54 Absolute Lymphocytes 0.81 L Absolute Monocytes 0.72 Absolute Eosinophils 0.00 Absolute Basophils 0.03 Sodium 136 Potassium 3.4 L Chloride 99 Carbon Dioxide 29.2 Anion Gap 7.8 BUN 11 Creatinine 0.9 Est GFR (CKD-EPI 2020) 69.20 Glucose 143 H Hemoglobin A1c Calcium 9.1 Magnesium 1.2 L Total Bilirubin 0.6 AST 27 ALT 14 Alkaline Phosphatase 71 Troponin I Total Protein 6.8 Albumin 3.3 L TSH 0.44 Time Spent with Patient Time Spent with Patient: 25-34 minutes Time was spent: preparing to see the patient(eg.review tests), ordering medications,tests, procedures, referring, communicating with other health healthcare translator (repeated call to [facility]), indepentently interpreting results, counseling the patient (and patient son, Leon) and care coordination
[2022-07-16] MEDS: Acetaminophen 325 MG TAB PO ×3 (10:47→20:03)
[2022-07-16] MEDS: Enoxaparin 40 MG/0.4 ML SYR SC (10:55)
[2022-07-16 13:08] LABS: Lab Add On Test DONE
[2022-07-16 13:35] LABS: Troponin I 232 ng/L (<or=60)
--- NOTE | 2022-07-16 16:47 | PHA.REVIEW2 ---
Pharmacy Admission Review - Admission Clinical Review (Last Reviewed 07/15/22 @ 13:18 by Mihir Shelby MD) Tinea (Acute) Sacral decubitus ulcer (Acute) Discharge planning issues (Acute) Sepsis (Acute) Metabolic encephalopathy (Acute) Non-ST elevation [place] (NSTEMI) (Acute) Acute UTI (Acute) Acute confusion (Acute) codeine Adverse Reaction (Intermediate, Verified 07/15/22 04:32) NAUSEA/DIZZINESS Resuscitation Status Full Code Height 5 ft 3 in Weight 91.3 kg - Comments Comments/Follow Ups: Complicated UTI, Bacteremia gram negative (both blood & urine), Urology consult to change suprapubic cath. Watch for repeat BC. Fever this morning, WBC down, slight anemia w/iron panel pending - Renal Dosing Renal Dosing: BUN 11 mg/dL (7-18) 07/16/22 06:05 Creatinine 0.9 mg/dL (0.55-1.02) 07/16/22 06:05 Medications needing adjustments: Reviewed (CrCl~57ml/min, Zosyn adjusted upon admission) - Anticoagulation Anticoagulation: Hgb 10.9 g/dL (11.2-15.7) L 07/16/22 06:05 Hct 33.8 % (36.0-46.0) L 07/16/22 06:05 Plt Count 176 10^3/uL (130-400) 07/16/22 06:05 Creatinine 0.9 mg/dL (0.55-1.02) 07/16/22 06:05 DVT Prophylaxis: Reviewed Medications: Enoxaparin - Opiate Usage Evaluate Pain Scale/Pains Meds: N/A - Relevant Labs Sodium 136 mmol/L (136-145) 07/16/22 06:05 Potassium 3.4 mmol/L (3.5-5.1) L 07/16/22 06:05 Chloride 99 mmol/L (98-107) 07/16/22 06:05 Magnesium 1.2 mg/dL (1.8-2.4) L 07/16/22 06:05 Electrolytes, C-Reactive P, ESR: Reviewed (Mag and K+ replaced, Procal 3.2) - DM Control DM Control: Glucose 143 mg/dL (74-106) H 07/16/22 06:05 Hemoglobin A1c 6.3 % (<5.7) H 07/16/22 06:05 DM Control: N/A - Cardiac Review Cardiac Review: Troponin I 232 ng/L (<or=60) H* 07/16/22 06:05 BP, HR, EF%: Reviewed (no chest pain, MD feels troponin's are demand ischemia, recommends MPI as outpt, did have some low BP's after admission, since improved) - Qtc Review QTc: Reviewed (QTC 444) - IV to PO Switch IV Medications: Reviewed (Zosyn to oral when able) Antibiotic Activity - Pharmacy Antibiotic Review Pharmacy Antibiotic Activity: 48 hour review (Extended spectrum Zosyn, renally dosed for bacteremia) - Antibiotic Information Antibiotic Review Info: Extended spectrum Zosyn, renally dosed for bacteremia
[2022-07-16 17:01] LABS: Magnesium 2.3 mg/dL (1.8-2.4)
[2022-07-16 18:14] LABS: Lab Add On Test DONE
[2022-07-16 18:34] LABS: Potassium 3.4 mmol/L (3.5-5.1)
[2022-07-16] MEDS: lamoTRIgine 100 MG TAB 200 MG PO (20:03)
[2022-07-16] MEDS: Simvastatin 40 MG TAB PO (20:04)
[2022-07-17] VITALS (8 sets, daily range): BP systolic 96–123; BP diastolic 58–75; PULSE 61–74; RESP 16–22; TEMP 36–37; O2SAT 92–96
[2022-07-17] MEDS: Acetaminophen 325 MG TAB PO ×3 (01:39→12:51)
[2022-07-17] MEDS: PIPERACILLIN/TAZO 3.375 GM in Normal Saline 50 ML IVPB ×2 (01:40→09:44)
[2022-07-17 06:28] LABS: Abs Immature Grans 0.01 10^3/uL (0.0-0.06); Absolute Basophil Count 0.02 10^3/uL (0.0-0.2); Absolute Lymphocyte Count 1.35 10^3/uL (1.2-3.4); Absolute Monocyte Count 0.74 10^3/uL (0.1-0.8); Absolute Neutrophil Count 3.32 10^3/uL (1.2-6.7); Basophils % 0.4; HCT 33.5 % (36.0-46.0); HGB 11.1 g/dL (11.2-15.7); Immature Grans % 0.2; Lymphocytes % 24.8; MCH 30.7 pg (27.0-33.0); MCHC 33.1 % (32.0-36.0); MCV 93 fL (80-95); MPV 9.5 fL (8.0-11.0); Monocytes % 13.6; Platelet Count 176 10^3/uL (130-400); RBC 3.62 10^6/uL (3.93-5.22); RDW 13.2 % (11.7-14.6); RDW-SD 45.1 fL; WBC 5.44 10^3/uL (4.4-10.8)
[2022-07-17 06:51] LABS: ALT 18 U/L (14-59); AST 30 U/L (15-37); Albumin 3.2 g/dL (3.4-5.0); Alkaline Phosphatase 70 U/L (46-116); Anion Gap 5.9 mmol/L (3-11); BUN 16 mg/dL (7-18); Bilirubin, Total 0.4 mg/dL (0.2-1.0); CO2 31.1 mmol/L (21.0-32.0); CREATININE 1.1 mg/dL (0.55-1.02); Calcium 9.1 mg/dL (8.5-10.1); Chloride 105 mmol/L (98-107); Estimated GFR 54.39 (mL/min/1.73m2); Glucose 122 mg/dL (74-106); Potassium 4.1 mmol/L (3.5-5.1); Sodium 142 mmol/L (136-145); Total Protein 6.8 g/dL (6.4-8.2)
[2022-07-17 06:52] LABS: C-Reactive Protein 3.33 mg/dL (0.0-0.3); Iron 27 ug/dL (50-170); Magnesium 2.3 mg/dL (1.8-2.4); Total Iron Binding Capacity 257 ug/dL (250-450); Transferrin Sat 11 % (15-50)
[2022-07-17] MEDS: Pantoprazole 40 MG TABCR PO (07:13)
[2022-07-17 07:15] LABS: Ferritin 97 ng/mL (8-252); Vitamin B12 615 pg/mL (193-986)
[2022-07-17 07:17] LABS: Folate > 20.0 ng/mL (8.6-20.0)
[2022-07-17 07:48] LABS: Procalcitonin 2.4 ng/mL
[2022-07-17] MEDS: lamoTRIgine 100 MG TAB PO (08:26)
[2022-07-17] MEDS: Gabapentin 600 MG TAB PO ×2 (08:26→20:53)
[2022-07-17] MEDS: Mirabegron 50 MG TABCR PO (08:26)
[2022-07-17] MEDS: Cholecalciferol (Vitamin D3) 1,000 UNIT TAB 1000 UNITS PO (08:26)
[2022-07-17] MEDS: Magnesium Gluconate 500 MG TAB PO ×2 (08:26→20:53)
[2022-07-17] MEDS: Oxybutynin-CR 5 MG TABCR PO (08:26)
[2022-07-17] MEDS: Allopurinol 300 MG TAB PO (08:26)
[2022-07-17] MEDS: DULoxetine 30 MG CAP PO (08:27)
[2022-07-17] MEDS: Nystatin POWDER 60 GM JAR TP ×2 (08:27→20:54)
[2022-07-17] MEDS: Aspirin E.C. 81 MG TABEC PO ×2 (08:27→20:53)
[2022-07-17] MEDS: FLUoxetine 20 MG CAP PO (08:27)
[2022-07-17] MEDS: Enoxaparin 40 MG/0.4 ML SYR SC (09:44)
--- NOTE | 2022-07-17 13:40 | PGE_ITS ---
Date of Service Date of service: 07/17/22 Time of Service: 13:40 Assessment and Plan Assessment and plan (1) Sepsis: Status: Acute Assessment and plan: Secondary to complicated UTI. CT scan of the abdomen pelvis was performed on admission. No hydronephrosis no evidence of pyelonephritis or stones were seen. Patient is currently on Zosyn and growing Enterobacter cloacae in her urine as well as her blood. Repeat blood cultures were drawn today. Patient will require minimum of 10 days of antibiotics although I think that we can switch her over to oral antibiotics after 5 to 7 days of IV antibiotics. Suprapubic catheter should be changed unfortunately Dr. Zamora did not see the patient before going on vacation we have no urology coverage. Patient has a history of complications with urinary catheter exchanges. We do not have interventional radiology at our facility either. I will consult with [facility] [place] regarding advice over catheter exchange. Professional time spent interviewing and examining patient, discussion of goals of care with hospital team (care management, nursing and consulting professionals) was 30 minutes. (2) Acute UTI: Status: Acute Assessment and plan: as above (3) Non-ST elevation [place] (NSTEMI): Status: Acute Assessment and plan: Patient's troponin levels were declining yesterday and were down to 255 ng/L as of yesterday afternoon. Patient's had no chest pain throughout her hospital stay and repeat ECG this morning shows no acute ischemic or injury pattern. Her troponin leak was likely type II demand ischemia. Patient did not require heparin or Plavix as this was not a plaque rupture. She was maintained on her usual dose of aspirin 81 mg twice daily. We will plan for stress MPI as an outpatient upon discharge from the hospital. (4) Metabolic encephalopathy: Status: Acute Assessment and plan: Her acute confusion is improving although still mild confusion. She has a history of some developmental delay therefore I think her baseline cognitive function is somewhat impaired. (5) Anemia: Status: Chronic Assessment and plan: Labs are consistent with iron deficiency anemia. I will start her on parenteral iron therapy. Patient remains on a PPI for her GERD. Qualifiers: Anemia type: unspecified type Qualified Code(s): D64.9 - Anemia, unspecified (6) Sacral decubitus ulcer: Status: Acute Assessment and plan: she has early decubitus forming over her sacrum. will ask for wound care nursing consult. in the interim will have nurses apply Clay cream (clotrimazole, A&D ointment and Zinc oxide) (7) Tinea: Status: Acute Assessment and plan: patient has tinea cruris and tinea corpora (under breasts), will have nursing apply nystatin powder (8) Discharge planning issues: Status: Acute Assessment and plan: full code per her wishes. I expect she will return home when medically stable and can take po antibiotics. Subjective Subjective Interval history since last seen: Patient is afraid of being discharged too soon. I explained that she will remain until her bacteremia has cleared. I also explained that Dr. Zamora is away on vacation and we have no one to change out her SPC. However her catheter is now draining clear yellow urine. she has Enterobacter cloacae UTI w/ bacteremia. She remains on Zosyn however the Enterobacter is also sensitive to Rocephin so I will change her antibiotics to Rocephin Exam Narrative Exam Narrative: Patient is alert and oriented she knows she is in [facility] knows the month of the year. However she is frightened by the fact she did not know how she ended up here and seems to be unaware of the events leading up to her hospitalization. I explained to her that she was septic and that she has an infection in her bloodstream and this affected her thinking and caused her acute confusion. Lungs are clear to auscultation Heart is regular rate and rhythm Abdomen obese soft nontender suprapubic catheter draining clear yellow urine. Objective Last Vital Signs Temp 37 C 07/17/22 10:53 Pulse 63 07/17/22 10:53 Resp 16 07/17/22 10:53 BP 96/58 L 07/17/22 10:53 Pulse Ox 93 07/17/22 10:53 Laboratory Results - last 24 hr 07/16/22 07/16/22 07/16/22 16:40 16:40 18:13 WBC RBC Hgb Hct MCV MCH MCHC RDW Plt Count MPV Immature Gran % Neutrophils % Lymphocytes % Monocytes % Eosinophils % Basophils % Nucleated RBC % Absolute Neutrophils Absolute Lymphocytes Absolute Monocytes Absolute Eosinophils Absolute Basophils Sodium Potassium 3.4 L Chloride Carbon Dioxide Anion Gap BUN Creatinine Est GFR (CKD-EPI 2020) Glucose Calcium Magnesium 2.3 Iron TIBC Transferrin % Sat Ferritin Total Bilirubin AST ALT Alkaline Phosphatase C-Reactive Protein Total Protein Albumin Vitamin B12 Folate Procalcitonin Add-On Test Request DONE 07/17/22 07/17/22 07/17/22 06:11 06:11 06:11 WBC RBC Hgb Hct MCV MCH MCHC RDW Plt Count MPV Immature Gran % Neutrophils % Lymphocytes % Monocytes % Eosinophils % Basophils % Nucleated RBC % Absolute Neutrophils Absolute Lymphocytes Absolute Monocytes Absolute Eosinophils Absolute Basophils Sodium Potassium Chloride Carbon Dioxide Anion Gap BUN Creatinine Est GFR (CKD-EPI 2020) Glucose Calcium Magnesium 2.3 Iron 27 L TIBC 257 Transferrin % Sat 11 L Ferritin 97 Total Bilirubin AST ALT Alkaline Phosphatase C-Reactive Protein 3.33 H Total Protein Albumin Vitamin B12 615 Folate > 20.0 H Procalcitonin Add-On Test Request 07/17/22 07/17/22 07/17/22 06:11 06:11 06:11 WBC 5.44 RBC 3.62 L Hgb 11.1 L Hct 33.5 L MCV 93 MCH 30.7 MCHC 33.1 RDW 13.2 Plt Count 176 MPV 9.5 Immature Gran % 0.2 Neutrophils % 61.0 Lymphocytes % 24.8 Monocytes % 13.6 Eosinophils % 0.0 Basophils % 0.4 Nucleated RBC % 0.0 Absolute Neutrophils 3.32 Absolute Lymphocytes 1.35 Absolute Monocytes 0.74 Absolute Eosinophils 0.00 Absolute Basophils 0.02 Sodium 142 Potassium 4.1 Chloride 105 Carbon Dioxide 31.1 Anion Gap 5.9 BUN 16 Creatinine 1.1 H Est GFR (CKD-EPI 2020) 54.39 Glucose 122 H Calcium 9.1 Magnesium Iron TIBC Transferrin % Sat Ferritin Total Bilirubin 0.4 AST 30 ALT 18 Alkaline Phosphatase 70 C-Reactive Protein Total Protein 6.8 Albumin 3.2 L Vitamin B12 Folate Procalcitonin 2.4 Add-On Test Request Time Spent with Patient Time Spent with Patient: 25-34 minutes Time was spent: preparing to see the patient(eg.review tests), ordering medications,tests, procedures, indepentently interpreting results, counseling the patient and care coordination
[2022-07-17] MEDS: IRON SUCROSE COMPLEX 300 MG in Normal Saline 250 ML 167 MG IVPB (15:04)
[2022-07-17] MEDS: cefTRIAXone 1 GM/50 ML BAG IVPB (18:00)
[2022-07-17] MEDS: Simvastatin 40 MG TAB PO (20:53)
[2022-07-17] MEDS: lamoTRIgine 100 MG TAB 200 MG PO (20:53)
[2022-07-17] MEDS: Normal Saline Flush 10 ML SYR IVP (20:53)
[2022-07-18] VITALS (9 sets, daily range): BP systolic 102–128; BP diastolic 46–80; PULSE 68–90; RESP 15–18; TEMP 36.3–37.4; O2SAT 92–97
[2022-07-18] MEDS: Cholecalciferol (Vitamin D3) 1,000 UNIT TAB 1000 UNITS PO (08:13)
[2022-07-18] MEDS: Magnesium Gluconate 500 MG TAB PO ×2 (08:13→20:34)
[2022-07-18] MEDS: Nystatin POWDER 60 GM JAR TP ×2 (08:13→20:35)
[2022-07-18] MEDS: Pantoprazole 40 MG TABCR PO (08:14)
[2022-07-18] MEDS: Aspirin E.C. 81 MG TABEC PO ×2 (08:14→20:34)
[2022-07-18] MEDS: Oxybutynin-CR 5 MG TABCR PO (08:14)
[2022-07-18] MEDS: Mirabegron 50 MG TABCR PO (08:14)
[2022-07-18] MEDS: lamoTRIgine 100 MG TAB PO (08:14)
[2022-07-18] MEDS: DULoxetine 30 MG CAP PO (08:14)
[2022-07-18] MEDS: FLUoxetine 20 MG CAP PO (08:14)
[2022-07-18] MEDS: Gabapentin 600 MG TAB PO ×2 (08:14→20:34)
[2022-07-18] MEDS: Allopurinol 300 MG TAB PO (08:14)
--- NOTE | 2022-07-18 08:23 | W.PM.PROGNOT ---
Date of Service Date of service: 07/18/22 Time of Service: 08:23 Assessment and Plan Assessment and plan (1) Sepsis: Status: Acute Assessment and plan: Secondary to complicated UTI. CT scan of the abdomen pelvis was performed on admission. No hydronephrosis no evidence of pyelonephritis or stones were seen. Patient grew Enterobacter cloacae in her urine and her blood. She was treated w/ Zosyn 07/15-07/17 and switched to Rocephin yesterday, however per [place] Antimicrobial Guidelines, Enterobacter carries the AmpC gene which can be de-repressed in the setting of use of beta lactams including 3rd generation cephalosporins including Ceftriaxone and Ceftriaxone is not recommended. Use of carbapenem or quinolones is advised. As she is improving, I do not feel she needs a carbapenem, I will switch her to Levaquin 750 mg iv daily. Her calculated eGFR is such that she should be able to handle Levaquin at 750 mg doseing. Once her bacteremia has cleared, she can return home on oral Levaquin and follow up w/ Dr. Zamora next week for catheter exchange. Professional time spent interviewing and examining patient, discussion of goals of care with hospital team (care management, nursing and consulting professionals) was 30 minutes. (2) Acute UTI: Status: Acute Assessment and plan: as above (3) Non-ST elevation [place] (NSTEMI): Status: Acute Assessment and plan: Patient's troponin levels were declining yesterday and were down to 255 ng/L as of yesterday afternoon. Patient's had no chest pain throughout her hospital stay and repeat ECG this morning shows no acute ischemic or injury pattern. Her troponin leak was likely type II demand ischemia. Patient did not require heparin or Plavix as this was not a plaque rupture. She was maintained on her usual dose of aspirin 81 mg twice daily. We will plan for stress MPI as an outpatient upon discharge from the hospital. (4) Metabolic encephalopathy: Status: Resolved Assessment and plan: her acute confusion has cleared and she seems to be back to her baseline function. (5) Anemia: Status: Chronic Assessment and plan: Labs are consistent with iron deficiency anemia. I will start her on parenteral iron therapy. Patient remains on a PPI for her GERD. Qualifiers: Anemia type: unspecified type Qualified Code(s): D64.9 - Anemia, unspecified (6) Sacral decubitus ulcer: Status: Acute Assessment and plan: she has early decubitus forming over her sacrum. will ask for wound care nursing consult. in the interim will have nurses apply Clay cream (clotrimazole, A&D ointment and Zinc oxide) (7) Tinea: Status: Acute Assessment and plan: patient has tinea cruris and tinea corpora (under breasts), will have nursing apply nystatin powder (8) Discharge planning issues: Status: Acute Assessment and plan: full code per her wishes. I expect she will return home when medically stable and can take po antibiotics. Subjective Subjective Interval history since last seen: Patient continues to improve. No fevers overnight. No nausea or abdominal pain. Urinary catheter is draining clear yellow urine. Exam Narrative Exam Narrative: Jackelin is sitting up in her chair. She states that she ate good breakfast. She wants to know when she can return home. I told her that we are awaiting her repeat blood culture results. Lungs: clear Heart: RRR Abdomen: obese, soft, nontender, pope draining clear yellow urine Legs: obese but no edema Objective Last Vital Signs Temp 37.4 C 07/18/22 07:24 Pulse 90 07/18/22 07:24 Resp 18 07/18/22 07:24 BP 109/73 07/18/22 07:24 Pulse Ox 94 07/18/22 07:24 Time Spent with Patient Time Spent with Patient: 25-34 minutes Time was spent: preparing to see the patient(eg.review tests), ordering medications,tests, procedures, referring, communicating with other health resident care director, indepentently interpreting results, counseling the patient and care coordination
[2022-07-18] MEDS: Enoxaparin 40 MG/0.4 ML SYR SC (10:16)
[2022-07-18] MEDS: levoFLOXacin 750 MG/150 ML BAG 100 MG IVPB (10:17)
[2022-07-18 11:31] LABS: Abs Immature Grans 0.01 10^3/uL (0.0-0.06); Absolute Basophil Count 0.04 10^3/uL (0.0-0.2); Absolute Eosinophil Count 0.21 10^3/uL (0.0-0.7); Absolute Lymphocyte Count 1.17 10^3/uL (1.2-3.4); Absolute Monocyte Count 0.72 10^3/uL (0.1-0.8); Absolute Neutrophil Count 3.95 10^3/uL (1.2-6.7); Basophils % 0.7; Eosinophils % 3.4; HCT 33.6 % (36.0-46.0); HGB 10.6 g/dL (11.2-15.7); Immature Grans % 0.2; Lymphocytes % 19.2; MCH 29.9 pg (27.0-33.0); MCHC 31.5 % (32.0-36.0); MCV 95 fL (80-95); MPV 9.5 fL (8.0-11.0); Monocytes % 11.8; Neutrophils % 64.7; Platelet Count 204 10^3/uL (130-400); RBC 3.54 10^6/uL (3.93-5.22); RDW 13.2 % (11.7-14.6)
[2022-07-18 12:02] LABS: Anion Gap 5.7 mmol/L (3-11); BUN 17 mg/dL (7-18); C-Reactive Protein 1.45 mg/dL (0.0-0.3); CO2 31.3 mmol/L (21.0-32.0); Calcium 9.5 mg/dL (8.5-10.1); Chloride 107 mmol/L (98-107); Estimated GFR 60.98 (mL/min/1.73m2); Glucose 146 mg/dL (74-106); Potassium 4.5 mmol/L (3.5-5.1); Sodium 144 mmol/L (136-145)
[2022-07-18] MEDS: IRON SUCROSE COMPLEX 300 MG in Normal Saline 250 ML 167 MG IVPB (13:57)
[2022-07-18] MEDS: Normal Saline Flush 10 ML SYR IVP (15:37)
[2022-07-18] MEDS: lamoTRIgine 100 MG TAB 200 MG PO (20:34)
[2022-07-18] MEDS: Simvastatin 40 MG TAB PO (20:34)
[2022-07-19] MEDS: Mirabegron 50 MG TABCR PO (07:42)
[2022-07-19] MEDS: Gabapentin 600 MG TAB PO (07:42)
[2022-07-19] MEDS: Allopurinol 300 MG TAB PO (07:43)
[2022-07-19] MEDS: lamoTRIgine 100 MG TAB PO (07:43)
[2022-07-19] MEDS: Aspirin E.C. 81 MG TABEC PO (07:43)
[2022-07-19] MEDS: Cholecalciferol (Vitamin D3) 1,000 UNIT TAB 1000 UNITS PO (07:43)
[2022-07-19] MEDS: DULoxetine 30 MG CAP PO (07:43)
[2022-07-19] MEDS: Oxybutynin-CR 5 MG TABCR PO (07:43)
[2022-07-19] MEDS: Pantoprazole 40 MG TABCR PO (07:43)
[2022-07-19] MEDS: Magnesium Gluconate 500 MG TAB PO (07:43)
[2022-07-19] MEDS: FLUoxetine 20 MG CAP PO (07:43)
[2022-07-19] MEDS: Nystatin POWDER 60 GM JAR TP (07:44)
[2022-07-19 07:53] VITALS: BP 98/61; PULSE 67; RESP 18; TEMP 36.6; O2SAT 92
--- NOTE | 2022-07-19 09:24 | CMPROGNOTE_ITS ---
- If Service Date Differs Date of service: 07/19/22 Time of Service: 09:24 Care Management Progress Note S/O: A: Jackelin is a 67 year old woman admitted on 07/15/22 with A UTI and NSTEMI P:Jackelin will likely return home with a resumption of services through the [facility] program when medically cleared. She will follow up with her community providers and plan of care and will transport with [facility] coordinated by CM. CM will continue to follow and assess for ongoing discharge needs.
--- NOTE | 2022-07-19 09:33 | PDOC.CMPRO ---
- If Service Date Differs Date of service: 07/19/22 Time of Service: 09:33 Care Management Progress Note S/O:Jackelin was sitting up in a chair when SHELLY met with her. She looked distressed and appeared to be crying. When asked what was wrong she stated that she needs a new leg bag for her suprapubic catherter to go home with. CM assured her that her nurse would assist with that. Jackelin was also concerned about seeing Dr. Zamora. She verbalized that her catheter needs changing. SHELLY explained that only someone from Urology could assist with that because there have been difficulties with the procedure in the past. CM informed her that an appointment would be made soon for that to be done. Jackelin appeared calmer and less weepy after the explanations and having her nurse promptly respond with a new leg bag. A: Jackelin is a 67 year old woman admitted with a UTI and an NSTEMI P:Jackelin will return home with a resumption of services through the [facility] program when medically cleared. She will follow up with her community providers and plan of care and will transport with a friend.
[2022-07-19] MEDS: levoFLOXacin 750 MG/150 ML BAG 100 MG IVPB (10:00)
[2022-07-19] MEDS: Enoxaparin 40 MG/0.4 ML SYR SC (10:00)
[2022-07-19 10:46] LABS: Transferrin 193 mg/dL (201-352)
--- NOTE | 2022-07-19 12:12 | W.PM.DS.N ---
Date of service: 07/19/22 Time of Service: 12:13 DS: Diagnosis Discharge Diagnosis (1) Sepsis: Status: Resolved (2) Acute UTI: Status: Acute (3) Non-ST elevation TN (NSTEMI): Status: Resolved (4) Metabolic encephalopathy: Status: Resolved (5) Anemia: Status: Chronic (6) Sacral decubitus ulcer: Status: Acute (7) Tinea: Status: Acute Discharge Plan Disposition Patient Disposition: Home Condition: Good Discharge Details Reason For Visit: UTI, Type II NSTEMI Admit Date/Time: 07/15/22 07:37 Admit Provider: Mihir Shelby Attending Provider: Mihir Shelby Primary Care Provider: Letitia Shah Hospital Course Hospital Course: 67-year-old female with a past medical history of learning disability, depression, high cholesterol, abdominal hernia, chronic difficulty with urinary emptying which subsequently led to an indwelling suprapubic urinary catheter which per urology has been challenging to switch out in regards to achieving ideal placement in the bladder, and hence has needed to undergo guided urology placement. She was brought to the ED via EMS w/ acute confusion and found to be septic. Blood and urine cultures grew Enterobacter cloacae, CT scan of her abdomen and pelvis demonstreated gall bladder sludge but no acute biliary obstruction, and kidneys showed no abscess or obstructive uropathy. 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 Patient's bacteremia cleared. Dr. Zamora was consulted but was unavailable. Patient's encephalopathy cleared w/ improvement of her infection. She did have transient troponinemia believed to be from demand ischemia. She never had any chest pain. Troponin peaked at 420 and declined to 232. She did not have any EKG changes. Echocardiogram was done which showed normal LV and RV function and an LVEF of 55% however RWMA could not be ruled out. Patient is being discharged on Levaquin 750 mg po daily x 10 days and should follow up w/ Dr. Zamora to have her SPC changed. Her PCP should discuss the need for coronary risk assessment w/ follow up stress MPI. As for her biliary sludge, once she has recovered from her UTI and stress MPI is negative, the pros/cons of prophylactic cholecystecomy can be discussed. Patient was found to have an iron deficiency and received two doses of Venofer. B12 and folate levels were checked and found to be normal. Repeat CBC in 4 weeks is recommended. Further evaluation for source of her iron deficiency should be considered including routine screening colonoscopy, EGD. Home Meds and New Rx's Prescriptions: New levofloxacin 750 mg tablet 750 mg PO DAILY 10 Days Qty: 10 0RF Continued Excedrin Extra Strength 250-250-65 mg tablet 1 tab PO Q6H PRN (Reason: headache) Patient Comments: usually uses bid triamcinolone acetonide 0.025 % cream 1 applic topical DAILY Qty: 454 0RF Myrbetriq 50 mg tablet extended release 24 hr 50 mg PO DAILY Qty: 90 3RF fluoxetine 20 mg capsule 20 mg PO DAILY Qty: 30 12RF duloxetine 30 mg capsule,delayed release(DR/EC) 30 mg PO DAILY Qty: 30 12RF allopurinol 300 mg tablet 300 mg PO DAILY Qty: 30 12RF pantoprazole 40 mg tablet,delayed release (DR/EC) 40 mg PO DAILY Qty: 30 12RF simvastatin 40 mg tablet 40 mg PO QPM Qty: 30 12RF oxybutynin chloride 5 mg tablet extended release 24hr 5 mg PO DAILY Qty: 30 1RF melatonin 3 mg tablet 3 mg PO Q6PM PRN (Reason: sleep) Qty: 90 3RF gabapentin 600 mg tablet 600 mg PO BID Qty: 60 6RF Rexulti 3 mg tablet 3 mg PO DAILY Qty: 30 11RF lamotrigine 200 mg tablet 300 mg PO DAILY Qty: 45 11RF Rx Instructions: Take 1/2 tab (100mg) in AM and 1 tab (200mg) in evening cholecalciferol (vitamin D3) 25 mcg (1,000 unit) capsule 1,000 unit PO DAILY Qty: 30 2RF acetaminophen 500 mg capsule 1,000 mg PO Q8H PRN PRNQty: 30 0RF aspirin 81 mg tablet,delayed release (DR/EC) 81 mg PO BID Qty: 60 0RF ibuprofen 600 mg tablet 600 mg PO TID Qty: 30 0RF Discharge Instructions Instructions: Levofloxacin (By mouth), Sepsis (DC), Bacteremia (DC) Additional Instructions: You were treated for severe urinary tract infection which had spread to your blood stream, and you were treated w/ intravenous antibioitics. CT scan of your abdomen demonstrated that you have gall bladder sludge but did not have any evidence of acute cholecystits. Imaging of your kidneys did not show any stones or obstruction to your urinary tract infection. You did have a mild elevation of your heart enzymes in response to the stress caused by your infection. You should discuss w/ your PCP regarding getting an outpatient stress test to evaluate for hidden coronary artery disease. You should follow up w/ Dr. Zamora in the next week to have your suprapubic catheter changed prior to completion of your antibiotics. You are being discharged home on 10 days of antibiotics, Levaquin 750 mg daily Referrals: Boni Zamora MD [[facility] STAFF PHYSICIAN] - 08/03/22 11:00 am Letitia Shah MD [Primary Care Provider] - 08/02/22 12:40 pm Activity:: Activity as Tolerated Equipment/Supplies:: No Equipment Needed Diet:: Normal Diet Discharge Orders Discharge Orders: Discharge Order (Routine); Ordered 07/19/22 Ordered By: Mihir Shelby DS: Summary Time Spent with Patient providing and/or coordinating discharge services: Greater than 30 minutes Status at Discharge Functional status at discharge: independent ambulation Overall status at discharge: patient is back to baseline Mental Status: mental status grossly normal Speech and Movement: speech and movement normal Mood: congruent mood Affect: normal affect Exam Psych Mental Status: mental status grossly normal Speech and Movement: speech and movement normal Mood: congruent mood Affect: normal affect DS: Data Vitals/I&O Vitals and I&O: Vital Signs Temperature 36.6 C 07/19/22 07:53 Temperature Source Tympanic 07/19/22 07:53 Pulse 67 07/19/22 07:53 Pulse Rhythm Regular 07/19/22 07:30 Pulse 70 07/15/22 08:50 Respiratory Rate 18 07/19/22 07:53 Respiratory Effort Normal, Non-Labored 07/19/22 07:30 Respiratory Depth Normal 07/19/22 07:30 Respiratory Pattern Normal 07/19/22 07:30 Blood Pressure 98/61 L 07/19/22 07:53 Blood Pressure Mean 72 07/15/22 08:46 Blood Pressure Position Sitting 07/15/22 04:21 Pulse Oximetry 92 07/19/22 07:53 Oxygen Delivery Method Room Air 07/19/22 07:53 Oxygen Flow Rate 0 07/19/22 07:53 Pain Level 0 07/19/22 07:53 Comment Patient desats to 86% on room air when asleep. Applied 2L of O2 via nasal cannula. Patient O2 sat 92%-93% on 2L. 07/18/22 03:43 Intake & Output 07/18/22 07/19/22 07/19/22 23:59 11:59 23:59 Intake Total 945 / 1195 Output Total 550 / 1525 1949 Balance 395 / -330 -1949 -1949 Weight 89.5 kg Intake: IV 465 / 465 Oral 480 / 730 Output: Urine 550 / 1525 1949 Other: Urine Color Straw Pale Yellow Urine Appearance Cloudy Clear Sediment Stool Size Large Moderate Stool Characteristics Formed Soft Brown Data Completed and Pending Labs on day of discharge: Labs from last 24 hours 07/17/22 06:11 Transferrin 193 L Preliminary micro results at discharge 07/17/22 06:20 Blood Culture - Preliminary Blood NO GROWTH 48 HOURS 07/17/22 06:11 Blood Culture - Preliminary Blood NO GROWTH 48 HOURS PFSH All Active Problems (Updated 07/19/22 @ 12:13 by Mihir Shelby MD) Tinea (Acute) Sacral decubitus ulcer (Acute) Discharge planning issues (Acute) Acute UTI (Acute) Acute confusion (Acute) Vitamin D deficiency (Acute 08/17/12) Right shoulder pain (Chronic 09/10/14) chronic pain, no surgery hx. Psoriasis (Chronic 04/16/13) Neck pain (Acute) w/ muscle spasm, secondary to scoliosis Hyperlipidemia (Chronic 08/17/12) Headache (Acute) secondary to scoliosis & neck muscle spasm Depressive disorder (Chronic) bipolar 02/25-[facility] Retention of urine (Acute) Conductive hearing loss, external ear (Acute) uses hearing aids Anemia (Chronic) Learning disability (Chronic) per sister(Callie)Jackelin has a long history of being able to comprehend verbal material and needs written materials along with short repetitive explanations. 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) Candidiasis of breast Gallstones Gastritis presumed (improved symptoms on omeprazole) Hernia of abdominal wall Idiopathic scoliosis w/ Chronic LBP; surgery-1969,1971, 1990, 1995, 1997 ([facility]) Postoperative hemorrhage Pyoderma gangrenosum (09/15/12) Tubular adenoma (08/09/16) Surgical History Colonoscopy - IV Sedation (08/09/16) H/O left wrist surgery Previous back surgery Status post laparoscopic hysterectomy Family History Father , 63 Lung cancer Sister Depression Sister COPD (chronic obstructive pulmonary disease) Grandmother Breast cancer Son Depression Mother , 93 Old age Social History Smoking/Tobacco Use Status: Never Second Hand Exposure: Yes Smoking risk assessment performed?: Yes Alcohol Intake: never Counseling given: No Drug use: Never Substance use type: does not use Counseling provided: none Caregiver/Support person: No Household members: none Housing: apartment Number of Children: 3 number of grandchildren: 3 Communication Needs: None Education Level: high school Do you need help understanding health information?: Rarely 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 Pets and animals: No Sexually active: No Do you think of yourself as: straight/heterosexual Current gender identity: female What is your relationship status?: How often do you talk on the phone with friends or family?: decline to answer How often do you get together with friends or relatives?: decline to answer How often do you attend rastafarian or denominational services?: decline to answer Do you belong to any clubs or organized social groups?: no Panel score (0-1 are the most socially isolated patients): 0 What type of physical activity do you participate in: none Pari/Worship: Anabaptism Special pari needs: No Seatbelt use: always Helmet use: No Drive intox or ride w/intox laundry route driver: No Do you feel safe at home: Yes Do you feel safe in your relationship?: Yes Time Spent with Patient Time Spent with Patient: <45 minutes Time was spent: preparing to see the patient(eg.review tests), ordering medications,tests, procedures, referring, communicating with other health director of healthcare systems (preparing dc summary), counseling the patient and care coordination
--- NOTE | 2022-07-19 16:52 | CMDISCH_ITS ---
- If Service Date Differs Date of service: 07/19/22 Time of Service: 16:52 LACE Index Scoring Tool - Questions: Length of Stay (in days): 4 - 6 Acuity (Admit via E.D.?): Yes Comorbidities: Previous M.I. E.D. Visits: 3 - Answers: Total Score: 11 Risk of Readmission: High Risk Care Management Discharge Reason for Hospitalization: Type II NSTEMI, Acute UTI Discharge Plan: Jackelin will return home with a resumption of services through the [facility] program. She will follow up with her community providers and plan of care and will transport with a friend. Patient/Family Education Needs: Review of discharge instructions including me dication, limitations and follow up plan of care; discuss Ask Me Three and self management. Services Needed at Discharge: Home Health Care Services, Homemaking Services
== END 2022-07-19 13:24 | disposition home or self-care (01) | DRG 871 ==
LOC: ER 08:04 → MS 09:23
PROVIDERS: Admitting Provider Internal Medicine; Emergency Provider Student in an Organized Health Care Education/Training Program; PCP Family Medicine; Visit Provider Internal Medicine
DX: A41.89 Other specified sepsis (principal); G93.41 Metabolic encephalopathy; I21.A1 Myocardial infarction type 2; N39.0 Urinary tract infection, site not specified; D64.9 Anemia, unspecified; K21.9 Gastro-esophageal reflux disease without esophagitis; L89.159 Pressure ulcer of sacral region, unspecified stage; B35.4 Tinea corporis; R33.9 Retention of urine, unspecified; W19.XXXA Unspecified fall, initial encounter; E55.9 Vitamin D deficiency, unspecified; L40.9 Psoriasis, unspecified; M41.85 Other forms of scoliosis, thoracolumbar region; F31.9 Bipolar disorder, unspecified; E78.5 Hyperlipidemia, unspecified; B96.89 Other specified bacterial agents as the cause of diseases classified elsewhere; Z93.51 Cutaneous-vesicostomy status
CPT/HCPCS: 36415; 71250; 80048; 80053; 82550; 82805; 84145; 87040; 87077; 87637; 93005; 93306; 96365; 96375; 99285; J1650; 70450; 74176; 81003; 81015; 82607; 82728; 82746; 83036; 83540; 83550; 83605; 83735; 84132; 84443; 84466; 84484; 85025; 86140; 87086; 87186; 93010; 99223; 99232; 99239; J0696; J1756; J1956; J2543; J3475

== ENCOUNTER 2022-07-21 18:30 | Emergency (ER) | payer MEDICARE, MEDICAID, SELFPAY ==
--- NOTE | 2022-07-21 18:15 | RT.EKG_ITS ---
APPROVED REPORT Exam: Resting ECG Reason for Exam: chest pain Patient Location: E HR:67 bpm ECG Measurements Heart Rate 67 AXIS SD 149 P 39 QRSd 104 QRS -5 QT 429 T 53 QTc 442 Conclusion Sinus rhythm...normal P axis, V-rate 60- 99 Atrial premature complexes...SV complexes w/ short R-R intvls sinus rhtyhm, normal axis, normal intervals, PAC
[2022-07-21 18:33] VITALS: BP 129/70; PULSE 69; RESP 18; TEMP 36.6; O2SAT 97
[2022-07-21 18:43] VITALS: BP 129/70; PULSE 75; RESP 18; O2SAT 98
--- NOTE | 2022-07-21 18:45 | DI.CT_ITS ---
Exam(s) CT HEAD WO EXAM: CT HEAD WO CLINICAL HISTORY: ams. TECHNIQUE: Imaging Protocol: Axial computed tomography images with coronal and sagittal reformatted images were created and reviewed COMPARISON: CT CT HEAD WO from 07/15/2022 FINDINGS: Ventricles and Extra axial spaces: Normal in size and morphology for the patient's age. Hemorrhage: None. Cerebral parenchyma: There is no evidence of an acute territorial infarct. There are subtle areas of decreased attenuation in the white matter most consistent with small vessel ischemic disease. Midline shift: None. Brainstem/Cerebellum: Normal. Calvarium: Normal. Visualized Paranasal sinuses/Mastoids: Clear. Soft Tissues: Unremarkable. IMPRESSION: No acute intracranial process. RADIATION DOSE DELIVERED: 764.44mGy.cm Total DLP DATA REPOSITORY: All CT scans at this facility are submitted to the National Radiology Data Registry (NRDR) Dose Index Registry (DIR) with the [employer] (ACR). RADIATION OPTIMIZATION: All CT scans at this facility use at least one of these dose optimization te chniques: automated exposure control; mA and/or kV adjustment per patient size (includes targeted exa ms where dose is matched to clinical indication); or iterative reconstruction.
--- NOTE | 2022-07-21 18:45 | DI.RAD_ITS ---
Exam(s) XR CHEST 2V PA LATERAL EXAM: XR CHEST 2V PA LATERAL CLINICAL HISTORY: ams, recent admission TECHNIQUE: 2D digital imaging was performed of the chest. Two images were obtained. PA and lateral views were obtained. COMPARISON: CR XR CHEST 1V IN DI DEPT from 02/11/2020 FINDINGS: MEDIASTINUM: Normal. HEART: Normal. PULMONARY VASCULATURE: Normal. LUNGS: No focal consolidating infiltrates. There is mild basilar atelectasis. PLEURAL SPACE: No pleural effusion or pneumothorax. BONE:Within normal limits for the patient's age. There is a right convex scoliosis again seen. Post erior spinal rods are again seen in the thoracic spine. OTHER FINDINGS:Normal. IMPRESSION: Mild basilar atelectasis. DATA REPOSITORY: RADIATION DOSE DELIVERED:
--- NOTE | 2022-07-21 18:45 | DI.CT_ITS ---
Exam(s) CT ABDOMEN PELVIS W EXAM: CT ABDOMEN PELVIS W CLINICAL HISTORY: ams, hx of gall sludge TECHNIQUE: Imaging Protocol: Axial computed tomography images with coronal and sagittal reformatted images were created and reviewed CONTRAST MATERIAL: Intravenous: Omnipaque 350 Contrast volume:100 mL Oral: No COMPARISON: CT CT CHEST/ABD/PEL WO from 07/15/2022 FINDINGS: The examination is limited due to patient motion artifact. ABDOMEN: Lung Bases: Atelectasis in the lung bases. Liver: Normal density. No measurable mass. Portal, Superior Mesenteric, and Splenic Veins: Unremarkable. Gallbladder and Biliary Tract: There is layering debris in the gallbladder. No biliary ductal dilata tion. Gallbladder is moderately distended. No definite bowel wall thickening. Pancreas: Normal density, no abnormal calcifications or inflammatory process. Spleen: Normal. Adrenals: No masses seen. Kidneys: Normal size, contour and axis. No radiodense stones or obstructive uropathy. No masses seen. There again seen prominent extrarenal pelves. Abdominal Aorta: Abdominal portion non-dilated. Atherosclerosis. Bowel: Colonic diverticulosis but no evidence of acute diverticulitis. There is a right abdominal wa ll hernia containing an unremarkable loop of colon. No evidence of strangulation or bowel obstructio n. No evidence of appendicitis. There is a small duodenal diverticulum. Peritoneal Cavity: No ascites, collection or mesenteric inflammatory response. No free air. Lymph Nodes: Within normal limits. Bones: Postsurgical changes are again seen in the spine. There is a left convex scoliosis. Soft Tissues: Please see the above section under bowel. PELVIS: Bladder: There is a suprapubic catheter. There is diffuse thickening of the wall of the urinary blad janessa. Reproductive Organs: Status post hysterectomy. Lymph Nodes: Within normal limits. Bones: Within normal limits for the patient's age. IMPRESSION: 1. No acute abdominal or pelvic process. 2. Stable chronic findings in the abdomen and pelvis as described. RADIATION DOSE DELIVERED: 1,369.35mGy.cm Total DLP DATA REPOSITORY: All CT scans at this facility are submitted to the National Radiology Data Registry (NRDR) Dose Index Registry (DIR) with the [employer] (ACR). RADIATION OPTIMIZATION: All CT scans at this facility use at least one of these dose optimization te chniques: automated exposure control; mA and/or kV adjustment per patient size (includes targeted exa ms where dose is matched to clinical indication); or iterative reconstruction.
--- NOTE | 2022-07-21 18:51 | W.ED.GENAD ---
Discharge Plan Disposition Patient Disposition: Home Discharge Details Chief Complaint: Chest Pain Clinical Impression: Fatigue Primary Care Provider: Letitia Shah ED Provider: Justin Carrasquillo Home Meds and New Rx's Prescriptions: No Action Excedrin Extra Strength 250-250-65 mg tablet 1 tab PO Q6H PRN (Reason: headache) Patient Comments: usually uses bid triamcinolone acetonide 0.025 % cream 1 applic topical DAILY Qty: 454 0RF Myrbetriq 50 mg tablet extended release 24 hr 50 mg PO DAILY Qty: 90 3RF fluoxetine 20 mg capsule 20 mg PO DAILY Qty: 30 12RF duloxetine 30 mg capsule,delayed release(DR/EC) 30 mg PO DAILY Qty: 30 12RF allopurinol 300 mg tablet 300 mg PO DAILY Qty: 30 12RF pantoprazole 40 mg tablet,delayed release (DR/EC) 40 mg PO DAILY Qty: 30 12RF simvastatin 40 mg tablet 40 mg PO QPM Qty: 30 12RF oxybutynin chloride 5 mg tablet extended release 24hr 5 mg PO DAILY Qty: 30 1RF melatonin 3 mg tablet 3 mg PO Q6PM PRN (Reason: sleep) Qty: 90 3RF gabapentin 600 mg tablet 600 mg PO BID Qty: 60 6RF Rexulti 3 mg tablet 3 mg PO DAILY Qty: 30 11RF lamotrigine 200 mg tablet 300 mg PO DAILY Qty: 45 11RF Rx Instructions: Take 1/2 tab (100mg) in AM and 1 tab (200mg) in evening cholecalciferol (vitamin D3) 25 mcg (1,000 unit) capsule 1,000 unit PO DAILY Qty: 30 2RF acetaminophen 500 mg capsule 1,000 mg PO Q8H PRN PRNQty: 30 0RF aspirin 81 mg tablet,delayed release (DR/EC) 81 mg PO BID Qty: 60 0RF ibuprofen 600 mg tablet 600 mg PO TID Qty: 30 0RF levofloxacin 750 mg tablet 750 mg PO DAILY 10 Days Qty: 10 0RF Discharge Instructions Instructions: Fatigue (ED) Additional Instructions: Please follow-up with your primary care physician. Medical Decision Making 67-year-old female recent urosepsis and NSTEMI presents with altered mental status, per collateral from Sister Callie patient was repeating herself and acting confused over the phone earlier today, brought in by EMS. Afebrile, normotensive, nontachycardic, not hypoxic alert interactive moving all extremities, no signs of trauma, patient does have ecchymosis to infraumbilical region consider site of Lovenox injection during recent hospitalization. Suprapubic Beaver catheter in place clean dry intact, clear yellow urine in bag, slight drying of oral mucosa. Consider dehydration versus lecture light normality versus infectious etiology such as recurrent UTI versus less likely toxicologic process muscles consider intracranial process less likely CVA hemorrhagic or ischemic consider encephalopathy low suspicion for meningitis or encephalitis given history and physical, afebrile, muscles consider intra-abdominal process such as cholecystitis given recent finding of biliary sludge and chin discomfort which could be referred pain, patient does have history of trigeminal neuralgia as well, versus ACS. Screening labs imaging fluids close reassessment 22: 39 patient resting comfortably alert oriented sitting up in bed appears greatly improved after fluids magnesium repletion and food. HPI General Date/Time Provider Initiated Documentation: 07/21/22 18:33. HPI Narrative: 67-year-old female history of chronic indwelling suprapubic Beaver catheter, recent urosepsis and NSTEMI presents referred in by sister brought in by EMS for potential altered mental status, was repeating herself at home behaving mild to moderately confused. Patient was endorsing chin discomfort and abdominal discomfort. Currently resting comfortably no acute distress denying any current symptomatology Related Data Home Medications Medication Instructions Recorded Confirmed [id number] 250 1 tab PO Q6H PRN headache 07/10/21 07/15/22 mg-250 mg-65 mg tablet (Excedrin Extra Strength) triamcinolone acetonide 0.025 % 1 applic topical DAILY #454 grams 10/02/21 06/25/22 topical cream acetaminophen 500 mg capsule 1,000 mg PO Q8H PRN PRN #30 caps 11/18/21 07/15/22 aspirin 81 mg tablet,delayed 81 mg PO BID #60 tabs 11/18/21 07/15/22 release ibuprofen 600 mg tablet 600 mg PO TID #30 tabs 11/18/21 07/15/22 gabapentin 600 mg tablet 600 mg PO BID #60 tabs 02/01/22 07/15/22 brexpiprazole 3 mg tablet (Rexulti) 3 mg PO DAILY #30 tabs 02/05/22 07/15/22 lamotrigine 200 mg tablet 300 mg PO DAILY #45 tabs 02/05/22 07/15/22 mirabegron 50 mg tablet,extended 50 mg PO DAILY bladder spasm #90 02/05/22 07/15/22 release 24 hr (Myrbetriq) tabs allopurinol 300 mg tablet 300 mg PO DAILY #30 tabs 02/09/22 07/15/22 duloxetine 30 mg capsule,delayed 30 mg PO DAILY #30 caps 02/09/22 07/15/22 release fluoxetine 20 mg capsule 20 mg PO DAILY #30 caps 02/09/22 07/15/22 pantoprazole 40 mg tablet,delayed 40 mg PO DAILY #30 tabs 02/09/22 07/15/22 release simvastatin 40 mg tablet 40 mg PO QPM #30 tabs 02/09/22 07/15/22 cholecalciferol (vitamin D3) 25 1,000 unit PO DAILY #30 caps 05/12/22 07/15/22 mcg (1,000 unit) capsule melatonin 3 mg tablet 3 mg PO Q6PM PRN sleep #90 tabs 05/21/22 07/15/22 oxybutynin chloride 5 mg 5 mg PO DAILY #30 tabs 06/08/22 07/15/22 tablet,extended release 24 hr levofloxacin 750 mg tablet 750 mg PO DAILY 10 days #10 tabs 07/19/22 Previous Rx's Medication Instructions Recorded triamcinolone acetonide 0.025 % 1 applic topical DAILY #454 grams 10/02/21 topical cream acetaminophen 500 mg capsule 1,000 mg PO Q8H PRN PRN #30 caps 11/18/21 aspirin 81 mg tablet,delayed 81 mg PO BID #60 tabs 11/18/21 release ibuprofen 600 mg tablet 600 mg PO TID #30 tabs 11/18/21 gabapentin 600 mg tablet 600 mg PO BID #60 tabs 02/01/22 brexpiprazole 3 mg tablet (Rexulti) 3 mg PO DAILY #30 tabs 02/05/22 lamotrigine 200 mg tablet 300 mg PO DAILY #45 tabs 02/05/22 mirabegron 50 mg tablet,extended 50 mg PO DAILY bladder spasm #90 02/05/22 release 24 hr (Myrbetriq) tabs allopurinol 300 mg tablet 300 mg PO DAILY #30 tabs 02/09/22 duloxetine 30 mg capsule,delayed 30 mg PO DAILY #30 caps 02/09/22 release fluoxetine 20 mg capsule 20 mg PO DAILY #30 caps 02/09/22 pantoprazole 40 mg tablet,delayed 40 mg PO DAILY #30 tabs 02/09/22 release simvastatin 40 mg tablet 40 mg PO QPM #30 tabs 02/09/22 cholecalciferol (vitamin D3) 25 1,000 unit PO DAILY #30 caps 05/12/22 mcg (1,000 unit) capsule melatonin 3 mg tablet 3 mg PO Q6PM PRN sleep #90 tabs 05/21/22 oxybutynin chloride 5 mg 5 mg PO DAILY #30 tabs 06/08/22 tablet,extended release 24 hr levofloxacin 750 mg tablet 750 mg PO DAILY 10 days #10 tabs 07/19/22 Allergies Allergy/AdvReac Type Severity Reaction Status Date / Time codeine AdvReac Intermediate NAUSEA/DIZZ Verified 07/21/22 18:32 INESS General Stated Complaint: Chest Pain JAMILA: 3 Review of Systems Narrative: Review of Systems Constitutional: negative Eyes: negative ENT: negative Cardiovascular: negative Respiratory: negative Gastrointestinal: negative : negative Musculoskeletal: negative Skin: negative Neurologic: AMS Psych: negative PFSH All Active Problems (Updated 07/21/22 @ 22:40 by Justin Carrasquillo MD) Fatigue (Acute) Tinea (Acute) Sacral decubitus ulcer (Acute) Acute UTI (Acute) Vitamin D deficiency (Acute 08/17/12) Right shoulder pain (Chronic 09/10/14) chronic pain, no surgery hx. Psoriasis (Chronic 04/16/13) Neck pain (Acute) w/ muscle spasm, secondary to scoliosis Hyperlipidemia (Chronic 08/17/12) Headache (Acute) secondary to scoliosis & neck muscle spasm Depressive disorder (Chronic) bipolar 02/25-[facility] Retention of urine (Acute) Conductive hearing loss, external ear (Acute) uses hearing aids Anemia (Chronic) Learning disability (Chronic) per sister(Callie)Jackelin has a long history of being able to comprehend verbal material and needs written materials along with short repetitive explanations. 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) Candidiasis of breast Gallstones Gastritis presumed (improved symptoms on omeprazole) Hernia of abdominal wall Idiopathic scoliosis w/ Chronic LBP; surgery-1969,1971, 1990, 1995, 1997 ([facility]) Postoperative hemorrhage Pyoderma gangrenosum (09/15/12) Tubular adenoma (08/09/16) Surgical History Colonoscopy - IV Sedation (08/09/16) H/O left wrist surgery Previous back surgery Status post laparoscopic hysterectomy Family History Father , 63 Lung cancer Sister Depression Sister COPD (chronic obstructive pulmonary disease) Grandmother Breast cancer Son Depression Mother , 93 Old age Social History Smoking/Tobacco Use Status: Never Second Hand Exposure: Yes Smoking risk assessment performed?: Yes Alcohol Intake: never Counseling given: No Drug use: Never Substance use type: does not use Counseling provided: none Caregiver/Support person: No Household members: none Housing: apartment Number of Children: 3 number of grandchildren: 3 Communication Needs: None Education Level: high school Do you need help understanding health information?: Rarely 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 Pets and animals: No Sexually active: No Do you think of yourself as: straight/heterosexual Current gender identity: female What is your relationship status?: How often do you talk on the phone with friends or family?: decline to answer How often do you get together with friends or relatives?: decline to answer How often do you attend protestant or cheondoism services?: decline to answer Do you belong to any clubs or organized social groups?: no Panel score (0-1 are the most socially isolated patients): 0 What type of physical activity do you participate in: none Pari/Hinduism: [employer]aritan Special pari needs: No Seatbelt use: always Helmet use: No Drive intox or ride w/intox 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: No Do you feel safe at home: Yes Do you feel safe in your relationship?: Yes Exam Narrative Exam Narrative: Physical Examination General: alert, awake, cooperative, appears fatigued HEENT: normocephalic, atraumatic; PERRL, EOM intact, conjunctiva normal; no nasal discharge; mild dry oral mucosa Neck: supple, trachea midline; full ROM Chest: normal to inspection Respiratory: normal respiratory effort, speaking in full sentences, clear to auscultation, no wheezing, rales or rhonchi Cardiac: regular rate, regular rhythm, S1S2 intact, no murmurs rubs or gallops GI: abdomen soft, non-tender, non-distended; no palpable mass or hepatosplenomegaly : Suprapubic Beaver catheter site clean dry intact, clear yellow urine in bag Skin: Ecchymosis to infraumbilical region Neuro: Alert, interactive moving all extremities to command no focal deficits Psych: Appropriate mood and affect Course Vital Signs Vital signs: Vital Signs Temperature 36.6 C 07/21/22 18:33 Pulse 69 07/21/22 18:33 Respiratory Rate 18 07/21/22 18:33 Blood Pressure 129/70 07/21/22 18:33 Pulse Oximetry 97 07/21/22 18:33 Temperature 36.6 C 07/21/22 18:33 Temperature Source Temporal Artery Scan 07/21/22 18:33 Pulse 75 07/21/22 18:43 Respiratory Rate 18 07/21/22 18:43 Respiratory Effort Normal, Non-Labored 07/21/22 18:31 Blood Pressure 129/70 07/21/22 18:43 Pulse Oximetry 98 07/21/22 18:43 Oxygen Delivery Method Room Air 07/21/22 18:43 Oxygen Flow Rate 0 07/21/22 18:43
[2022-07-21 19:15] LABS: Bilirubin Negative (Negative); Blood Small (Negative); Clarity Clear (Clear); Glucose Negative (Negative); Ketones Trace mg/dL (Negative); Leukocyte Esterase Small (Negative); Nitrite Negative (Negative); Specific Gravity 1.015 (1.005-1.025); Urobilinogen 0.2 mg/dL (Up to 0.2)
[2022-07-21 19:16] LABS: HCT 34.7 % (36.0-46.0); HGB 11.6 g/dL (11.2-15.7); MCH 30.4 pg (27.0-33.0); MCHC 33.4 % (32.0-36.0); MCV 91 fL (80-95); MPV 9.5 fL (8.0-11.0); Platelet Count 250 10^3/uL (130-400); RBC 3.82 10^6/uL (3.93-5.22); RDW 12.8 % (11.7-14.6); RDW-SD 41.6 fL; WBC 9.12 10^3/uL (4.4-10.8)
[2022-07-21 19:19] LABS: PTT Activated 27.4 sec (21.5-31.9); Prothrombin Time 10.3 sec (9.3-11.0)
[2022-07-21 19:31] LABS: ALT 61 U/L (14-59); AST 56 U/L (15-37); Albumin 3.7 g/dL (3.4-5.0); Alkaline Phosphatase 81 U/L (46-116); Anion Gap 7.6 mmol/L (3-11); BUN 16 mg/dL (7-18); Bilirubin, Total 0.5 mg/dL (0.2-1.0); CO2 29.4 mmol/L (21.0-32.0); Chloride 95 mmol/L (98-107); Estimated GFR 60.98 (mL/min/1.73m2); Glucose 129 mg/dL (74-106); Magnesium 1.3 mg/dL (1.8-2.4); Potassium 4.1 mmol/L (3.5-5.1); Sodium 132 mmol/L (136-145); TSH (W/Ref FT4) 2.47 uIU/mL (0.36-3.74); Total Protein 7.7 g/dL (6.4-8.2); Troponin I < 50 ng/L (<or=60)
[2022-07-21 19:40] LABS: Absolute Neutrophil Count 6.57 10^3/uL (1.2-6.7)
[2022-07-21 19:41] LABS: Absolute Eosinophil Count 0.09 10^3/uL (0.0-0.7); Absolute Lymphocyte Count 1.92 10^3/uL (1.2-3.4); Absolute Monocyte Count 0.46 10^3/uL (0.1-0.8); Atypical Lymphocytes % 1
[2022-07-21 19:42] LABS: Diff Comment Manual Differential; Myelocytes % 1; RBC Morphology Normal
[2022-07-21] MEDS: Normal Saline 500 ML 1000 ML IV (19:47)
[2022-07-21 19:49] LABS: Bacteria Rare HPF (Negative); C & S Indicated? Yes; Casts Negative LPF (Negative); Crystals Negative HPF (Negative); Epithelial Cells Rare HPF (Negative); Mucus Negative (Negative); RBC 0-2 HPF (0-2); WBC 0-2 HPF (0-5)
[2022-07-21] MEDS: Omnipaque 350 MG/ML 100 ML BTL IJ (19:54)
[2022-07-21] MEDS: Normal Saline - Diluent 50 ML VIAL IJ (19:55)
--- NOTE | 2022-07-21 20:22 | DI.VRAD_ITS ---
PROCEDURE INFORMATION: Exam: CT Head Without Contrast Exam date and time: 07/21/2022 8:03 PM Age: 67 years old Clinical indication: Other: AMS TECHNIQUE: Imaging protocol: Computed tomography of the head without contrast. COMPARISON: CT HEAD WO 07/15/2022 5:18 AM FINDINGS: Brain: Mild volume loss. No hemorrhage.Mild white matter disease. No mass effect. Cerebral ventricles: No ventriculomegaly. Paranasal sinuses: Visualized sinuses are unremarkable. No fluid levels. Mastoid air cells: Visualized mastoid air cells are well aerated. Bones/joints: Unremarkable. No acute fracture. Soft tissues: Unremarkable. IMPRESSION: No acute intracranial abnormality. Dictated and Authenticated by: Marques Miarnda MD. Ordering:TAMIE Anderson MD
[2022-07-21] MEDS: MAGNESIUM SULFATE 1 GM/100 ML BAG IVPB (20:28)
--- NOTE | 2022-07-21 20:42 | DI.VRAD_ITS ---
PROCEDURE INFORMATION: Exam: CT Abdomen And Pelvis With Contrast Exam date and time: 07/21/2022 20:05 Age: 67 years old Clinical indication: Other: AMS, HX gall sludge TECHNIQUE: Imaging protocol: Computed tomography of the abdomen and pelvis with contrast. Contrast material: 350; Contrast volume: 100 ml; Contrast route: INTRAVENOUS (IV); COMPARISON: CT CHEST/ABD/PEL WO 07/15/2022 05:20 FINDINGS: Liver: No hepatic masses. No hepatic masses. Hepatomegaly. Gallbladder and bile ducts: Probable cholelithiasis and some sludge in the gallbladder. Moderately distended gallbladder. No definite wall thickening or surrounding edema however. No significant biliary dilation or radiopaque stones in the biliary tree. Pancreas: No ductal dilation. No masses. Spleen: Splenomegaly. Adrenal glands: No mass. Kidneys and ureters: Prominent right and left extrarenal pelvis versus mild chronic UPJ disease. No renal masses. Stomach and bowel: Benign appearing duodenal diverticulum. Colonic diverticulosis without diverticulitis. No focal pathology in the small bowel. Appendix: No evidence of appendicitis. Intraperitoneal space: No free air. No significant fluid collection. Vasculature: No abdominal aortic aneurysm. Lymph nodes: No significantly enlarged lymph nodes. Urinary bladder: Mild generalized wall thickening of the urinary bladder favor chronic. Reproductive: Hysterectomy. Bones/joints: Extensive thoracic and lumbar fixation hardware. Chronic bony changes with no acute fracture. Scoliosis. Soft tissues: Right-sided lateral fascial defect containing herniated colon without inflammation or obstruction moderate in volume. Diastasis recti. Minor edema ventral abdominal pannus, favor nonacute. IMPRESSION: 1. No acute findings. 2. Incidental findings as described. Dictated and Authenticated by: Britany Priest MD. Ordering:TAMIE Anderson MD
--- NOTE | 2022-07-21 20:43 | DI.VRAD_ITS ---
PROCEDURE INFORMATION: Exam: XR Chest Exam date and time: 07/21/2022 20:17 Age: 67 years old Clinical indication: Other: AMS, recent admin TECHNIQUE: Imaging protocol: Radiologic exam of the chest. Views: 2 views. COMPARISON: CT CHEST/ABD/PEL WO 07/15/2022 05:20 FINDINGS: Lungs: No airspace consolidation. Linear bibasilar opacities. Pleural spaces: No pleural effusion. No pneumothorax. Heart/Mediastinum: No definite cardiomegaly allowing for positioning and technique as well as scoliosis. Bones/joints: Thoracolumbar fixation hardware, intact as visualized. Scoliosis. No displaced fracture. IMPRESSION: Basilar subsegmental atelectasis. Dictated and Authenticated by: Britany Priest MD. Ordering:TAMIE Anderson MD
[2022-07-21 21:42] VITALS: RESP 16
--- NOTE | 2022-07-21 22:26 | NUR.NOTE ---
Nursing Note: Gave patient tuna sandwich, shannon crackers, and gingerale.
[2022-07-21 22:36] LABS: Troponin I < 50 ng/L (<or=60)
[2022-07-21 23:33] VITALS: BP 129/70; PULSE 75; RESP 16; TEMP 36.6; O2SAT 98
== END 2022-07-21 23:39 | disposition home or self-care (01) ==
PROVIDERS: Emergency Provider Emergency Medicine; PCP Family Medicine
DX: R53.83 Other fatigue (principal); R07.9 Chest pain, unspecified; R41.82 Altered mental status, unspecified; I25.2 Old myocardial infarction; Z87.440 Personal history of urinary (tract) infections
CPT/HCPCS: 80053; 80307; 87077; 93005; 96365; 99285; 70450; 71046; 74177; 81003; 81015; 83735; 84443; 84484; 85025; 85610; 85730; 87086; 87186; 93010; 99284; J3475; J3490

== ENCOUNTER → 2022-08-03 10:46 | Outpatient (BNVA) | payer MEDICARE, MEDICAID, SELFPAY | PROVIDERS: PCP Family Medicine; Referring Provider Family Medicine; Visit Provider Urology | DX: Z43.5 Encounter for attention to cystostomy (principal); R33.9 Retention of urine, unspecified | CPT/HCPCS: 51705 ==

== ENCOUNTER → 2022-09-17 12:51 | Outpatient (BNVA) | payer MEDICARE, MEDICAID, SELFPAY | PROVIDERS: PCP Family Medicine; Referring Provider Family Medicine; Visit Provider Urology | DX: Z43.5 Encounter for attention to cystostomy (principal); R33.9 Retention of urine, unspecified | CPT/HCPCS: 51705 ==

== ENCOUNTER → 2022-10-26 12:48 | Outpatient (BNVA) | payer MEDICARE, MEDICAID, SELFPAY | PROVIDERS: PCP Family Medicine; Referring Provider Family Medicine; Visit Provider Urology | DX: Z43.5 Encounter for attention to cystostomy (principal); R33.9 Retention of urine, unspecified | CPT/HCPCS: 51705 ==

== ENCOUNTER → 2022-12-09 13:59 | Outpatient (BNVA) | payer MEDICARE, MEDICAID, SELFPAY | PROVIDERS: PCP Family Medicine; Referring Provider Family Medicine; Visit Provider Urology | DX: Z43.1 Encounter for attention to gastrostomy (principal); R33.9 Retention of urine, unspecified | CPT/HCPCS: 51705 ==

== ENCOUNTER → 2023-01-04 11:03 | Outpatient (BNVA) | payer MEDICARE, MEDICAID, SELFPAY | PROVIDERS: PCP Family Medicine; Referring Provider Family Medicine; Visit Provider Urology | DX: Z46.6 Encounter for fitting and adjustment of urinary device (principal); R33.9 Retention of urine, unspecified | CPT/HCPCS: 51705 ==

== ENCOUNTER 2023-01-11 10:46 | Outpatient (CLI) | payer MEDICARE, MEDICAID, SELFPAY ==
--- NOTE | 2023-01-10 15:00 | DI.RAD_ITS ---
Exam(s) XR SHOULDER RT COMPLETE 2+V EXAM: XR SHOULDER RT COMPLETE 2+V CLINICAL HISTORY: eval R shoulder pain. TECHNIQUE: 2D digital imaging was performed. Two views. COMPARISON: CR RIGHT SHOULDER COMPLETE from 04/16/2014 FINDINGS: BONES: No acute fracture is present. No bony destructive lesion is seen. Prominence at greater tuber osity likely degenerative in nature. Rods noted in the spine. Scoliosis. JOINTS: No dislocation present. Severe narrowing of the glenohumeral joint with spurring at the infe rior glenoid and inferior humeral head. AC joint not well profiled. SOFT TISSUE: Normal. IMPRESSION: Advanced degenerative changes of the glenohumeral joint. DATA REPOSITORY: RADIATION DOSE DELIVERED:
== END 2023-01-11 10:47 | disposition home or self-care (01) ==
LOC: DIORS 10:46
PROVIDERS: PCP Family Medicine; Referring Provider Family Medicine; Visit Provider Student in an Organized Health Care Education/Training Program
DX: M19.011 Primary osteoarthritis, right shoulder; M75.31 Calcific tendinitis of right shoulder
CPT/HCPCS: 20610; 73030; J1040

== ENCOUNTER → 2023-02-01 11:11 | Outpatient (BNVA) | payer MEDICARE, MEDICAID, SELFPAY | PROVIDERS: PCP Family Medicine; Referring Provider Family Medicine; Visit Provider Urology | DX: R33.8 Other retention of urine (principal) | CPT/HCPCS: 52000 ==